=== PATIENT | female | born 1965 | race Caucasian/White ===

== ENCOUNTER → 2016-03-09 | Outpatient (CLI) | payer BC ==
[~2016-03-09] MED LIST: ESCI1TAB6 PO; PRED-301 PO; SULF500T36 PO; SULF800T23 PO
--- NOTE | 2016-03-10 07:31 | MAMMOGRAPHY REPORT ---
BILATERAL DIGITAL SCREENING MAMMOGRAM TOMOSYNTHESIS WITH CAD: 03/09/2016 CLINICAL HISTORY: Routine screening. Patient has no complaints. TECHNIQUE: Breast tomosynthesis in addition to standard 2D mammography was performed. Current study was also evaluated with a Computer Aided Detection (CAD) system. COMPARISON: Comparison is made to exams dated: 07/04/2013 mammogram, 07/04/2013 ultrasound, 03/04/2013 ultrasound, 06/09/2010 mammogram, and 04/14/2009 mammogram - [facility]. BREAST COMPOSITION: The tissue of both breasts is heterogeneously dense, which may obscure small ma sses. FINDINGS: No suspicious masses, calcifications, or areas of architectural distortion are noted in e ither breast. There has been no significant interval change compared to prior exams. There are stab le postsurgical changes including mild architectural distortion seen within the right 12:00 breast f rom prior excisional biopsy. Scattered bilateral benign-appearing calcifications are again noted. IMPRESSION: ACR BI-RADS CATEGORY 2: BENIGN There is no mammographic evidence of malignancy. A 1 year screening mammogram is recommended. The p atient will receive written notification of the results. Approximately 10% of breast cancers are not detected with mammography. A negative mammographic repor t should not delay biopsy if a clinically suggestive mass is present. Madai Murphy M.D. /:03/09/2016 13:34:04 Moving Consultant: Korina Snyder, [facility] letter sent: Normal 1/2 BI-RADS Code: ACR BI-RADS Category 2: Benign
== END | disposition home or self-care (01) ==
LOC: C.MAMM 11:12
PROVIDERS: ATTEND Family Medicine
DX: Z12.31 Encounter for screening mammogram for malignant neoplasm of breast (principal)

== ENCOUNTER 2016-11-18 01:00 | Emergency (ER) | payer BC | END 2016-11-18 01:10 | disposition left against medical advice (07) | LOC: C.EDB 01:01 ==

== ENCOUNTER 2016-11-22 05:30 | Emergency (ER) | payer BC ==
[~2016-11-22] VITALS: Ht 167.6 cm; Wt 64.6 kg
[2016-11-22 05:32] VITALS: Ht 167.6 cm; Wt 64.6 kg
[2016-11-22] MEDS ORDERED: KETOROLAC TROMETHAMINE 30 MG/ML VIAL IV STA (05:38)
[2016-11-22] MEDS ORDERED: ONDANSETRON INJ 2 MG/ML 2 ML VIAL IV STA (05:38)
[2016-11-22 06:02] LABS: BASO % 0.4 %; BASO ABS # 0.03 K/uL (0-0.2); COMPLETE YES; EOS % 4.7 %; HEMATOCRIT 39.6 % (37-47); IG% 0.4 %; LYMPH % 11.7 %; LYMPH ABS # 0.82 K/uL (1.2-3.4); MEAN CELL VOLUME 92.1 fL (80-100); MEAN CORPUSCULAR HEMOGLOBIN 30.7 pg (25-34); MEAN CORPUSCULAR HGB CONC 33.3 g/dl (32-36); MEAN PLATELET VOLUME 8.7 fL (7.4-10.4); MONO % 12.7 %; NEUT % 70.1 %; PLATELET COUNT 414 K/uL (130-400); WHITE BLOOD COUNT 6.99 K/uL (4.8-10.8)
[2016-11-22 06:10] LABS: URINE APPEARANCE CLOUDY (CLEAR); URINE BILIRUBIN NEG (NEG); URINE COLOR ORANGE; URINE EPITHELIAL CELL AUTO >30 /lpf (0-5); URINE NITRITE NEG (NEG); URINE SPECIFIC GRAVITY 1.019 (1.000-1.030); UROBILINOGEN NEG (NEG); ZZUR CULT IF INDIC CLEAN CATCH YES
[2016-11-22 06:14] LABS: MANUAL MICROSCOPIC REQUIRED? NO; REVIEW REQ? YES
[2016-11-22 06:25] LABS: BUN/CREATININE RATIO 10.6 (10-20); CALCIUM 8.7 mg/dl (8.5-10.1); CREATININE 0.92 mg/dl (0.60-1.20); POTASSIUM 3.3 mmol/L (3.5-5.1)
[2016-11-22] MEDS ORDERED: POTASSIUM CHLORIDE 10 MEQ TABCR PO STA (06:27)
[2016-11-22 06:28] LABS: URINE MUCUS PRESENT (NONE PRSENT)
--- NOTE | 2016-11-22 06:42 | EMERGENCY ROOM VISIT NOTE ---
History First contact with patient: 05:36 Chief Complaint: KIDNEY STONE Stated Complaint: KIDNEY STONE History of Present Illness The patient is a 51 year old female who presents to the Emergency Room with complaints of sudden onset of left flank pain that raised her groin describes aching, ranging in severity 3 out of 10. Nothing makes it better or worse. She has a history kidney stones and symptoms were similar. Dr. Hunter is her urologist. Dr. London answered GI for her Crohn's disease. She states this is well controlled. Patient denies chest pain, dyspnea, fever, chills, vomiting, diarrhea, dysuria. No chance for . Review of Systems See HPI for pertinent positives & negatives. A total of 10 systems reviewed and were otherwise negative. Past Medical/Surgical History Medical Problems: (1) Acute kidney injury (2) Crohn disease (3) Hypokalemia (4) Hypomagnesemia (5) Kidney stones (6) Sepsis (7) Ureteral calculus, left (8) Urinary tract infection Social History Smoking Status: Never Smoker Smokeless Tobacco Use: No Drug Use: none Marital Status: Housing Status: lives with family Occupation Status: employed Current/Historical Medications Scheduled Escitalopram Oxalate (Lexapro), 5 MG PO QPM Prednisone (Prednisone), 5 MG PO QPM Sulfa/Trimethoprim (Bactrim Ds 800MG/160MG), 1 TAB PO BID Sulfasalazine (Azulfidine), 1,000 MG PO QPM Physical Exam Vital Signs Date Time Temp Pulse Resp B/P (MAP) Pulse Ox O2 Delivery O2 Flow Rate FiO2 11/22/16 06:27 81 17 130/84 93 Room Air 11/22/16 05:32 36.9 89 18 131/83 98 Room Air Physical Exam VITALS: Vitals are noted on the nurse's note and reviewed by myself. Vital signs stable. GENERAL: Pleasant female, in no acute distress, nondiaphoretic, well-developed well-nourished. SKIN: The skin was without rashes, erythema, edema, or bruising. There is no tenting of the skin. Capillary reflex less than 2 seconds. HEAD: Normocephalic atraumatic. EARS: External auditory canals clear, tympanic membranes pearly [place] without erythema or effusion bilaterally. EYES: Pupils equal round and reactive to light and accommodation. Conjunctivae without injection, sclerae without icterus. Extraocular movements intact. NOSE: Patent, turbinates without inflammation or discharge. MOUTH: Mucous membranes moist. Pharynx without erythema or exudate. Uvula midline. Airway patent. Tongue does not deviate. NECK: Supple without nuchal rigidity. No lymphadenopathy. No thyromegaly. Cervical spine is nontender. No JVD. HEART: Regular rate and rhythm without murmurs gallops or rubs. LUNGS: Clear to auscultation bilaterally without wheezes, rales or rhonchi. No dullness to percussion. No retractions or accessory muscle use. ABDOMEN: Positive bowel sounds x 4. Normal tympanic percussion. Soft, nontender, without masses or organomegaly. Perry sign negative. No guarding or rebound tenderness. No CVA tenderness MUSCULOSKELETAL: No muscle atrophy, erythema, or edema noted. NEURO: Patient was alert and oriented to person place and time. Normal sensation to light and sharp touch. No focal neurological deficits. Medical Decision & Procedures Laboratory Results 11/22/16 05:47 Red Blood Count 4.30, Mean Corpuscular Volume 92.1, Mean Corpuscular Hemoglobin 30.7, Mean Corpuscular Hemoglobin Concent 33.3, Mean Platelet Volume 8.7, Neutrophils (%) (Auto) 70.1, Lymphocytes (%) (Auto) 11.7, Monocytes (%) (Auto) 12.7, Eosinophils (%) (Auto) 4.7, Basophils (%) (Auto) 0.4, Neutrophils # (Auto ) 4.89, Lymphocytes # (Auto) 0.82, Monocytes # (Auto) 0.89, Eosinophils # (Auto ) 0.33, Basophils # (Auto) 0.03 11/22/16 05:47 Test 11/22/16 00:00 11/22/16 05:47 Urine Color ORANGE Urine Appearance CLOUDY (CLEAR) Urine pH 5.0 (4.5-7.5) Urine Specific [place] 1.019 (1.000-1.030) Urine Protein 1+ (NEG) Urine Glucose (UA) NEG (NEG) Urine Ketones NEG (NEG) Urine Occult Blood 3+ (NEG) Urine Nitrite NEG (NEG) Urine Bilirubin NEG (NEG) Urine Urobilinogen NEG (NEG) Urine Leukocyte Esterase SMALL (NEG) Urine WBC (Auto) 10-30 /hpf (0-5) Urine RBC (Auto) >30 /hpf (0-4) Urine Hyaline Casts (Auto) 0 /lpf (0-5) Urine Epithelial Cells (Auto) >30 /lpf (0-5) Urine Bacteria (Auto) NEG (NEG) Urine Renal Epithelial Cells /lpf (0-5) Urine Pathogenic Casts /lpf (0) Urine Mucus PRESENT (NONE PRSENT) White Blood Count 6.99 K/uL (4.8-10.8) Red Blood Count 4.30 M/uL (4.2-5.4) Hemoglobin 13.2 g/dL (12.0-16.0) Hematocrit 39.6 % (37-47) Mean Corpuscular Volume 92.1 fL (80-100) Mean Corpuscular Hemoglobin 30.7 pg (25-34) Mean Corpuscular Hemoglobin Concent 33.3 g/dl (32-36) Platelet Count 414 K/uL (130-400) Mean Platelet Volume 8.7 fL (7.4-10.4) Neutrophils (%) (Auto) 70.1 % Lymphocytes (%) (Auto) 11.7 % Monocytes (%) (Auto) 12.7 % Eosinophils (%) (Auto) 4.7 % Basophils (%) (Auto) 0.4 % Neutrophils # (Auto) 4.89 K/uL (1.4-6.5) Lymphocytes # (Auto) 0.82 K/uL (1.2-3.4) Monocytes # (Auto) 0.89 K/uL (0.11-0.59) Eosinophils # (Auto) 0.33 K/uL (0-0.5) Basophils # (Auto) 0.03 K/uL (0-0.2) RDW Standard Deviation 48.0 fL (36.4-46.3) RDW Coefficient of Variation 14.1 % (11.5-14.5) Immature Granulocyte % (Auto) 0.4 % Immature Granulocyte # (Auto) 0.03 K/uL (0.00-0.02) Anion Gap 7.0 mmol/L (3-11) Est Creatinine Clear Calc Drug Dose 69.2 ml/min Estimated GFR () 84.7 Estimated GFR (Non- 73.1 BUN/Creatinine Ratio 10.6 (10-20) Calcium Level 8.7 mg/dl (8.5-10.1) Medications Administered Medications (Trade) Dose Ordered Sig/Ajm Route Start Time Stop Time Status Last Admin Dose Admin Ketorolac Tromethamine (Toradol Inj) 30 mg NOW STAT IV 11/22/16 05:38 11/22/16 05:39 DC 11/22/16 05:54 30 MG Ondansetron HCl (Zofran Inj) 4 mg NOW STAT IV 11/22/16 05:38 11/22/16 05:39 DC 11/22/16 05:54 4 MG Potassium Chloride (Klor-Con M10) 20 meq NOW STAT PO 11/22/16 06:27 11/22/16 06:28 DC 11/22/16 06:30 20 MEQ ED Course Prior records/ancillary studies reviewed. Triage Nursing notes reviewed. The patient's history was concerning for left flank pain. Differential diagnosis: Etiologies such as renal colic, appendicitis, diverticulitis, mesenteric ischemia, aortic pathology, infections, inflammatory bowel disease, PUD, biliary pathology, UTI, as well as others were entertained. Physical examination findings: As above. ER treatment provided: Toradol, Zofran On reassessment the patient felt better. Diagnostic interpretation by me: The labs revealed hypokalemia and this was replaced orally. Urinalysis revealed hematuria and skin cells concerning for contamination. There was no sign of UTI. Imaging studies: CT of the abdomen and pelvis as above. CT SCAN OF THE ABDOMEN AND PELVIS WITHOUT CONTRAST CLINICAL HISTORY: Left flank pain. Possible calculus COMPARISON STUDY: 12/23/2014 TECHNIQUE: CT scan of the abdomen and pelvis was performed from the lung bases to the proximal femurs. Images are reviewed in the axial, sagittal, and coronal planes. IV contrast was not administered for this examination. A dose lowering technique was utilized adhering to the principles of ALARA. CT DOSE: 484.40 mGy.cm FINDINGS: Lower chest: There are mild left basilar atelectatic changes Liver: The unenhanced liver is normal in size, contour, and attenuation. There is no intrahepatic biliary ductal dilatation. Gallbladder: A calcified stone is visualized. Spleen: Normal in size and attenuation. Pancreas: Unremarkable. Adrenal glands: Unremarkable. Kidneys: Multiple bilateral renal calculi are visualized. The largest on the right measures 3 mm. The largest on the left measures 4 mm. There is a 37 mm left renal hypodensity, likely representing a cyst. There is a 9 mm right renal hypodensity likely representing a cyst. There is moderate left-sided perinephric stranding. There is left-sided hydronephrosis and hydroureter. There is a 5 mm mid left ureteral calculus at the S3 level. There is a 7 mm distal left ureteral calculus just above the ureterovesical junction. Bowel: There are no transition zones indicate bowel obstruction. There is no acute diverticulitis. The appendix appears normal. There is a small bowel feces sign. This may indicate stasis. There is a 2 cm calcification within a distal ileal loop. There is submucosal fat hypertrophy within the colon. Peritoneum: There is no intraperitoneal free air or abdominal ascites. Vasculature: The abdominal aorta is normal in course and caliber. Adenopathy: None. Pelvic viscera: There is an indwelling vaginal ring. Skeletal structures: No destructive osseous lesions are seen. IMPRESSION: 1. Bilateral nephrolithiasis 2. There are 2 obstructing left ureteral calculi. There is a 5 mm mid left ureteral calculus at the S3 level. There is a 7 mm distal left ureteral calculus just above the ureterovesical junction 3. Cholelithiasis 4. Small bowel feces sign. 5. Submucosal fat hypertrophy within the colon 6. Normal appendix Electronically signed by: Cameron Pérez M.D. It appears that the patient has renal colic from a left sided stone. Patient' s pain was under control. She did not have acute abdomen on exam. She is advised to strain her urine until the stone passes and follow up with your urologist in a few days or here in the ER sooner for severe pain, fevers, vomiting, worsening signs or symptoms or as needed. By the evaluation outlined above emergent etiologies such as appendicitis, diverticulitis, mesenteric ischemia, aortic pathology, infections, inflammatory bowel disease, PUD, biliary pathology, UTI, as well as others were deemed relatively unlikely. The pt informed about the findings as listed above. All questions were answered and pleased with the treatment. Return instructions were outlined and the patient was discharged in stable condition. Outpatient prescription management: Oxy IR 5mg 1-2 po Q4 hrs prn Zofran Referral: The pt was referred to [facility] for follow up care regarding their stone. Or The patient was referred back to their primary care physician for follow-up in 2 to 3 days for a recheck of the current condition. Case reviewed with my attending. Medical Decision As above [place] Drug Monitoring Program Search Results: patient reviewed within database, no issues identified Medication Reconcilliation Current Medication List: was personally reviewed by me Blood Pressure Screening Patient's blood pressure: Normal blood pressure Impression Primary Impression: Ureteral calculus, left Departure Information Dispostion Home / Self-Care Condition GOOD Referrals No Doctor, Assigned (PCP) Patient Instructions My [facility] Additional Instructions DO NOT drive, drink alcohol, operate machinery, or perform dangerous activities today. You were given medications in the ER that can affect your ability to safely function or operate a vehicle. Oxycodone Immediate Release (OxyIR) 5mg: Take 1-2 pills every four hours for pain. Avoid alcohol, operating machinery or dangerous equipment, working on ladders or roofs, DRIVING, or situations where being under the influence may be dangerous. It is recommended to use an [id number] stool softener such as Colace, 100mg twice daily while taking this medication to avoid constipation. Zofran 4 mg: Take one every six hours as needed for nausea. Avoid alcohol, operating machinery or dangerous equipment, working on ladders or roofs, DRIVING , or situations where being under the influence may be dangerous. Ibuprofen(Motrin, Advil) may be used for fever or pain. Use 600mg every six hours as needed. Take with food. Avoid using more than 2400mg in a 24 hour period. Do not use 2400mg per day for more than three consecutive days without physician direction. Prolonged inappropriate use can lead to stomach upset or ulcers. This medication can be taken if you need to drive, work, or perform activities which may be dangerous when taking narcotic pain medication. (AND/OR) Acetaminophen(Tylenol) may be used for fever or pain. Use 1000mg every six hours as needed. Avoid using more than 3000mg in a 24 hour period. This medication can be taken if you need to drive, work, or perform activities which may be dangerous when taking narcotic pain medication. Strain your urine and collect all the stones or debris for the urologists. Rest and avoid strenuous activity until your stone passes and symptoms resolve. Drink plenty of fluids. Continue current medications. Return to the ER for worsening abdominal or back pain, vomiting, fevers, passing out, or as needed. Follow up with urology in 2-3 days, call for an appointment.
[2016-11-22] MEDS ORDERED: ONDANSETRON HOME PACK 4MG OD TAB PO ONE (06:45)
[2016-11-22] MEDS ORDERED: OXYC1TAB3 PO (06:45)
[2016-11-22] MEDS ORDERED: OXYCODONE IR HOME PACK PO ONE (06:45)
[2016-11-22 07:15] VITALS: BP 130/84; PULSE 81; TEMP 36.9; O2SAT 96
== END 2016-11-22 07:15 | disposition home or self-care (01) ==
LOC: C.EDB 05:30 → C.EDA 07:15
DX: N20.1 Calculus of ureter (principal); E87.6 Hypokalemia; K50.90 Crohn's disease, unspecified, without complications; Z79.52 Long term (current) use of systemic steroids; Z87.442 Personal history of urinary calculi; Z87.440 Personal history of urinary (tract) infections

== ENCOUNTER → 2016-11-27 | Outpatient (CLI) | payer BC ==
[~2016-11-27] MED LIST changes: +OXYC1TAB3 PO; -SULF800T23 PO; +TAMS0.4C38 PO
--- NOTE | 2016-11-27 16:16 | DIAGNOSTIC IMAGING REPORT ---
CHEST 2 VIEWS ROUTINE CLINICAL HISTORY: N20.0 Calculus of [id number] COUGH. FLULIKE SYMPTOMS. COMPARISON STUDY: 12/15/2014 FINDINGS: The cardiac and mediastinal contours are normal. There is no evidence of focal pulmonary consolidation. There is no evidence of failure. No pleural effusions are visualized.[ There is a stable area of linear atelectasis/scar at the left lung base. IMPRESSION: No active disease in the chest. Electronically signed by: Cameron Pérez M.D. 11/27/2016 4:15 PM Dictated Date/Time: 11/27/2016 4:15 PM
== END | disposition home or self-care (01) ==
LOC: C.CPL 15:45
PROVIDERS: ATTEND Urology
DX: N20.0 Calculus of kidney (principal); R94.31 Abnormal electrocardiogram [ECG] [EKG]

== ENCOUNTER → 2016-12-26 | Outpatient (CLI) | payer BC ==
[~2016-12-26] MED LIST changes: -OXYC1TAB3 PO; -TAMS0.4C38 PO
[2016-12-26 17:23] LABS: URINE APPEARANCE CLOUDY (CLEAR); URINE COLOR DK YELLOW; URINE EPITHELIAL CELL AUTO >30 /lpf (0-5); URINE NITRITE NEG (NEG); URINE SPECIFIC GRAVITY 1.024 (1.000-1.030); UROBILINOGEN NEG (NEG)
[2016-12-26 17:39] LABS: MANUAL MICROSCOPIC REQUIRED? NO; REVIEW REQ? YES; URINE BILIRUBIN NEG (NEG)
[2016-12-26 17:52] LABS: BLOOD UREA NITROGEN 10 mg/dl (7-18); BUN/CREATININE RATIO 11.6 (10-20); CALCIUM 8.5 mg/dl (8.5-10.1); CARBON DIOXIDE 28 mmol/L (21-32); CHLORIDE 105 mmol/L (98-107); CREATININE 0.83 mg/dl (0.60-1.20); GLUCOSE 97 mg/dl (70-99); PHOSPHORUS 2.5 mg/dl (2.5-4.9); POTASSIUM 2.8 mmol/L (3.5-5.1); SODIUM 142 mmol/L (136-145); URIC ACID 4.2 mg/dl (2.6-7.2)
[2016-12-26 17:54] LABS: URINE MUCUS PRESENT (NONE PRSENT)
== END | disposition home or self-care (01) ==
LOC: C.LABPBG 15:28
PROVIDERS: ATTEND Internal Medicine Nephrology
DX: N20.0 Calculus of kidney (principal); E55.9 Vitamin D deficiency, unspecified; Z86.39 Personal history of other endocrine, nutritional and metabolic disease

== ENCOUNTER → 2016-12-27 | Outpatient (CLI) | payer BC ==
--- NOTE | 2016-12-27 10:33 | DIAGNOSTIC IMAGING REPORT ---
KUB HISTORY: N20.1 Calculus of [id number] COMPARISON: KUB 12/07/2016. FINDINGS: The bowel gas pattern is unremarkable. There are no dilated loops of small bowel to suggest an obstruction. There is a new 7 mm calcification within the right deep pelvis. A hexagonal shaped calcification within the left side of the pelvis which measures 2.3 cm. This is new compared the prior study and could be due to overlapping artifact or a dense stool ball. Multiple bilateral renal calculi are not significantly changed. Dominant stone measures 4 mm within the left kidney. No left ureteral calculi identified. No pneumoperitoneum or pneumatosis. IMPRESSION: 1. Stable bilateral nephrolithiasis. 2. A new 7 mm linear calcification within the right deep pelvis. This could represent a distal right ureteral stone or bladder stone. Electronically signed by: Az Cuellar M.D. 12/27/2016 10:31 AM Dictated Date/Time: 12/27/2016 10:13 AM
== END | disposition home or self-care (01) ==
LOC: C.RAD 09:34
PROVIDERS: ATTEND Urology
DX: N20.0 Calculus of kidney (principal); N20.1 Calculus of ureter

== ENCOUNTER → 2017-06-15 | Outpatient (CLI) | payer OTHER ==
[2017-06-15 17:08] LABS: POTASSIUM RANDOM URINE 34.7 mEq/L
[2017-06-15 17:14] LABS: ALBUMIN 3.2 gm/dl (3.4-5.0); BLOOD UREA NITROGEN 9 mg/dl (7-18); CALCIUM 8.2 mg/dl (8.5-10.1); CARBON DIOXIDE 28 mmol/L (21-32); CREATININE 0.93 mg/dl (0.60-1.20); GLUCOSE 123 mg/dl (70-99); PHOSPHORUS 2.7 mg/dl (2.5-4.9); POTASSIUM 2.7 mmol/L (3.5-5.1); SODIUM 141 mmol/L (136-145)
== END | disposition home or self-care (01) ==
LOC: C.LABPBG 15:46
PROVIDERS: ATTEND Internal Medicine Nephrology
DX: E87.6 Hypokalemia (principal)

== ENCOUNTER 2022-05-24 19:52 | Inpatient (IN) ==
--- NOTE | 2022-05-24 22:01 | History & Physical Report ---
Date of Service May 24, 2022 Assessment & Plan (1) SBO (small bowel obstruction): Plan: 56yo female with history of well controlled Crohns disease presenting with 1 day of abdominal pain, bloating, nausea and vomiting. She was seen at an outside hospital and found to have an SBO with no perforation. Patient was transferred to [facility] for further evaluation due to lack of surgical services at outside facility. She is HD stable, non-toxic in appearance. Upper abdomen is mildly tender with no rebound/guarding or peritonitis. Labs ordered Unfortunately, imaging disc was not sent by [facility]. Report noted. Patient will ask her to obtain the disc tomorrow from [facility] and bring it here. Will order KUB for AM No abdominal distention, pain or nausea at this time, no high grade obstruction. Will hold off NGT placement for now. -Admit to medical with telemetry -Keep NPO -LR at 100mL/hr x 2 liters -Electrolyte repletion as needed -Zofran PRN -Morphine PRN -GI consultation appreciated. -General Surgery consultation appreciated Should patient clinically decompensate and require surgical intervention she will most likely require transfer to tertiary care center with colorectal surgery (2) Crohn's disease: Plan: Chronic. Well controlled. Patient takes 5mg Prednisone daily. She follows with GI -Continue Prednisone 5mg po daily -Appreciate GI consultation Will hold off on additional steroid therapy at this time pending GI recommendations F/E/N - LR at 100mL/hr x 2 liters, BMP pending - will followup, NPO for now Ppx - Low risk for DVT Code - Full per discussion with patient Dispo - Admit to Med/Tele Admission and Anticipated Discharge Date Admission Date: May 24, 2022 History of Present Illness Chief Complaint: abdominal pain Primary Care Provider: Carly Vang DO Mercedes Oconnor is a pleasant 56yo female with history of well controlled Crohn's disease (On Prednisone 5mg po daily - patient follows routinely with [facility]) presenting with abdominal pain x 1 day. Patient woke this AM 05/24/22 with upper abdominal pain which has progressed throughout the day. Pain is 9-10/10 in severity, constant and non-radiating. Also with nausea and multiple episodes of non-bloody/non-bilious vomiting, abdominal distention and some non-bloody/non-mucoid diarrhea. She was seen at [facility] in [place]. Was found to have an elevated WBC count of 17 and Lactate of 3. She had a CT of the abdomen that was suggestive of SBO with transition point present in LLQ. Patient was administered Toradol, morphine, Zofran and 1L NSS at [place]. She was transferred here because no surgical services were available at [facility]. She is presently resting comfortably in bed, oriented and pleasant. No abdomi nal pain or nausea. Allergies Allergy/AdvReac Type Severity Reaction Status Date / Time Penicillins Allergy Intermediate HIVES Verified 01/23/22 09:04 Home Medications Medication Instructions Recorded Confirmed Type prednisone 5 mg tablet 5 mg PO DAILY 10/09/18 05/24/22 History escitalopram oxalate 10 mg tablet 10 mg PO DAILY #90 tabs 01/17/22 05/24/22 Rx ascorbate calcium (vitamin C) 500 500 mg PO DAILY 01/23/22 01/23/22 History mg tablet cholecalciferol (vitamin D3) 10 10 mcg PO DAILY 01/23/22 01/23/22 History mcg (400 unit) capsule potassium chloride 20 mEq 20 meq PO DAILY #30 tabs 01/26/22 Rx tablet,extended release(part/cryst) Azulfidine 1,000 mg PO DAILY 05/24/22 05/24/22 History Past Med/Surg History Medical History Acid reflux Crohn's disease Tubular adenoma of colon Vitamin D deficiency Surgical History H/O breast biopsy Hx of oral surgery S/P endometrial ablation Family History Grandmother Colorectal cancer Uncle Colorectal cancer Mother Myocardial infarction, Onset Age: 66 Father Hypertension Diabetes Denies family history of Ovarian cancer Prostate cancer Breast cancer Social History Smoking Status: Never smoker Second Hand Exposure: Yes; Hx Alcohol Use: No Hx Substance Use: No Preferred Language: Tunisian Communication Ability: Effective Visual Impairment: No Limitations Hearing Ability: Normal Beliefs That Will Affect Care: None marital status: Current Living Situation: Family current occupational status: 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 Feels Safe at Home: Yes Childhood Exposure to Second-Hand Smoke: Yes Diet Comment: Regular caffeine: Yes during the past year weight has: remained stable Dental Care, Regularly: Yes Physical Activity Frequency: 3-4 Times per Week Seatbelt Use: always Sunscreen Use: Yes Review of Systems Review of Systems: All systems reviewed & are unremarkable except as noted in HPI & below Physical Exam Physical Exam: General: patient resting comfortably, NAD, non-toxic in appearance, AA&O x 4 Skin: warm, dry, intact, no rashes or lesions HEENT: NC/AT, PERRL, EOMI, anicteric sclera, conjunctiva without injection, external ear normal to inspection and nontender, nares patent, moist mucus membranes, dentition intact, no oropharyngeal lesions, neck supple, trachea midline, no LAD, no thyromegaly, no JVD Heart: +S1/S2, regular, no m/r/g Lungs: equal air entry bilaterally, no rales/rhonchi/wheezes Abd: +BS, soft, non-distended, tender in the upper abdomen and LUQ with no rebound/guarding or peritonitis. Ext: warm, 2+ pulses in UE/LE bilaterally, no clubbing/cyanosis or edema Neuro: nonfocal, patient AA&O x 4, speech intact, no facial droop, moving all extremities on command with equal strength 5/5 Results & Data Results & Data Laboratory Results Ordered and Pending Diagnostic Findings CT Abdomen from outside hospital: A small bowl obstruction from the mid/distal jejunum to the proximal ileum. THere is a transition point in the LLQ. Mild surrounding inflammatory changes a small amount of free fluid in the pelvis but no free intraperitoneal air or abscesses. No evidence of a closed loop obstruction. Chronic inflammatory changes of the colon, nonspecific. ECG Additional Comments: Ordered and pending PG Care Time/CCT Total # of Minutes Spent Total Time Spent with Patient: Total time spent is greater than 50% in coordination of care (as documented) at patient's floor/unit and/or counseling patient: Coding Level of Care Code 90347 INT INP/OBS CARE 2/MIN Diagnoses SBO (small bowel obstruction) K56.609 Crohn's disease K50.90
[2022-05-24] MEDS ORDERED: MoRPHine SULFATE 4 MG/ML 1 ML CARP\\VIAL IV PRN (22:04)
[2022-05-24] MEDS ORDERED: MoRPHine SULFATE 2 MG/ML CARP IV PRN (22:04)
[2022-05-24] MEDS ORDERED: ONDANSETRON INJ 2 MG/ML 2 ML VIAL IV PRN (22:04)
[2022-05-24] MEDS: LACTATED RINGER'S 1,000 ML IV SCH (22:55)
--- NOTE | 2022-05-24 23:02 | Surgery Consultation ---
Date of Consultation May 24, 2022 Assessment & Plan (1) SBO (small bowel obstruction): As noted, the patient has been accepted as a direct admission on the hospitalist service. We recommend proceeding as follows: Provide analgesics provide antiemetics Implement n.p.o. status Provide IV fluid for hydration (I discussed with the hospital service and they have obtain repeat labs as the patient was noted to have hypokalemia on her labs at [place]. They will supplement potassium accordingly and patient's intravenous fluid) This is the CT scan report from [place] notes the patient had surrounding inflammatory changes of her small bowel raising the concern for possible Crohn's flare causing small bowel obstruction. As noted the patient only takes 5 mg of prednisone daily. I spoke with the admitting service and they are requesting a gastroenterology consultation. We will defer to their discretion the utilization of intravenous steroids. At the present time the patient has a nondistended and benign abdomen. She also has not had any emesis since earlier this afternoon. I therefore feel we can hold on placing an NG tube. I did discuss with the patient if she has any worsening of her abdominal exam or further nausea and vomiting an NG tube may be required. She expressed her understanding. I did discuss with the patient that I will be preferable if we could view the the actual CT scan images from [facility]. As they were not sent with her upon transfer the patient has noted that her will go to [facility] tomorrow and bring the CD containing these images to [facility]. We will await their arrival. I did discuss with the patient that we would prefer to treat this condition in a conservative manner as outlined above and avoid any operation in the setting of a possible Crohn's flare. Additional recommendations be forthcoming based on her clinical course as unfolds as well as recommendations from gastroenterology Supervising Physician Co-Signing Physician Notes Patient discussed with Samuel KENDALL overnight, films were not available for my review at that time. 56-year-old female with Crohn's disease maintained on low- dose prednisone. Presented to [place] emergency department noted to have small bowel obstruction. She was stable and was transferred for nonoperative management. See today's progress note for further details History of Present Illness Reason for Consultation: Small bowel obstruction Attending Physician: Lyndsay Hough DO History of Present Illness This is a 56-year-old female who was excepted to [facility] as a direct admission on the hospitalist service. The patient has a history of Crohn's disease that was diagnosed at age 22. The patient for notes regarding her Crohn's disease she follows locally with Dr. Mcallister of [facility] gastroenterology. She says that she takes 5 mg of prednisone daily but does not take any additional medications for her Crohn's disease. She notes that she has yearly colonoscopies with her most recent one being in June 2021. At this time she says she had benign polyps removed. She has had upper endoscopies in the past and says it has been "many years since she has had 1 of these." The jessica ent also reports that has been in excess of 10 years since she has had a Crohn's flare. The patient presented to [facility] secondary to abdominal pain. She notes that the pain began last night as a minor pain in her upper abdomen. She says that throughout today the pain got progressively worse and is again is confined to her upper abdomen without radiation. She does not identify any palliative or provocative factors other than the pain was alleviated with medicines administered at [facility]. She has had some nausea and vomiting but denies any hematemesis. Her most recent emesis was at approximately 2:30 PM today. She says that she did have a bowel movement at approximate 11:00 AM today and it was loose. She denies any hematochezia or melena. The patient notes regarding her Crohn's disease she has never had a small bowel obstruction in the past. She says she has never had any type of abdominal surgery in the past. She also reports that at the present time (approximately 10:30 PM) she was having minimal abdominal pain and notes that she has not received any pain medication since 4:30 PM. At [facility] the patient had labs and imaging. Laboratories showed the patient had a CBC were white blood cell count was 17,000. Her hemoglobin, hematocrit, and platelet count were normal. Chemistry profile showed sodium and BUN were normal. Her creatinine was 1.1 and her potassium was 2.9. There is no elevation of patient's bilirubin, transaminases, alkaline phosphatase, or lipase. She did undergo a CT scan of the abdomen pelvis that showed patient had concern for small bowel obstruction that began at the mid to distal jejunum potentially involving the proximal ileum. There is surrounding inflammatory changes. The interpreting radiologist noted a transition point in the left lower quadrant. There is no free air, abscess, or closed-loop obstruction. (It is noteworthy to mention that I did not view the actual CT scan images as they were not sent with the patient upon transfer.) At the time of my interview with the patient she was resting comfortably in bed and was in no distress. Allergies Allergy/AdvReac Type Severity Reaction Status Date / Time Penicillins Allergy Intermediate HIVES Verified 01/23/22 09:04 Home Medications Medication Instructions Recorded Confirmed Type prednisone 5 mg tablet 5 mg PO DAILY 10/09/18 05/24/22 History escitalopram oxalate 10 mg tablet 10 mg PO DAILY #90 tabs 01/17/22 05/24/22 Rx ascorbate calcium (vitamin C) 500 500 mg PO DAILY 01/23/22 01/23/22 History mg tablet cholecalciferol (vitamin D3) 10 10 mcg PO DAILY 01/23/22 01/23/22 History mcg (400 unit) capsule potassium chloride 20 mEq 20 meq PO DAILY #30 tabs 01/26/22 Rx tablet,extended release(part/cryst) Azulfidine 1,000 mg PO DAILY 05/24/22 05/24/22 History Patient History Medical History Acid reflux Crohn's disease Tubular adenoma of colon Vitamin D deficiency Surgical History H/O breast biopsy Hx of oral surgery S/P endometrial ablation Family History Grandmother Colorectal cancer Uncle Colorectal cancer Mother Myocardial infarction, Onset Age: 66 Father Hypertension Diabetes Denies family history of Ovarian cancer Prostate cancer Breast cancer Social History Smoking Status: Never smoker Second Hand Exposure: Yes; Hx Alcohol Use: No Hx Substance Use: No Preferred Language: Tajik Communication Ability: Effective Visual Impairment: No Limitations Hearing Ability: Normal Commercial Real Estate Appraiser Required: No Beliefs That Will Affect Care: None marital status: Current Living Situation: Spouse and Family current occupational status: 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 Other Information That Helps Us Care for You: No Feels Safe at Home: Yes Safety Concerns: Feels Safe At This Time Childhood Exposure to Second-Hand Smoke: Yes Diet Comment: Regular caffeine: Yes during the past year weight has: remained stable Dental Care, Regularly: Yes Physical Activity Frequency: 3-4 Times per Week Seatbelt Use: always Sunscreen Use: Yes Assistive Devices: None Review of Systems Constitutional: no fever and no chills Ear, Nose, Mouth, Throat: no hearing loss Respiratory: no cough and no dyspnea Cardiovascular: no chest pain Gastrointestinal: as per Subjective / HPI Genitourinary: no dysuria Musculoskeletal: no back pain Integumentary: no rash Neurologic: no localized weakness Physical Exam Constitutional: WD/WN, vitals as above Eyes: no conjunctival abnormality ENMT: Ears: no hearing impairment and no external ear abnormality Mouth: no oropharynx abnormality Neck: trachea midline Respiratory: normal respiratory effort, lungs clear to auscultation Cardiovascular: Rate/Rhythm: regular rate and regular rhythm Vessels: dorsalis pedis pulses present and radial pulses present Gastrointestinal (Abdomen): Abdomen is soft and nondistended. It is nonrigid. Bowel sounds are present and normal. Patient only had slight tenderness with palpation just superior to the umbilicus. There is no rebound tenderness or guarding. Musculoskeletal: No calf tenderness Skin: no rashes Neurologic: moves all extremities Psychiatric: A+Ox3, euthymic affect Results & Data Vital Signs (Past 12 Hours) Vital Signs Temp Resp BP Pulse Ox O2 Del Method 05/24/22 21:57 37.2 C 18 126/75 97 Room Air PG Care Time/CCT Total # of Minutes Spent Total Time Spent with Patient: Total time spent is greater than 50% in coordination of care (as documented) at patient's floor/unit and/or counseling patient: Coding Level of Care Code 13965 IN/OBS CONSULT LVL 5,80M Diagnoses SBO (small bowel obstruction) K56.609
[2022-05-24 23:03] LABS: Basophils # (auto) 0.02 K/uL (0-0.2); Basophils % (auto) 0.2 %; Eosinophils # (auto) 0.11 K/uL (0-0.50); Eosinophils % (auto) 1.1 %; Hematocrit (blood only) 31.5 % (37.0-47.0); Hemoglobin 10.3 g/dl (12.0-16.0); Immature Granulocytes # (auto) 0.06 K/uL (0.01-0.20); Immature Granulocytes % (auto) 0.6 %; Lymphocytes # (auto) 0.57 K/uL (1.2-3.4); Lymphocytes % (auto) 5.9 %; Mean Corpuscular Hemoglobin 27.7 pg (25.0-34.0); Mean Corpuscular Hgb Conc 32.7 g/dL (32.0-36.0); Mean Corpuscular Volume 84.7 fL (80.0-100.0); Monocytes # (auto) 1.15 K/uL (0.11-0.59); Neutrophils # (auto) 7.68 K/uL (1.40-6.50); Neutrophils % (auto) 80.2 %; Platelet Count 404 K/uL (130-400); RDW Coefficient of Variation 16.2 % (11.5-14.5); RDW Standard Deviation 49.8 fL (36.4-46.3); Red Blood Count 3.72 M/uL (4.20-5.40); White Blood Count 9.59 K/ul (4.8-10.8)
[2022-05-24 23:18] LABS: Albumin Level 2.8 gm/dl (3.4-5.0); Anion Gap 4 (3-11); Bilirubin,Total 0.5 mg/dl (0.2-1.0); Calcium 7.4 mg/dl (8.6-10.3); Carbon Dioxide 24 mmol/L (21-32); Chloride 108 mmol/L (98-107); Magnesium 1.3 mg/dl (1.7-2.4); Potassium 3.9 mmol/L (3.5-5.1); Sodium 136 mmol/L (136-145)
[2022-05-24 23:24] LABS: Alanine Aminotransferase 5 U/L (7-52); Alkaline Phosphatase 57 U/L (34-104); Aspartate Aminotransferase 8 U/L (13-39); BUN Creatinine Ratio 11.4 (10-20); Blood Urea Nitrogen 12 mg/dl (6-23); Est GFR (African American) 69.7 ml/min; Est GFR (Non-African American) 60.2 ml/min; Glucose 94 mg/dl (70-99(Fasting)); Lipase 26 U/L (11-82)
[2022-05-25] MEDS: MAGNESIUM SULFATE / D5W 1 GM/100 ML BAG IV SCH ×3 (00:18→04:20)
[2022-05-25] MEDS: ACETAMINOPHEN 325 MG TAB PO PRN ×2 (03:22→08:57)
--- NOTE | 2022-05-25 07:10 | XRay Report ---
KUB CLINICAL HISTORY: Small bowel obstruction. FINDINGS: 2 AP supine abdominal radiographs are compared to study dated 12/27/2016 and correlated wit h abdominal CT dated 11/22/2016. Excreted IV contrast fills the renal collecting systems and bladder. There are distended and gas-filled loops of small bowel which measure up to 4.5 cm diameter. This is consistent with the reported history of a small bowel obstruction. No evidence of intraperitoneal fr ee air is seen on these supine images. A calcified gallstone is suggested in the right upper quadrant . The bony structures appear intact. IMPRESSION: 1. Small bowel obstruction. 2. Cholelithiasis is suggested in the right upper quadrant. Electronically signed by: Yg Wilson M.D. 05/25/2022 7:08 AM
[2022-05-25] MEDS ORDERED: ACETAMINOPHEN 1,000 MG/100 ML VIAL IV PRN (07:54)
--- NOTE | 2022-05-25 08:01 | Hospitalist Progress Note ---
Date of Service May 25, 2022 Assessment & Plan (1) SBO (small bowel obstruction): Plan: 56yo female with history of well controlled Crohns disease presenting with 1 day of abdominal pain, bloating, nausea and vomiting. She was seen at an outside hospital and found to have an SBO with no perforation. Patient was transferred to [facility] for further evaluation due to lack of surgical services at outside facility. Unfortunately, imaging disc was not sent by [facility]. to bring in from [facility] reports [facility] sent imaging this morning -- call to radiology to confirm CT reported at OSH w/ "concerns for small bowel obstruction that began at the mid to distal jejunum potentially involving the proximal ileum. There is surrounding inflammatory changes. The interpreting radiologist noted a transition point in the left lower quadrant. There is no free air, abscess, or closed-loop obstruction" KUB on admission w/ SBO, cholelithiasis (no elevated TB/ALP to note) FIRST EVER SMALL BOWEL OBSTRUCTION REPORTED FOR PATIENT w/ hx chrons only on prednisone 5mg daily for tx General surgery, GI consulted IVF replacement -- LR @ 100cc/hr ordered No NGT at present -- no n/v presently and can hold off NPO for now Repeat KUB ordered for today to monitor Electrolyte replacement as needed Pain control/antiemetics Temp 38.1C this morning. Procal checked, 0.16. CRP/ESR checked -- CRP elevated to 10.7, ESR 16 Blood cultures ordered Discussed w/ GI given temp/concerns for possible need for abx coverage --> decision to start Cipro/Flagyl. Monitor cultures Converted her PO steroids to 20mg IV Q8H for now Ambulation encouraged Possible addition of chemoproph for DVT depending length inpatient stay Should patient clinically decompensate and require surgical intervention she will most likely require transfer to tertiary care center with colorectal surgery (2) Crohn's disease: Plan: Chronic. Usually well controlled on prednisone 5mg daily and states has been many years since issue Follows [facility], consulted Steroids converted to IV as above Cipro/Flagyl given temp, monitor cultures (3) Hypomagnesemia: Plan: low on admit, IV ordered and acceptable on repeat (4) Hypokalemia: Plan: improved on repeat w/ IVF monitor BMP (5) B12 deficiency: Plan: prior low <55 in january w/ hx lows per patient, has been getting monthly injections -- can continue outpt (6) Iron deficiency anemia: Plan: prior hx, unable to tolerate PO iron reported in past Iron panel checked -- iron 24, trans % sat 9 Monitor for any further fevers/hold of on IV venofer for now but if negative can consider Also would consider having PCP set up outpt transfusions given her inability to tolerate PO as outpatient CBC stable at present, denied any blood in stool but can monitor if able to collect. Plan continued inpatient stay obtaining blood cultures, placed on IV steroids, abx given fevers GI/general surgery consulted Admission and Anticipated Discharge Date Admission Date: May 24, 2022 Supervising Physician Co-Signing Physician Notes The patient was not seen by me. The chart was reviewed. Surgery entry noted. Case discussed with ENOCH Charles. Agree with assessment and plan Subjective eval around 11am, at bedside. States [facility] said they sent imaging this morning after 8am. will confirm, if not able to see may need to repeat. Does NOT feel like prior crohns flare , and has been many years since she's had issues she reports. Denied any fever/chills at home. Not passing gas/no BM at present. not having any abdominal pain or nausea at present. had n/v prior to admission. Prior stools without blood. Discussed IV steroids -- she is on 5mg daily. Not on sulfasalazine. NEVER had bowel obstruction in the past, first episode. prior b12 level low w/ PCP -- she notes she has been getting monthly injections. Also discussed iron deficiency -- unable to tolerate PO due to GI upset. Will monitor blood cultures but likely benefit from IV venofer replacement, which she notes she has had in the past. Slight headache, but reports she is a caffeine drinker. Tylenol available prn. recently broke her 4th toe on her left foot -- eron taped at present. no drainage Discussed w/ GI and given fever this morning, will start Cipro/Flagyl. Physical Exam Physical Exam: General: WD/WN female resting in bed, NAD, at bedside, +fatigued appearing HEENT: head normocephalic, atraumatic, mm slightly dry, trachea midline Resp: CTA, no w/c, on room air CV: RRR, no significant m/r/g, no pitting edema GI +BS LLQ, hypoactive/absent elsewhere, abdomen soft/nontender to palpation, no guarding/rigidity MSK/Neuro: no focal decifit, no slurred speech/facial droop eron tape to left foot 3rd/4th digits Psych: AOx3, cooperative with exam Results & Data Results & Data Vital Signs (Past 12 Hours) Vital Signs Temp Pulse Pulse Resp BP BP Pulse Ox 05/25/22 07:53 36.7 C 83 20 108/66 93 05/24/22 23:08 98 H 05/25/22 03:08 38.1 C H 99 H 18 105/66 94 05/24/22 21:57 37.2 C 88 18 126/75 97 05/24/22 21:57 37.2 C 18 126/75 97 O2 Del Method 05/25/22 07:53 Room Air 05/24/22 23:08 05/25/22 03:08 Room Air 05/24/22 21:57 Room Air 05/24/22 21:57 Room Air Laboratory Results 05/25/22 05/24/22 05/24/22 Range/Units 07:27 22:47 22:47 WBC (4.8-10.8) K/ul RBC (4.20-5.40) M/uL Hgb (12.0-16.0) g/dl Hct (37.0-47.0) % MCV (80.0-100.0) fL MCH (25.0-34.0) pg MCHC (32.0-36.0) g/dL RDW Std Deviation (36.4-46.3) fL RDW Coeff of Susanna (11.5-14.5) % Plt Count (130-400) K/uL MPV (9.4-12.4) fL Immature Gran % (Auto) % Neut % (Auto) % Lymph % (Auto) % Sharp % (Auto) % Eos % (Auto) % Baso % (Auto) % Neut # (Auto) (1.40-6.50) K/uL Lymph # (Auto) (1.2-3.4) K/uL Sharp # (Auto) (0.11-0.59) K/uL Eos # (Auto) (0-0.50) K/uL Baso # (Auto) (0-0.2) K/uL Immature Gran # (Auto) (0.01-0.20) K/uL Sodium 136 (136-145) mmol/L Potassium 3.9 (3.5-5.1) mmol/L Chloride 108 H (98-107) mmol/L Carbon Dioxide 24 (21-32) mmol/L Anion Gap 4 (3-11) BUN 12 (6-23) mg/dl Creatinine 1.05 (0.6-1.2) mg/dl Est Cr Clr Drug Dosing Not Reportable Est GFR ( Amer) 69.7 ml/min Est GFR (Non-Af Amer) 60.2 ml/min BUN/Creatinine Ratio 11.4 (10-20) Glucose 94 (70-99(Fasting)) mg/dl Lactate 1.0 (0.4-2.0) mmol/L Calcium 7.4 L (8.6-10.3) mg/dl Phosphorus 3.0 (2.5-4.9) mg/dl Magnesium Pending 1.3 L (1.7-2.4) mg/dl Total Bilirubin 0.5 (0.2-1.0) mg/dl Direct Bilirubin 0.0 (0-0.2) mg/dl AST 8 L (13-39) U/L ALT 5 L (7-52) U/L Alkaline Phosphatase 57 (34-104) U/L Total Protein 5.0 L (6.0-8.3) gm/dl Albumin 2.8 L (3.4-5.0) gm/dl Lipase 26 (11-82) U/L 05/24/22 Range/Units 22:47 WBC 9.59 (4.8-10.8) K/ul RBC 3.72 L (4.20-5.40) M/uL Hgb 10.3 L (12.0-16.0) g/dl Hct 31.5 L (37.0-47.0) % MCV 84.7 (80.0-100.0) fL MCH 27.7 (25.0-34.0) pg MCHC 32.7 (32.0-36.0) g/dL RDW Std Deviation 49.8 H (36.4-46.3) fL RDW Coeff of Susanna 16.2 H (11.5-14.5) % Plt Count 404 H (130-400) K/uL MPV 9.0 L (9.4-12.4) fL Immature Gran % (Auto) 0.6 % Neut % (Auto) 80.2 % Lymph % (Auto) 5.9 % Sharp % (Auto) 12.0 % Eos % (Auto) 1.1 % Baso % (Auto) 0.2 % Neut # (Auto) 7.68 H (1.40-6.50) K/uL Lymph # (Auto) 0.57 L (1.2-3.4) K/uL Sharp # (Auto) 1.15 H (0.11-0.59) K/uL Eos # (Auto) 0.11 (0-0.50) K/uL Baso # (Auto) 0.02 (0-0.2) K/uL Immature Gran # (Auto) 0.06 (0.01-0.20) K/uL Sodium (136-145) mmol/L Potassium (3.5-5.1) mmol/L Chloride (98-107) mmol/L Carbon Dioxide (21-32) mmol/L Anion Gap (3-11) BUN (6-23) mg/dl Creatinine (0.6-1.2) mg/dl Est Cr Clr Drug Dosing Est GFR ( Amer) ml/min Est GFR (Non-Af Amer) ml/min BUN/Creatinine Ratio (10-20) Glucose (70-99(Fasting)) mg/dl Lactate (0.4-2.0) mmol/L Calcium (8.6-10.3) mg/dl Phosphorus (2.5-4.9) mg/dl Magnesium (1.7-2.4) mg/dl Total Bilirubin (0.2-1.0) mg/dl Direct Bilirubin (0-0.2) mg/dl AST (13-39) U/L ALT (7-52) U/L Alkaline Phosphatase (34-104) U/L Total Protein (6.0-8.3) gm/dl Albumin (3.4-5.0) gm/dl Lipase (11-82) U/L Diagnostic Findings KUB X-Ray 05/24/22 22:04 KUB CLINICAL HISTORY: Small bowel obstruction. FINDINGS: 2 AP supine abdominal radiographs are compared to study dated 12/27/2016 and correlated with abdominal CT dated 11/22/2016. Excreted IV contrast fills the renal collecting systems and bladder. There are distended and gas-filled loops of small bowel which measure up to 4.5 cm diameter. This is consistent with the reported history of a small bowel obstruction. No evidence of intraperitoneal free air is seen on these supine images. A calcified gallstone is suggested in the right upper quadrant. The bony structures appear intact. IMPRESSION: 1. Small bowel obstruction. 2. Cholelithiasis is suggested in the right upper quadrant. Electronically signed by: Yg Wilson M.D. 05/25/2022 7:08 AM PG Care Time/CCT Total # of Minutes Spent Total Time Spent with Patient: Total time spent is greater than 50% in coordination of care (as documented) at patient's floor/unit and/or counseling patient: Coding Level of Care Code 93199 SUB INP/OBS CARE 3/50MIN Diagnoses SBO (small bowel obstruction) K56.609 Crohn's disease K50.90 Hypomagnesemia E83.42 Hypokalemia E87.6 B12 deficiency E53.8 Iron deficiency anemia D50.9
--- NOTE | 2022-05-25 08:52 | Gastrointestinal Consultation ---
Date of Consultation May 25, 2022 Assessment & Plan (1) SBO (small bowel obstruction): 56 year old female with crohn's on daily PO prednisone presenting with abd pain, nausea/vomiting and constipation. Imaging at OSH showing SBO, KUB 05/25/22 with persistent findings suggestive of SBO. She was febrile overnight. NPO Check CRP/ESR Agree with general surgery consultation If surgical intervention required, could consider colorectal evaluation Antiemetics PRN Analgesia PRN but cautious use of narcotics OOB to chair or ambulation as tolerated IVF maintenance Can convert to IV steroids, 20 mg q8h Can keep OP colonoscopy as planned Is agreeable to discussing therapy escalation with her routine provider after colonoscopy Thank you for allowing us to participate in the care of this patient. Please call with any acute changes, questions or concerns. Please see addendum below with additional recommendation from my supervising physician. Supervising Physician Co-Signing Physician Notes Attending attestation I have seen, examined this patient, and agree with the findings and above by our mid-level provider MONAE Su, with the following additions: - patient with partial SBO. - Reviewed outside CT scans and it looks quite significant with entero-enteric fistulas, inflammation. - IV steroids, slow liquids - ok with Cipro/flagyll - Will need biologic eval, colonoscopy, and outpatient colorectal surgery evalaluation, inpt if does not tolerate PO and or obstructive symptoms return History of Present Illness Reason for Consultation: SBO Requesting Physician: Real Attending Physician: Ariel Noble MD History of Present Illness 56 year old female with history of Crohn's (ileitis, TI ulcers, ileal polyposis, colonic adenoma) maintained on Prednisone 5 mg once daily (has refused therapy escalation) who presents from OSH with imaging concerning for SBO - GI was asked to evaluate. Pt was seen and chart was reviewed. She notes that from an IBD standpoint has been doing well. Is typically pain free, moves semi-formed stools 1-2 times daily and denies any black or bloody stools. Notes that about 2/3 days ago developed abd pain, severe, generalized with nausea/vomiting. She also noted change in bowel habits, producing less stool than typical. She has had intermittent chills as well. There was a temp of 38.1 reported overnight. CBC: WBC normal, H&H 12/05, PLT 404, BUN 12, [employer]ITCHER 1, Tbili 0.5, AST 8, ALT 5, ALKP 57, ESR/CRP pending CTAP 2022: OSH, will attempt to get images pushed to [facility] but per gen surg H&P " surrounding inflammatory changes of her small bowel raising the concern for possible Crohn's flare causing small bowel obstruction" KUB 2022: Small bowel obstruction. Cholelithiasis is suggested in the right upper quadrant. Colonoscopy 2020: Preparation of the colon was poor. - The examined portion of the ileum was normal. Biopsied. - Erythematous mucosa in the entire examined colon. Biopsied. - Two 4 to 7 mm polyps in the transverse colon, removed with a cold snare. Resected and retrieved. - Stool in the entire examined colon. - The distal rectum and anal verge are normal on retroflexion view. Allergies Allergy/AdvReac Type Severity Reaction Status Date / Time Penicillins Allergy Intermediate HIVES Verified 01/23/22 09:04 Home Medications Medication Instructions Recorded Confirmed Type prednisone 5 mg tablet 5 mg PO DAILY 10/09/18 05/24/22 History escitalopram oxalate 10 mg tablet 10 mg PO DAILY #90 tabs 01/17/22 05/24/22 Rx ascorbate calcium (vitamin C) 500 500 mg PO DAILY 01/23/22 01/23/22 History mg tablet cholecalciferol (vitamin D3) 10 10 mcg PO DAILY 01/23/22 01/23/22 History mcg (400 unit) capsule potassium chloride 20 mEq 20 meq PO DAILY #30 tabs 01/26/22 Rx tablet,extended release(part/cryst) Azulfidine 1,000 mg PO DAILY 05/24/22 05/24/22 History Patient History Medical History Acid reflux Crohn's disease Tubular adenoma of colon Vitamin D deficiency Surgical History H/O breast biopsy Hx of oral surgery S/P endometrial ablation Family History Grandmother Colorectal cancer Uncle Colorectal cancer Mother Myocardial infarction, Onset Age: 66 Father Hypertension Diabetes Denies family history of Ovarian cancer Prostate cancer Breast cancer Social History Smoking Status: Never smoker Second Hand Exposure: Yes; Hx Alcohol Use: No Hx Substance Use: No Preferred Language: Namibian Communication Ability: Effective Visual Impairment: No Limitations Hearing Ability: Normal Template Reproduction Technician Required: No Beliefs That Will Affect Care: None marital status: Current Living Situation: Spouse and Family current occupational status: 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 Other Information That Helps Us Care for You: No Feels Safe at Home: Yes Safety Concerns: Feels Safe At This Time Childhood Exposure to Second-Hand Smoke: Yes Diet Comment: Regular caffeine: Yes during the past year weight has: remained stable Dental Care, Regularly: Yes Physical Activity Frequency: 3-4 Times per Week Seatbelt Use: always Sunscreen Use: Yes Assistive Devices: None Review of Systems Review of Systems: All systems reviewed & are unremarkable except as noted in HPI & below Physical Exam Constitutional: WD/WN, vitals as above Respiratory: normal respiratory effort, lungs clear to auscultation Cardiovascular: RRR, no murmur, no edema Gastrointestinal (Abdomen): Inspection/Auscultation: abdomen normal to inspection Percussion/Palpation: + abdomen tender and abdomen soft (mild distention ); no guarding and abdomen not rigid Skin: no rashes, warm and dry Results & Data Vital Signs (Past 12 Hours) Vital Signs Temp Pulse Pulse Resp BP BP Pulse Ox 05/25/22 07:53 36.7 C 83 20 108/66 93 05/24/22 23:08 98 H 05/25/22 03:08 38.1 C H 99 H 18 105/66 94 05/24/22 21:57 37.2 C 88 18 126/75 97 05/24/22 21:57 37.2 C 18 126/75 97 O2 Del Method 05/25/22 07:53 Room Air 05/24/22 23:08 05/25/22 03:08 Room Air 05/24/22 21:57 Room Air 05/24/22 21:57 Room Air Laboratory Results 05/25/22 05/25/22 05/25/22 Range/Units 08:10 08:10 08:10 WBC (4.8-10.8) K/ul RBC (4.20-5.40) M/uL Hgb (12.0-16.0) g/dl Hct (37.0-47.0) % MCV (80.0-100.0) fL MCH (25.0-34.0) pg MCHC (32.0-36.0) g/dL RDW Std Deviation (36.4-46.3) fL RDW Coeff of Susanna (11.5-14.5) % Plt Count (130-400) K/uL MPV (9.4-12.4) fL Immature Gran % (Auto) % Neut % (Auto) % Lymph % (Auto) % Snyder % (Auto) % Eos % (Auto) % Baso % (Auto) % Neut # (Auto) (1.40-6.50) K/uL Lymph # (Auto) (1.2-3.4) K/uL Snyder # (Auto) (0.11-0.59) K/uL Eos # (Auto) (0-0.50) K/uL Baso # (Auto) (0-0.2) K/uL Immature Gran # (Auto) (0.01-0.20) K/uL ESR Pending Sodium Pending (136-145) mmol/L Potassium Pending (3.5-5.1) mmol/L Chloride Pending (98-107) mmol/L Carbon Dioxide Pending (21-32) mmol/L Anion Gap Pending (3-11) BUN Pending (6-23) mg/dl Creatinine Pending (0.6-1.2) mg/dl Est Cr Clr Drug Dosing Pending Est GFR ( Amer) Pending ml/min Est GFR (Non-Af Amer) Pending ml/min BUN/Creatinine Ratio Pending (10-20) Glucose Pending (70-99(Fasting)) mg/dl Lactate (0.4-2.0) mmol/L Calcium Pending (8.6-10.3) mg/dl Phosphorus (2.5-4.9) mg/dl Magnesium (1.7-2.4) mg/dl Total Bilirubin Pending (0.2-1.0) mg/dl Direct Bilirubin (0-0.2) mg/dl AST Pending (13-39) U/L ALT Pending (7-52) U/L Alkaline Phosphatase Pending (34-104) U/L C-Reactive Protein Pending Total Protein Pending (6.0-8.3) gm/dl Albumin Pending (3.4-5.0) gm/dl Globulin Pending Albumin/Globulin Ratio Pending Lipase (11-82) U/L Procalcitonin Pending 05/25/22 05/25/22 05/24/22 Range/Units 08:10 07:27 22:47 WBC Pending (4.8-10.8) K/ul RBC Pending (4.20-5.40) M/uL Hgb Pending (12.0-16.0) g/dl Hct Pending (37.0-47.0) % MCV Pending (80.0-100.0) fL MCH Pending (25.0-34.0) pg MCHC Pending (32.0-36.0) g/dL RDW Std Deviation (36.4-46.3) fL RDW Coeff of Susanna (11.5-14.5) % Plt Count Pending (130-400) K/uL MPV (9.4-12.4) fL Immature Gran % (Auto) % Neut % (Auto) % Lymph % (Auto) % Snyder % (Auto) % Eos % (Auto) % Baso % (Auto) % Neut # (Auto) (1.40-6.50) K/uL Lymph # (Auto) (1.2-3.4) K/uL Snyder # (Auto) (0.11-0.59) K/uL Eos # (Auto) (0-0.50) K/uL Baso # (Auto) (0-0.2) K/uL Immature Gran # (Auto) (0.01-0.20) K/uL ESR Sodium (136-145) mmol/L Potassium (3.5-5.1) mmol/L Chloride (98-107) mmol/L Carbon Dioxide (21-32) mmol/L Anion Gap (3-11) BUN (6-23) mg/dl Creatinine (0.6-1.2) mg/dl Est Cr Clr Drug Dosing Est GFR ( Amer) ml/min Est GFR (Non-Af Amer) ml/min BUN/Creatinine Ratio (10-20) Glucose (70-99(Fasting)) mg/dl Lactate 1.0 (0.4-2.0) mmol/L Calcium (8.6-10.3) mg/dl Phosphorus (2.5-4.9) mg/dl Magnesium 2.7 H (1.7-2.4) mg/dl Total Bilirubin (0.2-1.0) mg/dl Direct Bilirubin (0-0.2) mg/dl AST (13-39) U/L ALT (7-52) U/L Alkaline Phosphatase (34-104) U/L C-Reactive Protein Total Protein (6.0-8.3) gm/dl Albumin (3.4-5.0) gm/dl Globulin Albumin/Globulin Ratio Lipase (11-82) U/L Procalcitonin 05/24/22 05/24/22 Range/Units 22:47 22:47 WBC 9.59 (4.8-10.8) K/ul RBC 3.72 L (4.20-5.40) M/uL Hgb 10.3 L (12.0-16.0) g/dl Hct 31.5 L (37.0-47.0) % MCV 84.7 (80.0-100.0) fL MCH 27.7 (25.0-34.0) pg MCHC 32.7 (32.0-36.0) g/dL RDW Std Deviation 49.8 H (36.4-46.3) fL RDW Coeff of Susanna 16.2 H (11.5-14.5) % Plt Count 404 H (130-400) K/uL MPV 9.0 L (9.4-12.4) fL Immature Gran % (Auto) 0.6 % Neut % (Auto) 80.2 % Lymph % (Auto) 5.9 % Snyder % (Auto) 12.0 % Eos % (Auto) 1.1 % Baso % (Auto) 0.2 % Neut # (Auto) 7.68 H (1.40-6.50) K/uL Lymph # (Auto) 0.57 L (1.2-3.4) K/uL Snyder # (Auto) 1.15 H (0.11-0.59) K/uL Eos # (Auto) 0.11 (0-0.50) K/uL Baso # (Auto) 0.02 (0-0.2) K/uL Immature Gran # (Auto) 0.06 (0.01-0.20) K/uL ESR Sodium 136 (136-145) mmol/L Potassium 3.9 (3.5-5.1) mmol/L Chloride 108 H (98-107) mmol/L Carbon Dioxide 24 (21-32) mmol/L Anion Gap 4 (3-11) BUN 12 (6-23) mg/dl Creatinine 1.05 (0.6-1.2) mg/dl Est Cr Clr Drug Dosing Not Reportable Est GFR ( Amer) 69.7 ml/min Est GFR (Non-Af Amer) 60.2 ml/min BUN/Creatinine Ratio 11.4 (10-20) Glucose 94 (70-99(Fasting)) mg/dl Lactate (0.4-2.0) mmol/L Calcium 7.4 L (8.6-10.3) mg/dl Phosphorus 3.0 (2.5-4.9) mg/dl Magnesium 1.3 L (1.7-2.4) mg/dl Total Bilirubin 0.5 (0.2-1.0) mg/dl Direct Bilirubin 0.0 (0-0.2) mg/dl AST 8 L (13-39) U/L ALT 5 L (7-52) U/L Alkaline Phosphatase 57 (34-104) U/L C-Reactive Protein Total Protein 5.0 L (6.0-8.3) gm/dl Albumin 2.8 L (3.4-5.0) gm/dl Globulin Albumin/Globulin Ratio Lipase 26 (11-82) U/L Procalcitonin
[2022-05-25] MEDS: ESCITALOPRAM OXALATE 10 MG TAB PO SCH (08:54)
[2022-05-25 08:55] LABS: Basophils # (auto) 0.02 K/uL (0-0.2); Basophils % (auto) 0.3 %; Eosinophils # (auto) 0.27 K/uL (0-0.50); Hematocrit (blood only) 31.9 % (37.0-47.0); Hemoglobin 10.3 g/dl (12.0-16.0); Immature Granulocytes # (auto) 0.04 K/uL (0.01-0.20); Immature Granulocytes % (auto) 0.6 %; Lymphocytes # (auto) 0.48 K/uL (1.2-3.4); Lymphocytes % (auto) 7.2 %; Mean Corpuscular Hemoglobin 27.9 pg (25.0-34.0); Mean Corpuscular Hgb Conc 32.3 g/dL (32.0-36.0); Mean Corpuscular Volume 86.4 fL (80.0-100.0); Mean Platelet Volume 8.9 fL (9.4-12.4); Monocytes # (auto) 0.97 K/uL (0.11-0.59); Monocytes % (auto) 14.5 %; Neutrophils % (auto) 73.4 %; Platelet Count 406 K/uL (130-400); RDW Coefficient of Variation 16.5 % (11.5-14.5); RDW Standard Deviation 51.3 fL (36.4-46.3); Red Blood Count 3.69 M/uL (4.20-5.40); White Blood Count 6.68 K/ul (4.8-10.8)
[2022-05-25] MEDS: LACTATED RINGER'S 1,000 ML IV SCH ×2 (08:56→21:45)
[2022-05-25 09:00] LABS: Albumin Globulin Ratio 1.2 (0.9-2); Albumin Level 2.8 gm/dl (3.4-5.0); Bilirubin,Total 0.6 mg/dl (0.2-1.0); C Reactive Protein 10.72 mg/dl (0-0.5); Calcium 7.8 mg/dl (8.6-10.3); Creatinine Clr Calc Pharmacy 60.2 ml/min; Est GFR (Non-African American) 63.8 ml/min; Globulin 2.3 gm/dl (2.5-4.0); Potassium 3.7 mmol/L (3.5-5.1); Total Protein 5.1 gm/dl (6.0-8.3)
[2022-05-25] MEDS ORDERED: predniSONE 5 MG TAB PO SCH (09:00)
[2022-05-25] MEDS ORDERED: sulfaSALAzine 500 MG TABEC PO SCH (09:00)
[2022-05-25 09:58] LABS: Ferritin 35.1 ng/ml (8-388)
--- NOTE | 2022-05-25 10:18 | Electrocardiogram Report ---
Test Reason : Blood Pressure : / mmHG Vent. Rate : 096 BPM Atrial Rate : 096 BPM P-R Int : 128 ms QRS Dur : 076 ms QT Int : 350 ms P-R-T Axes : 044 040 014 degrees QTc Int : 442 ms Normal sinus rhythm Nonspecific T wave abnormality Abnormal ECG When compared with ECG of 27-NOV-2016 16:21, No significant change was found Confirmed by Valentín Ramos ([id number]) on 05/25/2022 10:17:46 AM Referred By: Lyndsay Hough Confirmed By:Don Ramos
[2022-05-25] MEDS: methylPREDNISolone 20 MG in SYRINGE 0 ML IV SCH ×2 (10:19→16:21)
[2022-05-25] MEDS: FAMOTIDINE 20 MG in SYRINGE 3 ML IV SCH (10:19)
--- NOTE | 2022-05-25 12:12 | XRay Report ---
KUB CLINICAL HISTORY: Small bowel obstruction. FINDINGS: 2 AP supine abdominal radiographs are compared to study dated 05/24/2022 and correlated with abdominal CT dated 11/22/2016. There is evidence of persistent small bowel obstruction. Small bowel loops measure up to 4.8 cm in diameter. No evidence of intraperitoneal free air is seen on these supi ne images. A calcified gallstone is seen in the right upper quadrant. Nonobstructing right renal calc stefany measuring up to 4 mm. The bony structures appear intact. IMPRESSION: 1. Persistent small bowel obstruction. 2. Cholelithiasis and right-sided nephrolithiasis. Electronically signed by: Yg Wilson M.D. 05/25/2022 12:10 PM
--- NOTE | 2022-05-25 13:07 | Surgery Progress Note ---
Date of Service May 25, 2022 Assessment & Plan (1) SBO (small bowel obstruction): Plan: Patient here with SBO 2/2 Crohn's flare up She is already feeling improvement in symptoms Gi saw patient and starting her on steroids Once passes flatus may start clears and slowly advance diet as tolerates No plans for acute surgical intervention indicated at this time Will need f/u with GI +/- colorectal as outpatient (2) Crohn's disease: Admission and Anticipated Discharge Date Admission Date: May 24, 2022 Supervising Physician Co-Signing Physician Notes Patient seen and examined, labs and imaging reviewed, agree with above. 56-year-old female with known Crohn's disease maintained on low-dose prednisone and no prior abdominal surgery presented to outside emergency department with small bowel obstruction, transferred for further management. She is feeling better today, no flatus. She is hungry. On exam she is mildly distended, nontender. I personally reviewed the CT scan from the outside hospital and it appears there is a long segment of narrowing and inflammation. This may represent an acute on chronic Crohn's flare or chronic stricture. We will continue with nonoperative management, GI seen the patient and recommending high-dose steroids. She would benefit from a biologic. If surgical interv ention were to be undertaken, due to degree of inflammation and tethering of the small bowel would recommend transfer to a facility with colorectal surgery. Surgery will follow, call with questions or concerns. Subjective Patient reports feeling better. Abdominal pain improved. No nausea/vomiting. No flatus/BM yet. Physical Exam Physical Exam: awake/alert Gastrointestinal (Abdomen): Percussion/Palpation: abdomen soft Results & Data Vital Signs (Past 12 Hours) Vital Signs Temp Pulse Pulse Resp BP Pulse Ox O2 Del Method 05/25/22 11:02 36.8 C 100 H 18 107/65 94 Room Air 05/25/22 09:50 80 05/25/22 09:00 96 Room Air 05/25/22 07:53 36.7 C 83 20 108/66 93 Room Air 05/25/22 03:08 38.1 C H 99 H 18 105/66 94 Room Air PG Care Time/CCT Total # of Minutes Spent Total Time Spent with Patient: Total time spent is greater than 50% in coordination of care (as documented) at patient's floor/unit and/or counseling patient: Coding Level of Care Code 56327 SUB INP/OBS CARE Diagnoses SBO (small bowel obstruction) K56.609 Crohn's disease K50.90
[2022-05-25] MEDS: CIPROFLOXACIN / D5W 400 MG/200 ML BAG IV SCH ×2 (13:19→23:20)
[2022-05-25] MEDS: metroNIDAZOLE 500 MG/100 ML BAG IV SCH ×2 (13:19→21:45)
--- NOTE | 2022-05-25 16:58 | Communication Note ---
Date of Service: May 25, 2022 Discussed w/ GI as well -- general surgery progress note also noted. Patient was +flatus this morning, no n/v symptoms, no abdominal pain on exam Will trial clear liquids for dinner -- if having any return of symptoms, STOP. Will need colonoscopy, biologic eval as well as outpt f/u colorectal (CM navigator working on arranging colorectal f/u). Will monitor advancement of diet/KUB in AM. Ambulation encouraged.
[2022-05-26] MEDS: methylPREDNISolone 20 MG in SYRINGE 0 ML IV SCH ×2 (01:22→07:35)
[2022-05-26] MEDS: metroNIDAZOLE 500 MG/100 ML BAG IV SCH (05:30)
[2022-05-26] MEDS: ESCITALOPRAM OXALATE 10 MG TAB PO SCH (07:35)
[2022-05-26] MEDS: FAMOTIDINE 20 MG in SYRINGE 3 ML IV SCH (07:36)
--- NOTE | 2022-05-26 07:40 | Hospitalist Progress Note ---
Date of Service May 26, 2022 Assessment & Plan (1) SBO (small bowel obstruction): Plan: 56yo female with history of well controlled Crohns disease presenting with 1 day of abdominal pain, bloating, nausea and vomiting. She was seen at an outside hospital and found to have an SBO with no perforation. Patient was transferred to [facility] for further evaluation due to lack of surgical services at outside facility. Unfortunately, imaging disc was not sent by [facility]. to bring in from [facility] reports Joel sent imaging this morning -- call to radiology to confirm CT reported at OSH w/ "concerns for small bowel obstruction that began at the mid to distal jejunum potentially involving the proximal ileum. There is surrounding inflammatory changes. The interpreting radiologist noted a transition point in the left lower quadrant. There is no free air, abscess, or closed-loop obstruction". KUB on admission w/ SBO, cholelithiasis (no elevated TB/ALP to note) FIRST EVER SMALL BOWEL OBSTRUCTION REPORTED FOR PATIENT w/ hx chrons only on prednisone 5mg daily for tx General surgery, GI consulted IVF replacement No n/v -- no NGT at present Temp 38.1C AM 05/25. Procal checked, 0.16. CRP/ESR checked -- CRP elevated to 10.7, ESR 16 Blood cultures pending Discussed w/ GI given temp/concerns for possible need for abx coverage --> decision to start Cipro/Flagyl --> continue Converted her PO steroids to Methylprednisolone 20mg IV Q8H for crohns flare Pain control/antiemetics prn Trial clear liquids last evening -- monitor KUB pending for this morning Ambulation encouraged Possible addition of chemoproph for DVT depending length inpatient stay Should patient clinically decompensate and require surgical intervention she will most likely require transfer to tertiary care center with colorectal surgery (2) Crohn's disease: Plan: Chronic. Usually well controlled on prednisone 5mg daily and states has been many years since issue Follows [facility], consulted Steroids converted to IV as above Cipro/Flagyl given temp, monitor cultures (3) Hypomagnesemia: Plan: low on admit, IV ordered and acceptable on repeat (4) Hypokalemia: Plan: improved on repeat w/ IVF monitor BMP (5) B12 deficiency: Plan: prior low <55 in january w/ hx lows per patient, has been getting monthly injections -- can continue outpt (6) Iron deficiency anemia: Plan: prior hx, unable to tolerate PO iron reported in past Iron panel checked -- iron 24, trans % sat 9 Monitor for any further fevers/hold of on IV venofer for now but if negative can consider Also would consider having PCP set up outpt transfusions given her inability to tolerate PO as outpatient CBC stable at present, denied any blood in stool but can monitor if able to collect. Plan continued inpatient stay obtaining blood cultures, placed on IV steroids, abx given fevers GI/general surgery consulted Admission and Anticipated Discharge Date Admission Date: May 24, 2022 Results & Data Results & Data Vital Signs (Past 12 Hours) Vital Signs Temp Pulse Pulse Resp BP Pulse Ox O2 Del Method 05/25/22 22:23 72 05/26/22 03:39 37.3 C 85 18 118/69 94 Room Air 05/25/22 22:53 37.6 C H 68 18 138/83 94 Room Air Laboratory Results 05/26/22 05/26/22 05/26/22 Range/Units 07:18 07:18 07:18 WBC Pending (4.8-10.8) K/ul RBC Pending (4.20-5.40) M/uL Hgb Pending (12.0-16.0) g/dl Hct Pending (37.0-47.0) % MCV Pending (80.0-100.0) fL MCH Pending (25.0-34.0) pg MCHC Pending (32.0-36.0) g/dL RDW Std Deviation (36.4-46.3) fL RDW Coeff of Susanna (11.5-14.5) % Plt Count Pending (130-400) K/uL MPV (9.4-12.4) fL Immature Gran % (Auto) % Neut % (Auto) % Lymph % (Auto) % [place] % (Auto) % Eos % (Auto) % Baso % (Auto) % Neut # (Auto) (1.40-6.50) K/uL Lymph # (Auto) (1.2-3.4) K/uL [place] # (Auto) (0.11-0.59) K/uL Eos # (Auto) (0-0.50) K/uL Baso # (Auto) (0-0.2) K/uL Immature Gran # (Auto) (0.01-0.20) K/uL ESR (0-30) mm/hr Sodium Pending (136-145) mmol/L Potassium Pending (3.5-5.1) mmol/L Chloride Pending (98-107) mmol/L Carbon Dioxide Pending (21-32) mmol/L Anion Gap Pending (3-11) BUN Pending (6-23) mg/dl Creatinine Pending (0.6-1.2) mg/dl Est Cr Clr Drug Dosing Pending ml/min Est GFR ( Amer) Pending ml/min Est GFR (Non-Af Amer) Pending ml/min BUN/Creatinine Ratio Pending (10-20) Glucose Pending (70-99(Fasting)) mg/dl Calcium Pending (8.6-10.3) mg/dl Magnesium Pending (1.7-2.4) mg/dl Iron (35-150) mcg/dl TIBC (250-450) mcg/dl Unsaturated IBC (155-355) mcg/dl Transferrin % Sat (15-50) % Ferritin (8-388) ng/ml Total Bilirubin Pending (0.2-1.0) mg/dl AST Pending (13-39) U/L ALT Pending (7-52) U/L Alkaline Phosphatase Pending (34-104) U/L C-Reactive Protein (0-0.5) mg/dl Total Protein Pending (6.0-8.3) gm/dl Albumin Pending (3.4-5.0) gm/dl Globulin Pending (2.5-4.0) gm/dl Albumin/Globulin Ratio Pending (0.9-2) 25-OH Vitamin D Total Pending Folate Pending Procalcitonin (0-0.5) ng/ml 05/25/22 05/25/22 05/25/22 Range/Units 08:10 08:10 08:10 WBC (4.8-10.8) K/ul RBC (4.20-5.40) M/uL Hgb (12.0-16.0) g/dl Hct (37.0-47.0) % MCV (80.0-100.0) fL MCH (25.0-34.0) pg MCHC (32.0-36.0) g/dL RDW Std Deviation (36.4-46.3) fL RDW Coeff of Susanna (11.5-14.5) % Plt Count (130-400) K/uL MPV (9.4-12.4) fL Immature Gran % (Auto) % Neut % (Auto) % Lymph % (Auto) % [place] % (Auto) % Eos % (Auto) % Baso % (Auto) % Neut # (Auto) (1.40-6.50) K/uL Lymph # (Auto) (1.2-3.4) K/uL [place] # (Auto) (0.11-0.59) K/uL Eos # (Auto) (0-0.50) K/uL Baso # (Auto) (0-0.2) K/uL Immature Gran # (Auto) (0.01-0.20) K/uL ESR 16 (0-30) mm/hr Sodium 138 (136-145) mmol/L Potassium 3.7 (3.5-5.1) mmol/L Chloride 107 (98-107) mmol/L Carbon Dioxide 25 (21-32) mmol/L Anion Gap 6 (3-11) BUN 12 (6-23) mg/dl Creatinine 1.00 (0.6-1.2) mg/dl Est Cr Clr Drug Dosing 60.2 ml/min Est GFR ( Amer) 74.0 ml/min Est GFR (Non-Af Amer) 63.8 ml/min BUN/Creatinine Ratio 12.0 (10-20) Glucose 80 (70-99(Fasting)) mg/dl Calcium 7.8 L (8.6-10.3) mg/dl Magnesium (1.7-2.4) mg/dl Iron 24 L (35-150) mcg/dl TIBC 279 (250-450) mcg/dl Unsaturated IBC 255 (155-355) mcg/dl Transferrin % Sat 9 L (15-50) % Ferritin 35.1 (8-388) ng/ml Total Bilirubin 0.6 (0.2-1.0) mg/dl AST 8 L (13-39) U/L ALT 5 L (7-52) U/L Alkaline Phosphatase 56 (34-104) U/L C-Reactive Protein 10.72 H (0-0.5) mg/dl Total Protein 5.1 L (6.0-8.3) gm/dl Albumin 2.8 L (3.4-5.0) gm/dl Globulin 2.3 L (2.5-4.0) gm/dl Albumin/Globulin Ratio 1.2 (0.9-2) 25-OH Vitamin D Total Folate Procalcitonin 0.16 (0-0.5) ng/ml 05/25/22 05/25/22 Range/Units 08:10 07:27 WBC 6.68 (4.8-10.8) K/ul RBC 3.69 L (4.20-5.40) M/uL Hgb 10.3 L (12.0-16.0) g/dl Hct 31.9 L (37.0-47.0) % MCV 86.4 (80.0-100.0) fL MCH 27.9 (25.0-34.0) pg MCHC 32.3 (32.0-36.0) g/dL RDW Std Deviation 51.3 H (36.4-46.3) fL RDW Coeff of Susanna 16.5 H (11.5-14.5) % Plt Count 406 H (130-400) K/uL MPV 8.9 L (9.4-12.4) fL Immature Gran % (Auto) 0.6 % Neut % (Auto) 73.4 % Lymph % (Auto) 7.2 % [place] % (Auto) 14.5 % Eos % (Auto) 4.0 % Baso % (Auto) 0.3 % Neut # (Auto) 4.90 (1.40-6.50) K/uL Lymph # (Auto) 0.48 L (1.2-3.4) K/uL [place] # (Auto) 0.97 H (0.11-0.59) K/uL Eos # (Auto) 0.27 (0-0.50) K/uL Baso # (Auto) 0.02 (0-0.2) K/uL Immature Gran # (Auto) 0.04 (0.01-0.20) K/uL ESR (0-30) mm/hr Sodium (136-145) mmol/L Potassium (3.5-5.1) mmol/L Chloride (98-107) mmol/L Carbon Dioxide (21-32) mmol/L Anion Gap (3-11) BUN (6-23) mg/dl Creatinine (0.6-1.2) mg/dl Est Cr Clr Drug Dosing ml/min Est GFR ( Amer) ml/min Est GFR (Non-Af Amer) ml/min BUN/Creatinine Ratio (10-20) Glucose (70-99(Fasting)) mg/dl Calcium (8.6-10.3) mg/dl Magnesium 2.7 H (1.7-2.4) mg/dl Iron (35-150) mcg/dl TIBC (250-450) mcg/dl Unsaturated IBC (155-355) mcg/dl Transferrin % Sat (15-50) % Ferritin (8-388) ng/ml Total Bilirubin (0.2-1.0) mg/dl AST (13-39) U/L ALT (7-52) U/L Alkaline Phosphatase (34-104) U/L C-Reactive Protein (0-0.5) mg/dl Total Protein (6.0-8.3) gm/dl Albumin (3.4-5.0) gm/dl Globulin (2.5-4.0) gm/dl Albumin/Globulin Ratio (0.9-2) 25-OH Vitamin D Total Folate Procalcitonin (0-0.5) ng/ml PG Care Time/CCT Total # of Minutes Spent Total Time Spent with Patient: Total time spent is greater than 50% in coordination of care (as documented) at patient's floor/unit and/or counseling patient: Coding Diagnoses SBO (small bowel obstruction) K56.609 Crohn's disease K50.90 Hypomagnesemia E83.42 Hypokalemia E87.6 B12 deficiency E53.8 Iron deficiency anemia D50.9
[2022-05-26 07:42] LABS: Hematocrit (blood only) 29.9 % (37.0-47.0); Hemoglobin 9.7 g/dl (12.0-16.0); Mean Corpuscular Hemoglobin 27.7 pg (25.0-34.0); Mean Corpuscular Hgb Conc 32.4 g/dL (32.0-36.0); Mean Corpuscular Volume 85.4 fL (80.0-100.0); Platelet Count 347 K/uL (130-400); RDW Coefficient of Variation 16.1 % (11.5-14.5); RDW Standard Deviation 49.8 fL (36.4-46.3); White Blood Count 3.03 K/ul (4.8-10.8)
--- NOTE | 2022-05-26 07:57 | Surgery Progress Note ---
Date of Service May 26, 2022 Assessment & Plan (1) SBO (small bowel obstruction): Plan: Patient here with SBO 2/2 Crohn's flare She continues to feel improvement in symptoms. Denies pain/n/v Gi saw and is following along, currently on steroids She has started passing flatus and had a loose BM thus far. Tolerating clears...will advance to fulls and see how she fairs No plans for acute surgical intervention indicated at this time Will need f/u with GI +/- colorectal as outpatient. If any surgery is indicated would transfer to tertiary center w/ colorectal capabilities [facility] covering the wknd if questions/concerns Admission and Anticipated Discharge Date Admission Date: May 24, 2022 Supervising Physician Co-Signing Physician Notes Dr. Chance feels she is doing relatively well-she would like to go home today She is a very reliable patient, and would like to go home so she can go to a special memorial service tomorrow I think from a surgical standpoint I would okay this She will likely need steroids and antibiotics Return to hospital/ER as needed Subjective Patient reports feeling much better. No abdominal pain/n/v. Passing gas and had a small BM thus far. Is eager to be home by tomorrow as she has a memorial service she wants to attend. Physical Exam Physical Exam: awake/alert, no distress Gastrointestinal (Abdomen): Inspection/Auscultation: + abdomen distended (mild) Percussion/Palpation: abdomen soft; abdomen nontender Results & Data Vital Signs (Past 12 Hours) Vital Signs Temp Pulse Pulse Resp BP Pulse Ox O2 Del Method 05/25/22 22:23 72 05/26/22 03:39 37.3 C 85 18 118/69 94 Room Air 05/25/22 22:53 37.6 C H 68 18 138/83 94 Room Air PG Care Time/CCT Total # of Minutes Spent Total Time Spent with Patient: Total time spent is greater than 50% in coordination of care (as documented) at patient's floor/unit and/or counseling patient: Coding Level of Care Code 32893 SUB INP/OBS CARE 125MIN Diagnoses SBO (small bowel obstruction) K56.609
[2022-05-26 08:07] LABS: Albumin Globulin Ratio 1.2 (0.9-2); Albumin Level 2.7 gm/dl (3.4-5.0); BUN Creatinine Ratio 12.5 (10-20); Bilirubin,Total 0.4 mg/dl (0.2-1.0); Calcium 8.1 mg/dl (8.6-10.3); Creatinine Clr Calc Pharmacy 75.3 ml/min; Est GFR (African American) 96.9 ml/min; Est GFR (Non-African American) 83.6 ml/min; Globulin 2.2 gm/dl (2.5-4.0); Potassium 4.1 mmol/L (3.5-5.1); Total Protein 4.9 gm/dl (6.0-8.3)
[2022-05-26 08:26] LABS: Vitamin D, 25 Hydrox 17.3 ng/ml (30-100)
--- NOTE | 2022-05-26 08:52 | Gastroenterology Progress Note ---
Date of Service May 26, 2022 Assessment & Plan (1) SBO (small bowel obstruction): Plan: 56 year old female with crohn's on daily PO prednisone presenting with abd pain, nausea/vomiting and constipation. Imaging at OSH showing SBO, KUB 05/25/22 with persistent findings suggestive of SBO. She was febrile overnight. Repeat KUB this AM Can continue clears today Agree with general surgery consultation If surgical intervention required, could consider colorectal evaluation Pending results of KUB, can advance to low residue diet as tolerated Antiemetics PRN Analgesia PRN but cautious use of narcotics OOB to chair or ambulation as tolerated IVF maintenance Can convert to IV steroids, 20 mg q8h Can keep OP colonoscopy as planned Is agreeable to discussing therapy escalation with her routine provider after colonoscopy. She has appts scheduled with her regular GI provider in June Admission and Anticipated Discharge Date Admission Date: May 24, 2022 Supervising Physician Co-Signing Physician Notes The patient was discharged prior to afternoon rounds thus I was not able to see her. I did discuss her management with my nurse practitioner (Ms. Petty), she will follow-up with her outpatient gastroenterology provider in the near future. Subjective Pt was seen and evaluated, chart reviewed. Feeling well!! Had liquids yesterday and tolerated. Moved stools yesterday and this AM. Semiformed. No black or bloody. No nausea, vomiting. Review of Systems Review of Systems: All systems reviewed & are unremarkable except as noted in HPI & below Physical Exam Constitutional: WD/WN, vitals as above Respiratory: normal respiratory effort, lungs clear to auscultation Cardiovascular: Rate/Rhythm: regular rate Gastrointestinal (Abdomen): normal bowel sounds, soft, nontender, no hepatosp lenomegaly Skin: no rashes, warm and dry Results & Data Vital Signs (Past 12 Hours) Vital Signs Temp Pulse Pulse Resp BP BP Pulse Ox 05/26/22 08:47 72 05/26/22 08:05 36.7 C 62 20 122/68 93 05/25/22 22:23 72 05/26/22 03:39 37.3 C 85 18 118/69 94 05/25/22 22:53 37.6 C H 68 18 138/83 94 O2 Del Method 05/26/22 08:47 05/26/22 08:05 Room Air 05/25/22 22:23 05/26/22 03:39 Room Air 05/25/22 22:53 Room Air Laboratory Results 05/26/22 05/26/22 05/26/22 Range/Units 07:18 07:18 07:18 WBC 3.03 L (4.8-10.8) K/ul RBC 3.50 L (4.20-5.40) M/uL Hgb 9.7 L (12.0-16.0) g/dl Hct 29.9 L (37.0-47.0) % MCV 85.4 (80.0-100.0) fL MCH 27.7 (25.0-34.0) pg MCHC 32.4 (32.0-36.0) g/dL RDW Std Deviation 49.8 H (36.4-46.3) fL RDW Coeff of Susanna 16.1 H (11.5-14.5) % Plt Count 347 (130-400) K/uL MPV 9.0 L (9.4-12.4) fL Immature Gran % (Auto) % Neut % (Auto) % Lymph % (Auto) % [place] % (Auto) % Eos % (Auto) % Baso % (Auto) % Neut # (Auto) (1.40-6.50) K/uL Lymph # (Auto) (1.2-3.4) K/uL [place] # (Auto) (0.11-0.59) K/uL Eos # (Auto) (0-0.50) K/uL Baso # (Auto) (0-0.2) K/uL Immature Gran # (Auto) (0.01-0.20) K/uL ESR (0-30) mm/hr Sodium 139 (136-145) mmol/L Potassium 4.1 (3.5-5.1) mmol/L Chloride 109 H (98-107) mmol/L Carbon Dioxide 28 (21-32) mmol/L Anion Gap 2 L (3-11) BUN 10 (6-23) mg/dl Creatinine 0.80 (0.6-1.2) mg/dl Est Cr Clr Drug Dosing 75.3 ml/min Est GFR ( Amer) 96.9 ml/min Est GFR (Non-Af Amer) 83.6 ml/min BUN/Creatinine Ratio 12.5 (10-20) Glucose 112 H (70-99(Fasting)) mg/dl Calcium 8.1 L (8.6-10.3) mg/dl Magnesium 2.0 (1.7-2.4) mg/dl Iron (35-150) mcg/dl TIBC (250-450) mcg/dl Unsaturated IBC (155-355) mcg/dl Transferrin % Sat (15-50) % Ferritin (8-388) ng/ml Total Bilirubin 0.4 (0.2-1.0) mg/dl AST 8 L (13-39) U/L ALT 5 L (7-52) U/L Alkaline Phosphatase 51 (34-104) U/L C-Reactive Protein (0-0.5) mg/dl Total Protein 4.9 L (6.0-8.3) gm/dl Albumin 2.7 L (3.4-5.0) gm/dl Globulin 2.2 L (2.5-4.0) gm/dl Albumin/Globulin Ratio 1.2 (0.9-2) 25-OH Vitamin D Total 17.3 L (30-100) ng/ml Folate 15.25 (>5.38) ng/ml Procalcitonin (0-0.5) ng/ml 05/25/22 05/25/22 05/25/22 Range/Units 08:10 08:10 08:10 WBC (4.8-10.8) K/ul RBC (4.20-5.40) M/uL Hgb (12.0-16.0) g/dl Hct (37.0-47.0) % MCV (80.0-100.0) fL MCH (25.0-34.0) pg MCHC (32.0-36.0) g/dL RDW Std Deviation (36.4-46.3) fL RDW Coeff of Susanna (11.5-14.5) % Plt Count (130-400) K/uL MPV (9.4-12.4) fL Immature Gran % (Auto) % Neut % (Auto) % Lymph % (Auto) % [place] % (Auto) % Eos % (Auto) % Baso % (Auto) % Neut # (Auto) (1.40-6.50) K/uL Lymph # (Auto) (1.2-3.4) K/uL [place] # (Auto) (0.11-0.59) K/uL Eos # (Auto) (0-0.50) K/uL Baso # (Auto) (0-0.2) K/uL Immature Gran # (Auto) (0.01-0.20) K/uL ESR 16 (0-30) mm/hr Sodium 138 (136-145) mmol/L Potassium 3.7 (3.5-5.1) mmol/L Chloride 107 (98-107) mmol/L Carbon Dioxide 25 (21-32) mmol/L Anion Gap 6 (3-11) BUN 12 (6-23) mg/dl Creatinine 1.00 (0.6-1.2) mg/dl Est Cr Clr Drug Dosing 60.2 ml/min Est GFR ( Amer) 74.0 ml/min Est GFR (Non-Af Amer) 63.8 ml/min BUN/Creatinine Ratio 12.0 (10-20) Glucose 80 (70-99(Fasting)) mg/dl Calcium 7.8 L (8.6-10.3) mg/dl Magnesium (1.7-2.4) mg/dl Iron 24 L (35-150) mcg/dl TIBC 279 (250-450) mcg/dl Unsaturated IBC 255 (155-355) mcg/dl Transferrin % Sat 9 L (15-50) % Ferritin 35.1 (8-388) ng/ml Total Bilirubin 0.6 (0.2-1.0) mg/dl AST 8 L (13-39) U/L ALT 5 L (7-52) U/L Alkaline Phosphatase 56 (34-104) U/L C-Reactive Protein 10.72 H (0-0.5) mg/dl Total Protein 5.1 L (6.0-8.3) gm/dl Albumin 2.8 L (3.4-5.0) gm/dl Globulin 2.3 L (2.5-4.0) gm/dl Albumin/Globulin Ratio 1.2 (0.9-2) 25-OH Vitamin D Total (30-100) ng/ml Folate (>5.38) ng/ml Procalcitonin 0.16 (0-0.5) ng/ml 05/25/22 Range/Units 08:10 WBC 6.68 (4.8-10.8) K/ul RBC 3.69 L (4.20-5.40) M/uL Hgb 10.3 L (12.0-16.0) g/dl Hct 31.9 L (37.0-47.0) % MCV 86.4 (80.0-100.0) fL MCH 27.9 (25.0-34.0) pg MCHC 32.3 (32.0-36.0) g/dL RDW Std Deviation 51.3 H (36.4-46.3) fL RDW Coeff of Susanna 16.5 H (11.5-14.5) % Plt Count 406 H (130-400) K/uL MPV 8.9 L (9.4-12.4) fL Immature Gran % (Auto) 0.6 % Neut % (Auto) 73.4 % Lymph % (Auto) 7.2 % [place] % (Auto) 14.5 % Eos % (Auto) 4.0 % Baso % (Auto) 0.3 % Neut # (Auto) 4.90 (1.40-6.50) K/uL Lymph # (Auto) 0.48 L (1.2-3.4) K/uL [place] # (Auto) 0.97 H (0.11-0.59) K/uL Eos # (Auto) 0.27 (0-0.50) K/uL Baso # (Auto) 0.02 (0-0.2) K/uL Immature Gran # (Auto) 0.04 (0.01-0.20) K/uL ESR (0-30) mm/hr Sodium (136-145) mmol/L Potassium (3.5-5.1) mmol/L Chloride (98-107) mmol/L Carbon Dioxide (21-32) mmol/L Anion Gap (3-11) BUN (6-23) mg/dl Creatinine (0.6-1.2) mg/dl Est Cr Clr Drug Dosing ml/min Est GFR ( Amer) ml/min Est GFR (Non-Af Amer) ml/min BUN/Creatinine Ratio (10-20) Glucose (70-99(Fasting)) mg/dl Calcium (8.6-10.3) mg/dl Magnesium (1.7-2.4) mg/dl Iron (35-150) mcg/dl TIBC (250-450) mcg/dl Unsaturated IBC (155-355) mcg/dl Transferrin % Sat (15-50) % Ferritin (8-388) ng/ml Total Bilirubin (0.2-1.0) mg/dl AST (13-39) U/L ALT (7-52) U/L Alkaline Phosphatase (34-104) U/L C-Reactive Protein (0-0.5) mg/dl Total Protein (6.0-8.3) gm/dl Albumin (3.4-5.0) gm/dl Globulin (2.5-4.0) gm/dl Albumin/Globulin Ratio (0.9-2) 25-OH Vitamin D Total (30-100) ng/ml Folate (>5.38) ng/ml Procalcitonin (0-0.5) ng/ml
[2022-05-26] MEDS ORDERED: ERGOCALCIFEROL 50,000 UNITS 1250 MCG CAP PO SCH (09:00)
--- NOTE | 2022-05-26 09:43 | XRay Report ---
KUB HISTORY: Small bowel obstruction. Follow-up. COMPARISON: KUB 05/25/2022. FINDINGS: Dilated gas-filled loops of small bowel are again seen throughout the abdomen and measure u p to 4.9 cm in diameter. This is consistent with a persistent small bowel obstruction pattern. There is gas and stool within the nondilated colon. Cholelithiasis again noted. There is bilateral nephroli thiasis, unchanged. No pneumoperitoneum or pneumatosis. IMPRESSION: 1. Persistent small bowel obstruction pattern. 2. Cholelithiasis and bilateral nephrolithiasis again noted. ACT 112: Negative or not required by law. Electronically signed by: Az Cuellar M.D. 05/26/2022 9:42 AM
[2022-05-26] MEDS: LACTATED RINGER'S 1,000 ML IV SCH (10:46)
[2022-05-26] MEDS ORDERED: IRON SUCROSE 300 MG in SODIUM CHLORIDE 0.9% 250 ML IV ONE (10:48)
--- NOTE | 2022-05-26 11:33 | Discharge Summary ---
Date of Service May 26, 2022 Admission HPI Per Admitting Provider Mercedes Oconnor is a pleasant 56yo female with history of well controlled Crohn's disease (On Prednisone 5mg po daily - patient follows routinely with [facility]) presenting with abdominal pain x 1 day. Patient woke this AM 05/24/22 with upper abdominal pain which has progressed throughout the day. Pain is 9-10/10 in severity, constant and non-radiating. Also with nausea and multiple episodes of non-bloody/non-bilious vomiting, abdominal distention and some non-bloody/non-mucoid diarrhea. She was seen at [facility] in [place]. Was found to have an elevated WBC count of 17 and Lactate of 3. She had a CT of the abdomen that was suggestive of SBO with transition point present in LLQ. Patient was administered Toradol, morphine, Zofran and 1L NSS at [place]. She was transferred here because no surgical services were available at [facility]. She is presently resting comfortably in bed, oriented and pleasant. No abdominal pain or nausea. Admission Exam Per Admitting Provider General: patient resting comfortably, NAD, non-toxic in appearance, AA&O x 4 Skin: warm, dry, intact, no rashes or lesions HEENT: NC/AT, PERRL, EOMI, anicteric sclera, conjunctiva without injection, external ear normal to inspection and nontender, nares patent, moist mucus membranes, dentition intact, no oropharyngeal lesions, neck supple, trachea midline, no LAD, no thyromegaly, no JVD Heart: +S1/S2, regular, no m/r/g Lungs: equal air entry bilaterally, no rales/rhonchi/wheezes Abd: +BS, soft, non-distended, tender in the upper abdomen and LUQ with no rebound/guarding or peritonitis. Ext: warm, 2+ pulses in UE/LE bilaterally, no clubbing/cyanosis or edema Neuro: nonfocal, patient AA&O x 4, speech intact, no facial droop, moving all extremities on command with equal strength 5/5 Principal Diagnosis SBO , Crohns Flare Discharge Exam General: WD/WN female resting in bed, NAD, improved HEENT: head normocephalic, atraumatic, mmm, trachea midline Resp: CTA, on room air CV: RRR, no significant m/r/g, no pitting edema GI +BS, soft, NT, no guarding MSK/Neuro: no focal deficit, no slurred speech/facial droop eron tape to left foot 3rd/4th digits Psych: AOx3, cooperative with exam Discharge Data Allergies Allergy/AdvReac Type Severity Reaction Status Date / Time Penicillins Allergy Intermediate HIVES Verified 01/23/22 09:04 Consultations 05/24/22 22:09 Consult Gastroenterology Routine Consult General Surgery Routine Ordered Studies KUB X-Ray 05/24/22 22:04 KUB CLINICAL HISTORY: Small bowel obstruction. FINDINGS: 2 AP supine abdominal radiographs are compared to study dated 12/27/2016 and correlated with abdominal CT dated 11/22/2016. Excreted IV contrast fills the renal collecting systems and bladder. There are distended and gas-filled loops of small bowel which measure up to 4.5 cm diameter. This is consistent with the reported history of a small bowel obstruction. No evidence of intraperitoneal free air is seen on these supine images. A calcified gallstone is suggested in the right upper quadrant. The bony structures appear intact. IMPRESSION: 1. Small bowel obstruction. 2. Cholelithiasis is suggested in the right upper quadrant. Electronically signed by: Yg Wilson M.D. 05/25/2022 7:08 AM KUB X-Ray 05/25/22 11:15 KUB CLINICAL HISTORY: Small bowel obstruction. FINDINGS: 2 AP supine abdominal radiographs are compared to study dated 05/24/2022 and correlated with abdominal CT dated 11/22/2016. There is evidence of persistent small bowel obstruction. Small bowel loops measure up to 4.8 cm in diameter. No evidence of intraperitoneal free air is seen on these supine images. A calcified gallstone is seen in the right upper quadrant. Nonobstructing right renal calculi measuring up to 4 mm. The bony structures appear intact. IMPRESSION: 1. Persistent small bowel obstruction. 2. Cholelithiasis and right-sided nephrolithiasis. Electronically signed by: Yg Wilson M.D. 05/25/2022 12:10 PM KUB X-Ray 05/26/22 07:00 KUB HISTORY: Small bowel obstruction. Follow-up. COMPARISON: KUB 05/25/2022. FINDINGS: Dilated gas-filled loops of small bowel are again seen throughout the abdomen and measure up to 4.9 cm in diameter. This is consistent with a persistent small bowel obstruction pattern. There is gas and stool within the nondilated colon. Cholelithiasis again noted. There is bilateral nephrolithiasis, unchanged. No pneumoperitoneum or pneumatosis. IMPRESSION: 1. Persistent small bowel obstruction pattern. 2. Cholelithiasis and bilateral nephrolithiasis again noted. ACT 112: Negative or not required by law. Electronically signed by: Az Cuellar M.D. 05/26/2022 9:42 AM Hospital Course (1) SBO (small bowel obstruction): 56yo female with history of well controlled Crohns disease presenting with 1 day of abdominal pain, bloating, nausea and vomiting. She was seen at an outside hospital and found to have an SBO with no perforation. Patient was transferred to [facility] for further evaluation due to lack of surgical services at outside facility. Imaging at outside hospital concerns for small bowel obstruction that began at the mid to distal jejunum potentially involving the proximal ileum. There is surrounding inflammatory changes. The interpreting radiologist noted a transition point in the left lower quadrant. There is no free air, abscess, or closed-loop obstruction". 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 No further n/v or need for NGT placement while inpatient GI/General surgery consulted Supportive care/IVF/antiemetics/pain control/electrolyte replacement and placement on IV antibiotics with Cipro/Flagyl and IV steroids with methylprednisolone 20mg IV q8H given elevated temp 38.1C AM 05/25 (blood cultures obtained, NGTD at present) and concerns for crohns flare with elevated CRP to 10.7 and findings on imaging. Procal 0.16 Patient had diet advanced to liquids, with multiple BMs (nonbloody) overnight. No abdominal pain and active BS on exam despite repeat KUB this morning w/ reported continued SBO and patient requesting to be discharged. Case discussed with Dr Huggins from general surgery who knows patient well and feels she is appropriate for discharge and discussed symptoms/concerns to return to ER with. Agreed to continue abx course. Steroids per GI. Case was discussed with GI provider for recs for steroid taper at discharge --> per discussion w/ Penelope Petty will plan prednisone for 60mg x 7 days, then 50mg x 7 days, then 40mg x 7 days, then decrease by 5mg intervals per week then stop. Of note, she has pepcid at home if needed for reflux symptoms but tolerated st eroids in the past without issue Continue low fiber diet at d/c x 2 weeks Will need outpatient f/u GI for colonoscopy (appt next month with Dr Brown per patient) as well as initiation of biologic (was discussed this AM w/ patient by GI as well as myself) and colorectal surgery followup being arranged by nurse navigator. (2) Crohn's disease: Chronic. Usually well controlled on prednisone 5mg daily and states has been many years since issue but see above --> needing steroid taper/abx at discharge and outpatient GI/colorectal follow up Will need to start biologic as outpatient (3) Hypomagnesemia: low on admit, IV ordered and acceptable on repeat (4) Hypokalemia: improved on repeat w/ IVF and remained stable w/ diet advanced (5) B12 deficiency: prior low <55 in january w/ hx lows per patient, has been getting monthly injections -- can continue outpt (6) Iron deficiency anemia: prior hx, unable to tolerate PO iron reported in past Iron panel checked -- iron 24, trans % sat 9 Checked w/ GI and given IV dose venofer prior to dischage and can f/u PCP about outpatient transfusions through [facility] No blood in stool reported but was not checked fecal occult w/ prior BM (7) Vitamin D deficiency: prior lows -- started ergocalciferol weekly -- continued as outpatient. does have hx stones (GB/nephrolithiasis) Plan discharge home on Cipro/Flagyl x 10 day course. Complete prednisone taper per GI. Outpatient f/u for colonoscopy, biologic initiation and eval by colorectal F/u PCP for Venofer infusions given intolerance to PO Total Time Total Time Spent Total Time Spent (In Minutes): 65 Discharge Plan Discharge Items Patient Disposition: Home - Self-Care Reason For Visit: SMALL BOWEL OBSTRUCTION/CROHNS DISEASE Discharge Diagnosis: Small Bowel Obstruction, Crohns Disease Goals: You have been hospitalized for an acute medical problem. During your stay at [facility], we have made an effort to correct the problem that brought you to the hospital while keeping you as comfortable as possible. Medications were used to bring your condition under control and your discharge instructions will include directions for any medications you should take after leaving the hospital. Please make sure you see your Primary Care Provider as part of your follow up plan. Activity: As commented below Non-emergency contact: Primary Care Provider, Surgeon and [employer] Call non-emergency contact if: you have any medication questions, your symptoms worsen, your pain is worsening and you have a fever Follow-up/Referrals: Carly Vang DO [Primary Care Provider] - 06/06/22 9:20 am (APPOINTMENT WITH REGGIE MORALES PA-C) Eugenia Brown DO [Physician] - Diet: Low Fiber Addtl Attending Provider Instructions: You have been hospitalized for abdominal pain/nausea/vomiting. Imaging was concerning for small bowel obstruction with evidence for crohns flare with fistulization due to inflammatory bowel disease. General surgery and gastroenterology were consulted. Given fever and findings on imaging I requested antibiotics and IV steroids which were utilized and you have moved your bowels and having active bowel sounds. Imagin on repeat still shows some obstruction, but imaging can lag behind clinical picture and given you are moving bowels and not having pain and tolerating diet, surgery feels it is ok to discharge you with the understanding if you have increased pain/fever/nausea/vomiting to return to the ER. I have ordered IV Iron while in the hospital and your primary care can arrange outpatient infusions as unable to tolerate oral supplementation. We also started on vitamin D. You have evidence for gallbladder stones and kidney stones and hopefully replacement of this will prevent formation of new ones/issues in the future. We are planning to discharge you on antibiotics with Ciprofloxacin and Flagyl to complete a 10 day course. This will be for another 9 days. We are sending you on a steroid taper as well: -- 60mg x 7 days, then 50mg x 7 days, then 40mg x 7 days, then decrease by 5mg intervals per week then stop. They will work on getting you started on a biologic like Humira as discussed and will need outpatient colonoscopy. We have sent information for referral to colorectal through [facility] and you should have them calling you with an appointment in follow up for consultation. If you do not hear from them by next Sunday, their number is [phone]. You should follow up with your primary care in the next 7-10 days to monitor your progress after discharge. Please follow up with GI and colorectal as discussed. It has been a pleasure being a part of the medical team providing for you while you have been in the hospital. Take care! Pending Studies at Discharge: Yes Studies:: blood cultures -- no growth to date Stand-Alone Forms: My [facility] Medications and DC Order Prescriptions: New ergocalciferol (vitamin D2) 1,250 mcg (50,000 unit) Capsule 50,000 unit PO Q7D Qty: 4 0RF ciprofloxacin HCl 500 mg tablet 500 mg PO BID 9 Days Qty: 18 0RF metronidazole 500 mg tablet 500 mg PO Q8H 9 Days Qty: 27 0RF prednisone 20 mg tablet See Rx Instructions .ROUTE .COMPLEX Qty: 101 0RF Rx Instructions: 60mg daily x 7 days, then 50mg daily x 7 days, then 40mg daily x 7 days, then decrease by 5mg daily to complete taper. Continued escitalopram oxalate 10 mg tablet 10 mg PO DAILY Qty: 90 3RF potassium chloride 20 mEq tablet,ER particles/crystals 20 meq PO DAILY Qty: 30 1RF ascorbate calcium (vitamin C) 500 mg tablet 500 mg PO DAILY Discontinued prednisone 5 mg tablet 5 mg PO DAILY cholecalciferol (vitamin D3) 10 mcg (400 unit) capsule 10 mcg PO DAILY Azulfidine 1,000 mg 1,000 mg PO DAILY Discharge Orders: Discharge Order (Routine); Ordered 05/26/22 Ordered By: Daxa Oconnor Admission Data Admit Date/Time: 05/24/22 21:33 Attending Provider: Ariel Noble Admit Provider: Lyndsay Hough Primary Care Provider: Carly Vang Other Providers: Alonso Santos ; Joe Amezcua ; Purvi Gan ; Nanette Linton ; Libia Holden ; Trice Wallace ; Jerry Thao ; Mikhail Sinclair ; Sonia Villalobos ; Ana Wu ; Forrest Clark ; Penelope Gray ; Eugenia Brown ; Mar Rosado ; Amelia Silva ; Juan King ; Warner Metcalf ; Steve Vargas ; Sally Heck ; Debi Hall Jr ; iMchael Blackmon Other Interventions: Discharge Summary Assessment (RN) Last Done: 05/26/22 13:05 Supervising Physician Co-Signing Physician Notes The patient was seen by me. The chart was reviewed. Case discussed with ENOCH Charles. Agree with assessment and plan. She will be discharged home today, May 26 Coding Level of Care Code 97148 INP/OBS DISCH >30 MIN Diagnoses SBO (small bowel obstruction) K56.609 Crohn's disease K50.90 Hypomagnesemia E83.42 Hypokalemia E87.6 B12 deficiency E53.8 Iron deficiency anemia D50.9 Vitamin D deficiency E55.9
== END 2022-05-26 13:55 | disposition home or self-care (01) | DRG 387 ==
LOC: SUATTDRO 21:33 → 2W 21:33

== ENCOUNTER 2024-05-22 18:25 | Inpatient (IN) ==
[2024-05-22 18:59] LABS: Basophils # (auto) 0.03 K/uL (0.00-0.20); Basophils % (auto) 0.2 %; Eosinophils # (auto) 0.13 K/uL (0.00-0.50); Hematocrit (blood only) 32.1 % (37.0-47.0); Hemoglobin 10.2 g/dl (12.0-16.0); Immature Granulocytes # (auto) 0.16 K/uL (0.01-0.20); Immature Granulocytes % (auto) 1.2 %; Lymphocytes # (auto) 0.66 K/uL (1.20-3.40); Lymphocytes % (auto) 5.1 %; Mean Corpuscular Hemoglobin 27.3 pg (25.0-34.0); Mean Corpuscular Hgb Conc 31.8 g/dL (32.0-36.0); Mean Corpuscular Volume 85.8 fL (80.0-100.0); Mean Platelet Volume 9.8 fL (9.4-12.4); Neutrophils # (auto) 10.36 K/uL (1.40-6.50); Neutrophils % (auto) 79.5 %; Platelet Count 405 K/uL (130-400); RDW Coefficient of Variation 18.6 % (11.5-14.5); RDW Standard Deviation 56.2 fL (36.4-46.3); Red Blood Count 3.74 M/uL (4.20-5.40); White Blood Count 13.04 K/ul (4.8-10.8)
[2024-05-22 19:22] LABS: Albumin Globulin Ratio 1.8 (0.9-2); Albumin Level 4.2 gm/dl (3.4-5.0); BUN Creatinine Ratio 12.4 (10-20); Bilirubin,Total 0.9 mg/dl (0.2-1.0); Calcium 12.4 mg/dl (8.6-10.3); Creatinine Clr Calc Pharmacy 53.6 ml/min; Globulin 2.3 gm/dl (2.5-4.0); Potassium 3.2 mmol/L (3.5-5.1); Total Protein 6.5 gm/dl (6.0-8.3)
--- NOTE | 2024-05-22 20:11 | Emergency Department Note ---
Impression & Plan Hypercalcemia Admission ED Provider Note HPI: History obtained from patient. The patient is a 58-year-old female with history of iron deficiency anemia, Crohn's disease, presents the emergency department at the advice of her outpatient provider/PCP over concern for hypercalcemia. Patient states that she had some blood work drawn as she has been feeling generally weak and low energy, she states that showed that her calcium level was high and she was contacted by her PCP to come to the ER today for further assessment. On arrival here to the ED, the patient denies any focal complaint of pain. She states she has been weak and low energy recently but otherwise has felt in her normal state of health. Patient is tachycardic on arrival but otherwise hemodynamically stable. ROS: - Per HPI Differential Diagnosis: Hypercalcemia, arrhythmia, acute kidney injury/dehydration, other critical electrolyte abnormalities to include hypokalemia, hypomagnesemia, parathyroid disorder, malignancy, amongst other potential pathologies. *Outpatient medications and allergy history reviewed. PE: General: Alert HEENT: Normocephalic, trachea midline Eyes: Extraocular eye movement is intact, no scleral erythema Pulmonary: Clear to auscultation bilaterally, no wheezing Cardio: Regular rate and rhythm GI: Abdomen is soft to palpation : No suprapubic tenderness MSK: No evidence of trauma or malformation of the extremities, no edema Skin: No evidence of rash Neuro: Alert, no focal deficits Psychiatric: Cooperative INDEPENDENT INTERPRETATIONS: playground monitor: (As interpreted by myself): - An order was placed for continuous cardiac monitoring - Patient was noted to be in sinus rhythm with a rate of 95 EKG: (As interpreted by myself): Rate: 111 Rhythm: Sinus tachycardia Intervals: Within normal limits ST changes: No ST elevation Time: 1839 Interventions provided in ED: - IV fluid bolus, potassium chloride Medical Decision Making: IV was established and lab work obtained, patient was placed on equipment monitor phototypesetting. EKG as reviewed by myself shows mild sinus tachycardia without any acute ischemic changes or significant arrhythmia. Lab work shows a mild leukocytosis, hemoglobin is stable at 10.2, platelet count is slightly elevated at 405, CMP shows mild hypokalemia 3.2 which was ordered for oral repletion. Calcium level is elevated at 12.4. Magnesium is within normal limits. Patient does complain of some generalized weakness/fatigue recently, given her symptoms with significantly elevated calcium, patient was given IV fluids and will plan for admission for further investigation of her hypercalcemia. Patient denies any focal complaints of pain, denies any dyspnea, denies any headache, denies any recent nausea/vomiting. Patient is in agreement for admission. Case was discussed with the on-call hospitalist, Dr. Zavala, the patient was placed for admission in stable condition. Consultants/Discussions held with other healthcare providers: - Hospitalist, Dr. Zavala Disposition discussion held by myself with: - Patient Diagnosis: 1. Hypercalcemia, acute, nonspecific 2. Hypokalemia, acute 3. Generalized weakness/fatigue, acute Disposition: Admission Kunal Ojeda DO Emergency Medicine Past Med/Surg History Problem List (Updated 05/23/24 @ 01:36 by Kunal Ojeda DO) Hypercalcemia (Acute) Transaminitis Hypercalcemia History of basal cell carcinoma (BCC) of skin R berrios s/p MOHS Mar 2024 Iron deficiency anemia B12 deficiency Hypokalemia Hypomagnesemia Post menopausal syndrome Vitamin D deficiency Tubular adenoma of colon Crohn's disease Acid reflux Medical History SBO (small bowel obstruction) Surgical History S/P Mohs surgery for basal cell carcinoma (03/2024) H/O breast biopsy S/P endometrial ablation Hx of oral surgery Family History Grandmother Colorectal cancer Uncle Colorectal cancer Mother Myocardial infarction, Onset Age: 66 Father Hypertension Diabetes Denies family history of Ovarian cancer Prostate cancer Breast cancer Social History Smoking Status: Never smoker Second Hand Exposure: Yes; Do You Dip or Chew Tobacco: No; Hx Alcohol Use: No Hx Substance Use: No Preferred Language: Polish Communication Ability: Effective Visual Impairment: No Limitations Hearing Ability: Normal Pumper Gauger Required: No Beliefs That Will Affect Care: None marital status: Current Living Situation: Spouse and Family current occupational status: 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 Feels Safe at Home: Yes Childhood Exposure to Second-Hand Smoke: Yes Diet: regular Diet Comment: Regular caffeine: Yes during the past year weight has: remained stable Dental Care, Regularly: Yes Physical Activity Frequency: 3-4 Times per Week Seatbelt Use: always Sunscreen Use: Yes Assistive Devices: None Allergies Allergies Allergy/AdvReac Type Severity Reaction Status Date / Time Penicillins Allergy Intermediate HIVES Verified 05/08/24 09:51 Home Meds Home Medications Medication Instructions Recorded Confirmed cyanocobalamin (vitamin B-12) 1,000 mcg IM UD 01/25/23 05/22/24 1,000 mcg/mL injection solution Previous Rx's Medication Instructions Recorded escitalopram oxalate 10 mg tablet 10 mg PO DAILY #90 tabs 02/14/24 Results & Data (ED) Vital Signs Vital Signs - 24 hr 05/22/24 18:34 05/22/24 20:17 05/22/24 20:30 Temperature 36.7 C Temperature Source Skin Pulse Rate 121 H 96 H Pulse Rate [Finger] 104 H Respiratory Rate 16 20 Respiratory Effort / Characteristics Non-Labored Spontaneous Respiratory Depth Normal Respiratory Pattern Regular Blood Pressure 123/73 Blood Pressure [Right Arm] 129/72 Blood Pressure Mean 89 Blood Pressure Mean [Right Arm] 91 Pulse Oximetry 98 94 Oxygen Delivery Method Room Air Room Air Sepsis Recent Fever Within 48 Hours No Sepsis New/Unexplained Change in Mental Status N/A Sepsis Action Taken by Nursing No Action Required Laboratory Data 05/22/24 18:41 05/22/24 18:41 Lab Results 05/22/24 05/22/24 Range/Units 18:41 20:42 WBC 13.04 H (4.8-10.8) K/ul RBC 3.74 L (4.20-5.40) M/uL Hgb 10.2 L (12.0-16.0) g/dl Hct 32.1 L (37.0-47.0) % MCV 85.8 (80.0-100.0) fL MCH 27.3 (25.0-34.0) pg MCHC 31.8 L (32.0-36.0) g/dL RDW Std Deviation 56.2 H (36.4-46.3) fL RDW Coeff of Susanna 18.6 H (11.5-14.5) % Plt Count 405 H (130-400) K/uL MPV 9.8 (9.4-12.4) fL Immature Gran % (Auto) 1.2 % Neut % (Auto) 79.5 % Lymph % (Auto) 5.1 % Hartley % (Auto) 13.0 % Eos % (Auto) 1.0 % Baso % (Auto) 0.2 % Neut # (Auto) 10.36 H (1.40-6.50) K/uL Lymph # (Auto) 0.66 L (1.20-3.40) K/uL Hartley # (Auto) 1.70 H (0.11-0.59) K/uL Eos # (Auto) 0.13 (0.00-0.50) K/uL Baso # (Auto) 0.03 (0.00-0.20) K/uL Immature Gran # (Auto) 0.16 (0.01-0.20) K/uL Sodium 135 L (136-145) mmol/L Potassium 3.2 L (3.5-5.1) mmol/L Chloride 98 (98-107) mmol/L Carbon Dioxide 30 (21-32) mmol/L Anion Gap 7 (3-11) BUN 13 (6-23) mg/dl Creatinine 1.05 (0.6-1.2) mg/dl Est Cr Clr Drug Dosing 53.6 ml/min eGFR 62.36 BUN/Creatinine Ratio 12.4 (10-20) Glucose 118 H (70-99(Fasting)) mg/dl Calcium 12.4 H* (8.6-10.3) mg/dl Ionized Calcium 1.59 H* (1.12-1.32) mmol/L Phosphorus 2.1 L (2.5-4.9) mg/dl Magnesium 1.8 (1.7-2.4) mg/dl Total Bilirubin 0.9 (0.2-1.0) mg/dl AST 84 H (13-39) U/L ALT 30 (7-52) U/L Alkaline Phosphatase 320 H (34-104) U/L Total Creatine Kinase 32 (26-192) U/L Total Protein 6.5 (6.0-8.3) gm/dl Albumin 4.2 (3.4-5.0) gm/dl Globulin 2.3 L (2.5-4.0) gm/dl Albumin/Globulin Ratio 1.8 (0.9-2) PTH Intact 7.1 L (12.0-88.0) pg/ml Administered Medications Discontinued Medications Sodium Chloride (Nss) 1,000 mls @ 999 mls/hr IV .Q1H1M ONE Stop: 05/22/24 21:02 Last Infusion: 05/22/24 22:06 Dose: Infused Documented By: Admin: 05/22/24 20:17 Dose: 999 mls/hr Documented By: MAXI Sodium Chloride (Nss) 1,000 mls @ 999 mls/hr IV .Q1H1M ONE Stop: 05/23/24 00:40 Last Infusion: 05/23/24 01:17 Dose: Infused Documented By: Admin: 05/23/24 00:07 Dose: 999 mls/hr Documented By: PILAR Potassium Chloride (Potassium Chloride Crtab 20 Meq Tabcr) 40 meq PO NOW STA Stop: 05/22/24 20:15 Last Admin: 05/22/24 20:20 Dose: 40 meq Documented By: MAXI Discharge Plan Visit Data Chief Complaint: Referred by Doctor Stated Complaint: DOCTOR REFERED ED Provider: Kunal Ojeda Discharge Problem: Hypercalcemia Discharge Instructions Interventions: ED Discharge Assessment Last Done: 05/23/24 00:04
[2024-05-22] MEDS: SODIUM CHLORIDE 0.9% 1,000 ML IV ONE (20:17)
[2024-05-22] MEDS: POTASSIUM CHLORIDE CRTAB 20 MEQ TABCR PO STA (20:20)
[2024-05-22 20:37] LABS: Magnesium 1.8 mg/dl (1.7-2.4)
--- NOTE | 2024-05-22 22:11 | History & Physical Report ---
Date of Service May 22, 2024 Assessment & Plan (1) Crohn's disease: (2) Hypokalemia: (3) Hypomagnesemia: (4) Hypercalcemia: (5) Transaminitis: Plan 58 yo female PMHx Crohn's dx, anemia, GERD, b12 deficiency, vitamin D deficiency, GERD sent to the ER by PCP found to have lab abnormalities most concerning for hypercalcemia and transaminitis. #Hypercalcemia Elevated calcium and ionized calcium PTH low Concern for multiple myeloma or other lytic lesion PTHrP, SPEP, UPEP, immunofixation, immunoglobulins, Vitamin D 1,25 and 25, serum free light chains ordered #Transaminitis Liver US ordered Concern for liver involvement if malignancy is present Serial liver function panel #Hypokalemia Monitor bmp, replete as indicated #Mental health Continue Lexapro #Crohn's disease Colonoscopy obtained this week at [facility] Consider obtaining report/pathology if possible FENGI: reular diet Code status: full DVT prophylaxis: Lovenox Isolation: none Disposition: med/tele History of Present Illness Primary Care Provider: Carly Vang DO 58 yo female PMHx Crohn's dx, anemia, GERD, b12 deficiency, vitamin D deficiency, GERD sent to the ER by PCP found to have lab abnormalities most concerning for hypercalcemia and transaminitis. For the last few weeks she has been experiencing weakness, and low energy. Denies any pain. She saw her PCP this week and had labs drawn. He did have an iron infusion earlier this week and a colonoscopy. ED Course Labs significant for leukocytosis, thrombocytosis, hypokalemia, hypercalcemia, elevated AST/ALT/Alk phos/LDH, low PTH Given 40 mEq potassium, 2L NSS Allergies Allergy/AdvReac Type Severity Reaction Status Date / Time Penicillins Allergy Intermediate HIVES Verified 05/08/24 09:51 Home Medications Medication Instructions Recorded Confirmed Type cyanocobalamin (vitamin B-12) 1,000 mcg IM UD 01/25/23 05/22/24 History 1,000 mcg/mL injection solution escitalopram oxalate 10 mg tablet 10 mg PO DAILY #90 tabs 02/14/24 05/22/24 Rx Past Med/Surg History Problem List (Updated 05/23/24 @ 01:36 by Kunal Ojeda DO) Hypercalcemia (Acute) Transaminitis Hypercalcemia History of basal cell carcinoma (BCC) of skin R berrios s/p MOHS Mar 2024 Iron deficiency anemia B12 deficiency Hypokalemia Hypomagnesemia Post menopausal syndrome Vitamin D deficiency Tubular adenoma of colon Crohn's disease Acid reflux Medical History SBO (small bowel obstruction) Surgical History S/P Mohs surgery for basal cell carcinoma (03/2024) H/O breast biopsy S/P endometrial ablation Hx of oral surgery Family History Grandmother Colorectal cancer Uncle Colorectal cancer Mother Myocardial infarction, Onset Age: 66 Father Hypertension Diabetes Denies family history of Ovarian cancer Prostate cancer Breast cancer Social History Smoking Status: Never smoker Second Hand Exposure: Yes; Do You Dip or Chew Tobacco: No; Hx Alcohol Use: No Hx Substance Use: No Preferred Language: Frisian Communication Ability: Effective Visual Impairment: No Limitations Hearing Ability: Normal Manager Cardiovascular Required: No Beliefs That Will Affect Care: None marital status: Current Living Situation: Spouse current occupational status: 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 Feels Safe at Home: Yes Safety Concerns: Feels Safe At This Time Childhood Exposure to Second-Hand Smoke: Yes Diet: regular Diet Comment: Regular caffeine: Yes during the past year weight has: remained stable Dental Care, Regularly: Yes Physical Activity Frequency: 3-4 Times per Week Seatbelt Use: always Sunscreen Use: Yes Assistive Devices: None Review of Systems Review of Systems: reviewed, per HPI Physical Exam Physical Exam: Constitutional: well-appearing, no acute distress HEENT: NCAT, no conjunctival injection CV: regular rhythm, no murmur appreciated, extremities well-perfused, no LE edema Resp: CTABL, no wheezes/rales/rhonchi appreciated, no increased work of breathing GI: nondistended, normal BS MSK: no gross deformities appreciated Skin: warm, dry, no rash appreciated Neuro: alert, oriented, no focal neurologic deficit appreciated Results & Data Results & Data Vital Signs (Past 12 Hours) Vital Signs Temp Pulse Pulse Resp BP BP Pulse Ox 05/22/24 20:30 104 H 20 129/72 94 05/22/24 20:17 96 H 05/22/24 18:34 36.7 C 121 H 16 123/73 98 O2 Del Method 05/22/24 20:30 Room Air 05/22/24 20:17 05/22/24 18:34 Room Air Supervising Physician Co-Signing Physician Notes I personally saw and examined the patient. I independently reviewed the labs, EKG, imaging, problem list, medication list, past medical history and family history. I verified all ramirez points and agree with resident physician Dr Nasir Larsen, with the following exceptions and/or additions: 58 year old female presents to the ER with abnormal outpatient labs (hypercalcemia) and fatigue. O/E HS RRR, no murmurs, Chest CTAB, Abdo SNT A/P Hypercalcemia (low PTH) / increased AST/ALP - unknown cause, possible just d ehydration from recent diarrhea and colon prep therefore will hydrate overnight and repeat levels in AM. Supporting evidence for this includes recent labs that show calcium became normal between 4/3 - 4/4 without intervention. However AST, ALP and LDH are specifically more concerning in the setting of hypercalcemia. No family history of blood cancers. She denies any alcohol use. US liver ordered b ut myeloma specifically would fit this pattern and labs ordered for this in AM. Her most at risk malignancy is colon with her crohn's but [facility]. CXR ordered to assess for any large lung nodules give most likely malignancy for elevated PTHrP which the test was also ordered for the AM. Resident Activity Tracking Resident Involvement: Resident Care Provided Care Provided: Adult Hospital Medicine
[2024-05-23] MEDS ORDERED: ACETAMINOPHEN 500 MG TAB PO PRN (00:03)
[2024-05-23] MEDS ORDERED: POLYETHYLENE (MIRALAX) 17 GM PACK PO PRN (00:03)
[2024-05-23] MEDS ORDERED: ALUMINUM/MAGNESIUM SUSP 30 ML UDC PO PRN (00:03)
[2024-05-23] MEDS ORDERED: ONDANSETRON INJ 2 MG/ML 2 ML VIAL IV PRN (00:03)
[2024-05-23] MEDS ORDERED: MAGNESIUM HYDROXIDE SUSP 30 ML UDC PO PRN (00:03)
[2024-05-23 00:06] LABS: Phosphorus 2.1 mg/dl (2.5-4.9)
[2024-05-23] MEDS: SODIUM CHLORIDE 0.9% 1,000 ML IV ONE (00:07)
[2024-05-23 00:28] LABS: Appearance Urine Clear (Clear); Bacteria Urine Automated 3+ (None Seen); Bilirubin Urine Negative (Negative); Blood Urine Negative (Negative); Color Urine Yellow; Epithelial Cell Urine Auto 0-2 /hpf (0-2); Glucose Urine UA Negative (Negative); Ketones Urine Negative (Negative); Leukocyte Esterase Urine 1+ (Negative); Nitrite Urine Positive (Negative); Protein Urine Trace (Negative); RBC Urine Automated 0-2 /hpf (0-2); Specific Gravity Urine 1.013 (1.000-1.030); Urobilinogen Urine Negative (Negative); WBC Urine Automated 21-50 /hpf (0-5); pH Urine 5.5 (4.5-7.5)
--- NOTE | 2024-05-23 01:38 | XRay Report ---
EXAM: XR chest 1V portable CLINICAL HISTORY: Hypercalcemia of malignancy. TECHNIQUE: An X-ray image of the chest is obtained using an AP projection. COMPARISON: No prior studies are available for comparison. FINDINGS: Pulmonary Parenchyma: Prominent perihilar and right lower zone bronchovascular markings, suggesting congestion. Linear atelectasis in the left lower zone. No evidence of consolidation, collapse, or focal opacities. No pulmonary nodules are identified. No evidence of pleural effusion or pleural thickening. Heart and Mediastinum: The heart size is enlarged. No mediastinal widening or masses. No hilar or mediastinal lymphadenopathy. Bony Thorax: Bony thorax appears intact without fractures or deformities. Soft Tissues: Soft tissues overlying the chest wall are unremarkable. Overlying chest leads are seen. IMPRESSION: 1. Prominent perihilar and right lower zone bronchovascular markings, suggesting congestion. 2. Linear atelectasis in the left lower zone. 3. No radiographic evidence of mass/lesion. Electronically signed by Ananda Pulido 05-23-2024 01:37 AM
[2024-05-23 05:24] LABS: Alanine Aminotransferase 25 U/L (7-52); Albumin Level 3.1 gm/dl (3.4-5.0); Alkaline Phosphatase 256 U/L (34-104); Anion Gap 4 (3-11); Aspartate Aminotransferase 71 U/L (13-39); BUN Creatinine Ratio 12.5 (10-20); Bilirubin Direct 0.4 mg/dl (0-0.2); Bilirubin,Total 0.8 mg/dl (0.2-1.0); Blood Urea Nitrogen 11 mg/dl (6-23); Carbon Dioxide 26 mmol/L (21-32); Chloride 106 mmol/L (98-107); Glucose 76 mg/dl (70-99(Fasting)); Immunoglobulin A 116.8 mg/dl (70-400); Immunoglobulin G 478.8 mg/dl (635-1741); Immunoglobulin M < 20.0 mg/dl (45-281); Potassium 3.9 mmol/L (3.5-5.1); Sodium 136 mmol/L (136-145); Total Protein 5.2 gm/dl (6.0-8.3)
--- NOTE | 2024-05-23 07:12 | Billing Data ---
Date of Service May 22, 2024 Coding Level of Care Code 61135 INT INP/OBS CARE
--- NOTE | 2024-05-23 07:46 | Ultrasound Report ---
EXAM: US liver CLINICAL HISTORY: Transaminitis. TECHNIQUE: Limited ultrasound of the liver and gallbladder was performed in grayscale and Doppler. Multiple images were obtained in transverse and longitudinal planes. COMPARISON: No prior studies are available for comparison. FINDINGS: Liver: Liver size: Enlarged in size measures 22 cm and shows heterogenous echotexture with multiple variable-sized heterogenous/nodular lesions scattered in the liver globally. Hepatic vasculature appears normal. Gallbladder: Gallbladder size: Gallbladder is minimally distended and appears to be thick-walled and shows stone. No evidence of gallbladder wall edema or signs of acute cholecystitis. Biliary Tree: Common bile duct diameter: Measures 0.50 cm. Common bile duct is within normal limits in caliber and not dilated. No evidence of choledocholithiasis or biliary obstruction. Pancreas: Is largely obscured due to overlying bowel gases. Right Kidney: Measures 10.1 x 4.9 x 4.6 cm. Small lower pole calyx stone measures 0.3 cm. A small thin-walled unilocular cyst measures 1.8 cm seen in the lower pole. IMPRESSION: 1. Heterogeneous enlarged liver with multiple ill-defined nodular/heterogenous lesions, likely to be neoplastic. Suggest clinical correlation. CT abdomen with contrast is advised. 2. Minimally distended gallbladder with evidence of Cholelithiasis. 3. Right renal small stone. 4. Right renal small simple cyst. Electronically signed by Ananda Pulido 05-23-2024 07:45 AM
[2024-05-23] MEDS: CYANOCOBALAMIN 1000 MCG/ML VIAL IM SCH (09:57)
[2024-05-23] MEDS: ESCITALOPRAM OXALATE 10 MG TAB PO SCH (09:57)
[2024-05-23] MEDS: OPTIRAY 320 100ml IV ONE (11:49)
[2024-05-23 12:12] VITALS: O2SAT 94
--- NOTE | 2024-05-23 12:13 | CT Scan Report ---
ABDOMEN AND PELVIS CT WITH IV AND ORAL CONTRAST CT DOSE: 1009.79 mGy.cm HISTORY: abnormal liver US, hyperCa+ poss malignancy TECHNIQUE: Multiaxial CT images of the abdomen and pelvis were performed following the IV administrat ion of 90 cc of Optiray and oral contrast. A dose lowering technique was utilized adhering to the pr inciples of FERNANDO. COMPARISON STUDY: 11/22/2016 CT and ultrasound earlier today. FINDINGS: There are trace bilateral pleural effusions with mild adjacent dependent lower lobe atelect asis. There is a small hiatal hernia. ABDOMEN: There are numerous masses scattered throughout the liver, largest in the left hepatic lobe m easures 6 cm. There is a gallstone without evidence of acute cholecystitis. Spleen, pancreas, and adr enal glands are unremarkable. There are a few cysts at the kidneys. There are a few tiny nonobstructi ng renal calculi. There is no hydronephrosis bilaterally. No solid renal mass seen. There are atheros clerotic calcifications. No abdominal aortic aneurysm. Pelvis: Uterus and adnexa are grossly unremarkable. Urinary bladder is nondistended. There is a 4 cm mass at a small bowel loop at the anterior pelvis just right of midline series 3 image 281 axially an d coronal series 301 image 32. This is likely in the mid to distal ileum. There is tethering to an ad jacent small bowel loop. There is minimal retained stool. No bowel inflammation or obstruction seen. No free fluid, free air, or abscess. No enlarged adenopathy. Osseous structures: Stable scattered bone islands, largest posterior left iliac bone. There are mild findings of degenerative disc disease at the lumbar spine. There is a small hemangioma at the L1 vert ebral body. No acute osseous findings. IMPRESSION: 1. 4 cm mass at a loop of mid to distal ileum likely represents the primary malignancy. 2. Diffuse hepatic metastatic disease. 3. No bowel obstruction seen. 4. Otherwise as described. ACT 112: Negative or not required by law. The above report was generated using voice recognition software. It may contain grammatical, syntax o r spelling errors. Electronically signed by: Michael Riley M.D. 05/23/2024 12:11 PM
--- NOTE | 2024-05-23 14:19 | Electrocardiogram Report ---
Test Reason : Blood Pressure : */* mmHG Vent. Rate : 111 BPM Atrial Rate : 111 BPM P-R Int : 124 ms QRS Dur : 76 ms QT Int : 302 ms P-R-T Axes : 29 3 7 degrees QTcB Int : 410 ms Poor data quality, interpretation may be adversely affected Sinus tachycardia Nonspecific ST abnormality Abnormal ECG When compared with ECG of 24-May-2022 22:39, No significant change was found Confirmed by Valentín Ramos ([id number]) on 05/23/2024 2:19:19 PM Referred By: Clemencia Lawrence Confirmed By: Valentín Ramos
[2024-05-23 15:41] VITALS: BP 132/74; PULSE 105; RESP 20; TEMP 98.4
--- NOTE | 2024-05-23 18:42 | Discharge Summary ---
Discharge Summary Date of Service May 23, 2024 Principal Dx & Hospital Course #1 = Principal Diagnosis (1) Hypercalcemia: (2) Mass of small intestine: (3) Liver masses: (4) Crohn's disease: (5) Hypokalemia: (6) Hypomagnesemia: Plan 58 yo woman with Crohn's disease and history of adenomatous polyps of the colon and small intestine who was sent to the ER when she was found to have lab abnormalities most concerning for hypercalcemia and transaminitis. Moderate hypercalcemia, asymptomatic - Ca 12.5 and iCa 1.59. Improved some with IV fluids. PTH low. Vitmain D not elevated. Not on Ca/D supplement or other meds to explain -PTHrP SPEP, UPEP, immunofixation, immunoglobulins, Vitamin D 1,25 and 25, serum free light chains pending -does not have bone pain. Highly likely related to malignancy - see below -discussed with oncology - does not meet criteria for acute bisphosphonate treatment (>14 or lower if symptomatic) -recommend monitoring Ca, advised on avoiding Ca/D supplements, maintaining good hydration RUQ ultrasound obtained to eval abnormal LFTs. Concerning for liver lesions. Obtained CT abdomen/contrast with IV/po contrast. Unfortunately shows multiple liver masses concerning for metastases and 4 cm small bowel mass. Could be GI adenocarcinoma (though typically does not cause hypercalcemia) since she does have adenomatous polyps and family hx of colon cancer, neuroendocrine tumor, GIST, lymphoma. Inflammation from Crohn's can mimic a mass but her IBD has not been very active. She has had recent diarrhea, hot flashes, hypokalemia, hypomag which are potential neuroendocrine symptoms but there are other explanations for these symptoms as well. Lastly could be mets from a different source. Contacted her GI at [facility] regarding colonoscopy this Sunday but have not received callback yet. This lesion would be too proximal for standard colonoscopy, likely would require push enteroscopy if reachable. Liver lesion is probably best biopsy target - we do not have IR today or through the weekend. She wants to have ongoing care at [place] and we will coordinate a referral. I discussed with her it may be much faster to get biopsy locally and she is considering that. She will follow up with Dr. Vang Added daily potassium replacement for hypokalemia. Won't tolerate oral mag because of diarrhea, discussed magnesium rich foods. Will need tumor markers drawn - I could not add on to labs because they are send-outs. Her was at bedside. Notes For Next Care Provider Will need biopsy of a liver lesion Unclear whether small bowel lesion is amenable to biopsy Added CEA, LDH elevated consider alphafetoprotein and Ca-19-9 monitor calcium. If >14 or symptomatic treatment with zometa indicated prefers follow up with [facility] Admission HPI Per Admitting Provider 58 yo female PMHx Crohn's dx, anemia, GERD, b12 deficiency, vitamin D deficiency, GERD sent to the ER by PCP found to have lab abnormalities most concerning for hypercalcemia and transaminitis. For the last few weeks she has been experiencing weakness, and low energy. Denies any pain. She saw her PCP this week and had labs drawn. He did have an iron infusion earlier this week and a colonoscopy. ED Course Labs significant for leukocytosis, thrombocytosis, hypokalemia, hypercalcemia, elevated AST/ALT/Alk phos/LDH, low PTH Given 40 mEq potassium, 2L NSS Discharge Exam Last 24h vitals reviewed GEN: no acute distress, sitting in bed HEENT: pupils equal, sclerae anicteric, moist MM RESP: normal WOB CV: deferred ABD: nondistended : no roblero SKIN: warm and dry, no generalized rashes NEURO: AOx person, place, and situation. Face symmetric, speech normal, moves 4 ext spontaneously and equally Discharge Plan Discharge Items Patient Disposition: Home - Self-Care Reason For Visit: LAB ABNORMALITIES Discharge Diagnosis: Hypercalcemia, liver masses and small bowel mass Activity: Resume your previous activity Non-emergency contact: Primary Care Provider and Senior It Recruiter Call non-emergency contact if: you have any medication questions and your symptoms worsen Follow-up/Referrals: Carly Vang DO [Primary Care Provider] - 06/03/24 9:20 am Diet: Regular Addtl Attending Provider Instructions: You were evaluated for high blood calcium level and mildly abnormal liver tests. Unfortunately we found liver masses and a small bowel mass on CT imaging. The overall picture is very worrisome for a metastatic cancer. You will need a biopsy (probably of the liver, because the small bowel mass might not be able to be reached with an endoscopy). We are making a referral to [facility] for more testing and treatment. It may be faster to get the initial biopsy locally with [facility] interventional [facility]ology. If you are interested in this Dr. Vang can order it. Unfortunately we can't do a biopsy today or over the weekend. The high calcium level is moderate and doesn't seem to be causing any symptoms. Usual symptoms are constipation, and severely high calcium can cause confusion. It isn't high enough for treatment with medication and can be monitored at this time Avoid any calcium or vitamin D supplements Drink lots of water Your potassium was also low and I recommend a supplement. Magnesium was low, but oral magnesium supplements cause diarrhea. Its better to focus on magnesium rich foods Several lab tests are still pending regarding the high calcium. I think it is related to the masses in your liver / small bowel mass. If the diarrhea comes back it could be related too. It is ok to use Imodium as directed. You might have a UTI. I prescribed bactrim It was a pleasure taking care of you in the hospital, Karen Hollis MD Pending Studies at Discharge: Yes Stand-Alone Forms: My [facility], Smoking Cessation Medications and DC Order Prescriptions: New sulfamethoxazole-trimethoprim [Bactrim DS] 800-160 mg Tablet 1 tab PO Q12 Qty: 6 0RF potassium chloride 20 mEq tablet extended release 20 meq PO DAILY Qty: 30 0RF Continued escitalopram oxalate 10 mg tablet 10 mg PO DAILY Qty: 90 3RF cyanocobalamin (vitamin B-12) 1,000 mcg/mL solution 1,000 mcg IM UD Discharge Orders: Discharge Order (Routine); Ordered 05/23/24 Ordered By: Karen Hollis Admission Data Admit Date/Time: 05/22/24 22:10 Attending Provider: Karen Hollis Admit Provider: Qamar Zavala Primary Care Provider: Carly Vang Other Providers: Qamar Zavala; Nasir Larsen Other Interventions: Discharge Summary Assessment (RN) Last Done: 05/23/24 16:02 Hospital Stay Data Consultations 05/22/24 20:49 ED Decision to Admit Stat Diagnostic Imagining Performed 05/23/24 00:03 US liver Routine 05/23/24 09:22 CT Abd and Pelvis [CT abd pelvis oral and IV con] Urgent Pending Results Patient Have Any Pending Studies at Discharge: Yes Discharge Instructions Given to Patient (Per Discharging Provider) You were evaluated for high blood calcium level and mildly abnormal liver tests. Unfortunately we found liver masses and a small bowel mass on CT imaging. The overall picture is very worrisome for a metastatic cancer. You will need a biopsy (probably of the liver, because the small bowel mass might not be able to be reached with an endoscopy). We are making a referral to [facility] for more testing and treatment. It may be faster to get the initial biopsy locally with [facility] interventional radiology. If you are interested in this Dr. Vang can order it. Unfortunately we can't do a biopsy today or over the weekend. The high calcium level is moderate and doesn't seem to be causing any symptoms. Usual symptoms are constipation, and severely high calcium can cause confusion. It isn't high enough for treatment with medication and can be monitored at this time Avoid any calcium or vitamin D supplements Drink lots of water Your potassium was also low and I recommend a supplement. Magnesium was low, but oral magnesium supplements cause diarrhea. Its better to focus on magnesium rich foods Several lab tests are still pending regarding the high calcium. I think it is related to the masses in your liver / small bowel mass. If the diarrhea comes back it could be related too. It is ok to use Imodium as directed. You might have a UTI. I prescribed bactrim It was a pleasure taking care of you in the hospital, Karen Hollis MD Total Time Total Time Spent Total Time Spent (In Minutes): I personally spent: 55 minutes today on clinical care activities including: reviewing chart notes and vital signs reviewing labs reviewing studies discussion with framing consultant(s) examining and counseling the patient counseling the patient's family writing orders writing prescriptions, discharge instructions documentation Coding Level of Care Code 24483 INP/OBS DISCH >30 MIN Diagnoses Hypercalcemia E83.52 Mass of small intestine K63.89 Liver masses R16.0 Crohn's disease K50.90 Hypokalemia E87.6 Hypomagnesemia E83.42
[2024-05-23] MEDS ORDERED: SULFAMETHOXAZOLE/TRIMETHOPRIM DS 800/160MG TAB PO SCH (21:00)
== END 2024-05-23 16:29 | disposition home or self-care (01) | DRG 641 ==
LOC: ED 18:25 → SUATTDRO 22:10 → EDINP 22:10 → 2N 05-23 00:04
DX: K50.90 Crohn's disease, unspecified, without complications; E83.42 Hypomagnesemia; Z83.3 Family history of diabetes mellitus; Z88.0 Allergy status to penicillin; Z79.899 Other long term (current) drug therapy; C90.00 Multiple myeloma not having achieved remission; R16.0 Hepatomegaly, not elsewhere classified; N39.0 Urinary tract infection, site not specified; R74.01 Elevation of levels of liver transaminase levels; E87.6 Hypokalemia; Z79.52 Long term (current) use of systemic steroids; K21.9 Gastro-esophageal reflux disease without esophagitis; E83.52 Hypercalcemia

== ENCOUNTER 2024-06-09 13:25 | Inpatient (IN) ==
[2024-06-09] MEDS: SODIUM CHLORIDE 0.9% 1,000 ML IV SCH (13:46)
--- NOTE | 2024-06-09 14:18 | Emergency Department Note ---
Impression & Plan Generalized weakness, RISSA (acute kidney injury), Sepsis, Tumor lysis syndrome, Leukocytosis, Acute UTI (urinary tract infection) ED Provider Note HISTORY OF PRESENT ILLNESS: Patient is a 59-year-old female presenting with general malaise and fatigue. Patient reports for the last 2 to 3 days she has been feeling generally unwell. Reports feeling very rundown and unable to do her normal activities. She has a history of neuroendocrine cancer and had an appointment with Dr. Sharpe this morning. She had laboratory workup performed before the appointment. In the clinic, she was found to have hypotension and given her lab test findings that Dr. Sharpe thought was concerning for potential tumor lysis syndrome, she was referred to the emergency department for admission for hydration and inpatient chemotherapy. Patient denies any measured fevers at home. Denies any chest pa in or shortness of breath. Denies any abdominal pain. She does report nausea but denies any vomiting or diarrhea. Denies any recent sick contact exposures. Denies any dysuria or hematuria. She has not yet initiated chemotherapy in the outpatient setting. ROS: as above PHYSICAL EXAM: Constitutional: Patient appears in no acute distress. HENT: Head: Normocephalic and atraumatic. Eyes: EOMI, PERRL Mouth/Throat: Mucous membranes moist. Neck: Trachea midline. Neck supple. Cardiovascular: Tachycardic with regular rhythm. No murmurs, rubs or gallops. Intact distal pulses. Pulmonary/Chest: No respiratory distress. Breath sounds clear and equal bilaterally. No wheezes or rales. Abdominal: Abdomen soft, no tenderness, rebound or guarding. Musculoskeletal: No edema, tenderness or deformity noted. Skin: Warm and dry. No rash, erythema, pallor or cyanosis Psychiatric: Appropriate mood and affect for situation. Neurological: Alert and keenly responsive. CN II-XII grossly intact, moving all extremities equally and fully. MDM: - Vitals signs showed hypotension and tachycardia. - History obtained via patient. History as above. - Chronic conditions affecting care: Crohn's disease; neuroendocrine tumor - Differential diagnoses include, but are not limited to: Sepsis; pneumonia; UTI; tumor lysis syndrome; electrolyte abnormality; ACS - Order placed for continuous cardiac monitoring. At this time, monitor showed rate of 101 bpm with normal sinus rhythm, per my interpretation. - External medical records reviewed. On-call duty note dated03/2024 was reviewed. Patient had lab work done in the outpatient setting and had a critical calcium level of 12.6. - EKG image interpreted by myself showed normal sinus rhythm. Rate 99 bpm. QT 346. No acute ischemic changes. - Patient had most of her laboratory workup done in the outpatient setting. Blood cultures, lactate and procal were added to workup given her hypotension and leukocytosis. - Discussed case with hem marker/oncologist, Dr. Sharpe, at 13:40. She states that the patient needs admission for IV fluids and inpatient chemotherapy initiation. Reports that the patient has a history of aggressive neuroendocrine tumor. Reports that she is concerned for tumor lysis syndrome, given the patient's worsening creatinine level recently and her hypotension today in clinic. I did discuss with her that patient's laboratory workup is concerning for leukocytosis and we will empirically cover with antibiotics for sepsis coverage to which Dr. Sharpe was agreeable. - UA in outpatient setting showed bacteria and WBCs, so will treat with IV rocephin. - CXR manage reviewed by myself showed is a left lower lobe consolidation concerning for pneumonia, per my interpretation. - Laboratory workup interpreted by myself showed leukocytosis (WBC 17.73); RISSA (Cr 1.67); elevated BUN (29); slight hyponatremia (Na 133); elevated uric acid (14.8); elevated LDH (748) - Patient given 2L NS in ER. Patient sepsis volume fluid calculation based on ideal body weight and 1772.70 mL. - Considered obtaining CT abdomen/pelvis, given patient's UTI and RISSA. However, the patient is having no abdominal pain complaints. - Discussion was had with director of casework department about patient's case and need for admission - Hospitalist consulted for admission - [facility] and [facility]. ASSESSMENT AND PLAN: Diagnosis: Generalized weakness; sepsis; tumor lysis syndrome; RISSA; leukocytosis; acute UTI Plan: admit Past Med/Surg History Problem List (Updated 06/09/24 @ 14:49 by Nely Gonzalez MD) Acute UTI (urinary tract infection) (Acute) Leukocytosis (Acute) Tumor lysis syndrome (Acute) Sepsis (Acute) RISSA (acute kidney injury) (Acute) Generalized weakness (Acute) Sternal fracture (Acute ~05/30/24) Metastatic cancer (Acute) Sternal fracture (Acute) Hypercalcemia (Acute) Precordial chest pain (Acute) Mass of small intestine Liver masses Hypercalcemia (Acute) Transaminitis History of basal cell carcinoma (BCC) of skin R berrios s/p MOHS Mar 2024 Iron deficiency anemia B12 deficiency Hypokalemia Hypomagnesemia Post menopausal syndrome Vitamin D deficiency Tubular adenoma of colon Crohn's disease Acid reflux Medical History SBO (small bowel obstruction) Surgical History S/P Mohs surgery for basal cell carcinoma (03/2024) H/O breast biopsy S/P endometrial ablation Hx of oral surgery Family History Grandmother Colorectal cancer Uncle Colorectal cancer Mother Myocardial infarction, Onset Age: 66 Father Hypertension Diabetes Denies family history of Ovarian cancer Prostate cancer Breast cancer Social History Smoking Status: Never smoker Second Hand Exposure: Yes; Do You Dip or Chew Tobacco: No; Hx Alcohol Use: No Hx Substance Use: No Preferred Language: Spanish Communication Ability: Effective Visual Impairment: No Limitations Hearing Ability: Normal Rod Puller And Coiler Required: No Beliefs That Will Affect Care: None marital status: Current Living Situation: Spouse current occupational status: 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 Feels Safe at Home: Yes Childhood Exposure to Second-Hand Smoke: Yes Diet: regular Diet Comment: Regular caffeine: Yes during the past year weight has: remained stable Dental Care, Regularly: Yes Physical Activity Frequency: 3-4 Times per Week Seatbelt Use: always Sunscreen Use: Yes Assistive Devices: None Allergies Allergies Allergy/AdvReac Type Severity Reaction Status Date / Time Penicillins Allergy Intermediate HIVES Verified 05/27/24 08:10 Home Meds Home Medications Medication Instructions Recorded Confirmed cyanocobalamin (vitamin B-12) 1,000 mcg IM UD 01/25/23 05/27/24 1,000 mcg/mL injection solution Previous Rx's Medication Instructions Recorded escitalopram oxalate 10 mg tablet 10 mg PO DAILY #90 tabs 02/14/24 potassium chloride 20 mEq 20 meq PO DAILY #30 tabs 05/23/24 tablet,extended release sulfamethoxazole 800 1 tab PO Q12 #6 tabs 05/23/24 mg-trimethoprim 160 mg tablet (Bactrim DS) oxycodone 5 mg tablet 5 mg PO Q6 PRN pain #12 tabs 05/30/24 Results & Data (ED) Vital Signs Vital Signs - 24 hr 06/09/24 13:27 06/09/24 13:49 Temperature 36.6 C Temperature Source Temporal Artery Scan Pulse Rate 88 100 H Respiratory Rate 18 Respiratory Effort / Characteristics Non-Labored Respiratory Depth Normal Blood Pressure 95/61 L Blood Pressure Mean 72 Pulse Oximetry 96 Oxygen Delivery Method Room Air Sepsis Recent Fever Within 48 Hours No Sepsis New/Unexplained Change in Mental Status No Sepsis Action Taken by Nursing No Action Required Laboratory Data Lab Results 06/09/24 Range/Units 13:47 Magnesium 2.0 (1.7-2.4) mg/dl Administered Medications Sodium Chloride (Nss) 1,000 mls @ 999 mls/hr IV .Q1H1M KRISTI Stop: 06/09/24 15:40 Last Admin: 06/09/24 13:46 Dose: 999 mls/hr Documented By: EDDD Imaging Data Radiologist's Impression: Chest X-Ray 06/09/24 14:27 XR chest 1V portable CLINICAL HISTORY: Sepsis COMPARISON STUDY: 05/30/2024 FINDINGS: There is increased dense consolidation at the left lower lobe with obscuration of the left hemidiaphragm. Right lung remains well aerated. Stable mild cardiomegaly without pulmonary vascular congestion. IMPRESSION: Increased consolidation at the left lower lung lobe. ACT 112: Negative or not required by law. Electronically signed by: Michael Riley M.D. 06/09/2024 2:38 PM Discharge Plan Visit Data Chief Complaint: Referred by Doctor Stated Complaint: TREATMENT BEFORE CANCER TREATMENT ED Provider: Nely Gonzalez Discharge Problem: Generalized weakness, RISSA (acute kidney injury), Sepsis, Tumor lysis syndrome, Leukocytosis, Acute UTI (urinary tract infection) Condition: Fair Forms Stand Alone Forms: [facility] [employer] Prescriptions Prescriptions: No Action escitalopram oxalate 10 mg tablet 10 mg PO DAILY Qty: 90 3RF cyanocobalamin (vitamin B-12) 1,000 mcg/mL solution 1,000 mcg IM UD sulfamethoxazole-trimethoprim [Bactrim DS] 800-160 mg Tablet 1 tab PO Q12 Qty: 6 0RF potassium chloride 20 mEq tablet extended release 20 meq PO DAILY Qty: 30 0RF oxycodone 5 mg tablet 5 mg PO Q6 PRN (Reason: pain) Qty: 12 0RF Referrals Referrals: Carly Vang DO [Primary Care Provider] -
--- NOTE | 2024-06-09 14:40 | XRay Report ---
XR chest 1V portable CLINICAL HISTORY: Sepsis COMPARISON STUDY: 05/30/2024 FINDINGS: There is increased dense consolidation at the left lower lobe with obscuration of the left hemidiaphragm. Right lung remains well aerated. Stable mild cardiomegaly without pulmonary vascular c ongestion. IMPRESSION: Increased consolidation at the left lower lung lobe. ACT 112: Negative or not required by law. Electronically signed by: Michael Riley M.D. 06/09/2024 2:38 PM
--- NOTE | 2024-06-09 14:54 | History & Physical Report ---
Date of Service June 09, 2024 Assessment & Plan (1) RISSA (acute kidney injury): (2) Tumor lysis syndrome: (3) Generalized weakness: (4) Sternal fracture: (5) Transaminitis: (6) Iron deficiency anemia: (7) Liver masses: Plan 1) Tumor lysis syndrome - LDH, 748; lactate, 2.7 - rasburicase, 3 mg, IV ordered - uric acid levels, q12h and q24h; Mg, P, BMP ordered q6h - LR, 200 mL/hr, q24hr 2) SIRS criteria (w/ possible source of infection (or metastasis)) - procalcitonin, 58.5; WBC, 17.2 - blood Cx pending (pt met SIRS criteria along w/ elevated lactate levels) - CXR: increased consolidation of LLL of lungs - consider continuing ceftriaxone, 2g, q24hrs, IV tomorrow 3) Anemia - Hgb, 8.0 - Ret %, 2.92% (Ret#, 0.090) - Fe, < 10; Ferritin, 1425; TIBC, 162; Transferrin, 116 - concerning for anemia of chronic disease - ordered Type and Screen 4) Metastasized neuroendocrine tumor - CRP, 35.8; ESR, 74 - AlkPhos, 521; PT/INR, 2.1 - hold any VTE prophylaxis - recent Liver Ultrasound: Heterogeneous enlarged liver with multiple ill-defined nodular/heterogenous les ions, likely to be neoplastic. Suggest clinical correlation. CT abdomen with contrast is advised. - CT-Chest: Small lytic lesion of the mid sternal body with subtle acute appearing nondisplaced pathologic fracture 5) Transaminitis - AST, 134; ALT, 35 (WNL) - consider CMP q48hrs to monitor 6) Hypotension - see LR fluids (above) 7) Hyponatremia - Na, 133 - continue LR, BMP ordered Code status: Full code Disposition: Med-Surg Tele FENGI: Regular diet VTE Prophylaxis: ambulation for now/ consider Heparin, subQ, 5000 U, BID in future History of Present Illness Chief Complaint: Fatigue, labs concerning for tumor lysis syndrome Primary Care Provider: Carly Vang DO Patient had an appointment with Dr. Sharpe today, where she was observed to be hypotensive as well as having labs that were concerning for tumor lysis. Patient denies palpitations, dyspnea, chest pain. Patient has had generalized weakness, fatigue, felt a little lightheaded for at least a week to a month now, though no acutely different the last few days than prior. Patient notes she had a recent Dx of neuroendocrine tumor, along with masses and osteolytic lesions concerning for metastases. Allergies Allergy/AdvReac Type Severity Reaction Status Date / Time Penicillins Allergy Intermediate HIVES Verified 06/09/24 16:00 Home Medications Medication Instructions Recorded Confirmed Type escitalopram oxalate 10 mg tablet 10 mg PO DAILY #90 tabs 02/14/24 06/09/24 Rx potassium chloride 20 mEq 20 meq PO DAILY #30 tabs 05/23/24 06/09/24 Rx tablet,extended release cyanocobalamin (vitamin B-12) 1,000 mcg PO DAILY 06/09/24 06/09/24 History 1,000 mcg tablet (Vitamin B-12) Past Med/Surg History Problem List (Updated 06/09/24 @ 18:15 by Emigdio Gutierrez) Acute UTI (urinary tract infection) (Acute) Leukocytosis (Acute) Tumor lysis syndrome (Acute) Sepsis (Acute) RISSA (acute kidney injury) (Acute) Generalized weakness (Acute) Sternal fracture (Acute ~05/30/24) Metastatic cancer (Acute) Sternal fracture (Acute) Hypercalcemia (Acute) Precordial chest pain (Acute) Mass of small intestine Liver masses Hypercalcemia (Acute) Transaminitis History of basal cell carcinoma (BCC) of skin R berrios s/p MOHS Mar 2024 Iron deficiency anemia B12 deficiency Hypokalemia Hypomagnesemia Post menopausal syndrome Vitamin D deficiency Tubular adenoma of colon Crohn's disease Acid reflux Medical History SBO (small bowel obstruction) Surgical History S/P Mohs surgery for basal cell carcinoma (03/2024) H/O breast biopsy S/P endometrial ablation Hx of oral surgery Family History Grandmother Colorectal cancer Uncle Colorectal cancer Mother Myocardial infarction, Onset Age: 66 Father Hypertension Diabetes Denies family history of Ovarian cancer Prostate cancer Breast cancer Social History Smoking Status: Never smoker Second Hand Exposure: Yes; Do You Dip or Chew Tobacco: No; Hx Alcohol Use: No Hx Substance Use: No Preferred Language: [place] Communication Ability: Effective Visual Impairment: No Limitations Hearing Ability: Normal Deburrer Machine Required: No Beliefs That Will Affect Care: None marital status: Current Living Situation: Spouse current occupational status: 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 Feels Safe at Home: Yes Childhood Exposure to Second-Hand Smoke: Yes Diet: regular Diet Comment: Regular caffeine: Yes during the past year weight has: remained stable Dental Care, Regularly: Yes Physical Activity Frequency: 3-4 Times per Week Seatbelt Use: always Sunscreen Use: Yes Assistive Devices: None Review of Systems Constitutional: + chills, + sweats, + fatigue and + weig ht loss (uncertain how much); no fever and no body aches Respiratory: no cough, no dyspnea and no wheezing Cardiovascular: no chest pain and no palpitations Gastrointestinal: + nausea (week long); no abdominal pain, no vomiting, no change in bowel habits and no constipation Genitourinary: no dysuria, no urinary frequency and no urinary urgency Neurologic: + unsteadiness and + generalized weaknes s; no tingling, no numbness and no confusion Physical Exam Constitutional: WD/WN, vitals as above Respiratory: normal respiratory effort, lungs clear to auscultation Cardiovascular: RRR, no murmur, no edema Chest (Breasts): Chest: normal inspection of chest Additional Comments: chest pain of sternal area, pain of lower ribcage Gastrointestinal (Abdomen): Inspection/Auscultation: abdomen normal to inspection; abdomen not distended Percussion/Palpation: + abdomen tender (URQ and ULQ tenderness) Skin: + ecchymosis (LE's b/l, berrios area) Psychiatric: A+Ox3, euthymic affect Results & Data Results & Data Vital Signs (Past 12 Hours) Vital Signs Temp Pulse Resp BP Pulse Ox O2 Del Method 06/09/24 13:49 100 H 06/09/24 13:27 36.6 C 88 18 95/61 L 96 Room Air Supervising Physician Co-Signing Physician Notes I personally examined the patient and verified all ramirez points of history and exam, discussed case, and agree with decision making with Dr Mora Feeling okay overall just weak and nauseated. Discussed with oncology earlier. Vitals noted, in general she is awake and alert fatigued but no distress. Breathing unlabored no accessory muscle use good effort. Skin without rashes pallor or icterus. Neuro without focal deficits. Tumor lysis secondary to metastatic neuroendocrine tumoraggressive IV fluids, rasburicase, oncology consultexpectation is they may need to start inpatient chemotherapy, antiemetics. Serial labs. Otherwise as above. calcium currently appears asymptomatic so hold off on correction for now - if continues to drop, reassess sx recheck EKG and correct if sx or EKG changes (as long as phos remains normal) - signed out to overnight coverage Follow leukocytosiswas given empiric ceftriaxonebut follow for any evolving signs or symptoms of infection before continuing antibiotics.
[2024-06-09] MEDS: cefTRIAXone SODIUM 2,000 MG/50 ML BAG IV STA (15:13)
[2024-06-09] MEDS ORDERED: POLYETHYLENE (MIRALAX) 17 GM PACK PO PRN (15:34)
[2024-06-09] MEDS ORDERED: MELATONIN 3 MG TAB PO PRN (15:40)
[2024-06-09 16:19] LABS: INR 2.1 (0.9-1.1); Partial Thromboplastin Ratio 1.4; Partial Thromboplastin Time 38 Seconds (21-31); Prothrombin Time 20.9 Seconds (9.0-12.0)
[2024-06-09] MEDS: LACTATED RINGER'S 1,000 ML IV SCH (16:31)
[2024-06-09] MEDS: ONDANSETRON INJ 2 MG/ML 2 ML VIAL IV STA (16:31)
[2024-06-09 16:41] LABS: Calcium 6.6 mg/dl (8.6-10.3); Creatinine Clr Calc Pharmacy 36.1 ml/min; Magnesium 1.8 mg/dl (1.7-2.4); Phosphorus 2.6 mg/dl (2.5-4.9); Potassium 4.6 mmol/L (3.5-5.1); Uric Acid 13.8 mg/dl (2.6-7.2)
[2024-06-09] MEDS: SODIUM CHLORIDE 0.9% IV ONE (17:07)
[2024-06-09] MEDS: RASBURICASE IV ONE (17:07)
[2024-06-09] MEDS ORDERED: oxyCODONE HCL IR 5 MG TAB (IMMEDIATE RELEASE) PO PRN (18:14)
[2024-06-09] MEDS ORDERED: CYANOCOBALAMIN 1000 MCG/ML VIAL IM SCH (18:14)
[2024-06-09] MEDS: PROCHLORPERAZINE 5 MG in SYRINGE 4 ML IV PRN (18:18)
--- NOTE | 2024-06-09 19:35 | Billing Data ---
Date of Service June 09, 2024 Coding Level of Care Code 99209 INT INP/OBS CARE
[2024-06-09] MEDS ORDERED: HEPARIN SOD 5,000 UNIT/0.5 ML VIAL SQ SCH (21:00)
[2024-06-09 23:25] LABS: BUN Creatinine Ratio 17.5 (10-20); Creatinine Clr Calc Pharmacy 36.3 ml/min; Magnesium 1.9 mg/dl (1.7-2.4); Phosphorus 2.3 mg/dl (2.5-4.9); Potassium 4.6 mmol/L (3.5-5.1)
[2024-06-10] MEDS: PHYTONADIONE 10 MG in DEXTROSE 5% 50 ML IV ONE (02:15)
[2024-06-10 05:00] LABS: BUN Creatinine Ratio 18.7 (10-20); Calcium 6.9 mg/dl (8.6-10.3); Creatinine Clr Calc Pharmacy 38.7 ml/min; Magnesium 1.8 mg/dl (1.7-2.4); Phosphorus 2.2 mg/dl (2.5-4.9); Potassium 4.4 mmol/L (3.5-5.1)
[2024-06-10 05:05] LABS: Hemoglobin 6.8 g/dl (12.0-16.0); Mean Corpuscular Hemoglobin 27.6 pg (25.0-34.0); Mean Corpuscular Hgb Conc 32.4 g/dL (32.0-36.0); Mean Corpuscular Volume 85.4 fL (80.0-100.0); Mean Platelet Volume 9.5 fL (9.4-12.4); Nucleated RBC # (auto) 0.02 K/uL (0.00-0.12); Nucleated RBC % (auto) 0.1 %; Platelet Count 407 K/uL (130-400); RDW Coefficient of Variation 21.7 % (11.5-14.5); RDW Standard Deviation 67.2 fL (36.4-46.3); Red Blood Count 2.46 M/uL (4.20-5.40); White Blood Count 14.31 K/ul (4.8-10.8)
[2024-06-10 05:06] LABS: Anisocytosis Present; Basophils # (auto) 0.04 K/uL (0.00-0.20); Basophils % (auto) 0.3 %; Eosinophils # (auto) 0.12 K/uL (0.00-0.50); Eosinophils % (auto) 0.8 %; Hypochromasia Present; Immature Granulocytes # (auto) 0.92 K/uL (0.01-0.20); Immature Granulocytes % (auto) 6.4 %; Lymphocytes # (auto) 0.43 K/uL (1.20-3.40); Monocytes # (auto) 1.88 K/uL (0.11-0.59); Monocytes % (auto) 13.1 %; Neutrophils # (auto) 10.92 K/uL (1.40-6.50); Neutrophils % (auto) 76.4 %
[2024-06-10] MEDS ORDERED: SODIUM CHLORIDE 0.9% 100 ML IV PRN ×3 (05:13→09:08)
[2024-06-10 05:18] LABS: INR 1.9 (0.9-1.1); Prothrombin Time 19.4 Seconds (9.0-12.0)
--- NOTE | 2024-06-10 07:45 | Hospitalist Progress Note ---
Date of Service June 10, 2024 Assessment & Plan (1) RISSA (acute kidney injury): (2) Tumor lysis syndrome: (3) Generalized weakness: (4) Sternal fracture: (5) Transaminitis: (6) Iron deficiency anemia: (7) Liver masses: Plan 1) Tumor lysis syndrome - LDH, 748; lactate, 2.7 - rasburicase, 3 mg, IV ordered once, upon admission - allopurinol, 100 mg, PO, daily - uric acid, 14.8 --> 7.4 --> 3.6 (N) - K, WNL; P, 2.0 (L); Ca, 7.2 (L); Mg, 1.8 - Mg, P, BMP ordered q6h for 48hrs - LR, 200 mL/hr, q24hr - LDH ordered for AM labs 2) SIRS criteria (w/ possible source of infection (or metastasis)) - procalcitonin, 58.5; WBC, 17.2 --> 14.3 - elevated levels of procal and WBC could be entirely due to TLS - blood Cx pending (pt met SIRS criteria along w/ elevated lactate levels) - CXR: increased consolidation of LLL of lungs - continued ceftriaxone, 2g, q24hrs, IV for UTI 3) Anemia - Hgb, 8.0 --> 6.8 --> - type and cross ordered, transfused 1 unit of PRBC's on 06/10/24 - Ret %, 2.92% (Ret#, 0.090) --> RPI < 2, inadequate response - Fe, < 10; Ferritin, 1425; TIBC, 162; Transferrin, 116 - concerning for anemia of chronic disease 4) Metastasized neuroendocrine tumor - CRP, 35.8; ESR, 74 - AlkPhos, 521; PT/INR, 2.1 --> 1.9 - Liver Ultrasound (recent): Heterogeneous enlarged liver with multiple ill-defined nodular/heterogenous lesions, likely to be neoplastic. Suggest clinical correlation. CT abdomen with contrast is advised. - CT-Chest: Small lytic lesion of the mid sternal body with subtle acute appearing nondisplaced pathologic fracture 5) Probable Liver Mets/Transaminitis/Elevated INR before anticoagulation - AST, 134; ALT, 35 (WNL) - INR, 2.1 --> 1.9 (hold any VTE prophylaxis) - consider CMP q48hrs to monitor 6) Hypotension - see LR fluids (above) - normal BP's today 7) RISSA/Hyponatremia - Cr, 1.67 --> 1.50 --> 1.41; Na, 133 --> 134 - continue LR fluids, monitor w/ daily BMP or CMP 8) Bacteruria/Pyuria - UA concerning for UTI upon admission - Ur Cx, positive for Klebsiella --> ceftriaxone, 2g, IV, q24hrs Code status: Full code Disposition: Med-Surg Tele FENGI: Regular diet VTE Prophylaxis: ambulation for now/ consider Heparin, subQ, 5000 U, BID in future Admission and Anticipated Discharge Date Admission Date: June 09, 2024 Supervising Physician Co-Signing Physician Notes I personally examined the patient and verified all ramirez points of history and exam, discussed case, and agree with decision making with Dr Mora feeling about the same - worried about nausea, knows that she also gets more nauseated because of being worried about feeling sick. Vitals noted, in general she is awake and alert fatigued but no distress. Breathing unlabored no accessory muscle use good effort. Skin without rashes pallor or icterus. Neuro without focal deficits. Tumor lysis secondary to metastatic neuroendocrine tumoraggressive IV fluids, rasburicase, oncology consult - anticipate inpatient chemo. acute anemia - no overt blood loss, transfuse, follow. Follow leukocytosiswas given empiric ceftriaxonebut follow for any evolving signs or symptoms of infection before continuing antibiotics. suspecting all relates to tumor lysis Subjective Patient is a 59 yo F w/ a PMHx of recent neuroendocrine tumor (w/ probable metastases to bone, liver), GERD, Crohn's disease, post-menopausal syndrome, Hx of BCC of berrios w/ s/p MOHS Sg (Mar, 2024) who presented to [facility] ED after being seen at the cancer center where labs were concerning for tumor lysis syndrome. This morning the patient was seen and evaluated. Noted to be AAO x 4. She noted she was subjectively feeling a little better--less worn out, less fatigued. She was not feeling any pain when seen this morning, though did note some pain w/ palpation during the exam. Review of Systems Constitutional: + chills, + sweats, + fatigue and + weig ht loss (uncertain how much); no fever and no body aches Respiratory: no cough, no dyspnea and no wheezing Cardiovascular: no chest pain and no palpitations Gastrointestinal: + nausea (week long); no abdominal pain, no vomiting, no change in bowel habits and no constipation Genitourinary: no dysuria, no urinary frequency and no urinary urgency Neurologic: + unsteadiness and + generalized weaknes s; no tingling, no numbness and no confusion Physical Exam Constitutional: WD/WN, vitals as above Respiratory: normal respiratory effort, lungs clear to auscultation Cardiovascular: RRR, no murmur, no edema Chest (Breasts): Chest: normal inspection of chest Gastrointestinal (Abdomen): Inspection/Auscultation: abdomen normal to inspection; abdomen not distended Percussion/Palpation: + abdomen tender (URQ and ULQ tenderness) Skin: + ecchymosis (LE's b/l, berrios area) Psychiatric: A+Ox3, euthymic affect Results & Data Results & Data Vital Signs (Past 12 Hours) Vital Signs Pulse Resp BP Pulse Ox O2 Del Method 06/10/24 07:19 98 H 06/10/24 06:09 107 H 20 118/57 L 92 Room Air 06/10/24 05:09 102 H 19 112/56 L 92 Room Air 06/10/24 04:12 104 H 21 91 06/10/24 03:00 99 H 17 93 06/10/24 03:00 108/52 L 06/10/24 03:00 108/52 L 06/10/24 02:39 98 H 20 92 06/10/24 02:21 101 H 15 92 06/10/24 02:18 104 H 18 92 06/10/24 02:00 103 H 21 92 06/10/24 02:00 103/54 L 06/10/24 02:00 103/54 L 06/10/24 02:00 103/54 L 06/10/24 01:42 18 06/10/24 01:24 102 H 20 92 06/10/24 01:12 102 H 19 93 06/10/24 01:00 105/54 L 06/10/24 00:45 101 H 18 92 06/10/24 00:42 103 H 18 92 06/10/24 00:30 101 H 19 94 06/10/24 00:21 92 05/06/25 00:12 93 06/10/24 00:06 92 06/10/24 00:00 114/53 L 06/09/24 23:33 93 06/09/24 23:30 93 06/09/24 23:03 94 06/09/24 23:00 120/56 L 06/09/24 22:33 92 06/09/24 22:30 93 06/09/24 22:12 92 06/09/24 22:00 92 06/09/24 22:00 130/62 06/09/24 22:00 130/62 06/09/24 22:00 130/62 06/09/24 22:00 130/62 06/09/24 21:54 91 06/09/24 21:42 91 06/09/24 21:39 92 06/09/24 21:03 92 06/09/24 21:00 116/55 L 06/09/24 21:00 116/55 L 06/09/24 21:00 116/55 L 06/09/24 20:21 93 06/09/24 20:15 92 06/09/24 20:09 92 06/09/24 19:57 92 06/09/24 19:42 92 06/09/24 19:30 92
[2024-06-10] MEDS: ESCITALOPRAM OXALATE 10 MG TAB PO SCH (08:03)
--- NOTE | 2024-06-10 08:27 | Oncology Consultation ---
Date of Consultation June 10, 2024 Assessment & Plan (1) Neuroendocrine neoplasm of small intestine: (2) Metastasis to liver: (3) Acute UTI (urinary tract infection): (4) Tumor lysis syndrome: Plan -Proceed with cycle 1 of treatment inpatient with carboplatin day 1 /etoposide day 1-3 for aggressive/symptomatic neuroendocrine carcinoma With treatment administered IV q. 21 days. If renal function continues to improve, will consider switching from carboplatin to cisplatin with cycle 2 of treatment -Recommend transfusing with PRBC for hemoglobin below 7.5 since she starting chemotherapy which will likely cause worsening myelosuppression. -Daily TLS labs -Treatment for UTI -Plan to obtain weekly labs when she is discharged History of Present Illness Reason for Consultation: Metastatic Poorly differentiated neuroendocrine tumor likely of GI primary Attending Physician: Dar Lia DO History of Present Illness Ms. 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 She was seen in oncology clinic yesterday and noted to have multiple lab abnormalities including RISSA, elevated uric acid, anemia and was also very symptomatic from metastatic carcinoma. As a result of this, recommended inpatient hospitalization for treatment of TLS as well as to start systemic therapy NEGRA.She received a dose of rasburicase yesterday for uric acid of 14.8 with improvement in uric acid to 7.4 today. Renal function also slightly improved with creatinine of 1.5. Allergies Allergy/AdvReac Type Severity Reaction Status Date / Time Penicillins Allergy Intermediate HIVES Verified 06/09/24 16:00 Home Medications Medication Instructions Recorded Confirmed Type escitalopram oxalate 10 mg tablet 10 mg PO DAILY #90 tabs 02/14/24 06/09/24 Rx potassium chloride 20 mEq 20 meq PO DAILY #30 tabs 05/23/24 06/09/24 Rx tablet,extended release cyanocobalamin (vitamin B-12) 1,000 mcg PO DAILY 06/09/24 06/09/24 History 1,000 mcg tablet (Vitamin B-12) Patient History Medical History SBO (small bowel obstruction) Surgical History S/P Mohs surgery for basal cell carcinoma (03/2024) R berrios H/O breast biopsy S/P endometrial ablation Hx of oral surgery Family History Grandmother Colorectal cancer Uncle Colorectal cancer Mother Myocardial infarction, Onset Age: 66 Father Hypertension Diabetes Denies family history of Ovarian cancer Prostate cancer Breast cancer Social History Smoking Status: Never smoker Second Hand Exposure: Yes; Do You Dip or Chew Tobacco: No; Hx Alcohol Use: No Hx Substance Use: No Preferred Language: [place]i Communication Ability: Effective Visual Impairment: No Limitations Hearing Ability: Normal Nuisance Wildlife Specialist Required: No Beliefs That Will Affect Care: None marital status: Current Living Situation: Spouse Current Living Situation Comment: C/ spouse and children current occupational status: 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 Feels Safe at Home: Yes Childhood Exposure to Second-Hand Smoke: Yes Diet: regular Diet Comment: Regular caffeine: Yes during the past year weight has: remained stable Dental Care, Regularly: Yes Physical Activity Frequency: 3-4 Times per Week Seatbelt Use: always Sunscreen Use: Yes Assistive Devices: None Results & Data Vital Signs (Past 12 Hours) Vital Signs Pulse Resp BP Pulse Ox O2 Del Method 06/10/24 07:19 98 H 06/10/24 06:09 107 H 20 118/57 L 92 Room Air 06/10/24 05:09 102 H 19 112/56 L 92 Room Air 06/10/24 04:12 104 H 21 91 06/10/24 03:00 99 H 17 93 06/10/24 03:00 108/52 L 06/10/24 03:00 108/52 L 06/10/24 02:39 98 H 20 92 06/10/24 02:21 101 H 15 92 06/10/24 02:18 104 H 18 92 06/10/24 02:00 103 H 21 92 06/10/24 02:00 103/54 L 06/10/24 02:00 103/54 L 06/10/24 02:00 103/54 L 06/10/24 01:42 18 06/10/24 01:24 102 H 20 92 06/10/24 01:12 102 H 19 93 06/10/24 01:00 105/54 L 06/10/24 00:45 101 H 18 92 06/10/24 00:42 103 H 18 92 06/10/24 00:30 101 H 19 94 06/10/24 00:21 92 06/10/24 00:12 93 06/10/24 00:06 92 06/10/24 00:00 114/53 L 06/09/24 23:33 93 06/09/24 23:30 93 06/09/24 23:03 94 06/09/24 23:00 120/56 L 06/09/24 22:33 92 06/09/24 22:30 93 06/09/24 22:12 92 06/09/24 22:00 92 06/09/24 22:00 130/62 06/09/24 22:00 130/62 06/09/24 22:00 130/62 06/09/24 22:00 130/62 06/09/24 21:54 91 06/09/24 21:42 91 06/09/24 21:39 92 06/09/24 21:03 92 06/09/24 21:00 116/55 L 06/09/24 21:00 116/55 L 06/09/24 21:00 116/55 L
--- NOTE | 2024-06-10 08:49 | Nephrology Consultation ---
Date of Consultation June 10, 2024 Assessment & Plan (1) RISSA (acute kidney injury): * RISSA on the basis of TLS. I&O has not yet been measured but patient reports brisk UO. 05/23/[address] w/ IV contrast was negative for hydronephrosis * Volume status and electrolyte balance are acceptable at this time. No acute indication for CLINICAL PATHOLOGIST * Monitor daily BMP. nurse staff industrial advised to measure and record all UO (2) Tumor lysis syndrome: * Rasburicase administered last evening * Start allopurinol 100 mg daily * Serum phosphorus is within normal limits * Patient is hypocalcemic. Will administer 1 g of IV calcium gluconate * Monitor daily uric acid, calcium, albumin, phosphorus * Continue IV hydration with LR (3) Neuroendocrine neoplasm of small intestine: * Await oncology recommendations (4) Metastasis to liver: History of Present Illness Reason for Consultation: RISSA Attending Physician: Dar Lai DO History of Present Illness Mrs. Oconnor is a 59-year-old white female who is seen at the request of the [facility] hospitalist service for evaluation of RISSA. Information for the HPI is obtained from direct patient interview and review of the EMR. HPI summarized as follows: Mrs. Oconnor has no prior history of renal impairment. She has never undergone nephrology evaluation in the past. Her medical history is significant only for Crohn's disease. Mrs. Oconnor reports a history of iron deficiency anemia. She has been receiving IV iron therapy from hematology. Re cently she presented for her infusion but complained of severe fatigue and was found to have progressive anemia despite IV iron therapy. Abdominal CT 05/23/2024 revealed a 4 cm mass involving the distal ileum along with diffuse hepatic metastases. 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 Yesterday Mrs. Oconnor performed blood work for her thermometer maker. Creatinine was noted to have risen from 0.8 to 1.6. Phosphorus was 2.3, calcium 7.0, and uric acid 14.8. Patient was referred for hospital admission due to concern for tumor lysis syndrome. Hospitalist service has provided rasburicase therapy and IV hydration. This morning serum uric acid has improved to 7.4 and creatinine has remained stable at 1.5. Nephrology evaluation has been requested due to RISSA and to assist with management of electrolyte abnormalities Allergies Allergy/AdvReac Type Severity Reaction Status Date / Time Penicillins Allergy Intermediate HIVES Verified 06/09/24 16:00 Home Medications Medication Instructions Recorded Confirmed Type escitalopram oxalate 10 mg tablet 10 mg PO DAILY #90 tabs 02/14/24 06/09/24 Rx potassium chloride 20 mEq 20 meq PO DAILY #30 tabs 05/23/24 06/09/24 Rx tablet,extended release cyanocobalamin (vitamin B-12) 1,000 mcg PO DAILY 06/09/24 06/09/24 History 1,000 mcg tablet (Vitamin B-12) Patient History Medical History SBO (small bowel obstruction) Surgical History S/P Mohs surgery for basal cell carcinoma (03/2024) R berrios H/O breast biopsy S/P endometrial ablation Hx of oral surgery Family History Grandmother Colorectal cancer Uncle Colorectal cancer Mother Myocardial infarction, Onset Age: 66 Father Hypertension Diabetes Denies family history of Ovarian cancer Prostate cancer Breast cancer Social History Smoking Status: Never smoker Second Hand Exposure: Yes; Do You Dip or Chew Tobacco: No; Hx Alcohol Use: No Hx Substance Use: No Preferred Language: Japanese Communication Ability: Effective Visual Impairment: No Limitations Hearing Ability: Normal Shrimp Peeling Machine Operator Required: No Beliefs That Will Affect Care: None marital status: Current Living Situation: Spouse Current Living Situation Comment: C/ spouse and children current occupational status: 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 Other Information That Helps Us Care for You: No Feels Safe at Home: Yes Safety Concerns: Feels Safe At This Time Childhood Exposure to Second-Hand Smoke: Yes Diet: regular Diet Comment: Regular caffeine: Yes during the past year weight has: remained stable Dental Care, Regularly: Yes Physical Activity Frequency: 3-4 Times per Week Seatbelt Use: always Sunscreen Use: Yes Assistive Devices: None Review of Systems Constitutional: no fever Eyes: no problem reported Ear, Nose, Mouth, Throat: no problem reported Respiratory: no cough and no dyspnea Cardiovascular: no chest pain Gastrointestinal: no abdominal pain, no nausea, no vomiting and no diarrhea/loose stools Genitourinary: no dysuria Musculoskeletal: no back pain Integumentary: no rash Neurologic: no problem reported Physical Exam Constitutional: not in distress Eyes: PERRL, conjunctivae normal, anicteric sclerae ENMT: external ear and nose normal, oropharynx normal Neck: trachea midline, no thyromegaly Respiratory: normal respiratory effort, lungs clear to auscultation Cardiovascular: RRR, no murmur, no edema Gastrointestinal (Abdomen): normal bowel sounds, soft, nontender, no hepatosplenomegaly Musculoskeletal: Extremities: no cyanosis and no clubbing Skin: no rashes, warm and dry Neurologic: awake; not confused Results & Data Vital Signs (Past 12 Hours) Vital Signs Pulse Resp BP Pulse Ox O2 Del Method 06/10/24 07:19 98 H 06/10/24 06:09 107 H 20 118/57 L 92 Room Air 06/10/24 05:09 102 H 19 112/56 L 92 Room Air 06/10/24 04:12 104 H 21 91 06/10/24 03:00 99 H 17 93 06/10/24 03:00 108/52 L 06/10/24 03:00 108/52 L 06/10/24 02:39 98 H 20 92 06/10/24 02:21 101 H 15 92 06/10/24 02:18 104 H 18 92 06/10/24 02:00 103 H 21 92 06/10/24 02:00 103/54 L 06/10/24 02:00 103/54 L 06/10/24 02:00 103/54 L 06/10/24 01:42 18 06/10/24 01:24 102 H 20 92 06/10/24 01:12 102 H 19 93 06/10/24 01:00 105/54 L 06/10/24 00:45 101 H 18 92 06/10/24 00:42 103 H 18 92 06/10/24 00:30 101 H 19 94 06/10/24 00:21 92 06/10/24 00:12 93 06/10/24 00:06 92 06/10/24 00:00 114/53 L 06/09/24 23:33 93 06/09/24 23:30 93 06/09/24 23:03 94 06/09/24 23:00 120/56 L 06/09/24 22:33 92 06/09/24 22:30 93 06/09/24 22:12 92 06/09/24 22:00 92 06/09/24 22:00 130/62 06/09/24 22:00 130/62 06/09/24 22:00 130/62 06/09/24 22:00 130/62 06/09/24 21:54 91 06/09/24 21:42 91 06/09/24 21:39 92 06/09/24 21:03 92 06/09/24 21:00 116/55 L 06/09/24 21:00 116/55 L 06/09/24 21:00 116/55 L Laboratory Results Laboratory Results WBC 14.31 K/ul (4.8-10.8) H 06/10/24 04:00 RBC 2.46 M/uL (4.20-5.40) L 06/10/24 04:00 Hgb 6.8 g/dl (12.0-16.0) L* 06/10/24 04:00 Hct 21.0 % (37.0-47.0) L 06/10/24 04:00 MCV 85.4 fL (80.0-100.0) 06/10/24 04:00 MCH 27.6 pg (25.0-34.0) 06/10/24 04:00 MCHC 32.4 g/dL (32.0-36.0) 06/10/24 04:00 RDW Std Deviation 67.2 fL (36.4-46.3) H 06/10/24 04:00 RDW Coeff of Susanna 21.7 % (11.5-14.5) H 06/10/24 04:00 Plt Count 407 K/uL (130-400) H 06/10/24 04:00 MPV 9.5 fL (9.4-12.4) 06/10/24 04:00 Immature Gran % (Auto) 6.4 % 06/10/24 04:00 Neut % (Auto) 76.4 % 06/10/24 04:00 Lymph % (Auto) 3.0 % 06/10/24 04:00 Dakota % (Auto) 13.1 % 06/10/24 04:00 Eos % (Auto) 0.8 % 06/10/24 04:00 Baso % (Auto) 0.3 % 06/10/24 04:00 Neut # (Auto) 10.92 K/uL (1.40-6.50) H 06/10/24 04:00 Lymph # (Auto) 0.43 K/uL (1.20-3.40) L 06/10/24 04:00 Dakota # (Auto) 1.88 K/uL (0.11-0.59) H 06/10/24 04:00 Eos # (Auto) 0.12 K/uL (0.00-0.50) 06/10/24 04:00 Baso # (Auto) 0.04 K/uL (0.00-0.20) 06/10/24 04:00 Immature Gran # (Auto) 0.92 K/uL (0.01-0.20) H 06/10/24 04:00 Absolute Nucleated RBC 0.02 K/uL (0.00-0.12) 06/10/24 04:00 Nucleated RBC % (auto) 0.1 % 06/10/24 04:00 Hypochromasia Present 06/10/24 04:00 Anisocytosis Present 06/10/24 04:00 PT 19.4 Seconds (9.0-12.0) H 06/10/24 04:00 INR 1.9 (0.9-1.1) H 06/10/24 04:00 APTT 38 Seconds (21-31) H 06/09/24 13:47 PTT Ratio 1.4 06/09/24 13:47 Sodium 134 mmol/L (136-145) L 06/10/24 04:00 Potassium 4.4 mmol/L (3.5-5.1) 06/10/24 04:00 Chloride 105 mmol/L (98-107) 06/10/24 04:00 Carbon Dioxide 21 mmol/L (21-32) 06/10/24 04:00 Anion Gap 8 (3-11) 06/10/24 04:00 BUN 28 mg/dl (6-23) H 06/10/24 04:00 Creatinine 1.50 mg/dl (0.6-1.2) H 06/10/24 04:00 Est Cr Clr Drug Dosing 38.7 ml/min 06/10/24 04:00 eGFR 40.39 06/10/24 04:00 BUN/Creatinine Ratio 18.7 (10-20) 06/10/24 04:00 Glucose 69 mg/dl (70-99(Fasting)) L 06/10/24 04:00 Lactate 1.8 mmol/L (0.4-2.0) 06/09/24 16:07 Uric Acid 7.4 mg/dl (2.6-7.2) H 06/10/24 04:00 Calcium 6.9 mg/dl (8.6-10.3) L 06/10/24 04:00 Ionized Calcium 1.00 mmol/L (1.12-1.32) L 06/10/24 04:00 Phosphorus 2.2 mg/dl (2.5-4.9) L 06/10/24 04:00 Magnesium 1.8 mg/dl (1.7-2.4) 06/10/24 04:00 Lactate Dehydrogenase 718 U/L (86-244) H 06/10/24 04:00 Troponin I High Sens 10.2 pg/ml (0-14) 06/09/24 13:47 Procalcitonin 58.50 ng/ml (0-0.5) H 06/09/24 13:47 Blood Type A Positive 06/09/24 23:07 Blood Type Recheck A Positive 06/10/24 05:39 Antibody Screen NEGATIVE 06/09/24 23:07 Impressions Chest X-Ray 06/09/24 14:27 XR chest 1V portable CLINICAL HISTORY: Sepsis COMPARISON STUDY: 05/30/2024 FINDINGS: There is increased dense consolidation at the left lower lobe with obscuration of the left hemidiaphragm. Right lung remains well aerated. Stable mild cardiomegaly without pulmonary vascular congestion. IMPRESSION: Increased consolidation at the left lower lung lobe. ACT 112: Negative or not required by law. Electronically signed by: Michael Riley M.D. 06/09/2024 2:38 PM PG Care Time/CCT Total # of Minutes Spent Total Time Spent with Patient: Total time spent is greater than 50% in coordination of care (as documented) at patient's floor/unit and/or counseling patient: Coding Level of Care Code 55777 IN/OBS CONSULT LVL 5,80M Diagnoses RISSA (acute kidney injury) N17.9 Tumor lysis syndrome E88.3 Neuroendocrine neoplasm of small intestine D3A.8 Metastasis to liver C78.7
[2024-06-10] MEDS: ACETAMINOPHEN 325 MG TAB PO PRN (10:43)
[2024-06-10 10:44] LABS: BUN Creatinine Ratio 17.2 (10-20); Calcium 7.1 mg/dl (8.6-10.3); Creatinine Clr Calc Pharmacy 38.5 ml/min; Magnesium 1.8 mg/dl (1.7-2.4); Phosphorus 2.1 mg/dl (2.5-4.9); Potassium 4.3 mmol/L (3.5-5.1)
[2024-06-10] MEDS: CALCIUM GLUCONATE 1,000 MG/60 ML BAG IV STA (11:54)
[2024-06-10] MEDS: allopurinoL 100 MG TAB PO SCH (11:57)
[2024-06-10] MEDS ORDERED: LORazepam 2 MG/1 ML VIAL IV PRN (12:31)
--- NOTE | 2024-06-10 13:23 | Billing Data ---
Date of Service June 10, 2024 Coding Level of Care Code 31970 SUB INP/OBS CARE
[2024-06-10 14:27] LABS: Hematocrit (blood only) 23.2 % (37.0-47.0); Hemoglobin 7.4 g/dl (12.0-16.0)
[2024-06-10] MEDS: FOSAPREPITANT DIMEGLUMINE 150 MG in SODIUM CHLORIDE 0.9% 145 ML IV ONE (16:00)
[2024-06-10] MEDS: dexAMETHasone 12 MG, PALONOSETRON 0.25 MG in SODIUM CHLORIDE 0.9% 50 ML IV ONE (16:01)
[2024-06-10 17:08] LABS: BUN Creatinine Ratio 17.7 (10-20); Calcium 7.2 mg/dl (8.6-10.3); Creatinine Clr Calc Pharmacy 41.2 ml/min; Magnesium 1.7 mg/dl (1.7-2.4); Potassium 4.2 mmol/L (3.5-5.1)
[2024-06-10] MEDS: SODIUM CHLORIDE 0.9% IV SCH ×2 (17:17→17:52)
[2024-06-10] MEDS: CARBOPLATIN IV SCH (17:17)
[2024-06-10] MEDS: ETOPOSIDE IV SCH (17:52)
[2024-06-10] MEDS: ONDANSETRON INJ 2 MG/ML 2 ML VIAL IV PRN (18:38)
[2024-06-10] MEDS: cefTRIAXone SODIUM 2,000 MG/50 ML BAG IV SCH (19:38)
[2024-06-10 22:57] LABS: Hemoglobin 7.2 g/dl (12.0-16.0)
[2024-06-10 23:12] LABS: BUN Creatinine Ratio 19.3 (10-20); Calcium 7.1 mg/dl (8.6-10.3); Magnesium 1.7 mg/dl (1.7-2.4); Phosphorus 2.3 mg/dl (2.5-4.9); Potassium 4.4 mmol/L (3.5-5.1)
[2024-06-11] MEDS ORDERED: SODIUM CHLORIDE 0.9% 100 ML IV PRN (01:51)
[2024-06-11 06:39] LABS: Hematocrit (blood only) 24.2 % (37.0-47.0); Hemoglobin 7.8 g/dl (12.0-16.0); Mean Corpuscular Hgb Conc 32.2 g/dL (32.0-36.0); Mean Corpuscular Volume 86.7 fL (80.0-100.0); Mean Platelet Volume 9.4 fL (9.4-12.4); Platelet Count 370 K/uL (130-400); RDW Coefficient of Variation 20.4 % (11.5-14.5); RDW Standard Deviation 64.4 fL (36.4-46.3); Red Blood Count 2.79 M/uL (4.20-5.40); White Blood Count 15.14 K/ul (4.8-10.8)
[2024-06-11 07:04] LABS: Anisocytosis Present; Basophils # (auto) 0.02 K/uL (0.00-0.20); Basophils % (auto) 0.1 %; Immature Granulocytes # (auto) 1.04 K/uL (0.01-0.20); Immature Granulocytes % (auto) 6.9 %; Lymphocytes # (auto) 0.28 K/uL (1.20-3.40); Lymphocytes % (auto) 1.8 %; Monocytes # (auto) 1.06 K/uL (0.11-0.59); Neutrophils # (auto) 12.74 K/uL (1.40-6.50); Neutrophils % (auto) 84.2 %
--- NOTE | 2024-06-11 07:04 | Hospitalist Progress Note ---
Date of Service June 11, 2024 Assessment & Plan (1) Tumor lysis syndrome: (2) RISSA (acute kidney injury): (3) Generalized weakness: (4) Sternal fracture: (5) Transaminitis: (6) Iron deficiency anemia: (7) Liver masses: Plan 1) Tumor lysis syndrome - LDH, 748; lactate, 2.7 upon admission - rasburicase, 3 mg, IV ordered once, upon admission; allopurinol, 100 mg, PO, daily - uric acid, 14.8 --> 7.4 --> 3.3 (N) - K, 4.6; P, 3.0; Ca(c), 8.1; Mg, 1.7 - LDH: 748 --> 712 - AM Labs: CMP, CBC, uric acid, Phos, LDH, PT/INR - NSS, 120 mL/hr, until 06/13 4:30 pm 2) SIRS criteria (w/ possible source of infection (or metastasis)) - procalcitonin, 58.5; WBC, 17.2 --> 14.3 --> 15.1 - elevated levels of procal and WBC could be entirely due to TLS - blood Cx, neg after 48 hrs (pt met SIRS criteria along w/ elevated lactate levels) - CXR: increased consolidation of LLL of lungs - continued ceftriaxone, 2g, q24hrs, IV for UTI 3) Anemia - Hgb, 8.0 --> 6.8 --> 7.8 - type and cross ordered, transfused 2 units of pRBC's to bring Hgb, 7.8 - Ret %, 2.92% (Ret#, 0.090) --> RPI < 2, inadequate response - Fe, < 10; Ferritin, 1425; TIBC, 162; Transferrin, 116 - concerning for anemia of chronic disease w/ some hemodilution considering amount of fluids given 4) Metastasized neuroendocrine tumor - CRP, 35.8; ESR, 74 - AlkPhos, 521; PT/INR, 2.1 --> 1.9 --> 1.3 - Liver Ultrasound (recent): Heterogeneous enlarged liver with multiple ill-defined nodular/heterogenous lesions, likely to be neoplastic. Suggest clinical correlation. CT abdomen with contrast is advised. - CT-Chest: Small lytic lesion of the mid sternal body with subtle acute appearing nondisplaced pathologic fracture 5) Probable Liver Mets/Transaminitis/Elevated INR before anticoagulation - AST, 134 --> 116; ALT, 35 --> 29 (WNL) - INR, 2.1 --> 1.9 --> 1.3 (will restart VTE prophylaxis, 06/11) - consider CMP q48hrs to monitor 6) Hypotension - see LR fluids (above) - normal BP's since admission 7) RISSA/Hyponatremia/Acidosis - Cr, 1.67 --> 1.50 --> 1.31; Na, 133 --> 134 --> 138; HCO3, 19 - continue LR fluids, monitor w/ daily BMP or CMP 8) Bacteruria/Pyuria - UA concerning for UTI upon admission - Ur Cx, positive for Klebsiella --> ceftriaxone, 2g, IV, q24hrs (pos in sensitivities) Code status: Full code Disposition: Med-Surg Tele FENGI: Regular diet VTE Prophylaxis: ambulation for now/ consider Heparin, subQ, 5000 U, BID in future Admission and Anticipated Discharge Date Admission Date: June 09, 2024 Supervising Physician Co-Signing Physician Notes I personally examined the patient and verified all ramirez points of history and exam, discussed case, and agree with decision making with Dr Mora feeling pretty good overall. No significant nausea. Nursing notes no problems. Vitals noted, in general she is awake and alert fatigued but no distress. Breathing unlabored no accessory muscle use good effort. Skin without rashes pallor or icterus. Neuro without focal deficits. Tumor lysis secondary to metastatic neuroendocrine tumor continue IV fluids, serial labs, IV fluids, supportive care. Doing extremely well. UTIdid evolve with urinary frequencytreating with ceftriaxone. Subjective Patient is a 59 yo F w/ a PMHx of recent neuroendocrine tumor (w/ probable metastases to bone, liver), GERD, Crohn's disease, post-menopausal syndrome, Hx of BCC of berrios w/ s/p NICOLAS Sg (Mar, 2024) who presented to [facility] ED after being seen at the cancer center where labs were concerning for tumor lysis syndrome. This morning the patient was seen and evaluated. Noted to be AAO x 4. She noted she was subjectively feeling a little better--less worn out, less fatigued. She was not feeling any pain when seen this morning, though did note some pain w/ palpation during the exam. Review of Systems Constitutional: + chills, + sweats, + fatigue and + weig ht loss (uncertain how much); no fever and no body aches Respiratory: no cough, no dyspnea and no wheezing Cardiovascular: no chest pain and no palpitations Gastrointestinal: + nausea (week long); no abdominal pain, no vomiting, no change in bowel habits and no constipation Genitourinary: no dysuria, no urinary frequency and no urinary urgency Neurologic: + unsteadiness and + generalized weaknes s; no tingling, no numbness and no confusion Physical Exam Constitutional: WD/WN, vitals as above Respiratory: normal respiratory effort, lungs clear to auscultation Cardiovascular: RRR, no murmur, no edema Chest (Breasts): Chest: normal inspection of chest Gastrointestinal (Abdomen): Inspection/Auscultation: abdomen normal to inspection; abdomen not distended Percussion/Palpation: + abdomen tender (URQ and ULQ tenderness) Skin: + ecchymosis (LE's b/l, berrios area) Psychiatric: A+Ox3, euthymic affect Results & Data Results & Data Vital Signs (Past 12 Hours) Vital Signs Temp Pulse Pulse Pulse Resp BP BP 06/11/24 04:39 36.5 C 99 H 16 107/63 06/11/24 03:32 36.3 C L 105 H 16 112/65 06/11/24 03:27 36.6 C 101 H 12 107/63 06/11/24 03:02 36.6 C 100 H 16 106/64 06/11/24 02:47 36.3 C L 100 H 16 106/65 06/11/24 02:29 36.5 C 103 H 18 114/67 06/11/24 02:20 36.5 C 103 H 18 114/67 06/10/24 23:48 103 H 06/10/24 23:05 36.6 C 102 H 12 106/59 L 06/10/24 19:05 36.8 C 111 H 12 117/68 Pulse Ox O2 Del Method 06/11/24 04:39 95 06/11/24 03:32 95 06/11/24 03:27 95 06/11/24 03:02 95 06/11/24 02:47 93 06/11/24 02:29 94 06/11/24 02:20 94 06/10/24 23:48 06/10/24 23:05 93 Room Air 06/10/24 19:05 93 Room Air Resident Activity Tracking Resident Involvement: Resident Care Provided Care Provided: Adult Hospital Medicine
[2024-06-11 07:06] LABS: INR 1.3 (0.9-1.1); Prothrombin Time 13.7 Seconds (9.0-12.0)
[2024-06-11 07:23] LABS: Total Protein 4.8 gm/dl (6.0-8.3)
[2024-06-11 07:24] LABS: Albumin Globulin Ratio 1.2 (0.9-2); Albumin Level 2.6 gm/dl (3.4-5.0); BUN Creatinine Ratio 22.1 (10-20); Bilirubin,Total 2.5 mg/dl (0.2-1.0); Creatinine Clr Calc Pharmacy 48.8 ml/min; Globulin 2.2 gm/dl (2.5-4.0); Potassium 4.6 mmol/L (3.5-5.1)
--- NOTE | 2024-06-11 09:11 | Nephrology Progress Note ---
Date of Service June 11, 2024 Assessment & Plan (1) RISSA (acute kidney injury): Plan: * RISSA on the basis of TLS. I&O has not yet been measured but patient reports brisk UO. 05/23/[address] w/ IV contrast was negative for hydronephrosis * Volume status and electrolyte balance are acceptable at this time. 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 public health staff nurse advised to measure and record all UO (2) Tumor lysis syndrome: Plan: * Rasburicase administered 06/09/24. Uric acid this morning 3.3 * Continue allopurinol 100 mg daily * Serum phosphorus is within normal limits * Patient is mildly hypocalcemic but asymptomatic. Will monitor * PO4 3.0 this am * Monitor daily uric acid, calcium, albumin, phosphorus * Continue IV hydration with LR. Can reduce rate to 120 cc/hr (3) Neuroendocrine neoplasm of small intestine: Plan: * Oncology plans carboplatin/etoposide days 1-3 with 21 day cycle (4) Metastasis to liver: Admission and Anticipated Discharge Date Admission Date: June 09, 2024 Subjective Mrs. Oconnor was evaluated in her hospital room this morning. She denied dyspnea, fever, flank pain. She is starting chemotherapy today Review of Systems Constitutional: no fever Eyes: no problem reported Ear, Nose, Mouth, Throat: no problem reported Respiratory: no cough and no dyspnea Cardiovascular: no chest pain Gastrointestinal: no abdominal pain, no nausea, no vomiting and no diarrhea/loose stools Genitourinary: no dysuria Musculoskeletal: no back pain Integumentary: no rash Neurologic: no problem reported Physical Exam Constitutional: not in distress Eyes: PERRL, conjunctivae normal, anicteric sclerae ENMT: external ear and nose normal, oropharynx normal Neck: trachea midline, no thyromegaly Respiratory: normal respiratory effort, lungs clear to auscultation Cardiovascular: RRR, no murmur, no edema Gastrointestinal (Abdomen): normal bowel sounds, soft, nontender, no hepatosplenomegaly Musculoskeletal: Extremities: no cyanosis and no clubbing Skin: no rashes, warm and dry Neurologic: awake; not confused Results & Data Vital Signs (Past 12 Hours) Vital Signs Temp Pulse Pulse Resp BP BP Pulse Ox 06/11/24 07:41 36.6 C 100 H 18 115/65 96 06/11/24 07:08 95 H 06/11/24 04:39 36.5 C 99 H 16 107/63 95 06/11/24 03:32 36.3 C L 105 H 16 112/65 95 06/11/24 03:27 36.6 C 101 H 12 107/63 95 06/11/24 03:02 36.6 C 100 H 16 106/64 95 06/11/24 02:47 36.3 C L 100 H 16 106/65 93 06/11/24 02:29 36.5 C 103 H 18 114/67 94 06/11/24 02:20 36.5 C 103 H 18 114/67 94 06/10/24 23:48 103 H 06/10/24 23:05 36.6 C 102 H 12 106/59 L 93 O2 Del Method 06/11/24 07:41 Room Air 06/11/24 07:08 06/11/24 04:39 06/11/24 03:32 06/11/24 03:27 06/11/24 03:02 06/11/24 02:47 06/11/24 02:29 06/11/24 02:20 06/10/24 23:48 06/10/24 23:05 Room Air Laboratory Results Laboratory Results - last 24 hr 06/09/24 06/10/24 06/10/24 23:07 10:04 14:14 WBC RBC Hgb 7.4 L Hct 23.2 L MCV MCH MCHC RDW Std Deviation RDW Coeff of Susanna Plt Count MPV Immature Gran % (Auto) Neut % (Auto) Lymph % (Auto) Owen % (Auto) Eos % (Auto) Baso % (Auto) Neut # (Auto) Lymph # (Auto) Owen # (Auto) Eos # (Auto) Baso # (Auto) Immature Gran # (Auto) Anisocytosis PT INR Sodium 134 L Potassium 4.3 Chloride 105 Carbon Dioxide 22 Anion Gap 7 BUN 26 H Creatinine 1.51 H Est Cr Clr Drug Dosing 38.5 eGFR 40.07 BUN/Creatinine Ratio 17.2 Glucose 90 Uric Acid Calcium 7.1 L Ionized Calcium 0.98 L Phosphorus 2.1 L Magnesium 1.8 Total Bilirubin AST ALT Alkaline Phosphatase Lactate Dehydrogenase Total Protein Albumin Globulin Albumin/Globulin Ratio Procalcitonin Blood Type A Positive Antibody Screen NEGATIVE Crossmatch See Detail 06/10/24 06/10/24 06/11/24 16:33 22:35 06:01 WBC 15.14 H RBC 2.79 L Hgb 7.2 L 7.8 L Hct 23.0 L 24.2 L MCV 86.7 MCH 28.0 MCHC 32.2 RDW Std Deviation 64.4 H RDW Coeff of Susanna 20.4 H Plt Count 370 MPV 9.4 Immature Gran % (Auto) 6.9 Neut % (Auto) 84.2 Lymph % (Auto) 1.8 Owen % (Auto) 7.0 Eos % (Auto) 0.0 Baso % (Auto) 0.1 Neut # (Auto) 12.74 H Lymph # (Auto) 0.28 L Owen # (Auto) 1.06 H Eos # (Auto) 0.00 Baso # (Auto) 0.02 Immature Gran # (Auto) 1.04 H Anisocytosis Present PT 13.7 H INR 1.3 H Sodium 135 L 136 138 Potassium 4.2 4.4 4.6 Chloride 106 107 108 H Carbon Dioxide 22 19 L 19 L Anion Gap 7 10 11 BUN 25 H 26 H 29 H Creatinine 1.41 H 1.35 H 1.31 H Est Cr Clr Drug Dosing 41.2 43.0 48.8 eGFR 43.51 45.84 47.52 BUN/Creatinine Ratio 17.7 19.3 22.1 H Glucose 84 115 H 117 H Uric Acid 3.6 Calcium 7.2 L 7.1 L 7.0 L Ionized Calcium 1.02 L 1.03 L Phosphorus 2.0 L 2.3 L Magnesium 1.7 1.7 Total Bilirubin 2.5 H AST 116 H ALT 29 Alkaline Phosphatase 450 H Lactate Dehydrogenase 712 H Total Protein 4.8 L D Albumin 2.6 L Globulin 2.2 L Albumin/Globulin Ratio 1.2 Procalcitonin 22.50 H Blood Type Antibody Screen Crossmatch 06/11/24 08:59 WBC RBC Hgb Hct MCV MCH MCHC RDW Std Deviation RDW Coeff of Susanna Plt Count MPV Immature Gran % (Auto) Neut % (Auto) Lymph % (Auto) Owen % (Auto) Eos % (Auto) Baso % (Auto) Neut # (Auto) Lymph # (Auto) Owen # (Auto) Eos # (Auto) Baso # (Auto) Immature Gran # (Auto) Anisocytosis PT INR Sodium Potassium Chloride Carbon Dioxide Anion Gap BUN Creatinine Est Cr Clr Drug Dosing eGFR BUN/Creatinine Ratio Glucose Uric Acid 3.3 Calcium Ionized Calcium 1.00 L Phosphorus 3.0 Magnesium 1.7 Total Bilirubin AST ALT Alkaline Phosphatase Lactate Dehydrogenase Total Protein Albumin Globulin Albumin/Globulin Ratio Procalcitonin Blood Type Antibody Screen Crossmatch Laboratory Results - last 24 hr 06/09/24 06/10/24 06/10/24 23:07 10:04 14:14 WBC RBC Hgb 7.4 L Hct 23.2 L MCV MCH MCHC RDW Std Deviation RDW Coeff of Susanna Plt Count MPV Immature Gran % (Auto) Neut % (Auto) Lymph % (Auto) Owen % (Auto) Eos % (Auto) Baso % (Auto) Neut # (Auto) Lymph # (Auto) Owen # (Auto) Eos # (Auto) Baso # (Auto) Immature Gran # (Auto) Anisocytosis PT INR Sodium 134 L Potassium 4.3 Chloride 105 Carbon Dioxide 22 Anion Gap 7 BUN 26 H Creatinine 1.51 H Est Cr Clr Drug Dosing 38.5 eGFR 40.07 BUN/Creatinine Ratio 17.2 Glucose 90 Uric Acid Calcium 7.1 L Ionized Calcium 0.98 L Phosphorus 2.1 L Magnesium 1.8 Total Bilirubin AST ALT Alkaline Phosphatase Lactate Dehydrogenase Total Protein Albumin Globulin Albumin/Globulin Ratio Procalcitonin Blood Type A Positive Antibody Screen NEGATIVE Crossmatch See Detail 06/10/24 06/10/24 06/11/24 16:33 22:35 06:01 WBC 15.14 H RBC 2.79 L Hgb 7.2 L 7.8 L Hct 23.0 L 24.2 L MCV 86.7 MCH 28.0 MCHC 32.2 RDW Std Deviation 64.4 H RDW Coeff of Susanna 20.4 H Plt Count 370 MPV 9.4 Immature Gran % (Auto) 6.9 Neut % (Auto) 84.2 Lymph % (Auto) 1.8 Owen % (Auto) 7.0 Eos % (Auto) 0.0 Baso % (Auto) 0.1 Neut # (Auto) 12.74 H Lymph # (Auto) 0.28 L Owen # (Auto) 1.06 H Eos # (Auto) 0.00 Baso # (Auto) 0.02 Immature Gran # (Auto) 1.04 H Anisocytosis Present PT 13.7 H INR 1.3 H Sodium 135 L 136 138 Potassium 4.2 4.4 4.6 Chloride 106 107 108 H Carbon Dioxide 22 19 L 19 L Anion Gap 7 10 11 BUN 25 H 26 H 29 H Creatinine 1.41 H 1.35 H 1.31 H Est Cr Clr Drug Dosing 41.2 43.0 48.8 eGFR 43.51 45.84 47.52 BUN/Creatinine Ratio 17.7 19.3 22.1 H Glucose 84 115 H 117 H Uric Acid 3.6 Calcium 7.2 L 7.1 L 7.0 L Ionized Calcium 1.02 L 1.03 L Phosphorus 2.0 L 2.3 L Magnesium 1.7 1.7 Total Bilirubin 2.5 H AST 116 H ALT 29 Alkaline Phosphatase 450 H Lactate Dehydrogenase 712 H Total Protein 4.8 L D Albumin 2.6 L Globulin 2.2 L Albumin/Globulin Ratio 1.2 Procalcitonin 22.50 H Blood Type Antibody Screen Crossmatch PG Care Time/CCT Total # of Minutes Spent Total Time Spent with Patient: Total time spent is greater than 50% in coordination of care (as documented) at patient's floor/unit and/or counseling patient: Coding Level of Care Code 25552 SUB INP/OBS CARE 3/50MIN Diagnoses RISSA (acute kidney injury) N17.9 Tumor lysis syndrome E88.3 Neuroendocrine neoplasm of small intestine D3A.8 Metastasis to liver C78.7
[2024-06-11 09:34] LABS: Magnesium 1.7 mg/dl (1.7-2.4); Uric Acid 3.3 mg/dl (2.6-7.2)
[2024-06-11] MEDS: HEPARIN SOD 5,000 UNIT/0.5 ML VIAL SQ SCH (09:34)
[2024-06-11 10:53] LABS: Appearance Urine Clear (Clear); Bilirubin Urine 1+ (Negative); Blood Urine 3+ (Negative); Color Urine Yellow; Glucose Urine UA Negative (Negative); Ketones Urine Trace (Negative); Leukocyte Esterase Urine 1+ (Negative); Nitrite Urine Negative (Negative); Protein Urine 1+ (Negative); Urobilinogen Urine Negative (Negative)
[2024-06-11 11:46] LABS: Bacteria Urine 1+ (None Seen); Epithelial Cell Urine 0-2 /hpf (0-2); RBC Urine 0-2 /hpf (0-2)
[2024-06-11] MEDS: dexAMETHasone 4 MG TAB PO SCH (15:16)
[2024-06-11] MEDS: SODIUM CHLORIDE 0.9% IV SCH (15:43)
[2024-06-11] MEDS: ETOPOSIDE IV SCH (15:43)
[2024-06-11] MEDS ORDERED: SOD CHL IV SCH (16:00)
[2024-06-11] MEDS ORDERED: POLYOLEFIN IV SCH (16:00)
[2024-06-11] MEDS ORDERED: ETOPOSIDE IV SCH (16:00)
[2024-06-11] MEDS: SODIUM CHLORIDE 0.9% 1,000 ML IV SCH (16:51)
[2024-06-11] MEDS: LACTATED RINGER'S 1,000 ML IV SCH (16:59)
[2024-06-11] MEDS ORDERED: ZOLPIDEM TARTRATE 5 MG TAB PO PRN (17:05)
--- NOTE | 2024-06-11 17:32 | Electrocardiogram Report ---
Test Reason : Blood Pressure : */* mmHG Vent. Rate : 99 BPM Atrial Rate : 99 BPM P-R Int : 124 ms QRS Dur : 74 ms QT Int : 346 ms P-R-T Axes : 40 1 -3 degrees QTcB Int : 444 ms Normal sinus rhythm Cannot rule out Anterior infarct (cited on or before 22-May-2024) T wave abnormality, consider anterior ischemia Abnormal ECG When compared with ECG of 30-May-2024 11:58, No significant change was found Confirmed by Dakota Albarran ([id number]) on 06/11/2024 5:31:50 PM Referred By: REFERRED SELF Confirmed By: Dakota Albarran
--- NOTE | 2024-06-11 17:55 | Billing Data ---
Date of Service June 11, 2024 Coding Level of Care Code 87221 SUB INP/OBS CARE
[2024-06-12 06:43] LABS: Hematocrit (blood only) 23.8 % (37.0-47.0); Hemoglobin 7.7 g/dl (12.0-16.0); Mean Corpuscular Hemoglobin 27.5 pg (25.0-34.0); Mean Corpuscular Hgb Conc 32.4 g/dL (32.0-36.0); Mean Platelet Volume 9.2 fL (9.4-12.4); Nucleated RBC # (auto) 0.05 K/uL (0.00-0.12); Nucleated RBC % (auto) 0.3 %; Platelet Count 369 K/uL (130-400); RDW Coefficient of Variation 20.9 % (11.5-14.5); RDW Standard Deviation 62.9 fL (36.4-46.3); White Blood Count 17.91 K/ul (4.8-10.8)
[2024-06-12 07:12] LABS: INR 1.2 (0.9-1.1); Prothrombin Time 13.3 Seconds (9.0-12.0)
--- NOTE | 2024-06-12 07:23 | Hospitalist Progress Note ---
Date of Service June 12, 2024 Assessment & Plan (1) Tumor lysis syndrome: (2) RISSA (acute kidney injury): (3) Generalized weakness: (4) Sternal fracture: (5) Transaminitis: (6) Iron deficiency anemia: (7) Liver masses: Plan 1) Tumor lysis syndrome - LDH, 748; lactate, 2.7 upon admission - rasburicase, 3 mg, IV ordered once, upon admission; allopurinol, 100 mg, PO, daily - calcium gluconate, 1000 mg, IV given once (06/12) d/t increased potassium - uric acid, 14.8 --> 7.4 --> 3.3 (N) - K, 5.0; P, 4.5; Ca(c), 7.9; Mg, 1.7 - LDH: 748 --> 712 --> 654 - AM Labs: CMP, CBC, uric acid, Phos, LDH, PT/INR - patient on LR, 80 mLs/hr 2) SIRS criteria (w/ possible source of infection (or metastasis)) - procalcitonin, 58.5; WBC, 17.2 --> 15.1 --> 17.9 - elevated levels of procal and WBC could be entirely due to TLS - blood Cx, neg after 48 hrs (pt met SIRS criteria along w/ elevated lactate levels) - CXR: increased consolidation of LLL of lungs - continued ceftriaxone, 2g, q24hrs, IV for UTI 3) Anemia - Hgb, 8.0 --> 6.8 --> 7.8 --> 7.7 - type and cross ordered, transfused 2 units of pRBC's to bring Hgb, 7.8 - Ret %, 2.92% (Ret#, 0.090) --> RPI < 2, inadequate response - Fe, < 10; Ferritin, 1425; TIBC, 162; Transferrin, 116 - concerning for anemia of chronic disease w/ some hemodilution considering amount of fluids given 4) Metastasized neuroendocrine tumor - CRP, 35.8; ESR, 74 - AlkPhos, 521 --> 465; PT/INR, 2.1 --> 1.9 --> 1.3 - Liver Ultrasound (recent): Heterogeneous enlarged liver with multiple ill-defined nodular/heterogenous lesions, likely to be neoplastic. Suggest clinical correlation. CT abdomen with contrast is advised. - CT-Chest: Small lytic lesion of the mid sternal body with subtle acute appearing nondisplaced pathologic fracture 5) Probable Liver Mets/Transaminitis/Elevated INR before anticoagulation - AST, 134 --> 115; ALT, 35 --> 31 (WNL) - INR, 2.1 --> 1.9 --> 1.2 (restarted VTE prophylaxis, 06/11) - consider CMP q48hrs to monitor 6) Hypotension - see LR fluids (above) - normal BP's since admission 7) RISSA/Hyponatremia/Acidosis - Cr, 1.67 --> 1.50 --> 1.73; Na, 133 --> 134 --> 137; HCO3, 19 - continue LR fluids, monitor w/ daily BMP or CMP 8) Bacteruria/Pyuria - UA concerning for UTI upon admission - Ur Cx, positive for Klebsiella --> ceftriaxone, 2g, IV, q24hrs (pos in sensitivities) Code status: Full code Disposition: Med-Surg Tele FENGI: Regular diet VTE Prophylaxis: Heparin, subQ, 5000 U, BID Admission and Anticipated Discharge Date Admission Date: June 09, 2024 Supervising Physician Co-Signing Physician Notes I personally examined the patient and verified all ramirez points of history and exam, discussed case, and agree with decision making with Dr Mora Feels puffy and weak, but also does not feel like she would have any difficulties getting around at home. Vitals noted, in general she is awake and alert fatigued but no distress. Breathing unlabored no accessory muscle use good effort. Skin without rashes pallor or icterus. Neuro without focal deficits. Tumor lysis secondary to metastatic neuroendocrine tumor has gotten initial cycle of chemo. Doing extremely well overall. Continue supportive care, lab monitoring, fluid management UTIdid evolve with urinary frequencytreating with ceftriaxone. Subjective Patient was seen and evaluated at bedside this morning. She continues to feel well subjectively. She denied dyspnea, fever, flank pain. She started chemotherapy on 06/10, so today patient is on day 3 of cycle 1 of chemotherapy treatment. Patient denying any unmanaged pain, mostly concerned about feeling edematous after large amount of IV fluids given to her over last few days. Looking forward to discharge soon to return home to spend with her family. Review of Systems Constitutional: + chills, + sweats, + fatigue and + weig ht loss (uncertain how much); no fever and no body aches Respiratory: no cough, no dyspnea and no wheezing Cardiovascular: no chest pain and no palpitations Gastrointestinal: + nausea (week long); no abdominal pain, no vomiting, no change in bowel habits and no constipation Genitourinary: no dysuria, no urinary frequency and no urinary urgency Neurologic: + unsteadiness and + generalized weaknes s; no tingling, no numbness and no confusion Physical Exam Constitutional: WD/WN, vitals as above Respiratory: normal respiratory effort, lungs clear to auscultation Cardiovascular: Rate/Rhythm: regular rate and regular rhythm Extremities: normal capillary refill and + pedal edema Gastrointestinal (Abdomen): Inspection/Auscultation: abdomen normal to inspection; abdomen not distended Percussion/Palpation: + abdomen tender (URQ and ULQ tenderness) and + hepatomegaly Skin: + ecchymosis (LE's b/l, [place] area) Psychiatric: A+Ox3, euthymic affect Results & Data Results & Data Vital Signs (Past 12 Hours) Vital Signs Temp Pulse Pulse Resp BP Pulse Ox O2 Del Method 06/12/24 04:00 36.5 C 95 H 18 102/55 L 94 Room Air 06/11/24 23:09 103 H 06/11/24 19:35 36.9 C 102 H 14 115/68 95 Room Air
[2024-06-12 07:29] LABS: Albumin Globulin Ratio 1.2 (0.9-2); Albumin Level 2.7 gm/dl (3.4-5.0); BUN Creatinine Ratio 26.6 (10-20); Bilirubin,Total 1.8 mg/dl (0.2-1.0); Calcium 6.9 mg/dl (8.6-10.3); Creatinine Clr Calc Pharmacy 36.7 ml/min; Globulin 2.3 gm/dl (2.5-4.0); Phosphorus 4.5 mg/dl (2.5-4.9); Uric Acid 4.3 mg/dl (2.6-7.2)
--- NOTE | 2024-06-12 07:55 | Electrocardiogram Report ---
Test Reason : Blood Pressure : */* mmHG Vent. Rate : 106 BPM Atrial Rate : 106 BPM P-R Int : 122 ms QRS Dur : 78 ms QT Int : 342 ms P-R-T Axes : 60 20 37 degrees QTcB Int : 454 ms Sinus tachycardia Otherwise normal ECG When compared with ECG of 09-Jun-2024 13:42, T wave inversion no longer evident in Anterior leads Confirmed by Dakota Albarran ([id number]) on 06/12/2024 7:55:35 AM Referred By: REFERRED SELF Confirmed By: Dakota Albarran
--- NOTE | 2024-06-12 08:55 | Nephrology Progress Note ---
Date of Service June 12, 2024 Assessment & Plan (1) RISSA (acute kidney injury): Plan: * RISSA on the basis of TLS. I&O has not yet been measured but patient reports brisk UO. 05/23/[address] w/ IV contrast was negative for hydronephrosis * Volume status and electrolyte balance are acceptable at this time. No acute indication for MATE FIRST * Monitor daily BMP. staff pharmacist advised to measure and record all UO (2) Tumor lysis syndrome: Plan: * Rasburicase administered 06/09/24. Uric acid this morning 4.3 * Continue allopurinol 100 mg daily * Serum phosphorus is within normal limits * Patient is mildly hypocalcemic. Will provide 1g Ca gluconate IV this am * PO4 4.5 this am * Mild metabolic acidosis. Will start NaHCO3 650 mg daily * Monitor daily uric acid, calcium, albumin, phosphorus * Continue IV hydration with LR. Can reduce rate to 80 cc/hr (3) Neuroendocrine neoplasm of small intestine: Plan: * Oncology started carboplatin/etoposide 06/11/24. Plan chemo on days 1-3 with 21 day cycle (4) Metastasis to liver: Admission and Anticipated Discharge Date Admission Date: June 09, 2024 Subjective Mrs. Oconnor was evaluated in her hospital room this morning. She denied dyspnea, fever, flank pain but notes mild LE swelling. She is on day #2 of 3 chemotherapy today Review of Systems Constitutional: no fever Eyes: no problem reported Ear, Nose, Mouth, Throat: no problem reported Respiratory: no cough and no dyspnea Cardiovascular: no chest pain Gastrointestinal: no abdominal pain, no nausea, no vomiting and no diarrhea/loose stools Genitourinary: no dysuria Musculoskeletal: no back pain Integumentary: no rash Neurologic: no problem reported Physical Exam Constitutional: not in distress Eyes: PERRL, conjunctivae normal, anicteric sclerae ENMT: external ear and nose normal, oropharynx normal Neck: trachea midline, no thyromegaly Respiratory: normal respiratory effort, lungs clear to auscultation Cardiovascular: RRR, no murmur, no edema Gastrointestinal (Abdomen): normal bowel sounds, soft, nontender, no hepatosplenomegaly Musculoskeletal: Extremities: no cyanosis and no clubbing Skin: no rashes, warm and dry Neurologic: awake; not confused Results & Data Vital Signs (Past 12 Hours) Vital Signs Temp Pulse Pulse Resp BP Pulse Ox O2 Del Method 06/12/24 08:16 99 H 06/12/24 07:50 36.6 C 95 H 20 111/65 94 Room Air 06/12/24 04:00 36.5 C 95 H 18 102/55 L 94 Room Air 06/11/24 23:09 103 H Laboratory Results Laboratory Results - last 24 hr 06/09/24 06/11/24 06/11/24 23:07 06:01 08:59 WBC RBC Hgb Hct MCV MCH MCHC RDW Std Deviation RDW Coeff of Susanna Plt Count MPV Absolute Nucleated RBC Nucleated RBC % (auto) PT INR Sodium Potassium Chloride Carbon Dioxide Anion Gap BUN Creatinine Est Cr Clr Drug Dosing eGFR BUN/Creatinine Ratio Glucose Uric Acid 3.3 Calcium Ionized Calcium 1.00 L Phosphorus 3.0 Magnesium 1.7 Total Bilirubin AST ALT Alkaline Phosphatase Lactate Dehydrogenase Total Protein Albumin Globulin Albumin/Globulin Ratio Procalcitonin 22.50 H Urine Color Urine Appearance Urine pH Ur Specific [place] Urine Protein Urine Glucose (UA) Urine Ketones Urine Blood Urine Nitrite Urine Bilirubin Urine Urobilinogen Ur Leukocyte Esterase Urine RBC Urine WBC Ur Epithelial Cells Urine Bacteria Crossmatch See Detail 06/11/24 06/12/24 Unknown 06:12 WBC 17.91 H RBC 2.80 L Hgb 7.7 L Hct 23.8 L MCV 85.0 MCH 27.5 MCHC 32.4 RDW Std Deviation 62.9 H RDW Coeff of Susanna 20.9 H Plt Count 369 MPV 9.2 L Absolute Nucleated RBC 0.05 Nucleated RBC % (auto) 0.3 PT 13.3 H INR 1.2 H Sodium 137 Potassium 5.0 Chloride 109 H Carbon Dioxide 19 L Anion Gap 9 BUN 46 H Creatinine 1.73 H D Est Cr Clr Drug Dosing 36.7 eGFR 34.04 BUN/Creatinine Ratio 26.6 H Glucose 111 H Uric Acid 4.3 Calcium 6.9 L Ionized Calcium Phosphorus 4.5 D Magnesium Total Bilirubin 1.8 H AST 115 H ALT 31 Alkaline Phosphatase 465 H Lactate Dehydrogenase 654 H Total Protein 5.0 L Albumin 2.7 L Globulin 2.3 L Albumin/Globulin Ratio 1.2 Procalcitonin Urine Color Yellow Urine Appearance Clear Urine pH 5.0 Ur Specific [place] 1.020 Urine Protein 1+ H Urine Glucose (UA) Negative Urine Ketones Trace H Urine Blood 3+ H Urine Nitrite Negative Urine Bilirubin 1+ H Urine Urobilinogen Negative Ur Leukocyte Esterase 1+ H Urine RBC 0-2 Urine WBC 6-10 H Ur Epithelial Cells 0-2 Urine Bacteria 1+ H Crossmatch PG Care Time/CCT Total # of Minutes Spent Total Time Spent with Patient: Total time spent is greater than 50% in coordination of care (as documented) at patient's floor/unit and/or counseling patient: Coding Level of Care Code 64379 SUB INP/OBS CARE 3/50MIN Diagnoses RISSA (acute kidney injury) N17.9 Tumor lysis syndrome E88.3 Neuroendocrine neoplasm of small intestine D3A.8 Metastasis to liver C78.7
[2024-06-12] MEDS: CALCIUM GLUCONATE 1,000 MG/60 ML BAG IV ONE (09:40)
[2024-06-12] MEDS: SODIUM BICARBONATE 650 MG TAB PO SCH (09:43)
[2024-06-12] MEDS: LACTATED RINGER'S 1,000 ML IV SCH (09:47)
--- NOTE | 2024-06-12 10:40 | Hematology/Oncology Prog Note ---
Date of Service June 12, 2024 Assessment & Plan (1) Neuroendocrine neoplasm of small intestine: (2) Metastasis to liver: Plan -Will proceed with cycle 1, day 3 of etoposide today.Since she continues to have leukocytosis, will hold off on G-CSF at this time. -Daily allopurinol for TLS prophylaxis -If she is discharged home today, will Plan to recheck labs in about 1 week Admission and Anticipated Discharge Date Admission Date: June 09, 2024 Subjective Doing well. Labs stable except for slight increase in creatinine. LDH appears to be improving Results & Data Vital Signs (Past 12 Hours) Vital Signs Temp Pulse Pulse Resp BP Pulse Ox O2 Del Method 06/12/24 08:16 99 H 06/12/24 07:50 36.6 C 95 H 20 111/65 94 Room Air 06/12/24 04:00 36.5 C 95 H 18 102/55 L 94 Room Air 06/11/24 23:09 103 H
[2024-06-12] MEDS: PALONOSETRON 0.25 MG in SYRINGE 0 ML IV SCH (14:44)
--- NOTE | 2024-06-12 17:58 | Billing Data ---
Date of Service June 12, 2024 Coding Level of Care Code 79429 SUB INP/OBS CARE
--- NOTE | 2024-06-12 18:00 | Billing Data ---
Date of Service June 12, 2024 Coding Level of Care Code 35169 SUB INP/OBS CARE
[2024-06-13] MEDS: LOPERAMIDE HCL 2 MG CAP PO PRN (08:15)
[2024-06-13 08:16] LABS: Hematocrit (blood only) 23.9 % (37.0-47.0); Hemoglobin 7.7 g/dl (12.0-16.0); Mean Corpuscular Hemoglobin 27.6 pg (25.0-34.0); Mean Corpuscular Hgb Conc 32.2 g/dL (32.0-36.0); Mean Corpuscular Volume 85.7 fL (80.0-100.0); Mean Platelet Volume 9.1 fL (9.4-12.4); Nucleated RBC # (auto) 0.09 K/uL (0.00-0.12); Nucleated RBC % (auto) 0.7 %; Platelet Count 355 K/uL (130-400); Red Blood Count 2.79 M/uL (4.20-5.40); White Blood Count 13.59 K/ul (4.8-10.8)
[2024-06-13 08:29] LABS: Albumin Globulin Ratio 1.2 (0.9-2); Albumin Level 2.7 gm/dl (3.4-5.0); BUN Creatinine Ratio 28.9 (10-20); Bilirubin,Total 1.6 mg/dl (0.2-1.0); Calcium 6.9 mg/dl (8.6-10.3); Creatinine Clr Calc Pharmacy 30.1 ml/min; Globulin 2.2 gm/dl (2.5-4.0); Phosphorus 5.8 mg/dl (2.5-4.9); Potassium 5.4 mmol/L (3.5-5.1); Total Protein 4.9 gm/dl (6.0-8.3)
[2024-06-13 08:39] LABS: INR 1.2 (0.9-1.1); Prothrombin Time 12.4 Seconds (9.0-12.0)
--- NOTE | 2024-06-13 09:09 | Nephrology Progress Note ---
Date of Service June 13, 2024 Assessment & Plan (1) RISSA (acute kidney injury): Plan: * RISSA on the basis of TLS. 05/23/[address] w/ IV contrast was negative for hydronephrosis * Cr increased to 2.1 today. Patient is nonoliguric * Mild hyperkalemia and metabolic acidosis this am. Will prescribe lokelma 10 g po TID x 3 doses, increase NaHCO3 to 650 mg BID * Repeat BMP at 1500 hrs today * Monitor daily BMP. senior staff consultant advised to measure and record all UO (2) Tumor lysis syndrome: Plan: * Rasburicase administered 06/09/24. Uric acid has risen to 6.0 this am * Increase allopurinol to 150 mg daily * Serum phosphorus is mildly elevated. Continue to monitor * Patient is mildly hypocalcemic but asymptomatic. Will monitor * Monitor daily uric acid, calcium, albumin, phosphorus * Continue IV hydration with LR at 80 cc/hr (3) Neuroendocrine neoplasm of small intestine: Plan: * Oncology started carboplatin/etoposide 06/11/24. Plan chemo on days 1-3 with 21 day cycle (4) Metastasis to liver: Admission and Anticipated Discharge Date Admission Date: June 09, 2024 Subjective Mrs. Oconnor was evaluated in her hospital room this morning. She denied dyspnea, fever, flank pain but has persistent mild LE swelling. Review of Systems Constitutional: no fever Eyes: no problem reported Ear, Nose, Mouth, Throat: no problem reported Respiratory: no cough and no dyspnea Cardiovascular: no chest pain Gastrointestinal: no abdominal pain, no nausea, no vomiting and no diarrhea/loose stools Genitourinary: no dysuria Musculoskeletal: no back pain Integumentary: no rash Neurologic: no problem reported Physical Exam Constitutional: not in distress Eyes: PERRL, conjunctivae normal, anicteric sclerae ENMT: external ear and nose normal, oropharynx normal Neck: trachea midline, no thyromegaly Respiratory: normal respiratory effort, lungs clear to auscultation Cardiovascular: RRR, no murmur, no edema Gastrointestinal (Abdomen): normal bowel sounds, soft, nontender, no hepatosplenomegaly Musculoskeletal: Extremities: no cyanosis and no clubbing Skin: no rashes, warm and dry Neurologic: awake; not confused Results & Data Vital Signs (Past 12 Hours) Vital Signs Temp Pulse Pulse Pulse Resp BP Pulse Ox 06/13/24 07:34 06/13/24 07:25 36.4 C L 98 H 18 118/68 96 06/13/24 05:39 87 06/13/24 05:39 87 06/13/24 03:47 36.6 C 94 H 18 108/66 96 06/13/24 01:57 97 H 06/12/24 23:22 36.9 C 96 H 16 115/68 94 O2 Del Method 06/13/24 07:34 Room Air 06/13/24 07:25 Room Air 06/13/24 05:39 06/13/24 05:39 06/13/24 03:47 Room Air 06/13/24 01:57 06/12/24 23:22 Room Air Laboratory Results Laboratory Results - last 24 hr 06/09/24 06/13/24 23:07 07:54 WBC 13.59 H RBC 2.79 L Hgb 7.7 L Hct 23.9 L MCV 85.7 MCH 27.6 MCHC 32.2 RDW Std Deviation 65.0 H RDW Coeff of Susanna 21.0 H Plt Count 355 MPV 9.1 L Absolute Nucleated RBC 0.09 Nucleated RBC % (auto) 0.7 PT 12.4 H INR 1.2 H Sodium 137 Potassium 5.4 H Chloride 109 H Carbon Dioxide 20 L Anion Gap 8 BUN 61 H Creatinine 2.11 H D Est Cr Clr Drug Dosing 30.1 eGFR 26.82 BUN/Creatinine Ratio 28.9 H Glucose 115 H Uric Acid 6.0 Calcium 6.9 L Phosphorus 5.8 H Total Bilirubin 1.6 H AST 122 H ALT 32 Alkaline Phosphatase 457 H Total Protein 4.9 L Albumin 2.7 L Globulin 2.2 L Albumin/Globulin Ratio 1.2 Crossmatch See Detail PG Care Time/CCT Total # of Minutes Spent Total Time Spent with Patient: Total time spent is greater than 50% in coordination of care (as documented) at patient's floor/unit and/or counseling patient: Coding Level of Care Code 36538 SUB INP/OBS CARE 3/50MIN Diagnoses RISSA (acute kidney injury) N17.9 Tumor lysis syndrome E88.3 Neuroendocrine neoplasm of small intestine D3A.8 Metastasis to liver C78.7
[2024-06-13] MEDS: CALCIUM CARBONATE 500 MG CHEWABLE TAB PO SCH (10:05)
[2024-06-13] MEDS: CHOLECALCIFEROL 10 MCG (400 UNITS) TAB PO SCH (10:06)
[2024-06-13 10:43] LABS: BUN Creatinine Ratio 30.4 (10-20); Creatinine Clr Calc Pharmacy 30.7 ml/min; Potassium 5.3 mmol/L (3.5-5.1)
[2024-06-13] MEDS: SODIUM ZIRCONIUM CYCLOSILICATE 10 GM PACKET PO SCH (14:07)
--- NOTE | 2024-06-13 16:44 | Hospitalist Progress Note ---
Date of Service June 13, 2024 Assessment & Plan (1) Tumor lysis syndrome: (2) RISSA (acute kidney injury): (3) Generalized weakness: (4) Sternal fracture: (5) Transaminitis: (6) Iron deficiency anemia: (7) Liver masses: Plan 1) Tumor lysis syndrome - Initially spontaneous, and then was given chemotherapy given tumor. Overall doing well, unfortunately labs slightly worse todayongoing med management 2) SIRS criteria (w/ possible source of infection (or metastasis)) - while she does have a urinary tract infection, I strongly suspect this service was all related to tumor lysis 3) Anemia - follow-up, transfuse as needed, iron deficiency as well as chronic disease as well as now chemotherapy related 4) Metastasized neuroendocrine tumor - because of tumor lysis, and reason for need for inpatient chemotherapy 5) Probable Liver Mets/Transaminitis/Elevated INR before anticoagulation - follow labs periodically 6) Hypotension - resolved 7) RISSA/Hyponatremia/Acidosis - slightly worse today. Appreciate nephrology assistance. Continue IV fluids and follow 8) Bacteruria/Pyuria - symptomaticUTI. On antibiotics. Code status: Full code Disposition: Med-Surg Tele, anticipate home once tumor lysis/RISSA has started to show true trend of improvement (sl worse today) FENGI: Regular diet VTE Prophylaxis: Heparin, subQ, 5000 U, BID Admission and Anticipated Discharge Date Admission Date: June 09, 2024 Subjective Seen twice. Sleeping both times. Allowed to sleepsecond time was present in the room updated/discussed with him. Case discussed with nephrology. Input greatly appreciated. Physical Exam Physical Exam: Sleeping comfortably, breathing unlabored. Skin without rashes pallor or icterus. Labs and diagnostics noted. Results & Data Results & Data Vital Signs (Past 12 Hours) Vital Signs Temp Pulse Pulse Pulse Resp BP Pulse Ox 06/13/24 15:32 98.1 F 98 H 18 119/70 94 06/13/24 12:59 90 06/13/24 11:52 97.5 F L 99 H 18 114/68 95 06/13/24 07:34 06/13/24 07:25 97.5 F L 98 H 18 118/68 96 06/13/24 05:39 87 06/13/24 05:39 87 O2 Del Method 06/13/24 15:32 Room Air 06/13/24 12:59 06/13/24 11:52 Room Air 06/13/24 07:34 Room Air 06/13/24 07:25 Room Air 06/13/24 05:39 06/13/24 05:39 PG Care Time/CCT Total # of Minutes Spent Total Time Spent with Patient: Total time spent is greater than 50% in coordination of care (as documented) at patient's floor/unit and/or counseling patient: Coding Level of Care Code 98463 SUB INP/OBS CARE 3/50MIN Diagnoses Tumor lysis syndrome E88.3 RISSA (acute kidney injury) N17.9 Generalized weakness R53.1 Sternal fracture S22.20XA Transaminitis R74.01 Iron deficiency anemia D50.9 Liver masses R16.0
[2024-06-13] MEDS: SODIUM BICARBONATE 650 MG TAB PO SCH (20:23)
--- NOTE | 2024-06-14 07:01 | Hospitalist Progress Note ---
Date of Service June 14, 2024 Assessment & Plan (1) Tumor lysis syndrome: (2) RISSA (acute kidney injury): (3) Generalized weakness: (4) Sternal fracture: (5) Transaminitis: (6) Iron deficiency anemia: (7) Liver masses: Plan 1) Tumor lysis syndrome - Initially spontaneous, and then was given chemotherapy given tumor. Overall doing well, unfortunately labs slightly worse todayongoing med management 2) SIRS criteria (w/ possible source of infection (or metastasis)) - while she does have a urinary tract infection, I strongly suspect this service was all related to tumor lysis 3) Anemia - follow-up, transfuse as needed, iron deficiency as well as chronic disease as well as now chemotherapy related 4) Metastasized neuroendocrine tumor - because of tumor lysis, and reason for need for inpatient chemotherapy 5) Probable Liver Mets/Transaminitis/Elevated INR before anticoagulation - follow labs periodically 6) Hypotension - resolved 7) RISSA/Hyponatremia/Acidosis - slightly worse today. Appreciate nephrology assistance. Continue IV fluids and follow 8) Bacteruria/Pyuria - symptomaticUTI. On antibiotics. Code status: Full code Disposition: Med-Surg Tele, anticipate home once tumor lysis/RISSA has started to show true trend of improvement (sl worse today) FENGI: Regular diet VTE Prophylaxis: Heparin, subQ, 5000 U, BID Admission and Anticipated Discharge Date Admission Date: June 09, 2024 Subjective 06/14/24: 06/13/24: Seen twice. Sleeping both times. Allowed to sleepsecond time was present in the room updated/discussed with him. Case discussed with nephrology. Input greatly appreciated. Physical Exam Physical Exam: Sleeping comfortably, breathing unlabored. Skin without rashes pallor or icterus. Labs and diagnostics noted. Results & Data Results & Data Vital Signs (Past 12 Hours) Vital Signs Temp Pulse Pulse Resp BP Pulse Ox O2 Del Method 06/14/24 05:40 86 06/14/24 04:06 36.4 C L 92 H 20 107/68 95 Room Air 06/14/24 00:08 36.4 C L 92 H 20 113/68 95 Room Air 06/13/24 21:46 88 06/13/24 20:24 Room Air 06/13/24 19:38 36.6 C 94 H 20 117/67 95 Room Air
[2024-06-14 07:45] LABS: Hematocrit (blood only) 23.4 % (37.0-47.0); Hemoglobin 7.5 g/dl (12.0-16.0); Mean Corpuscular Hemoglobin 27.6 pg (25.0-34.0); Mean Corpuscular Hgb Conc 32.1 g/dL (32.0-36.0); Mean Platelet Volume 9.3 fL (9.4-12.4); Nucleated RBC # (auto) 0.08 K/uL (0.00-0.12); Nucleated RBC % (auto) 0.8 %; Platelet Count 338 K/uL (130-400); RDW Coefficient of Variation 21.1 % (11.5-14.5); RDW Standard Deviation 65.6 fL (36.4-46.3); Red Blood Count 2.72 M/uL (4.20-5.40); White Blood Count 9.61 K/ul (4.8-10.8)
[2024-06-14 07:56] VITALS: RESP 17
[2024-06-14 08:10] LABS: Albumin Globulin Ratio 1.1 (0.9-2); Albumin Level 2.7 gm/dl (3.4-5.0); BUN Creatinine Ratio 32.7 (10-20); Bilirubin,Total 1.4 mg/dl (0.2-1.0); Calcium 7.2 mg/dl (8.6-10.3); Creatinine Clr Calc Pharmacy 32.8 ml/min; Globulin 2.4 gm/dl (2.5-4.0); Phosphorus 5.8 mg/dl (2.5-4.9); Potassium 5.3 mmol/L (3.5-5.1); Total Protein 5.1 gm/dl (6.0-8.3); Uric Acid 6.9 mg/dl (2.6-7.2)
[2024-06-14 08:22] LABS: INR 1.1 (0.9-1.1); Prothrombin Time 12.2 Seconds (9.0-12.0)
[2024-06-14] MEDS: allopurinoL 100 MG TAB PO SCH (08:22)
--- NOTE | 2024-06-14 10:41 | Nephrology Progress Note ---
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 CT A/P on 05/23/2024 revealed a 4 cm mass involving the distal ileum along with diffuse hepatic metastases. Liver biopsy on 06/02/2024 was consistent with a small intestinal neuroendocrine carcinoma. Admitted after outpatient lab showing RISSA, hyper calciuria and tumor lysis syndrome and overall feeling poorly metastatic carcinoma. She received 1 dose of rasburicase with improvement in uric acid then uric acid again went up after started on chemo, now on allopurinol 150 mg daily and uric acid staying stable. She received first cycle of chemotherapy with carboplatin and etoposide. Next chemo will be in 3 weeks. Noted to have RISSA creatinine was around 2.5 which now improved and staying around 2-2.1 associated with mild metabolic acidosis, hyperphosphatemia. Hemoglobin has been relatively low but stable. Decent urine output. Clinically stable with stable blood pressure and volume status. Decent urine output. Kidney function staying relatively stable, creatinine staying around 2.0-2.1. Completed first cycle of chemotherapy, denies any significant nausea or vomiting but overall p.o. intake poor. She is eager to be discharged. -- Okay to be discharged from nephrology standpoint with close outpatient lab monitoring as long as she is able to maintain p.o. intake. Discussed importance of keeping well-hydrated, watching for decent urine output. Avoid nephrotoxic medications. -- Will need close outpatient lab monitoring and follow-up with oncology as her hemoglobin continues to be low and still has some electrolyte abnormality. -- Recommend checking kidney function, hemoglobin and electrolyte early next week if discharge anticipated over the weekend. -- Will arrange outpatient nephrology follow-up in next few weeks -- Continue to follow while inpatient Admission and Anticipated Discharge Date Admission Date: June 09, 2024 Kristie Long was seen and evaluated this morning. She denies any specific symptoms, overall does not feel while being in hospital and just wants to go home. Appetite not the greatest. Decent urine output. Blood pressure stable. Kidney function staying relatively stable, uric acid improved and stable. Hemoglobin remained low but stable. Review of Systems Review of Systems: Review of system was otherwise unremarkable except mentioned above. Physical Exam Constitutional: WD/WN, vitals as above + ill appearing; no acute distress Eyes: + anicteric sclerae Neck: normal visual inspection Respiratory: Auscultation: lungs clear to auscultation bilaterally Cardiovascular: Rate/Rhythm: regular rate and regular rhythm Heart Sounds: normal S1 and normal S2 Extremities: + edema (Trace bilateral lower extremity edema.) Skin: no rashes Neurologic: no focal motor deficits and not confused Psychiatric: Orientation: alert and oriented x 3 Results & Data Vital Signs (Past 12 Hours) Vital Signs Temp Pulse Pulse Resp BP Pulse Ox O2 Del Method 06/14/24 07:56 93 H 17 121/67 96 Room Air 06/14/24 05:40 86 06/14/24 04:06 36.4 C L 92 H 20 107/68 95 Room Air 06/14/24 00:08 36.4 C L 92 H 20 113/68 95 Room Air PG Care Time/CCT Total # of Minutes Spent Total Time Spent with Patient: Total time spent is greater than 50% in coordination of care (as documented) at patient's floor/unit and/or counseling patient: Coding Level of Care Code 37611 SUB INP/OBS CARE 3/50MIN Diagnoses RISSA (acute kidney injury) N17.9 Tumor lysis syndrome E88.3 Metabolic acidosis E87.20 Neuroendocrine neoplasm of small intestine D3A.8 Iron deficiency anemia D50.9
[2024-06-14 11:51] VITALS: BP 122/68; PULSE 89; TEMP 97.7; O2SAT 95
--- NOTE | 2024-06-14 14:19 | Discharge Summary ---
Date of Service June 14, 2024 Admission HPI Per Admitting Provider Patient had an appointment with Dr. Sharpe today, where she was observed to be hypotensive as well as having labs that were concerning for tumor lysis. Patient denies palpitations, dyspnea, chest pain. Patient has had generalized weakness, fatigue, felt a little lightheaded for at least a week to a month now, though no acutely different the last few days than prior. Patient notes she had a recent Dx of neuroendocrine tumor, along with masses and osteolytic lesions concerning for metastases. Admission Exam Per Admitting Provider Constitutional: WD/WN, vitals as above Respiratory: normal respiratory effort, lungs clear to auscultation Cardiovascular: RRR, no murmur, no edema Chest (Breasts): Chest: normal inspection of chest Additional Comments: chest pain of sternal area, pain of lower ribcage Gastrointestinal (Abdomen): Inspection/Auscultation: abdomen normal to inspection; abdomen not distended Percussion/Palpation: + abdomen tender (URQ and ULQ tenderness) Skin: + ecchymosis (LE's b/l, berrios area) Psychiatric: A+Ox3, euthymic affect Principal Diagnosis Tumor Lysis Syndrome Discharge Exam Gen: NAD, alert, interactive, non-toxic HEENT: Supple, no LAD, no thyromegaly, scleral icterus Resp:Non-labored, no wheezing/rhonchi/rales, CTAB CV:RRR, normal S1/S2, no M/R/G Abd: Soft, mild distended, no TTP, normoactive bowels, no palpable masses Extr: 2+ dp bilaterally, 1+ non-pitting edema Skin: No rashes lesions or erythema Discharge Data Allergies Allergy/AdvReac Type Severity Reaction Status Date / Time Penicillins Allergy Intermediate HIVES Verified 06/09/24 16:00 Consultations 06/09/24 14:45 ED Decision to Admit Stat 06/09/24 15:40 Consult Hematology Routine 06/09/24 16:31 Consult Nephrology Routine Hospital Course (1) Tumor lysis syndrome: (2) RISSA (acute kidney injury): (3) Generalized weakness: (4) Sternal fracture: (5) Transaminitis: (6) Iron deficiency anemia: (7) Liver masses: Steve Long is a 59F w/ PMH of 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 1) Tumor lysis syndrome - Initially spontaneous, and then was given chemotherapy given tumor - Overall doing well, labs stable today - Continue Allopurinol, sodium bicarb, TUMs, Vitamin D upon discharge - Close follow up labs in 2-3 days of discharge - Encourage close PCP follow up within 1 week of discharge 2) SIRS criteria (w/ possible source of infection (or metastasis)) - More likely a/w Tumor Lysis than acute UTI at this time, though Abx inpatient 3) Anemia - Received 2 units PRBC inpatient - Hgb 7.5 on discharge - Recheck outpatient ordered in 2-3 days - This is suspected to be iron deficiency, chronic disease, and chemotherapy induced 4) Metastasized neuroendocrine tumor - because of tumor lysis, and reason for need for inpatient chemotherapy 5) Probable Liver Mets/Transaminitis/Elevated INR before anticoagulation - LFTs remain elevated w/ scleral icterus on examination - Outpatient recheck ordered, continue to follow periodically outpatient 6) Hypotension - Resolved 7) RISSA/Hyponatremia/Acidosis - Improved - Nephrology following, supportive of dc home - Continue sodium bicarbonate as above - Labs ordered in 2-3 days of discharge w/ follow up outpatient 8) Bacteruria/Pyuria - SymptomaticUTI. - Continue Cephalexin outpatient Code status: Full code Disposition: DC home, stable tumor lysis, outpatient lab follow up ordered FENGI: Regular diet VTE Prophylaxis: Heparin, subQ, 5000 U, BID Total Time Total Time Spent Total Time Spent (In Minutes): See attending attestation Discharge Plan Discharge Items Patient Disposition: Home - Self-Care Reason For Visit: HYPOTENSION IN CONTEXT OF TUMOR LYSIS SYNDROME Discharge Diagnosis: Tumor Lysis Syndrome Condition on Discharge: Fair Activity: Per Instructions section Non-emergency contact: Primary Care Provider Call non-emergency contact if: you have any medication questions, your symptoms worsen, your pain is not controlled and you have a fever Follow-up/Referrals: Carly Vang DO [Primary Care Provider] - 06/23/24 9:20 am Diet: Regular Ambulatory Orders: Complete Blood Count with Diff (Routine) Timeframe: 2 Days Location: Determined by Patient Ordered By: Bertin Gifford Comprehensive Metabolic Panel (Routine) Timeframe: 2 Days Location: Determined by Patient Ordered By: Bertin Gifford Uric Acid (Routine) Timeframe: 2 Days Location: Determined by Patient Ordered By: Bertin Thompson Attending Provider Instructions: You presented to the hospital from your Oncologist's office for low blood pressure and concern for tumor lysis syndrome. During your admission you were treated for tumor lysis syndrome secondary to the underlying neuroendocrine tumor and chemotherapy. You received a medicine called Rasburicase to lower your uric acid levels as well as Allopurinol. You also received Lokelma to reduce your potassium levels and TUMs to increase your calcium levels. Your labs stabilized during your admission and it was reasonable to continue your recovery at home. It is important for you to continue taking Allopurinol upon discharge from the hospital, this was sent to you pharmacy. Please continue to supplement with Tums (for calcium), Vitamin D, and Sodium Bicarbonate until your follow up with your PCP. There are labs ordered for you to complete Friday 06/16 or Saturday 06/17. Your PCP and Oncologist will review these labs with you and help adjust your medication regimen moving forward. It will be very important for you to continue to hydrate with a goal of 64 ounces of water each day. Please continue to focus on small frequent meals to support your nutrition. Finally, keep a general eye on the amount of urine you are producing, if your overall frequency or amount of urination is diminishing please contact your PCP or oncologist. You were noted to have lower extremity (foot, leg and ankle) swelling in the hospital, this is expected to improve with ambulation and worsen with in-activity, I encourage you to keep moving as much as possible. You were diagnosed with an acute urinary tract infection while in the hospital, you were started on an IV medicine called Ceftriaxone to treat the infection. An additional three days of antibiotics, oral Cephalexin, was sent to your pharmacy to complete treatment of your urinary tract infection. Your medications were sent to your preferred pharmacy. Pending Studies at Discharge: No Stand-Alone Forms: [facility], Smoking Cessation Medications and DC Order Prescriptions: New allopurinol 100 mg Tablet 150 mg PO DAILY 28 Days Qty: 42 0RF sodium bicarbonate 650 mg Tablet 650 mg PO BID 30 Days Qty: 60 0RF calcium carbonate 200 mg calcium (500 mg) Tablet,Chewable 500 mg PO TID 30 Days Qty: 225 0RF cholecalciferol (vitamin D3) [Vitamin D3] 10 mcg (400 unit) Tablet 10 mcg PO QAM 30 Days Qty: 30 0RF cephalexin 500 mg capsule 500 mg PO QID 3 Days Qty: 12 0RF ondansetron 4 mg Tablet,Disintegrating 4 mg PO Q4H PRN (Reason: nausea and vomiting) 5 Days Qty: 20 0RF Continued escitalopram oxalate 10 mg tablet 10 mg PO DAILY Qty: 90 3RF potassium chloride 20 mEq tablet extended release 20 meq PO DAILY Qty: 30 0RF cyanocobalamin (vitamin B-12) [Vitamin B-12] 1,000 mcg Tablet 1,000 mcg PO DAILY Discharge Orders: Discharge Order (Routine); Ordered 06/14/24 Ordered By: Bertin Durán/Other Patient Handouts: Sodium Bicarbonate Oral Tablet, Calcium Carbonate Chewable Tablet, Vitamin D3 (cholecalciferol) Oral Tablet, Allopurinol Oral Tablet, Cephalexin Oral Capsule, Urinary Tract Infections in Women Admission Data Admit Date/Time: 06/09/24 15:34 Attending Provider: Dar Lai Admit Provider: Valentín Mora Primary Care Provider: Carly Vang Other Providers: Dar Lai; Hina Sharpe; Daniel Quintana; Coby Daniel Kevin C.; Amee Allison Other Interventions: Discharge Summary Assessment (RN) Last Done: 06/14/24 15:59 Supervising Physician Co-Signing Physician Notes I personally examined the patient and verified all ramirez points of history and exam, discussed case, and agree with decision making with Dr Gifford Feeling okay. Would very much like to go home. Discussed risk/benefit of home and close follow-up versus staying in the hospital, and that nephrology and I would both feel a little more comfortable watching her into tomorrow, but also understand that she very much wants to go home and it is not a reckless choice Vitals noted, in general she is awake and alert fatigued but no distress. Br eathing unlabored no accessory muscle use good effort. Skin without rashes pallor or icterus. Neuro without focal deficits. Tumor lysis secondary to metastatic neuroendocrine tumor has gotten initial cycle of chemo. Doing extremely well overall. patient very much wants to go home, not a reckless choice. Discussed to return tomorrow if she feels at all unwell given that her symptoms were rather nonspecific with her initial tumor lysis. Continue allopurinol and bicarb. Labs on Sunday. UTIdid evolve with urinary frequency - simple cystitistreated with ceftriaxone. Resident Activity Tracking Resident Involvement: Resident Care Provided Care Provided: [facility]
[2024-06-14] MEDS ORDERED: ONDANSETRON 4 MG OD TAB PO PRN (15:29)
--- NOTE | 2024-06-14 17:16 | Billing Data ---
Date of Service June 14, 2024 Coding Level of Care Code 41117 IN/OBS DISCH 30 MIN/LESS
== END 2024-06-14 16:04 | disposition home or self-care (01) | DRG 682 ==
LOC: ED 13:25 → EDINP 15:34 → 2N 18:00 → 2W 06-11 22:10

== ENCOUNTER 2024-06-18 19:03 | Inpatient (IN) ==
[2024-06-18 20:01] LABS: Hematocrit (blood only) 29.3 % (37.0-47.0); Hemoglobin 9.5 g/dl (12.0-16.0); Mean Corpuscular Hemoglobin 27.5 pg (25.0-34.0); Mean Corpuscular Hgb Conc 32.4 g/dL (32.0-36.0); Mean Corpuscular Volume 84.9 fL (80.0-100.0); Mean Platelet Volume 8.8 fL (9.4-12.4); Platelet Count 52 K/uL (130-400); RDW Coefficient of Variation 19.2 % (11.5-14.5); Red Blood Count 3.45 M/uL (4.20-5.40); White Blood Count 0.13 K/ul (4.8-10.8)
[2024-06-18 20:12] LABS: Neutrophils # (auto) < 0.50 K/uL (1.40-6.50)
--- NOTE | 2024-06-18 20:13 | Emergency Department Note ---
Impression & Plan Acute hypoxemic respiratory failure, Volume overload, Right lower lobe pneumonia, Cancer of liver ED Provider Note NAME: YANI HOSKINS AGE: 59 SEX: F : 1965 ARRIVES VIA: Walk-In INFORMANT: Patient, ED PROVIDER(S): Brandon Garcia MD CHIEF COMPLAINT: "I am following up with fluid" MEDICAL DECISION MAKING: Patient presents with the above. Diminished breath sounds throughout patient hypoxic. Patient was placed on BiPAP. The patient was given 0.5 of Ativan the patient was feeling anxious. Chest x-ray reviewed does show concern for volume overload as well as possible right lower lobe pneumonia. Patient significantly neutropenic the patient did receive IV cefepime as well as IV vancomycin. Patient does have a penicillin allergy. Patient is thrombocytopenic and anemic. Kidney function is unremarkable. Mildly low calcium and magnesium lactate is normal. Procalcitonin blood cultures also added. I did speak the on-call hospitalist service and the patient was admitted by Dr. Hough. Critical Care: I have personally spent 55 minutes of critical care time in direct management of this patient. This includes bedside care, interpretation of diagnostic studies, and testing, discussion with consultants, patient, and family members, and other require inpatient management activities. This 55 minutes is in excess of all separately billable procedures. Discussion w/ other healthcare providers: Dr. Hough inpatient medicine service Prior /Outside records reviewed: none Differential diagnosis: Reactive airway disease, pneumonia, pneumothorax, COPD, CHF, ACS, pulmonary embolism, musculoskeletal, GERD as well as other pathologies were considered. Diagnostics, as interpreted by me: ECG: Sinus tachycardia, rate of 109, normal intervals, normal axis no ST elevations or T WI. Cardiac monitoring: An order was placed for continuous cardiac monitoring. The monitor shows a rate of 108 tachycardic and regular with rhythm. Patient was placed on pulse oximetry Medical decision rules: none Imaging studies: I informally interpreted the patient's chest x-ray with pulmonary edema and right lower lobe consolidation with formal report to follow. HPI: Patient presents with concerns for filling up with fluid. The patient states that she has gotten progressively worse over the last several days. Patient does have a known prior history of liver cancer for which she is receiving chemotherapy. The patient does follow with Dr. Sharpe. The patient denies any chest pains. She denies any abdominal pain. No nausea vomiting. Patient states that she has had some leg swelling. The patient is not been taking daily weights. The patient reports that she does not take any diuretics. PAST MEDICAL HISTORY: See Below PAST SURGICAL HISTORY: See Below SOCIAL HISTORY: See Below HOME MEDICATIONS: See Below ALLERGIES: See Below VITALS: See Below PHYSICAL EXAMINATION: GENERAL: Dyspneic, uncomfortable in appearance, mild distress. EYE EXAM: Normal conjunctiva. PERRL, no anisocoria and EOM's grossly intact w/o pain. OROPHARYNX: Moist mucus membranes, grossly normal dentition. NECK: Trachea midline, no stridor. LUNGS: Diminished breath sounds throughout with scant wheezes.tachypnea noted. HEART: NSR, no MRG. ABDOMEN: Abdomen soft, non-tender, no masses, no rebound or guarding. BACK: No CVA TTP. SKIN: No rashes and no bruising. UPPER EXTREMITIES: Upper extremities are grossly normal. LOWER EXTREMITIES: Grossly normal, no bilateral lower extremity edema without calf pain or erythema. NEURO EXAM: Awake and alert, follows commands, no obvious facial asymmetry, normal speech, moves all 4 extremities. Past Med/Surg History Problem List (Updated 06/18/24 @ 20:52 by Brandon Garcia MD) Cancer of liver (Acute) Right lower lobe pneumonia (Acute) Volume overload (Acute) Acute hypoxemic respiratory failure (Acute) Metabolic acidosis Metastasis to liver Neuroendocrine neoplasm of small intestine Acute UTI (urinary tract infection) (Acute) Leukocytosis (Acute) Tumor lysis syndrome (Acute) Sepsis (Acute) RISSA (acute kidney injury) (Acute) Generalized weakness (Acute) Sternal fracture (Acute ~05/30/24) Mass of small intestine Liver masses Hypercalcemia (Acute) Transaminitis History of basal cell carcinoma (BCC) of skin R berrios s/p MOHS Mar 2024 Iron deficiency anemia B12 deficiency Hypokalemia Hypomagnesemia Post menopausal syndrome Vitamin D deficiency Tubular adenoma of colon Crohn's disease Acid reflux Medical History SBO (small bowel obstruction) Surgical History S/P Mohs surgery for basal cell carcinoma (03/2024) R berrios H/O breast biopsy S/P endometrial ablation Hx of oral surgery Family History Grandmother Colorectal cancer Uncle Colorectal cancer Mother Myocardial infarction, Onset Age: 66 Father Hypertension Diabetes Denies family history of Ovarian cancer Prostate cancer Breast cancer Social History Smoking Status: Never smoker Second Hand Exposure: Yes; Do You Dip or Chew Tobacco: No; Hx Alcohol Use: No Hx Substance Use: No Preferred Language: Irish Communication Ability: Effective Visual Impairment: No Limitations Hearing Ability: Normal Seamless Hosiery Knitter Required: No Beliefs That Will Affect Care: None marital status: Current Living Situation: Spouse Current Living Situation Comment: C/ spouse and children current occupational status: 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 Feels Safe at Home: Yes Childhood Exposure to Second-Hand Smoke: Yes Diet: regular Diet Comment: Regular caffeine: Yes during the past year weight has: remained stable Dental Care, Regularly: Yes Physical Activity Frequency: 3-4 Times per Week Seatbelt Use: always Sunscreen Use: Yes Assistive Devices: None Allergies Allergies Allergy/AdvReac Type Severity Reaction Status Date / Time Penicillins Allergy Intermediate HIVES Verified 06/18/24 20:21 Home Meds Home Medications Medication Instructions Recorded Confirmed cyanocobalamin (vitamin B-12) 1,000 mcg PO DAILY 06/09/24 06/18/24 1,000 mcg tablet (Vitamin B-12) cephalexin 500 mg capsule 500 mg PO QID 06/18/24 06/18/24 lorazepam 0.5 mg tablet 0.5 mg PO TID PRN Anxiety 06/18/24 06/18/24 Previous Rx's Medication Instructions Recorded escitalopram oxalate 10 mg tablet 10 mg PO DAILY #90 tabs 02/14/24 potassium chloride 20 mEq 20 meq PO DAILY #30 tabs 05/23/24 tablet,extended release allopurinol 100 mg tablet 150 mg (1.5 x 100 mg) PO DAILY 4 06/14/24 weeks #42 tabs calcium carbonate 500 mg (2.5 x 200 mg calcium (500 06/14/24 mg)) PO TID 30 days #225 tabs cholecalciferol (vitamin D3) 10 10 mcg PO QAM 1 month #30 tabs 06/14/24 mcg (400 unit) tablet (Vitamin D3) ondansetron 4 mg disintegrating 4 mg PO Q4H PRN nausea and 06/14/24 tablet vomiting 5 days #20 tabs sodium bicarbonate 650 mg tablet 650 mg PO BID 1 month #60 tabs 06/14/24 Results & Data (ED) Vital Signs Vital Signs - 24 hr 06/18/24 19:08 06/18/24 19:11 06/18/24 19:27 Temperature 36.5 C Temperature Source Temporal Artery Scan Pulse Rate 98 H 108 H Pulse Rate [Apical] 110 H Respiratory Rate 18 30 H Respiratory Effort / Characteristics Labored Short of Breath Respiratory Depth Normal Respiratory Pattern Regular Blood Pressure 157/89 H Blood Pressure [Right Arm] 138/90 Blood Pressure Mean 111 Blood Pressure Mean [Right Arm] 106 Pulse Oximetry 93 91 Oxygen Delivery Method Room Air Nasal Cannula Oxygen Flow Rate 2 Fraction of Inspired Oxygen Sepsis Recent Fever Within 48 Hours No Sepsis New/Unexplained Change in Mental Status No Sepsis Action Taken by Nursing No Action Required 06/18/24 19:27 06/18/24 20:33 06/18/24 21:04 Temperature Temperature Source Pulse Rate 109 H 106 H Pulse Rate [Apical] 98 H Respiratory Rate 28 H 28 H 24 Respiratory Effort / Characteristics Spontaneous Labored Non-Labored Respiratory Depth Normal Respiratory Pattern Regular Blood Pressure Blood Pressure [Right Arm] 149/91 H Blood Pressure Mean Blood Pressure Mean [Right Arm] 110 Pulse Oximetry 92 95 97 Oxygen Delivery Method Nasal Cannula BiPAP Oxygen Flow Rate 2 Fraction of Inspired Oxygen 40 Sepsis Recent Fever Within 48 Hours Sepsis New/Unexplained Change in Mental Status Sepsis Action Taken by [facility] Medications Current Medication List: was personally reviewed by me Laboratory Data Attestation: I reviewed the patient's lab results. 06/18/24 19:29 06/18/24 19:29 Lab Results 06/18/24 06/18/24 06/18/24 Range/Units 19:29 19:48 20:12 WBC 0.13 L* (4.8-10.8) K/ul RBC 3.45 L (4.20-5.40) M/uL Hgb 9.5 L (12.0-16.0) g/dl Hct 29.3 L (37.0-47.0) % MCV 84.9 (80.0-100.0) fL MCH 27.5 (25.0-34.0) pg MCHC 32.4 (32.0-36.0) g/dL RDW Std Deviation 59.0 H (36.4-46.3) fL RDW Coeff of Susanna 19.2 H (11.5-14.5) % Plt Count 52 L (130-400) K/uL MPV 8.8 L (9.4-12.4) fL Neut # (Auto) < 0.50 L* (1.40-6.50) K/uL PT 13.9 H (9.0-12.0) Seconds INR 1.3 H (0.9-1.1) APTT 38 H (21-31) Seconds PTT Ratio 1.4 Sodium 136 (136-145) mmol/L Potassium 4.8 (3.5-5.1) mmol/L Chloride 107 (98-107) mmol/L Carbon Dioxide 20 L (21-32) mmol/L Anion Gap 9 (3-11) BUN 22 (6-23) mg/dl Creatinine 0.58 L (0.6-1.2) mg/dl Est Cr Clr Drug Dosing 115.0 ml/min eGFR 105.48 BUN/Creatinine Ratio 37.9 H (10-20) Glucose 97 (70-99(Fasting)) mg/dl Lactate (0.4-2.0) mmol/L Calcium 8.0 L (8.6-10.3) mg/dl Magnesium 1.6 L (1.7-2.4) mg/dl Total Bilirubin 3.4 H (0.2-1.0) mg/dl AST 68 H (13-39) U/L ALT 37 (7-52) U/L Alkaline Phosphatase 463 H (34-104) U/L Ammonia 28.0 (18-72) umol/L B-Natriuretic Peptide 1841 H (0-100) pg/ml Total Protein 5.9 L (6.0-8.3) gm/dl Albumin 3.1 L (3.4-5.0) gm/dl Globulin 2.8 (2.5-4.0) gm/dl Albumin/Globulin Ratio 1.1 (0.9-2) Procalcitonin 3.52 H (0-0.5) ng/ml Adenovirus (PCR) Not Detected (NotDetected) B. pertussis DNA (PCR) Not Detected (NotDetected) B.parapertussis DNA PCR Not Detected (NotDetected) C. pneumoniae DNA (PCR) Not Detected (NotDetected) Coronavirus OC43 (PCR) Not Detected (NotDetected) Coronavirus HKU1 (PCR) Not Detected (NotDetected) Coronavirus 229E (PCR) Not Detected (NotDetected) SARS-CoV-2 (PCR) Not Detected (NotDetected) Coronavirus NL63 (PCR) Not Detected (NotDetected) Human Metapneumovir PCR Not Detected (NotDetected) Influenza Type A (PCR) Not Detected (NotDetected) Influenza Type B (PCR) Not Detected (NotDetected) M. pneumoniae (PCR) Not Detected (NotDetected) Parainfluenza 1 (PCR) Not Detected (NotDetected) Parainfluenza 2 (PCR) Not Detected (NotDetected) Parainfluenza 3 (PCR) Not Detected (NotDetected) Parainfluenza 4 (PCR) Not Detected (NotDetected) RSV (PCR) Not Detected (NotDetected) Entero/Rhino (PCR) Not Detected (NotDetected) 06/18/24 Range/Units 20:24 WBC (4.8-10.8) K/ul RBC (4.20-5.40) M/uL Hgb (12.0-16.0) g/dl Hct (37.0-47.0) % MCV (80.0-100.0) fL MCH (25.0-34.0) pg MCHC (32.0-36.0) g/dL RDW Std Deviation (36.4-46.3) fL RDW Coeff of Susanna (11.5-14.5) % Plt Count (130-400) K/uL MPV (9.4-12.4) fL Neut # (Auto) (1.40-6.50) K/uL PT (9.0-12.0) Seconds INR (0.9-1.1) APTT (21-31) Seconds PTT Ratio Sodium (136-145) mmol/L Potassium (3.5-5.1) mmol/L Chloride (98-107) mmol/L Carbon Dioxide (21-32) mmol/L Anion Gap (3-11) BUN (6-23) mg/dl Creatinine (0.6-1.2) mg/dl Est Cr Clr Drug Dosing ml/min eGFR BUN/Creatinine Ratio (10-20) Glucose (70-99(Fasting)) mg/dl Lactate 1.1 (0.4-2.0) mmol/L Calcium (8.6-10.3) mg/dl Magnesium (1.7-2.4) mg/dl Total Bilirubin (0.2-1.0) mg/dl AST (13-39) U/L ALT (7-52) U/L Alkaline Phosphatase (34-104) U/L Ammonia (18-72) umol/L B-Natriuretic Peptide (0-100) pg/ml Total Protein (6.0-8.3) gm/dl Albumin (3.4-5.0) gm/dl Globulin (2.5-4.0) gm/dl Albumin/Globulin Ratio (0.9-2) Procalcitonin (0-0.5) ng/ml Adenovirus (PCR) (NotDetected) B. pertussis DNA (PCR) (NotDetected) B.parapertussis DNA PCR (NotDetected) C. pneumoniae DNA (PCR) (NotDetected) Coronavirus OC43 (PCR) (NotDetected) Coronavirus HKU1 (PCR) (NotDetected) Coronavirus 229E (PCR) (NotDetected) SARS-CoV-2 (PCR) (NotDetected) Coronavirus NL63 (PCR) (NotDetected) Human Metapneumovir PCR (NotDetected) Influenza Type A (PCR) (NotDetected) Influenza Type B (PCR) (NotDetected) M. pneumoniae (PCR) (NotDetected) Parainfluenza 1 (PCR) (NotDetected) Parainfluenza 2 (PCR) (NotDetected) Parainfluenza 3 (PCR) (NotDetected) Parainfluenza 4 (PCR) (NotDetected) RSV (PCR) (NotDetected) Entero/Rhino (PCR) (NotDetected) Administered Medications Magnesium Sulfate/Dextrose (Magnesium Sulfate / D5w) 1 gm in 100 mls @ 50 mls/hr IV Q2H KRISTI Stop: 06/19/24 02:44 Last Admin: 06/18/24 23:14 Dose: 50 mls/hr Documented By: DM Discontinued Medications Furosemide (Furosemide 40 Mg/4 Ml Vial) 40 mg IV ONE ONE Stop: 06/18/24 20:41 Last Admin: 06/18/24 20:53 Dose: 40 mg Documented By: PILAR Cefepime HCl (Maxipime 2000mg) 2,000 mg in 20 mls @ 5 mls/min IV NOW STA; Protocol Stop: 06/18/24 20:07 Last Admin: 06/18/24 20:33 Dose: 5 mls/min Documented By: PILAR Magnesium Sulfate/Dextrose (Magnesium Sulfate / D5w) 1 gm in 100 mls @ 100 mls/hr IV NOW STA Stop: 06/18/24 21:39 Last Infusion: 06/18/24 21:59 Dose: Infused Documented By: Admin: 06/18/24 20:53 Dose: 100 mls/hr Documented By: PILAR Calcium Gluconate () 1,000 mg in 60 mls @ 240 mls/hr IV NOW STA Stop: 06/18/24 20:54 Last Infusion: 06/18/24 21:37 Dose: Infused Documented By: Admin: 06/18/24 20:53 Dose: 240 mls/hr Documented By: PILAR Vancomycin HCl 2,000 mg/ (Sodium Chloride) 540 mls @ 200 mls/hr IV NOW ONE Stop: 06/18/24 23:21 Last Admin: 06/18/24 21:37 Dose: 200 mls/hr Documented By: PILAR Lorazepam (Lorazepam 2 Mg/1 Ml Vial) 0.5 mg IV NOW STA Stop: 06/18/24 19:51 Last Admin: 06/18/24 19:56 Dose: 0.5 mg Documented By: PILAR Lorazepam (Lorazepam 2 Mg/1 Ml Vial) 0.5 mg IV NOW STA Stop: 06/18/24 20:26 Last Admin: 06/18/24 20:28 Dose: 0.5 mg Documented By: PILAR Imaging Data Radiologist's Impression: Chest X-Ray 06/18/24 19:28 EXAM: XR chest 1V portable CLINICAL HISTORY: Dyspnea TECHNIQUE: An X-ray image of the chest is obtained in AP projection. 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 Blunting of the bilateral costophrenic angles due to pleural effusions rather than thickening Thickening of the interstitium and possible cephalization. Bulky bilateral hilum Heart and Mediastinum: Mild cardiomegaly Bony Thorax: Bony thorax appears intact without fractures or deformities. Soft Tissues: Soft tissues overlying the chest wall are unremarkable. IMPRESSION: 1. Compared to the previous interval, deterioration is noted. 2. Overall findings raise the possibility of cardiopulmonary congestive changes with underlying collapse or consolidation and bilateral pleural effusions. 3. If clinically warranted, further evaluation with follow-up x-rays or CT. 4. No evidence of pneumothorax. Electronically signed by Ananda Pulido 06-18-2024 9:10 PM Discharge Plan Visit Data Chief Complaint: Swelling/Edema to Extremity Stated Complaint: FILLED WITH FLUID, SWELLING LEGS ED Provider: Brandon Garcia Discharge Problem: Acute hypoxemic respiratory failure, Volume overload, Right lower lobe pneumonia, Cancer of liver Patient Disposition: Admitted As Inpatient Condition: Fair Discharge Instructions Interventions: ED Discharge Assessment Last Done: 06/18/24 22:12 Discharge Problem: Volume overload Qualifiers: Hypervolemia type: other Qualified Code(s): E87.79 - Other fluid overload Right lower lobe pneumonia Qualifiers: Pneumonia type: due to unspecified organism Qualified Code(s): J18.9 - Pneumonia, unspecified organism Cancer of liver Qualifiers: Liver malignancy type: unspecified liver malignancy Qualified Code(s): C22.9 - Malignant neoplasm of liver, not specified as primary or secondary
[2024-06-18 20:29] LABS: INR 1.3 (0.9-1.1); Partial Thromboplastin Ratio 1.4; Partial Thromboplastin Time 38 Seconds (21-31); Prothrombin Time 13.9 Seconds (9.0-12.0)
[2024-06-18 20:31] LABS: Albumin Globulin Ratio 1.1 (0.9-2); Albumin Level 3.1 gm/dl (3.4-5.0); BUN Creatinine Ratio 37.9 (10-20); Bilirubin,Total 3.4 mg/dl (0.2-1.0); Globulin 2.8 gm/dl (2.5-4.0); Magnesium 1.6 mg/dl (1.7-2.4); Potassium 4.8 mmol/L (3.5-5.1); Total Protein 5.9 gm/dl (6.0-8.3)
--- NOTE | 2024-06-18 21:11 | XRay Report ---
EXAM: XR chest 1V portable CLINICAL HISTORY: Dyspnea TECHNIQUE: An X-ray image of the chest is obtained in AP projection. 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 Blunting of the bilateral costophrenic angles due to pleural effusions rather than thickening Thickening of the interstitium and possible cephalization. Bulky bilateral hilum Heart and Mediastinum: Mild cardiomegaly Bony Thorax: Bony thorax appears intact without fractures or deformities. Soft Tissues: Soft tissues overlying the chest wall are unremarkable. IMPRESSION: 1. Compared to the previous interval, deterioration is noted. 2. Overall findings raise the possibility of cardiopulmonary congestive changes with underlying collapse or consolidation and bilateral pleural effusions. 3. If clinically warranted, further evaluation with follow-up x-rays or CT. 4. No evidence of pneumothorax. Electronically signed by Ananda Pulido 06-18-2024 9:10 PM
[2024-06-18 21:22] LABS: Adenovirus PCR Not Detected (NotDetected); Bordetella parapertussis PCR Not Detected (NotDetected); Bordetella pertussis PCR Not Detected (NotDetected); Chlamydia pneumoniae PCR Not Detected (NotDetected); Coronavirus 229E PCR Not Detected (NotDetected); Coronavirus CoV-2 (COVID19)PCR Not Detected (NotDetected); Coronavirus HKU1 PCR Not Detected (NotDetected); Coronavirus NL63 PCR Not Detected (NotDetected); Coronavirus OC43PCR Not Detected (NotDetected); Human Metapneumovirus PCR Not Detected (NotDetected); Influenza A PCR Not Detected (NotDetected); Influenza B PCR Not Detected (NotDetected); Mycoplasma pneumoniae PCR Not Detected (NotDetected); Parainfluenza Virus 1 PCR Not Detected (NotDetected); Parainfluenza Virus 2 PCR Not Detected (NotDetected); Parainfluenza Virus 3 PCR Not Detected (NotDetected); Parainfluenza Virus 4 PCR Not Detected (NotDetected); Respiratory Syncytial VirusPCR Not Detected (NotDetected); Rhinovirus/Enterovirus PCR Not Detected (NotDetected)
--- NOTE | 2024-06-18 23:39 | History & Physical Report ---
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 Patient with sepsis present on admission. neutropenic. WBC = 0.13, neutrophil less than 0.5. Tachycardia. Elevated procalcitonin. #Sepsis/Acute hypoxemic respiratory failure/pneumoniapresent on admission. Patient with leukopenia/neutropenia, tachycardic, elevated procalcitonin. Chest x-ray with significant amount of fluid. Respiratory bio fire panel is unremarkable. UA does not suggest infection. Suspect pulmonary source at this point, possible GI source to be considered? admit to PCU Maintain isolation precautions for neutropenia Follow blood culture sent from the ER Check ultrasound of the liver Consider CT of the chest if patient fails to improve Patient was not administered IV fluid due to appearance of volume overload with hypoxia Continue vancomycin and cefepime for empiric coverage BiPAP as needed for respiratory support Tylenol as needed for pain or fever Zofran as needed for nausea #Volume overloadpatient appears edematous. She was recently admitted to the hospital for tumor lysis syndrome and did receive significant amount of IV fluid as well as 2 units of PRBCs. 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 Patient was recently admitted to [facility] from June 09 through June 14, 2024 with concern for tumor lysis syndrome and fatigue. She was treated with allopurinol, sodium bicarbonate. She also was found to have a acute UTI which was treated with antibiotics. Worsening anemia status post 2 units PRBCs. After patient returned home her reports that she was very tired and has been sleeping most of her time. She has needed some help getting up but is able to ambulate without assistance once up. This morning patient reported some worsening shortness of breath and fatigue. She was very weak and unable to get up and ambulate on her own. Upon arrival to the emergency room patient notably tachypneic and hypoxic Placed on BiPAP Patient had significant anxiety while on BiPAP therefore was given several doses of Ativan. Patient was able to fall asleep and tolerate BiPAP for short time ER course: Ativan 0.5 mg IV x 2 doses Cefepime 2 g Lasix 40 mg IV x 1 Magnesium 1 g Calcium gluconate 1 g Vancomycin Allergies Allergy/AdvReac Type Severity Reaction Status Date / Time Penicillins Allergy Intermediate HIVES Verified 06/18/24 20:21 Home Medications Medication Instructions Recorded Confirmed Type escitalopram oxalate 10 mg tablet 10 mg PO DAILY #90 tabs 02/14/24 06/18/24 Rx potassium chloride 20 mEq 20 meq PO DAILY #30 tabs 05/23/24 06/18/24 Rx tablet,extended release cyanocobalamin (vitamin B-12) 1,000 mcg PO DAILY 06/09/24 06/18/24 History 1,000 mcg tablet (Vitamin B-12) allopurinol 100 mg tablet 150 mg (1.5 x 100 mg) PO DAILY 4 06/14/24 06/18/24 Rx weeks #42 tabs calcium carbonate 500 mg (2.5 x 200 mg calcium (500 06/14/24 06/18/24 Rx mg)) PO TID 30 days #225 tabs cholecalciferol (vitamin D3) 10 10 mcg PO QAM 1 month #30 tabs 06/14/24 06/18/24 Rx mcg (400 unit) tablet (Vitamin D3) ondansetron 4 mg disintegrating 4 mg PO Q4H PRN nausea and 06/14/24 06/18/24 Rx tablet vomiting 5 days #20 tabs sodium bicarbonate 650 mg tablet 650 mg PO BID 1 month #60 tabs 06/14/24 06/18/24 Rx cephalexin 500 mg capsule 500 mg PO QID 06/18/24 06/18/24 History lorazepam 0.5 mg tablet 0.5 mg PO TID PRN Anxiety 06/18/24 06/18/24 History Past Med/Surg History Problem List (Updated 06/19/24 @ 01:27 by Lyndsay Hough DO) Neutropenia Pneumonia Cancer of liver (Acute) Right lower lobe pneumonia (Acute) Volume overload (Acute) Acute hypoxemic respiratory failure (Acute) Metabolic acidosis Metastasis to liver Neuroendocrine neoplasm of small intestine Acute UTI (urinary tract infection) (Acute) Leukocytosis (Acute) Tumor lysis syndrome (Acute) Sepsis (Acute) RISSA (acute kidney injury) (Acute) Generalized weakness (Acute) Sternal fracture (Acute ~05/30/24) Mass of small intestine Liver masses Hypercalcemia (Acute) Transaminitis History of basal cell carcinoma (BCC) of skin R berrios s/p MOHS Mar 2024 Iron deficiency anemia B12 deficiency Hypokalemia Hypomagnesemia Post menopausal syndrome Vitamin D deficiency Tubular adenoma of colon Crohn's disease Acid reflux Medical History SBO (small bowel obstruction) Surgical History S/P Mohs surgery for basal cell carcinoma (03/2024) R yash H/O breast biopsy S/P endometrial ablation Hx of oral surgery Family History Grandmother Colorectal cancer Uncle Colorectal cancer Mother Myocardial infarction, Onset Age: 66 Father Hypertension Diabetes Denies family history of Ovarian cancer Prostate cancer Breast cancer Social History Smoking Status: Never smoker Second Hand Exposure: Yes; Do You Dip or Chew Tobacco: No; Hx Alcohol Use: No Hx Substance Use: No Preferred Language: Irish Communication Ability: Effective Visual Impairment: No Limitations Hearing Ability: Normal Design Transferrer Required: No Beliefs That Will Affect Care: None marital status: Current Living Situation: Spouse and Family Current Living Situation Comment: Lives w/ current occupational status: 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 Other Information That Helps Us Care for You: No Feels Safe at Home: Yes Safety Concerns: Afraid for Self Childhood Exposure to Second-Hand Smoke: Yes Diet: regular Diet Comment: Regular caffeine: Yes during the past year weight has: remained stable Dental Care, Regularly: Yes Physical Activity Frequency: 3-4 Times per Week Seatbelt Use: always Sunscreen Use: Yes Assistive Devices: BiPap and Oxygen - Continuous Review of Systems Review of Systems: All systems reviewed & are unremarkable except as noted in HPI & below Physical Exam Physical Exam: General: patient is somnolent after receiving Ativan, opens eyes to voice but does not participate in exam at this time Skin: warm, dry, intact, no rashes or lesions HEENT: NC/AT, PERRL, EOMI, anicteric sclera, conjunctiva without injection, external ear normal to inspection and nontender, nares patent, moist mucus membranes, dentition intact, no oropharyngeal lesions, neck supple, trachea midline, no LAD, no thyromegaly, no JVD Heart: +S1/S2, regular, no m/r/g Lungs: equal air entry bilaterally, no rales/rhonchi/wheezes Abd: +BS, soft, NT/ND, no masses/organomegaly/ascites Ext: warm, 2+ pulses in UE/LE bilaterally, no clubbing/cyanosis, 2+ edema bilateral lower extremities Neuro: grossly nonfocal Results & Data Results & Data Vital Signs (Past 12 Hours) Vital Signs Temp Pulse Pulse Resp BP BP Pulse Ox 06/18/24 23:04 36.5 C 106 H 20 155/94 H 93 06/18/24 22:45 06/18/24 22:43 113 H 21 98 06/18/24 22:12 90 22 139/90 98 06/18/24 22:00 90 20 139/92 98 06/18/24 21:04 98 H 24 149/91 H 97 06/18/24 20:33 106 H 28 H 95 06/18/24 19:27 109 H 28 H 92 06/18/24 19:27 108 H 06/18/24 19:11 110 H 30 H 138/90 91 06/18/24 19:08 36.5 C 98 H 18 157/89 H 93 Pulse Ox O2 Del Method O2 Del Method O2 Flow Rate FiO2 06/18/24 23:04 BiPAP 06/18/24 22:45 97 BiPAP 06/18/24 22:43 28 06/18/24 22:12 BiPAP 06/18/24 22:00 BiPAP 06/18/24 21:04 BiPAP 06/18/24 20:33 40 06/18/24 19:27 Nasal Cannula 2 06/18/24 19:27 06/18/24 19:11 Nasal Cannula 2 06/18/24 19:08 Room Air Laboratory Results Laboratory Results WBC 0.13 K/ul (4.8-10.8) L* 06/18/24 19: RBC 3.45 M/uL (4.20-5.40) L 06/18/24 19: Hgb 9.5 g/dl (12.0-16.0) L 06/18/24: Hct 29.3 % (37.0-47.0) L 06/18/24: MCV 84.9 fL (80.0-100.0) 06/18/24: MCH 27.5 pg (25.0-34.0) 06/18/24: MCHC 32.4 g/dL (32.0-36.0) 06/18/24: RDW Std Deviation 59.0 fL (36.4-46.3) H 06/18/24: RDW Coeff of Susanna 19.2 % (11.5-14.5) H 06/18/24: Plt Count 52 K/uL (130-400) L 06/18/24: MPV 8.8 fL (9.4-12.4) L 06/18/24 19: Neut # (Auto) < 0.50 K/uL (1.40-6.50) L* 06/18/24 19: PT 13.9 Seconds (9.0-12.0) H 06/18/24 19: INR 1.3 (0.9-1.1) H 06/18/24: APTT 38 Seconds (21-31) H 06/18/24: PTT Ratio 1.4 06/18/24 19: VBG pH 7.29 (7.36-7.41) L 06/19/24 01:10 VBG pCO2 45 mmHg (38-50) 06/19/24 01:10 VBG pO2 33 mmHg 06/19/24 01:10 VBG HCO3 22 mmol/L 06/19/24 01:10 VBG O2 Saturation < 60.0 % 06/19/24 01:10 VBG Base Excess -5.0 mEq/L 06/19/24 01:10 Sodium 136 mmol/L (136-145) 06/18/24 19:29 Potassium 4.8 mmol/L (3.5-5.1) 06/18/24 19:29 Chloride 107 mmol/L (98-107) 06/18/24 19:29 Carbon Dioxide 20 mmol/L (21-32) L 06/18/24 19:29 Anion Gap 9 (3-11) 06/18/24 19:29 BUN 22 mg/dl (6-23) 06/18/24 19:29 Creatinine 0.58 mg/dl (0.6-1.2) L 06/18/24 19:29 Est Cr Clr Drug Dosing 115.0 ml/min 06/18/24 19:29 eGFR 105.48 06/18/24 19:29 BUN/Creatinine Ratio 37.9 (10-20) H 06/18/24 19:29 Glucose 97 mg/dl (70-99(Fasting)) 06/18/24 19:29 Lactate 1.1 mmol/L (0.4-2.0) 06/18/24 20:24 Calcium 8.0 mg/dl (8.6-10.3) L 06/18/24 19:29 Magnesium 1.6 mg/dl (1.7-2.4) L 06/18/24 19:29 Total Bilirubin 3.4 mg/dl (0.2-1.0) H 06/18/24 19:29 AST 68 U/L (13-39) H 06/18/24 19:29 ALT 37 U/L (7-52) 06/18/24 19:29 Alkaline Phosphatase 463 U/L (34-104) H 06/18/24 19:29 Ammonia 28.0 umol/L (18-72) 06/18/24 19:48 B-Natriuretic Peptide 1841 pg/ml (0-100) H 06/18/24 19: Total Protein 5.9 gm/dl (6.0-8.3) L 06/18/24 19: Albumin 3.1 gm/dl (3.4-5.0) L 06/18/24: Globulin 2.8 gm/dl (2.5-4.0) 06/18/24: Albumin/Globulin Ratio 1.1 (0.9-2) 06/18/24 19: Procalcitonin 3.52 ng/ml (0-0.5) H 06/18/24 19: Urine Color Yellow 06/18/24 23:25 Urine Appearance Clear (Clear) 06/18/24: Urine pH 5.0 (4.5-7.5) 06/18/24 23: Ur Specific [place] 1.008 (1.000-1.030) 06/18/24 23:25 Urine Protein Trace (Negative) H 06/18/24 23: Urine Glucose (UA) Negative (Negative) 06/18/24: Urine Ketones Negative (Negative) 06/18/24 23: Urine Blood 2+ (Negative) H 06/18/24 23:25 Urine Nitrite Negative (Negative) 06/18/24: Urine Bilirubin Negative (Negative) 06/18/24: Urine Urobilinogen Negative (Negative) 06/18/24 23:25 Ur Leukocyte Esterase Negative (Negative) 06/18/24 23:25 Urine WBC (Auto) 0-5 /hpf (0-5) 06/18/24: Urine RBC (Auto) 3-5 /hpf (0-2) H 06/18/24: U Hyaline Cast (Auto) 0-2 /lpf (0-2) 06/18/24 23:25 U Epithel Cells (Auto) 0-2 /hpf (0-2) 06/18/24 23:25 Urine Bacteria (Auto) None Seen (None Seen) 06/18/24 23:25 Urine Comment 06/18/24 23:25 Nasal Screen MRSA (PCR) Negative (Negative) 06/18/24 23:25 Adenovirus (PCR) Not Detected (NotDetected) 06/18/24 20:12 B. pertussis DNA (PCR) Not Detected (NotDetected) 06/18/24 20:12 B.parapertussis DNA PCR Not Detected (NotDetected) 06/18/24 20:12 C. pneumoniae DNA (PCR) Not Detected (NotDetected) 06/18/24 20:12 Coronavirus OC43 (PCR) Not Detected (NotDetected) 06/18/24 20:12 Coronavirus HKU1 (PCR) Not Detected (NotDetected) 06/18/24 20:12 Coronavirus 229E (PCR) Not Detected (NotDetected) 06/18/24 20:12 SARS-CoV-2 (PCR) Not Detected (NotDetected) 06/18/24 20:12 Coronavirus NL63 (PCR) Not Detected (NotDetected) 06/18/24 20:12 Human Metapneumovir PCR Not Detected (NotDetected) 06/18/24 20:12 Influenza Type A (PCR) Not Detected (NotDetected) 06/18/24 20:12 Influenza Type B (PCR) Not Detected (NotDetected) 06/18/24 20:12 M. pneumoniae (PCR) Not Detected (NotDetected) 06/18/24 20:12 Parainfluenza 1 (PCR) Not Detected (NotDetected) 06/18/24 20:12 Parainfluenza 2 (PCR) Not Detected (NotDetected) 06/18/24 20:12 Parainfluenza 3 (PCR) Not Detected (NotDetected) 06/18/24 20:12 Parainfluenza 4 (PCR) Not Detected (NotDetected) 06/18/24 20:12 RSV (PCR) Not Detected (NotDetected) 06/18/24 20:12 Entero/Rhino (PCR) Not Detected (NotDetected) 06/18/24 20:12 Code Status & VTE Plan VTE Prophylaxis Plan VTE Prophylaxis will be ordered: Yes PG Care Time/CCT Total # of Minutes Spent Total Time Spent with Patient: Total time spent is greater than 50% in coordination of care (as documented) at patient's floor/unit and/or counseling patient: Coding Level of Care Code 97652 INT INP/OBS CARE 3/75MIN Diagnoses Sepsis A41.9 Acute hypoxemic respiratory failure J96.01 Pneumonia J18.9 Neutropenia D70.9 Cancer of liver C22.9 Liver malignancy type: unspecified liver malignancy (5) Cancer of liver Liver malignancy type: unspecified liver malignancy Qualified Code(s): C22.9 - Malignant neoplasm of liver, not specified as primary or secondary
[2024-06-18 23:47] LABS: Appearance Urine Clear (Clear); Bacteria Urine Automated None Seen (None Seen); Bilirubin Urine Negative (Negative); Blood Urine 2+ (Negative); Cast Urine Automated 0-2 /lpf (0-2); Color Urine Yellow; Epithelial Cell Urine Auto 0-2 /hpf (0-2); Glucose Urine UA Negative (Negative); Ketones Urine Negative (Negative); Leukocyte Esterase Urine Negative (Negative); Nitrite Urine Negative (Negative); Protein Urine Trace (Negative); Specific Gravity Urine 1.008 (1.000-1.030); Urobilinogen Urine Negative (Negative); WBC Urine Automated 0-5 /hpf (0-5)
[2024-06-19 01:21] LABS: HCO3 VBG 22 mmol/L; Oxygen Saturation VBG < 60.0 %; PCO2 VBG 45 mmHg (38-50); PO2 VBG 33 mmHg; pH VBG 7.29 (7.36-7.41)
--- NOTE | 2024-06-19 01:55 | XRay Report ---
EXAM: XR chest 1V portable CLINICAL HISTORY: concern for aspiration event TECHNIQUE: An X-ray image of the chest is obtained in AP projection. COMPARISON: 06/18/2024, CR Chest FINDINGS: Pulmonary Parenchyma: Patient is rotated Chest leads are identified Inhomogeneous opacification seen in both lungs more marked in both hilar perihilar region and lower zone There is obscuration of the left costophrenic angle, left hemidiaphragm, right cardiac border and partial obscuration of the left cardiac border Faintly visualized right costophrenic angle seen There is mild displacement of trachea to the right side which may be positional Heart and Mediastinum: Heart size cannot be properly commented likely due to obscuration of the cardiac border. No mediastinal widening or masses. No hilar or mediastinal lymphadenopathy. Bony Thorax: Bony thorax appears intact without fractures or deformities. Soft Tissues: Soft tissues overlying the chest wall are unremarkable. Indeterminate tubes projecting on both sides of neck and right hemithorax, which were not seen on prior examination IMPRESSION: Inhomogeneous opacification in both lungs as mentioned above, with obscuration of the left costophrenic angle, left hemidiaphragm, right cardiac border and partial obscuration of the left cardiac border. Findings are raising the concern for consolidations, due to aspiration/infection or edema. Obscuration of left costophrenic angle, raising the possibility of pleural effusion. Ultrasound may be obtained for further evaluation In comparison to the prior examination, there is relatively more visualization of the left cardiac border in current examination, relatively less opacification in left lower zone and regression of left sided pleural effusion. Interval regression of right-sided pleural effusion. Rest of the findings in left lung are stable However there is mild progression of opacification in right lung. Electronically signed by Ananda Pulido 06-19-2024 01:55 AM
--- NOTE | 2024-06-19 07:51 | Ultrasound Report ---
EXAM: US liver CLINICAL HISTORY: liver malignancy, elevated T. BILI, H/O LIVER METS. TECHNIQUE: Static ultrasound images with Grayscale and Doppler of the right upper quadrant were submitted for review. COMPARISON: 05/23/2024 FINDINGS: Limited exam due to patient c/o hypoxia and unable to perform adequate breathhold or positioning. Liver: Liver size: Enlarged in size measures 21.9 cm and shows heterogenous echotexture with multiple variable-sized heterogenous/nodular/complex lesions scattered in the liver globally. Hepatic vasculature appears normal. Gallbladder: Gallbladder size: Gallbladder is mildly distended, wall thickness measures 1.3mm and shows ~9.4mm calculus within. No evidence of gallbladder wall edema or signs of acute cholecystitis. Biliary Tree: Common bile duct diameter: Measures 0.50 cm. Common bile duct is within normal limits in caliber and not dilated. No evidence of choledocholithiasis or biliary obstruction. Pancreas: Is largely obscured due to overlying bowel gases. Right Kidney: Normal in size. A small thin-walled unilocular cyst measures 1.3 cm seen in the lower pole. Prominent renal pelvis with an AP diameter of 1.8cm. Evidence of free fluid around liver- new finding IMPRESSION: Limited exam due to patient c/o hypoxia and unable to perform adequate breathhold or positioning. 1. Heterogeneous enlarged liver with multiple ill-defined nodular/heterogenous lesions - also seen in prior study 2. Cholelithiasis.- unchanged 3. Interval stable right renal small simple cyst. 4. Evidence of free fluid around liver- new finding Electronically signed by Teddy Chou 06-19-2024 07:51 AM
[2024-06-19 09:41] LABS: Base Excess VBG -2.4 mEq/L; HCO3 VBG 23 mmol/L; Oxygen Saturation VBG < 60.0 %; PCO2 VBG 42 mmHg (38-50); PO2 VBG 25 mmHg; pH VBG 7.35 (7.36-7.41)
[2024-06-19 10:04] LABS: Albumin Level 3.1 gm/dl (3.4-5.0); Bilirubin Direct 1.9 mg/dl (0-0.2); Magnesium 2.2 mg/dl (1.7-2.4); Potassium 4.5 mmol/L (3.5-5.1)
[2024-06-19 10:10] LABS: BUN Creatinine Ratio 36.8 (10-20); Creatinine Clr Calc Pharmacy 92.5 ml/min; Total Protein 5.9 gm/dl (6.0-8.3)
[2024-06-19 10:30] LABS: Hematocrit (blood only) 34.7 % (37.0-47.0); Hemoglobin 11.1 g/dl (12.0-16.0); Mean Corpuscular Hemoglobin 27.3 pg (25.0-34.0); Mean Corpuscular Volume 85.5 fL (80.0-100.0); Mean Platelet Volume 9.6 fL (9.4-12.4); Platelet Count 24 K/uL (130-400); Platelet Estimate Signific. Decreased (Normal); RDW Coefficient of Variation 20.1 % (11.5-14.5); RDW Standard Deviation 60.2 fL (36.4-46.3); Red Blood Count 4.06 M/uL (4.20-5.40); White Blood Count 0.24 K/ul (4.8-10.8)
[2024-06-19 10:48] LABS: A calco-baum cmplx NotReported Not Detected (NotDetected); Bact fragilis Not Reported Not Detected (NotDetected); C auris Not Reported Not Detected (NotDetected); Calbicans Not Reported Not Detected (NotDetected); Candida glabrata Not Reported Not Detected (NotDetected); Candida krusei Not Reported Not Detected (NotDetected); Cneoformans/gatti Not Reported Not Detected (NotDetected); Cparapsilosis Not Reported Not Detected (NotDetected); Ctropicalis Not Reported Not Detected (NotDetected); E cloacae compx Not Reported Not Detected (NotDetected); Efaecalis Not Reported Not Detected (NotDetected); Efaecium Not Reported Not Detected (NotDetected); Enterobacterales Not Reported Not Detected (NotDetected); Escherichia coli Not Reported Not Detected (NotDetected); H influenzae Not Reported Not Detected (NotDetected); K aerogenes Not Reported Not Detected (NotDetected); Koxytoca Not Reported Not Detected (NotDetected); Kpneumoniae grp Not Reported Not Detected (NotDetected); Lmonocyt Not Reported Not Detected (NotDetected); N meningitidis Not Reported Not Detected (NotDetected); P aeruginosa Not Reported Not Detected (NotDetected); Proteus spp Not Reported Not Detected (NotDetected); Salmonella spp Not Reported Not Detected (NotDetected); Staph lugdunensis Not Reported Not Detected (NotDetected); Staph spp. Not Reported Not Detected (NotDetected); Staphaureus Not Reported Not Detected (NotDetected); Staphepi Not Reported Not Detected (NotDetected); Stenmaltophilia Not Reported Not Detected (NotDetected); Strep agal(GrpB) Not Reported Not Detected (NotDetected); Strep pneum Not Reported Not Detected (NotDetected); Strep pyog (GrpA) Not Reported Not Detected (NotDetected); Strep spp Not Reported Not Detected (NotDetected)
[2024-06-19 10:58] LABS: Blood Culture Id Panel PCR Panel Negative (NotDetected)
[2024-06-19 11:10] LABS: Adenovirus PCR Not Detected (NotDetected); Bordetella parapertussis PCR Not Detected (NotDetected); Bordetella pertussis PCR Not Detected (NotDetected); Chlamydia pneumoniae PCR Not Detected (NotDetected); Coronavirus 229E PCR Not Detected (NotDetected); Coronavirus CoV-2 (COVID19)PCR Not Detected (NotDetected); Coronavirus HKU1 PCR Not Detected (NotDetected); Coronavirus NL63 PCR Not Detected (NotDetected); Coronavirus OC43PCR Not Detected (NotDetected); Human Metapneumovirus PCR Not Detected (NotDetected); Influenza A PCR Not Detected (NotDetected); Influenza B PCR Not Detected (NotDetected); Mycoplasma pneumoniae PCR Not Detected (NotDetected); Parainfluenza Virus 1 PCR Not Detected (NotDetected); Parainfluenza Virus 2 PCR Not Detected (NotDetected); Parainfluenza Virus 3 PCR Not Detected (NotDetected); Parainfluenza Virus 4 PCR Not Detected (NotDetected); Respiratory Syncytial VirusPCR Not Detected (NotDetected); Rhinovirus/Enterovirus PCR Not Detected (NotDetected)
[2024-06-19 13:13] LABS: INR 1.3 (0.9-1.1); Prothrombin Time 13.4 Seconds (9.0-12.0)
--- NOTE | 2024-06-19 16:59 | Hospitalist Progress Note ---
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 Patient was subsequently admitted to the inpatient hospitalist service @ [facility] on 06/18/2024 with the following diagnoses: 1. Sepsis, NOT septic shock, present on admission, and due to acute bibasilar aspiration pneumonia. 2. Acute hypoxic respiratory failure with O2 sat 88% on 15 liters/minute high flow oxygen (06/18/2024, 7:27pm), due to acute bibasilar aspiration pneumonia. 3. Acute pancytopenia with admission WBC 0.13, Hb 9.5, MCV 84.9, MCHC 32.4, platelet 52 (06/18/2024, 7:29pm) and absolute neutropenia with ANC < 500/microliter (06/18/2024, 7:29pm). The following medical issues are being addressed: 1. Sepsis, NOT septic shock, present on admission, and due to acute bibasilar aspiration pneumonia. R/O bacteremia. Patient remains afebrile with mild shortness of breath on 8 liters/minute high flow oxygen (06/19/2024, 3:51pm) with patient pancytopenic on admission and the following blood test results: Lactic acid #1 1.1 mmol/L (06/18/2024, 8:24pm). Lactic acid #2 1.8 mmol/L (06/19/2024, 9:14am). Procalcitonin #1 3.52 ng/mL (06/18/2024, 7:29pm). Procalcitonin #2 4.78 ng/mL (06/19/2024, 9:14am). Blood culture #1 (06/18/2024, 8:12pm): gram positive bacilli Blood culture #2 (06/18/2024, 8:24pm): MRSA nares screen negative (06/18/2024, 11:25pm; 06/19/2024, 9:45am). BIOFIRE respiratory panel negative (06/19/2024, 9:45am). Patient has received cefepime 2g IV x 2 doses (06/18/2024, 8:33pm; 06/19/2024, 5:14am) and vancomycin 2g IV x 1 dose (06/18/2024, 9:37pm) thus far. In terms of aspiration pneumonia, gram positive anaerobes and gram negative anaerobes must be considered and neither cefepime nor vancomycin has anaerobic activity. Zosyn has anaerobic activity, but patient is allergic to penicillin (causing hives), and hence, I have opted to D/C cefepime 2g IV q8 and start patient on meropenem 500mg IV q6 (day #1/5 on 06/19/2024, 5:19pm) to provide gram positive/negative anaerobic coverage. In addition, I have opted to continue vancomycin 1g IV q12 (day #1/5 on 06/19/2024, 5:30pm) despite patient testing negative for MRSA nares screen twice (06/18/2024, 11:25pm; 06/19/2024, 9:45am) as I am concerned for the possibility of gram positive melia-associated bacteremia (as noted on 06/18/2024, 8:12pm blood culture #1), recognizing that most gram positive rods are corynebacteriae/diphtheroids, which are commensal organisms and not pathologic ones. One exception is Bacillus species, which can be highly pathogenic/virulent, and which are treated with vancomycin. I will await blood culture #1 (06/18/2024, 8:12pm), blood culture #2 (06/19/2024, 9:14am), blood culture #3 (06/20/2024, 7:00am), and blood culture #4 (06/20/2024, 7:00am) testing, along with repeat WBC w/diff, lactic acid, and procalcitonin level testing in the 06/20/2024 am. 2. Acute hypoxic respiratory failure with O2 sat 88% on 15 liters/minute high flow oxygen (06/18/2024, 7:27pm), due to acute bibasilar aspiration pneumonia. Patient reports mild shortness of breath on 06/19/2024; patient appears to be more concerned with the 2+ pitting pedal edema with extension to the bilateral mid-shins, sparing the bilateral upper shins, knees, hips, and thighs on 06/19/2024, than her shortness of breath. To address her shortness of breath, patient continues with 8 liters/minute high flow oxygen (06/19/2024, 3:51pm). To address her 2+ pitting pedal edema with extension to the bilateral mid-shins, sparing the bilateral upper shins, knees, hips, and thighs on 06/19/2024, patient already received lasix 40mg IV x 2 doses (06/18/2024, 8:53pm; 06/19/2024, 1:54am) in [facility]. Patient has expressed at least 800 cc of clear, francisco-colored urine via purewick on 06/19/2024. Subsequently, I have ordered lasix 80mg IV x 1 dose (06/19/2024, 4:57pm), and I will continue to monitor daily intake/output in this patient with no prior history of CHF. 3. Acute pancytopenia with admission WBC 0.13, Hb 9.5, MCV 84.9, MCHC 32.4, platelet 52 (06/18/2024, 7:29pm) and absolute neutropenia with ANC < 500/microliter (06/18/2024, 7:29pm). cf., repeat WBC 0.24, Hb 11.1, MCV 85.5, MCHC 32.0, platelet 24 (06/19/2024, 9:14am). Given persistence of absolute neutropenia on 06/19/2024, I texted patient's Heme-Onc Dr. Hina Sharpe on 06/19/2024, 3:25pm, and informed Dr. Sharpe of patient's pancytopenia in the setting of sepsis, NOT septic shock, present on admission, and due to acute bibasilar aspiration pneumonia. R/O bacteremia. I inquired as to whether patient should / could receive filgrastim (Neupogen) to augment patient's neutrophil count, and Dr. Sharpe recommended that patient start filgrastim (Neupogen) 480ug SQ daily x 3 days. Hence, I complied with Dr. Sharpe's recommendation and ordered filgrastim (Neupogen) 480ug SQ daily x 3 doses (06/19/2024, 4:15pm). I will check WBC w/differential (including ANC) in the 06/20/2024 am. I will also check repeat Hb level in the 06/20/2024 am, and reserve packed RBC transfusion for Hb level less than 7 g/dL. I will also check repeat platelet count in the 06/20/2024 am, and reserve platelet transfusion for platelet count < 10. In the interim, I have ordered neutropenic/contact isolation precautions for this patient on 06/19/2024, 8:54am. 4. Major depression. Mild. No suicidal ideation. Asymptomatic on home- scheduled escitalopram 10mg PO daily. 5. DVT prophylaxis. HOLD off pharmacologic DVT prophylaxis with heparin 5000 units SQ q12 or lovenox 40mg SQ daily given potential for either/both medications to exacerbate patient's anemia/thrombocytopenia. Of note, patient reports no calf pain or pleurisy to suggest either DVT or PE on 06/19/2024. 6. Pain Management. Patient reports 0/10 pain anywhere in/on the body on 06/19/2024. Continue tylenol 650mg PO q4 prn pain 1-10, headache, or temp > 100.4 degrees Fahrenheit. 7. Disposition. Code status, FULL CODE @ home. ACLS as required. Condition of patient remains tenuous, if not terminal. I anticipate that this patient will remain in [facility] for the next 2-3 midnights, in order to demonstrate clinical improvement in her admitting diagnoses of: 1. Sepsis, NOT septic shock, present on admission, and due to acute bibasilar aspiration pneumonia. 2. Acute hypoxic respiratory failure with O2 sat 88% on 15 liters/minute high flow oxygen (06/18/2024, 7:27pm), due to acute bibasilar aspiration pneumonia. 3. Acute pancytopenia with admission WBC 0.13, Hb 9.5, MCV 84.9, MCHC 32.4, p latelet 52 (06/18/2024, 7:29pm) and absolute neutropenia with ANC < 500/microliter (06/18/2024, 7:29pm). Patient will then be discharged back to her home and will follow up with he PCP Dr. Carly Vang and her Heme-Onc Dr. Hina Sharpe, both within 5-7 days of hospital discharge. Admission and Anticipated Discharge Date Admission Date: June 18, 2024 Subjective "I see my legs are more swollen than before. I got lasix last night (06/18/2024, 8:53pm; lasix 40mg IV x 1 dose) and early this morning (06/19/2024, 1:54am; lasix 40mg IV x1 dose) and I don't feel really that short of breath. I am not coughing or wheezing. I normally sleep on 2 big pillows on a regular bed, not a hospital bed, at home. I have been waking up at night feeling a little short of breath. I don't have any fever or chills. No nausea, vomit, or diarrhea. I feel weak more than anything else; I had chemo last [id number] (06/10/2024, 06/11/2024, 06/12/2024 (cycle 1, day #3 on 06/12/2024, etoposide) with my Heme-Onc Dr. Hina Sharpe." Review of Systems Constitutional: Patient denies antecedent/coincident fevers, chills, diaphoresis, cough, wheeze, sore throat, hemoptysis, chest pains, palpitations, pleurisy, nausea, vomiting, diarrhea, abdominal pain, pelvic pain, hematemesis, hematochezia, melena, hematuria, dysuria, frequency, urgency, headaches, dizziness, lightheadedness, visual changes, hearing changes, syncope, falls, trauma, travel history, sick contacts, or food/drug ingestions novel or new. All other review of systems are reported as negative by the patient on 06/19/2024. Physical Exam Constitutional: General: Comfortable, coherent, and cooperative. Wide awake and alert. Not confused, lethargic, or obtunded. Patient speaks in complete, fluent, and articulate sentences without pause, interruption, cough, or wheeze. HEENT: Normocephalic, atraumatic. No nystagmus, gaze paresis, anisocoria, miosis, mydriasis, hyphema, scleral injection, conjunctivitis, or pterygium. No otorrhea or rhinorrhea. No pharyngeal erythema, edema, or discharge. Neck: Supple, no stridor, bruit, goiter, or hepato-jugular reflux. Jugular venous pressure is estimated to be 3 cm above the sternal angle of César, which in turn, is 5 cm above the level of the right atrium; with jugular venous pressure estimated to be 8 cm, then, there is no jugular venous distention on 06/16/2024. Lymphatics: No cervical (anterior/posterior), supraclavicular, infraclavicular, axillary, epitrochlear, or inguinal adenopathy. Chest: Symmetric rise and fall with respirations. Non-tender to palpation. Lungs: Clear to auscultation and percussion. Heart: Regular rate and rhythm. S1 and S2 noted. No S3 or S4 summation gallop. No tripartite friction rub. Grade II/ early systolic murmur @ LLSB without radiation to the carotids, axilla, or back, and which remains invariant in regards to the respiratory cycle. Abdomen: Soft, non-tender, non-distended. No rebound, guarding, Perry's sign, or organomegaly. Bowel sounds auscultated in all 4 quadrants. Extremities: No clubbing, cyanosis. 2+ pitting pedal edema with extension to the bilateral mid-shins, sparing the bilateral upper shins, knees, hips, thighs, abdomen. 2+ pedal pulses bilaterally. Skin: No decubitus ulcer, exanthem, or enanthem. Genito-urinary: No urethral discharge. No roblero catheter. Purewick in situ with 800 cc of clear, francisco-colored urine. Neurology: Alert and oriented in regards to person, place, time, and situation. DTR+ and symmetric. 5/5 motor strength in all 4 extremities, both proximally and distally. No pronator drift. No facial droop. No dysarthria. Psychiatry: No homicidal ideation. No suicidal ideation. No flat affect; smiles appropriately. Results & Data Results & Data Vital Signs (Past 12 Hours) Vital Signs Temp Pulse Pulse Resp BP Pulse Ox O2 Del Method 06/19/24 15:51 93 H 06/19/24 15:00 36.7 C 89 20 157/75 H 97 High Flow Nasal Cannula 06/19/24 11:32 36.6 C 70 22 149/78 H 96 High Flow Nasal Cannula 06/19/24 09:59 83 06/19/24 09:34 High Flow Nasal Cannula 06/19/24 07:52 36.6 C 82 20 146/70 H 98 BiPAP 06/19/24 07:18 88 18 97 O2 Flow Rate FiO2 06/19/24 15:51 06/19/24 15:00 8 06/19/24 11:32 8 06/19/24 09:59 06/19/24 09:34 8 06/19/24 07:52 06/19/24 07:18 40 Laboratory Results Abnormal lab results 06/18/24 06/18/24 06/19/24 Range/Units 19:29 23:25 01:10 WBC 0.13 L* (4.8-10.8) K/ul RBC 3.45 L (4.20-5.40) M/uL Hgb 9.5 L (12.0-16.0) g/dl Hct 29.3 L (37.0-47.0) % RDW Std Deviation 59.0 H (36.4-46.3) fL RDW Coeff of Susanna 19.2 H (11.5-14.5) % Plt Count 52 L (130-400) K/uL MPV 8.8 L (9.4-12.4) fL Neut # (Auto) < 0.50 L* (1.40-6.50) K/uL Platelet Estimate (Normal) PT 13.9 H (9.0-12.0) Seconds INR 1.3 H (0.9-1.1) APTT 38 H (21-31) Seconds VBG pH 7.29 L (7.36-7.41) Carbon Dioxide 20 L (21-32) mmol/L BUN (6-23) mg/dl Creatinine 0.58 L (0.6-1.2) mg/dl BUN/Creatinine Ratio 37.9 H (10-20) Calcium 8.0 L (8.6-10.3) mg/dl Magnesium 1.6 L (1.7-2.4) mg/dl Total Bilirubin 3.4 H (0.2-1.0) mg/dl Direct Bilirubin (0-0.2) mg/dl AST 68 H (13-39) U/L Alkaline Phosphatase 463 H (34-104) U/L B-Natriuretic Peptide 1841 H (0-100) pg/ml Total Protein 5.9 L (6.0-8.3) gm/dl Albumin 3.1 L (3.4-5.0) gm/dl Procalcitonin 3.52 H (0-0.5) ng/ml Urine Protein Trace H (Negative) Urine Blood 2+ H (Negative) Urine RBC (Auto) 3-5 H (0-2) /hpf 06/19/24 06/19/24 06/19/24 Range/Units 09:14 09:32 12:17 WBC 0.24 L* (4.8-10.8) K/ul RBC 4.06 L (4.20-5.40) M/uL Hgb 11.1 L (12.0-16.0) g/dl Hct 34.7 L (37.0-47.0) % RDW Std Deviation 60.2 H (36.4-46.3) fL RDW Coeff of Susanna 20.1 H (11.5-14.5) % Plt Count 24 L* D (130-400) K/uL MPV (9.4-12.4) fL Neut # (Auto) (1.40-6.50) K/uL Platelet Estimate Signific. Decreased L (Normal) PT 13.4 H (9.0-12.0) Seconds INR 1.3 H (0.9-1.1) APTT (21-31) Seconds VBG pH 7.35 L (7.36-7.41) Carbon Dioxide (21-32) mmol/L BUN 25 H (6-23) mg/dl Creatinine (0.6-1.2) mg/dl BUN/Creatinine Ratio 36.8 H (10-20) Calcium 8.0 L (8.6-10.3) mg/dl Magnesium (1.7-2.4) mg/dl Total Bilirubin 3.0 H (0.2-1.0) mg/dl Direct Bilirubin 1.9 H (0-0.2) mg/dl AST 53 H (13-39) U/L Alkaline Phosphatase 404 H (34-104) U/L B-Natriuretic Peptide (0-100) pg/ml Total Protein 5.9 L (6.0-8.3) gm/dl Albumin 3.1 L (3.4-5.0) gm/dl Procalcitonin 4.78 H (0-0.5) ng/ml Urine Protein (Negative) Urine Blood (Negative) Urine RBC (Auto) (0-2) /hpf Lactic acid #1 1.1 mmol/L (06/18/2024, 8:24pm). Lactic acid #2 1.8 mmol/L (06/19/2024, 9:14am). Procalcitonin #1 3.52 ng/mL (06/18/2024, 7:29pm). Procalcitonin #2 4.78 ng/mL (06/19/2024, 9:14am). Blood culture #1 (06/18/2024, 8:12pm): gram positive bacilli Blood culture #2 (06/18/2024, 8:24pm): Blood culture (06/09/2024, 3:18pm): negative Blood culture (06/09/2024, 1:47pm): negative Urine culture (06/09/2024, 11:38am): espinoza-sensitive Klebsiella pneumoniae, espinoza- sensitive Klebsiella pneumoniae #2 Urine culture (05/23/2024, 12:12am): nitrofurantoin-resistant Klebsiella pneumoniae Diagnostic Findings Portable CXR (06/19/2024, 12:29am): Inhomogeneous opacification in both lungs as mentioned above, with obscuration of the left costophrenic angle, left hemidiaphragm, right cardiac border and partial obscuration of the left cardiac border. Findings are raising the concern for consolidations, due to aspiration/infection or edema. Obscuration of left costophrenic angle, raising the possibility of pleural effusion. Ultrasound may be obtained for further evaluation In comparison to the prior examination, there is relatively more visualization of the left cardiac border in current examination, relatively less opacification in left lower zone and regression of left sided pleural effusion. Interval regression of right-sided pleural effusion. Rest of the findings in left lung are stable. However there is mild progression of opacification in right lung. PG Care Time/CCT Total # of Minutes Spent Total Time Spent with Patient: Total time spent is greater than 50% in coordination of care (as documented) at patient's floor/unit and/or counseling patient: Coding Level of Care Code 74402 SUB INP/OBS CARE 3/50MIN Diagnoses Sepsis A41.9 Acute hypoxemic respiratory failure J96.01 Pneumonia J18.9 Neutropenia D70.9 Cancer of liver C22.9 Liver malignancy type: unspecified liver malignancy (5) Cancer of liver Liver malignancy type: unspecified liver malignancy Qualified Code(s): C22.9 - Malignant neoplasm of liver, not specified as primary or secondary
--- NOTE | 2024-06-19 17:14 | Electrocardiogram Report ---
Test Reason : Blood Pressure : */* mmHG Vent. Rate : 109 BPM Atrial Rate : 109 BPM P-R Int : 118 ms QRS Dur : 70 ms QT Int : 326 ms P-R-T Axes : 50 28 43 degrees QTcB Int : 439 ms Sinus tachycardia Abnormal ECG When compared with ECG of 11-Jun-2024 12:08, No significant change was found Confirmed by Valentín Ramos [id number] on 06/19/2024 5:13:57 PM Referred By: REFERRED SELF Confirmed By: Valentín Ramos
[2024-06-20 08:01] LABS: Creatinine Clr Calc Pharmacy 98.5 ml/min
[2024-06-20 08:06] LABS: Phosphorus 1.4 mg/dl (2.5-4.9)
--- NOTE | 2024-06-20 08:51 | Pharmacy Report ---
Pharmacy PK ABX Note - Date of Service June 20, 2024 - Assessment and Plan Assessment 59 year old F receiving empiric vancomycin and meropenem for treatment of sepsis presumed secondary to aspiration pneumonia. Pertinent PMH includes stage IV small bowel neuroendocrine carcinoma w/ liver metastases (on chemotherapy) and subsequent acute pancytopenia. Pertinent microbiologic data includes: negative MRSA nasal swab, blood culture growing gram-positive bacilli x 1. Per hospitalist note, this may represent contamination, but plan is to continue w/ vancomycin at this time to cover for possible Bacillus species. Renal function stable, procalcitonin elevated on presentation and increased yesterday w/ repeat pending this morning (06/20). Neupogen 480 mcg daily x 3 doses ordered. Day # 3 of antimicrobial therapy. Plan Vancomycin * Loading dose: 2000 mg IV x 1 * Maintenance dose: 1250 mg IV every 12 hours * Regimen is predicted to achieve target AUC/JOSUE of 400-600 mg/L.hr * Random level ordered for: 06/21/24 Meropenem * 500 mg IV q6h - appropriately dosed for indication/renal function Pharmacy will continue to follow and will adjust dose/frequency as necessary. Thank you. Pharmacy has transitioned to AUC monitoring for vancomycin. AUC/JOSUE is the preferred PK/PD target and is associated with decreased risk of nephrotoxicity compared to traditional trough targets.
[2024-06-20 09:08] LABS: Albumin Globulin Ratio 1.1 (0.9-2); Albumin Level 2.8 gm/dl (3.4-5.0); BUN Creatinine Ratio 46.7 (10-20); Bilirubin,Total 2.9 mg/dl (0.2-1.0); Calcium 7.7 mg/dl (8.6-10.3); Creatinine Clr Calc Pharmacy 96.8 ml/min; Globulin 2.5 gm/dl (2.5-4.0); Magnesium 1.7 mg/dl (1.7-2.4); Potassium 3.9 mmol/L (3.5-5.1); Total Protein 5.3 gm/dl (6.0-8.3)
[2024-06-20 09:52] LABS: Hematocrit (blood only) 24.7 % (37.0-47.0); Hemoglobin 8.1 g/dl (12.0-16.0); Mean Corpuscular Hemoglobin 27.6 pg (25.0-34.0); Mean Corpuscular Hgb Conc 32.8 g/dL (32.0-36.0); Mean Platelet Volume 9.5 fL (9.4-12.4); Neutrophils # (auto) < 0.50 K/uL (1.40-6.50); Platelet Count 11 K/uL (130-400); Platelet Estimate Signific. Decreased (Normal); RDW Coefficient of Variation 19.1 % (11.5-14.5); RDW Standard Deviation 59.2 fL (36.4-46.3); Red Blood Count 2.94 M/uL (4.20-5.40); White Blood Count 0.15 K/ul (4.8-10.8)
--- NOTE | 2024-06-20 20:27 | Hospitalist Progress Note ---
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 Patient was subsequently admitted to the inpatient hospitalist service @ [facility] on 06/18/2024 with the following diagnoses: 1. Sepsis, NOT septic shock, present on admission, and due to acute bibasilar aspiration pneumonia. 2. Acute hypoxic respiratory failure with O2 sat 88% on 15 liters/minute high flow oxygen (06/18/2024, 7:27pm), due to acute bibasilar aspiration pneumonia. 3. Acute pancytopenia with admission WBC 0.13, Hb 9.5, MCV 84.9, MCHC 32.4, platelet 52 (06/18/2024, 7:29pm) and absolute neutropenia with ANC < 500/microliter (06/18/2024, 7:29pm). The following medical issues are being addressed: 1. Sepsis, NOT septic shock, present on admission, and due to acute bibasilar aspiration pneumonia. R/O bacteremia. Patient remains afebrile with mild shortness of breath on 8 liters/minute high flow oxygen (06/19/2024, 3:51pm) with patient pancytopenic on admission and the following blood test results: Lactic acid #1 1.1 mmol/L (06/18/2024, 8:24pm). Lactic acid #2 1.8 mmol/L (06/19/2024, 9:14am). Lactic acid #3 1.0 mmol/L (06/20/2024, 8:33am). Procalcitonin #1 3.52 ng/mL (06/18/2024, 7:29pm). Procalcitonin #2 4.78 ng/mL (06/19/2024, 9:14am). Procalcitonin #3 3.90 ng/mL (06/20/2024, 8:33am). Blood culture #1 (06/18/2024, 8:12pm): Bacillus cereus Blood culture #2 (06/18/2024, 8:24pm): Blood culture #3 (06/20/2024, 8:37pm): Blood culture #4 (06/20/2024, 8:37pm): MRSA nares screen negative (06/18/2024, 11:25pm; 06/19/2024, 9:45am). BIOFIRE respiratory panel negative (06/19/2024, 9:45am). Patient has received cefepime 2g IV x 2 doses (06/18/2024, 8:33pm; 06/19/2024, 5:14am) and vancomycin 2g IV x 1 dose (06/18/2024, 9:37pm) thus far. In terms of aspiration pneumonia, gram positive anaerobes and gram negative anaerobes must be considered and neither cefepime nor vancomycin has anaerobic activity. Zosyn has anaerobic activity, but patient is allergic to penicillin (causing hives), and hence, I opted to D/C cefepime 2g IV q8 and started patient on meropenem 500mg IV q6 (day #1/5 on 06/19/2024, 5:19pm) to provide gram positive/negative anaerobic coverage. In addition, I have opted to continue vancomycin 1g IV q12 (day #1/5 on 06/19/2024, 5:30pm) despite patient testing negative for MRSA nares screen twice (06/18/2024, 11:25pm; 06/19/2024, 9:45am) as I am concerned given the probability of Bacillus cereus-associated bacteremia (as noted on 06/18/2024, 8:12pm blood culture #1), recognizing that most gram positive rods are corynebacteriae/diphtheroids, which are commensal organisms and not pathologic ones. One exception is Bacillus species, which can be highly pathogenic/virulent, and which are treated with vancomycin. I will await blood culture #1 (06/18/2024, 8:12pm), blood culture #2 (06/19/2024, 9:14am), blood culture #3 (06/20/2024, 8:37pm), and blood culture #4 (06/20/2024, 8:37pm) testing, along with repeat WBC w/diff, lactic acid, and procalcitonin level testing in the 06/21/2024 am. 2. Acute hypoxic respiratory failure with O2 sat 88% on 15 liters/minute high flow oxygen (06/18/2024, 7:27pm), due to acute bibasilar aspiration pneumonia. Patient reported mild shortness of breath on 06/19/2024; patient also appeared to be more concerned with the 2+ pitting pedal edema with extension to the bilateral mid-shins, sparing the bilateral upper shins, knees, hips, and thighs on 06/19/2024, than her shortness of breath. Patient subsequently reports significant improvement in her shortness of breath on 06/20/2024, and which may be due to dual antibiotic therapy utilizing meropenem 500mg IV q6 (day #1/5 on 06/19/2024, 5:19pm) and vancomycin 1.25g IV q12 (day #1/ on 06/19/2024, 6:28pm). Patient subsequently been transitioned down from 8 liters/minute high flow oxygen (06/19/2024, 3:51pm) to 5 liters/minute O2 via nasal cannula (06/20/2024, 10:11am). To address patient's concerns with her 2+ pitting pedal edema with extension to the bilateral mid-shins, sparing the bilateral upper shins, knees, hips, and thighs on 06/19/2024, patient had already received lasix 40mg IV x 2 doses (06/18/2024, 8:53pm; 06/19/2024, 1:54am) in [facility] ER. Patient expressed at least 800 cc of clear, francisco-colored urine via purewick on 06/19/2024. Subsequently, I ordered lasix 80mg IV x 1 dose (06/19/2024, 5:18pm), and patient expressed more than 3 liters of urine overnight. Patient reports that the swelling in her feet and shins has subsided considerably overnight, and hence, I have opted to hold off further lasix administration on 06/20/2024. I will continue to monitor daily intake/output in this patient with no prior history of CHF. 3. Acute pancytopenia with admission WBC 0.13, Hb 9.5, MCV 84.9, MCHC 32.4, platelet 52 (06/18/2024, 7:29pm) and absolute neutropenia with ANC < 500/microliter (06/18/2024, 7:29pm). cf., repeat WBC 0.24, Hb 11.1, MCV 85.5, MCHC 32.0, platelet 24 (06/19/2024, 9:14am). Given persistence of absolute neutropenia on 06/19/2024, I texted patient's Heme-Onc Dr. Hina Sharpe on 06/19/2024, 3:25pm, and informed Dr. Sharpe of patient's pancytopenia in the setting of sepsis, NOT septic shock, present on admission, and due to acute bibasilar aspiration pneumonia. R/O bacteremia. I inquired as to whether patient should / could receive filgrastim (Neupogen) to augment patient's neutrophil count, and Dr. Sharpe recommended that patient start filgrastim (Neupogen) 480ug SQ daily x 3 days. Hence, I complied with Dr. Sharpe's recommendation and ordered filgrastim (Neupogen) 480ug SQ daily x 3 doses (06/19/2024, 4:15pm); first dose of filgrastim (Neupogen) 480ug SQ daily was administered on 06/19/2024, 5:18pm. cf., repeat WBC 0.15, Hb 8.1, MCV 84.0, MCHC 32.8, platelet 11 (06/20/2024, 8:33am). I will check WBC w/differential (including ANC) in the 06/21/2024 am. Patient also reports passage of dark stool earlier this morning (06/20/2024) in the setting of chronic diarrheal stools (attributed to chronic Crohn's disease); stool GUAIAC was positive (06/20/2024, 12:05pm). Hence, I opted to transfuse 1 unit of packed RBC on 06/20/2024, despite Hb 8.1 g/dL (06/20/2024, 8:33am) given my concern for acute blood loss anemia in the setting of acute thrombocytopenia with platelet 11 (06/20/2024, 8:33am). I also opted to transfuse 1 unit of platelets on 06/20/2024. Patient has a post-transfusion Hb 6.8 g/dL (2024, 6:43pm). Hence, I have opted to transfuse 1 more unit of packed RBC on 06/20/2024, 8:38pm. I will check repeat Hb level in the 06/21/2024, 12:00 am and 6:00am, and reserve packed RBC transfusion for Hb level less than 7 g/dL. I will also check repeat platelet count in the 06/21/2024, 6:00am, and reserve platelet transfusion for platelet count < 10. In my experience, I have not observed significant increases in platelet counts regardless of whether 1 unit of platelets or 10 units of platelets are transfused into a patient, regardless of whether patient has a bleeding diathesis or a blood dyscrasia. In the interim, I started patient on protonix 40mg IV q12 (06/20/2024, 8:20pm). Of final note, patient continues to be monitored under neutropenic/contact isolation precautions since 06/18/2024, 9:37pm. 4. Major depression. Mild. No suicidal ideation. Asymptomatic on home- scheduled escitalopram 10mg PO daily. 5. DVT prophylaxis. HOLD off pharmacologic DVT prophylaxis with heparin 5000 units SQ q12 or lovenox 40mg SQ daily given potential for either/both medications to exacerbate patient's anemia/thrombocytopenia. Of note, patient reports no calf pain or pleurisy to suggest either DVT or PE on 06/19/2024 or on 06/20/2024. 6. Pain Management. Patient reports 0/10 pain anywhere in/on the body on 06/19/2024 or on 06/20/2024. Continue tylenol 650mg PO q4 prn pain 1-10, headache, or temp > 100.4 degrees Fahrenheit. 7. Disposition. Code status, FULL CODE @ home. ACLS as required. Condition of patient remains tenuous, if not terminal. I anticipate that this patient will remain in [facility] for the next 2-3 midnights, in order to demonstrate clinical improvement in her admitting diagnoses of: 1. Sepsis, NOT septic shock, present on admission, and due to acute bibasilar aspiration pneumonia. 2. Acute hypoxic respiratory failure with O2 sat 88% on 15 liters/minute high flow oxygen (06/18/2024, 7:27pm), due to acute bibasilar aspiration pneumonia. 3. Acute pancytopenia with admission WBC 0.13, Hb 9.5, MCV 84.9, MCHC 32.4, platelet 52 (06/18/2024, 7:29pm) and absolute neutropenia with ANC < 500/microliter (06/18/2024, 7:29pm). To these admitting diagnoses, patient now suffers from: 4. Bacillus cereus-associated bacteremia (as noted on 06/18/2024, 8:12am blood culture #1). 5. Acute blood loss anemia with Hb trending down from 11.1 g/dL (06/19/2024, 9:14am) to 8.1 g/dL (06/20/2024, 8:33am) to 6.8 g/dL (06/20/2024, 6:43pm)(after having received 1 unit of packed RBC transfusion on 06/20/2024), of unclear etiology, but most probably due to acute thrombocytopenia with platelet count trending down from 204 (06/16/2024, 12:50pm) to 52 (06/18/2024, 7:29pm) to 24 (06/19/2024, 9:14am) to 11 (06/20/2024, 8:33am). In turn, I surmise that acute thrombocytopenia is due to chemotherapy utilizing etoposide last [id number]-Pwoyljoe (06/10/2024, 06/11/2024, 06/12/2024 (cycle 1, day #3 on 06/12/2024, etoposide) with Heme-Onc Dr. Hina Sharpe. 6. Acute GI bleed with GUAIAC+ stool (06/20/2024, 12:05pm), of unclear etiology, but most probably due to acute thrombocytopenia, as described in bullet #2 above. Of note, I do not suspect bacterial diarrhea, even with the finding of Bacillus cereus-associated bacteremia (as noted on 06/18/2024, 8:12am blood culture #1), and even despite patient's recollection of eating [employer] while in [facility] last week, as foodborne illness involving Bacillus cereus (and Staphylococcus) is very rapid, on the order of 4-6 hours for Bacillus cereus (and 2-3 hours for Staphylococcus-associated food poisoning), and is typically characterized by nausea and vomiting and abdominal cramps/pains (which this patient emphatically denies), and less commonly by diarrhea. Moreover, patient reports that she has had chronic diarrheal stools for several years, and which is due to her chronic Crohn's disease. Of final note, patient will ultimately be discharged back to her home and will follow up with he PCP Dr. Carly Vang and her Heme-Onc Dr. Hina Sharpe, both within 5-7 days of hospital discharge. Admission and Anticipated Discharge Date Admission Date: June 18, 2024 Subjective "I am breathing a lot better today; no coughing or wheezing. My legs are less swollen today. I have a lot more energy than yesterday. But now, I am having dark stool. Normally, I have diarrheal stools because of my Crohns' disease, but it isn't dark like this. My belly doesn't hurt and I don't have any nausea or vomit." Review of Systems Constitutional: Patient denies antecedent/coincident fevers, chills, diaphoresis, cough, wheeze, sore throat, hemoptysis, chest pains, palpitations, pleurisy, nausea, vomiting, diarrhea, abdominal pain, pelvic pain, hematemesis, hematochezia, melena, hematuria, dysuria, frequency, urgency, headaches, dizziness, lightheadedness, visual changes, hearing changes, syncope, falls, trauma, travel history, sick contacts, or food/drug ingestions novel or new. All other review of systems are reported as negative by the patient on 06/19/2024. Physical Exam Constitutional: General: Comfortable, coherent, and cooperative. Wide awake and alert. Not confused, lethargic, or obtunded. Patient speaks in complete, fluent, and articulate sentences without pause, interruption, cough, or wheeze. HEENT: Normocephalic, atraumatic. No nystagmus, gaze paresis, anisocoria, miosis, mydriasis, hyphema, scleral injection, conjunctivitis, or pterygium. No otorrhea or rhinorrhea. No pharyngeal erythema, edema, or discharge. Neck: Supple, no stridor, bruit, goiter, or hepato-jugular reflux. Jugular venous pressure is estimated to be 3 cm above the sternal angle of César, which in turn, is 5 cm above the level of the right atrium; with jugular venous pressure estimated to be 8 cm, then, there is no jugular venous distention on 06/20/2024. Lymphatics: No cervical (anterior/posterior), supraclavicular, infraclavicular, axillary, epitrochlear, or inguinal adenopathy. Chest: Symmetric rise and fall with respirations. Non-tender to palpation. Lungs: Clear to auscultation and percussion. Heart: Regular rate and rhythm. S1 and S2 noted. No S3 or S4 summation gallop. No tripartite friction rub. Grade II/ early systolic murmur @ LLSB without radiation to the carotids, axilla, or back, and which remains invariant in regards to the respiratory cycle. Abdomen: Soft, non-tender, non-distended. No rebound, guarding, Perry's sign, or organomegaly. Bowel sounds auscultated in all 4 quadrants. GUAIAC+ stool (06/20/2024, 12:05pm). Extremities: No clubbing, cyanosis. 2+ pitting pedal edema with extension to the bilateral mid-shins, sparing the bilateral upper shins, knees, hips, thighs, abdomen. 2+ pedal pulses bilaterally. Skin: No decubitus ulcer, exanthem, or enanthem. Genito-urinary: No urethral discharge. No roblero catheter. Purewick in situ with 200 cc of clear, francisco-colored urine. Of note, patient reports that her purewick canister was emptied 3 times overnight by nursing staff after receiving lasix 80mg IV x 1 dose (06/19/2024, 5:18pm). Neurology: Alert and oriented in regards to person, place, time, and situation. DTR+ and symmetric. 5/5 motor strength in all 4 extremities, both proximally and distally. No pronator drift. No facial droop. No dysarthria. Psychiatry: No homicidal ideation. No suicidal ideation. No flat affect; smiles appropriately. Results & Data Results & Data Vital Signs (Past 12 Hours) Vital Signs Temp Pulse Pulse Resp BP BP Pulse Ox 06/20/24 19:35 36.9 C 102 H 20 143/81 H 98 06/20/24 19:05 109 H 18 06/20/24 18:28 36.9 C 114 H 14 148/87 H 95 06/20/24 17:49 36.9 C 100 H 14 147/80 H 100 06/20/24 17:35 36.9 C 109 H 16 145/82 H 96 06/20/24 17:35 36.9 C 113 H 14 139/88 99 06/20/24 17:05 37.0 C 112 H 14 151/82 H 99 06/20/24 14:56 37.1 C 114 H 19 137/83 93 06/20/24 14:39 109 H 06/20/24 11:10 36.5 C 111 H 19 133/80 96 06/20/24 11:06 O2 Del Method O2 Flow Rate 06/20/24 19:35 5 06/20/24 19:05 06/20/24 18:28 06/20/24 17:49 06/20/24 17:35 06/20/24 17:35 06/20/24 17:05 5 06/20/24 14:56 Nasal Cannula 5 06/20/24 14:39 06/20/24 11:10 Nasal Cannula 5 06/20/24 11:06 High Flow Nasal Cannula 5 Laboratory Results Lactic acid #1 1.1 mmol/L (06/18/2024, 8:24pm). Lactic acid #2 1.8 mmol/L (06/19/2024, 9:14am). Lactic acid #3 1.0 mmol/L (06/20/2024, 8:33am). Procalcitonin #1 3.52 ng/mL (06/18/2024, 7:29pm). Procalcitonin #2 4.78 ng/mL (06/19/2024, 9:14am). Procalcitonin #3 3.90 ng/mL (06/20/2024, 8:33am). Blood culture #1 (06/18/2024, 8:12pm): Bacillus cereus Blood culture #2 (06/18/2024, 8:24pm): Blood culture #3 (06/20/2024, 8:37pm): Blood culture #4 (06/20/2024, 8:37pm): MRSA nares screen negative (06/18/2024, 11:25pm; 06/19/2024, 9:45am). BIOFIRE respiratory panel negative (06/19/2024, 9:45am). Diagnostic Findings Portable CXR (06/19/2024, 12:29am): Inhomogeneous opacification in both lungs as mentioned above, with obscuration of the left costophrenic angle, left hemidiaphragm, right cardiac border and partial obscuration of the left cardiac border. Findings are raising the concern for consolidations, due to aspiration/infection or edema. Obscuration of left costophrenic angle, raising the possibility of pleural effusion. Ultrasound may be obtained for further evaluation In comparison to the prior examination, there is relatively more visualization of the left cardiac border in current examination, relatively less opacification in left lower zone and regression of left sided pleural effusion. Interval regression of right-sided pleural effusion. Rest of the findings in left lung are stable. However there is mild progression of opacification in right lung. PG Care Time/CCT Total # of Minutes Spent Total Time Spent with Patient: Total time spent is greater than 50% in coordination of care (as documented) at patient's floor/unit and/or counseling patient: Coding Level of Care Code 34534 SUB INP/OBS CARE 3/50MIN Diagnoses Sepsis A41.9 Acute hypoxemic respiratory failure J96.01 Pneumonia J18.9 Neutropenia D70.9 Cancer of liver C22.9 Liver malignancy type: unspecified liver malignancy (5) Cancer of liver Liver malignancy type: unspecified liver malignancy Qualified Code(s): C22.9 - Malignant neoplasm of liver, not specified as primary or secondary
--- NOTE | 2024-06-21 04:20 | XRay Report ---
EXAM: XR chest 1V portable CLINICAL HISTORY: Worsening dyspnea after transfusion. TECHNIQUE: An X-ray image of the chest is obtained in AP projection. COMPARISON: 06/19/2024. FINDINGS: Pulmonary Parenchyma: Chest leads are identified Interval progression of the inhomogeneous opacification is seen in both lungs, the progression is more evident at the upper and central lung zones There is obscuration of the left costophrenic angle, left hemidiaphragm, right cardiac border, and partial obscuration of the left cardiac border, stable. Right lung mid-zone atelectatic band. Faintly visualized right costophrenic angle. There is mild displacement of the trachea to the right side which may be positional. Heart and Mediastinum: Heart size cannot be properly commented on likely due to obscuration of the cardiac border. No mediastinal widening or masses. No hilar or mediastinal lymphadenopathy. Bony Thorax: Bony thorax appears intact without fractures or deformities. Soft Tissues: Soft tissues overlying the chest wall are unremarkable. Indeterminate tubes projecting on both sides of neck and the right hemithorax. IMPRESSION: 1. Interval progression of the inhomogeneous opacification seen in both lungs, the progression is more evident at the upper and central lung zones. Findings are raising the concern for consolidations, due to aspiration/infection Vs pulmonary edema, suggesting a clinical correlation. 2. Otherwise, no changes since the last study. Electronically signed by Ananda Pulido 06-21-2024 04:19 AM
[2024-06-21 06:05] LABS: Hematocrit (blood only) 32.5 % (37.0-47.0); Hemoglobin 10.9 g/dl (12.0-16.0); Mean Corpuscular Hemoglobin 28.2 pg (25.0-34.0); Mean Corpuscular Hgb Conc 33.5 g/dL (32.0-36.0); Neutrophils # (auto) < 0.50 K/uL (1.40-6.50); Platelet Count 26 K/uL (130-400); RDW Coefficient of Variation 16.8 % (11.5-14.5); RDW Standard Deviation 51.4 fL (36.4-46.3); Red Blood Count 3.87 M/uL (4.20-5.40); White Blood Count 0.14 K/ul (4.8-10.8)
[2024-06-21 06:09] LABS: Albumin Globulin Ratio 1.2 (0.9-2); Albumin Level 2.9 gm/dl (3.4-5.0); BUN Creatinine Ratio 43.9 (10-20); Bilirubin,Total 6.1 mg/dl (0.2-1.0); Calcium 7.4 mg/dl (8.6-10.3); Creatinine Clr Calc Pharmacy 101.9 ml/min; Globulin 2.5 gm/dl (2.5-4.0); Phosphorus 1.3 mg/dl (2.5-4.9); Total Protein 5.4 gm/dl (6.0-8.3)
[2024-06-21 06:10] LABS: Platelet Estimate Signific. Decreased (Normal)
--- NOTE | 2024-06-21 08:31 | Pharmacy Report ---
Pharmacy PK ABX Note - Date of Service June 21, 2024 - Assessment and Plan Assessment 59 year old F receiving empiric vancomycin and meropenem for treatment of sepsis presumed secondary to aspiration pneumonia. Pertinent PMH includes stage IV small bowel neuroendocrine carcinoma w/ liver metastases (on chemotherapy) and subsequent acute pancytopenia. Pertinent microbiologic data includes: negative MRSA nasal swab, blood culture growing Bacillus cereus. Per hospitalist note, plan is to treat as true infection. Renal function stable, procalcitonin elevated. Neupogen 480 mcg daily x 3 doses ordered. Day # 4 of antimicrobial therapy. Plan Vancomycin * Current regimen: 1250 mg IV every 12 hours * Random level obtained 06/21/24 resulted as 18.1 mcg/mL. This is predicted to result in slightly supratherapeutic AUC/JOSUE > 600 mg/L.hr * Change to 1000 mg IV every 12 hours * Predicted AUC at steady state: 547 mg/L.hr * Repeat random level ordered for: 06/23/24 Meropenem * 500 mg IV q6h - appropriately dosed for indication/renal function Pharmacy will continue to follow and will adjust dose/frequency as necessary. Thank you. Pharmacy has transitioned to AUC monitoring for vancomycin. AUC/JOSUE is the preferred PK/PD target and is associated with decreased risk of nephrotoxicity compared to traditional trough targets.
[2024-06-21 09:19] LABS: Bilirubin Direct 3.9 mg/dl (0-0.2); Magnesium 1.4 mg/dl (1.7-2.4)
--- NOTE | 2024-06-21 20:16 | Hospitalist Progress Note ---
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 Patient was subsequently admitted to the inpatient hospitalist service @ [facility] on 06/18/2024 with the following diagnoses: 1. Sepsis, NOT septic shock, present on admission, and due to acute bibasilar aspiration pneumonia. 2. Acute hypoxic respiratory failure with O2 sat 88% on 15 liters/minute high flow oxygen (06/18/2024, 7:27pm), due to acute bibasilar aspiration pneumonia. 3. Acute pancytopenia with admission WBC 0.13, Hb 9.5, MCV 84.9, MCHC 32.4, platelet 52 (06/18/2024, 7:29pm) and absolute neutropenia with ANC < 5 00/microliter (06/18/2024, 7:29pm). The following medical issues are being addressed: 1. Sepsis, NOT septic shock, present on admission, and due to acute bibasilar aspiration pneumonia. R/O bacteremia. Patient remains afebrile with mild shortness of breath on 6 liters/minute high flow oxygen (06/21/2024, 7:31am and 7:54pm) with patient pancytopenic on admission and the following blood test results: Lactic acid #1 1.1 mmol/L (06/18/2024, 8:24pm). Lactic acid #2 1.8 mmol/L (06/19/2024, 9:14am). Lactic acid #3 1.0 mmol/L (06/20/2024, 8:33am). Lactic acid #4 1.2 mmol/L (06/21/2024, 5:16am).. Procalcitonin #1 3.52 ng/mL (06/18/2024, 7:29pm). Procalcitonin #2 4.78 ng/mL (06/19/2024, 9:14am). Procalcitonin #3 3.90 ng/mL (06/20/2024, 8:33am). Procalcitonin #4 3.09 ng/mL (06/21/2024, 5:16am). Blood culture #1 (06/18/2024, 8:12pm): Bacillus cereus Blood culture #2 (06/18/2024, 8:24pm): Blood culture #3 (06/20/2024, 8:37pm): Blood culture #4 (06/20/2024, 8:37pm): MRSA nares screen negative (06/18/2024, 11:25pm; 06/19/2024, 9:45am). BIOFIRE respiratory panel negative (06/19/2024, 9:45am). Patient has received cefepime 2g IV x 2 doses (06/18/2024, 8:33pm; 06/19/2024, 5:14am) and vancomycin 2g IV x 1 dose (06/18/2024, 9:37pm) thus far. In terms of aspiration pneumonia, gram positive anaerobes and gram negative anaerobes must be considered and neither cefepime nor vancomycin has anaerobic activity. Zosyn has anaerobic activity, but patient is allergic to penicillin (causing hives), and hence, I opted to D/C cefepime 2g IV q8 and started patient on meropenem 500mg IV q6 (day #1/5 on 06/19/2024, 5:19pm) to provide gram positive/negative anaerobic coverage. In addition, I have opted to continue vancomycin 1g IV q12 (day #1/ on 06/19/2024, 5:30pm) despite patient testing negative for MRSA nares screen twice (06/18/2024, 11:25pm; 06/19/2024, 9:45am) as I am concerned given the probability of Bacillus cereus-associated bacteremia (as noted on 06/18/2024, 8:12pm blood culture #1), recognizing that most gram positive rods are corynebacteriae/diphtheroids, which are commensal organisms and not pathologic ones. One exception is Bacillus species, which can be highly pathogenic/virulent, and which are treated with vancomycin. I will await blood culture #1 (06/18/2024, 8:12pm), blood culture #2 (06/19/2024, 9:14am), blood culture #3 (06/20/2024, 8:37pm), and blood culture #4 (06/20/2024, 8:37pm) testing, along with repeat WBC w/diff, lactic acid, and procalcitonin level testing in the 06/22/2024 am. 2. Acute hypoxic respiratory failure with O2 sat 88% on 15 liters/minute high flow oxygen (06/18/2024, 7:27pm), due to acute bibasilar aspiration pneumonia. Patient reported mild shortness of breath on 06/19/2024; patient also appeared to be more concerned with the 2+ pitting pedal edema with extension to the bilateral mid-shins, sparing the bilateral upper shins, knees, hips, and thighs on 06/19/2024, than her shortness of breath. Patient subsequently reported significant improvement in her shortness of breath on 06/20/2024 and again on 06/21/2024, and which may be due to dual antibiotic therapy utilizing meropenem 500mg IV q6 (day #1/5 on 06/19/2024, 5:19pm) and vancomycin 1.25g IV q12 (day #1/ on 06/19/2024, 6:28pm). Patient subsequently has been transitioned down from 8 liters/minute high flow oxygen (06/19/2024, 3:51pm) to 5 liters/minute O2 via nasal cannula (06/20/2024, 10:11am), and back up to 6 liters/minute O2 via nasal cannula (06/21/2024, 7:31am and 7:54pm). To address patient's concerns with her 2+ pitting pedal edema with extension to the bilateral mid-shins, sparing the bilateral upper shins, knees, hips, and thighs on 06/19/2024, patient had already received lasix 40mg IV x 2 doses (06/18/2024, 8:53pm; 06/19/2024, 1:54am) in [facility] ER. Patient expressed at least 800 cc of clear, francisco-colored urine via purewick on 06/19/2024. Subsequently, I ordered lasix 80mg IV x 1 dose (06/19/2024, 5:18pm), and patient expressed more than 3 liters of urine overnight. Patient reports that the swelling in her feet and shins has subsided considerably overnight, and hence, I have opted to hold off further lasix administration on 06/20/2024. I will continue to monitor daily intake/output in this patient with no prior history of CHF. 3. Acute pancytopenia with admission WBC 0.13, Hb 9.5, MCV 84.9, MCHC 32.4, platelet 52 (06/18/2024, 7:29pm) and absolute neutropenia with ANC < 500/microliter (06/18/2024, 7:29pm). cf., repeat WBC 0.24, Hb 11.1, MCV 85.5, MCHC 32.0, platelet 24 (06/19/2024, 9:14am). Given persistence of absolute neutropenia on 06/19/2024, I texted patient's Heme-Onc Dr. Hina Sharpe on 06/19/2024, 3:25pm, and informed Dr. Sharpe of patient's pancytopenia in the setting of sepsis, NOT septic shock, present on admission, and due to acute bibasilar aspiration pneumonia. R/O bacteremia. I inquired as to whether patient should / could receive filgrastim (Neupogen) to augment patient's neutrophil count, and Dr. Sharpe recommended that patient start filgrastim (Neupogen) 480ug SQ daily x 3 days. Hence, I complied with Dr. Sharpe's recommendation and ordered filgrastim (Neupogen) 480ug SQ daily x 3 doses (06/19/2024, 4:15pm); first dose of filgrastim (Neupogen) 480ug SQ daily was administered on 06/19/2024, 5:18pm. cf., repeat WBC 0.15, Hb 8.1, MCV 84.0, MCHC 32.8, platelet 11 (06/20/2024, 8:33am). I will check WBC w/differential (including ANC) in the 06/22/2024 am. Patient also reports passage of dark stool on the morning of 06/20/2024, and on 06/21/2024 in the setting of chronic diarrheal stools (attributed to chronic Crohn's disease); stool GUAIAC was positive (06/20/2024, 12:05pm). Hence, I opted to transfuse 1 unit of packed RBC on 06/20/2024, despite Hb 8.1 g/dL (06/20/2024, 8:33am) given my concern for acute blood loss anemia in the setting of acute thrombocytopenia with platelet 11 (06/20/2024, 8:33am). I also opted to transfuse 1 unit of platelets on 06/20/2024. Patient has a post-transfusion Hb 6.8 g/dL (06/20/2024, 6:43pm). Hence, I opted to transfuse 1 more unit of packed RBC on 06/20/2024, 8:38pm. Patient's Hb level subsequently increased as shown below: cf., Hb 10.9 g/dL (06/21/2024, 5:16am). cf., Hb 9.6 g/dL(06/21/2024, 12:09pm). I will check repeat Hb level in the 06/22/2024 am, and reserve packed RBC transfusion for Hb level less than 7 g/dL. Given patient's report of ongoing melena on 06/21/2024, I have opted to transfuse 1 unit of platelets on 06/21/2024 pm, despite platelet count being higher than 10 (e.g., platelet count 26 (06/21/2024, 5:16am). I will check repeat platelet count in the 06/22/2024 am, and reserve platelet transfusion for platelet count < 10. In the interim, patient continues to receive protonix 40mg IV q12 (06/20/2024, 8:20pm). Of final note, patient continues to be monitored under neutropenic/contact isolation precautions since 06/18/2024, 9:37pm. 4. Acute hypophosphatemia with post-admission PO4 1.4 mg/dL (06/20/2024, 7:16am) and post-supplement PO4 1.3 mg/dL (06/21/2024, 5:16am). Patient received KPO4 30mmol IV x 1 dose (06/20/2024, 8:54am), and acute hypophosphatemia PERSISTS. Hence, I have opted to supplement with KPO4 40 mmol IV x 1 dose (06/21/2024, 9:33am), and I will check repeat PO4 level in the 06/22/2024 am. Of note, etiology of acute hypophosphatemia is most probably due to insensible phosphorus losses in stool in the setting of chronic diarrhea over the past 2 months. 5. Acute hypomagnesemia with admission Mg 1.6 mg/dL (06/18/2024, 7:29pm) and repeat Mg 1.7 mg/dL (06/20/2024, 8:33am) and current Mg 1.4 mg/dL (06/21/2024, 5:16am). Patient received magnesium sulfate 1g IV x 3 doses (06/18/2024, 8:53pm, 11:14pm; 06/19/2024, 1:13am) and acute hypomagnesemia transiently resolved with post- supplement Mg 2.2 mg/dL (06/19/2024, 9:32am), only to recur as shown above. Patient subsequently received magnesium sulfate 1g IV x 4 doses (06/21/2024, 10:33am, 12:58pm, 3:19pm, 4:30pm), and I will check repeat Mg level in the 06/22/2024 am. Of note, etiology of acute hypomagnesemia is most probably due to insensible magnesium losses in stool in the setting of chronic diarrhea over the past 2 months. 6. Acute hypocalcemia with post-admission Ca corrected 8.3 mg/dL (06/21/2024, 5:16am). cf., Ca 8.0, albumin 3.1, Ca corrected 8.7 (06/19/2024, 9:32am). cf., Ca 7.7, albumin 2.8, Ca corrected 8.7 (06/20/2024, 8:33am). cf., Ca 7.4, albumin 2.9, Ca corrected 8.3 (06/21/2024, 5:16am). Patient will receive calcium gluconate 1g IV x 2 doses (06/21/2024, 8:30pm), and I will check repeat Ca level in the 06/22/2024 am. Of note, etiology of acute hypocalcemia is most probably due to insensible calcium losses in stool in the setting of chronic diarrhea over the past 2 months. 7. Major depression. Mild. No suicidal ideation. Asymptomatic on home- scheduled escitalopram 10mg PO daily. 8. DVT prophylaxis. HOLD off pharmacologic DVT prophylaxis with heparin 5000 units SQ q12 or lovenox 40mg SQ daily given potential for either/both medications to exacerbate patient's anemia/thrombocytopenia. Of note, patient reports no calf pain or pleurisy to suggest either DVT or PE on 06/19/2024 - 06/21/2024. 9. Pain Management. Patient reports 0/10 pain anywhere in/on the body on 06/19/2024 - 06/21/2024. Continue tylenol 650mg PO q4 prn pain 1-10, headache, or temp > 100.4 degrees Fahrenheit. 10.Disposition. Code status, FULL CODE @ home. ACLS as required. Condition of patient remains tenuous, if not terminal. I anticipate that this patient will remain in [facility] for the next 2-3 midnights, in order to demonstrate clinical improvement in her admitting diagnoses of: 1. Sepsis, NOT septic shock, present on admission, and due to acute bibasilar aspiration pneumonia. 2. Acute hypoxic respiratory failure with O2 sat 88% on 15 liters/minute high flow oxygen (06/18/2024, 7:27pm), due to acute bibasilar aspiration pneumonia. 3. Acute pancytopenia with admission WBC 0.13, Hb 9.5, MCV 84.9, MCHC 32.4, platelet 52 (06/18/2024, 7:29pm) and absolute neutropenia with ANC < 500/microliter (06/18/2024, 7:29pm). To these admitting diagnoses, patient now suffers from: 4. Bacillus cereus-associated bacteremia (as noted on 06/18/2024, 8:12am blood culture #1). 5. Acute blood loss anemia with Hb trending down from 11.1 g/dL (06/19/2024, 9:14am) to 8.1 g/dL (06/20/2024, 8:33am) to 6.8 g/dL (06/20/2024, 6:43pm)(after having received 1 unit of packed RBC transfusion on 06/20/2024), of unclear etiology, but most probably due to acute thrombocytopenia with platelet count trending down from 204 (06/16/2024, 12:50pm) to 52 (06/18/2024, 7:29pm) to 24 (06/19/2024, 9:14am) to 11 (06/20/2024, 8:33am). In turn, I surmise that acute thrombocytopenia is due to chemotherapy utilizing etoposide last [id number] (06/10/2024, 06/11/2024, 06/12/2024 (cycle 1, day #3 on 06/12/2024, etoposide) with Heme-Onc Dr. Hina Sharpe. 6. Acute GI bleed with GUAIAC+ stool (06/20/2024, 12:05pm), of unclear etiology, but most probably due to acute thrombocytopenia, as described in bullet #2 above. Of note, I do not suspect bacterial diarrhea, even with the finding of Bacillus cereus-associated bacteremia (as noted on 06/18/2024, 8:12am blood culture #1), and even despite patient's recollection of eating [employer] while in [facility] last week, as foodborne illness involving Bacillus cereus (and Staphylococcus) is very rapid, on the order of 4-6 hours for Bacillus cereus (and 2-3 hours for Staphylococcus-associated food poisoning), and is typically characterized by nausea and vomiting and abdominal cramps/pains (which this patient emphatically denies), and less commonly by diarrhea. Moreover, patient reports that she has had chronic diarrheal stools for several years, and which is due to her chronic Crohn's disease. Of final note, patient will ultimately be discharged back to her home and will follow up with he PCP Dr. Carly Vang and her Heme-Onc Dr. Hina Sharpe, both within 5-7 days of hospital discharge. Admission and Anticipated Discharge Date Admission Date: June 18, 2024 Subjective "I am breathing 99% better than yesterday. My legs are still swollen today so they put the compression boots on my legs to squeeze the fluid out. I have a lot more energy than yesterday (06/20/2024); I think the 2 pints of blood transfusions yesterday (cf., Hb 6.8 g/dL, 06/20/2024, 6:43pm) helped. But I am still having dark stool. Normally, I have diarrheal stools because of my Crohns' disease, but it isn't dark like this. My belly still doesn't hurt and I don't have any nausea or vomit." Review of Systems Constitutional: Patient reports persistent melena on 06/21/2024 for the second day in a row (cf., first day of melena ever, 06/20/2024). Patient denies antecedent/coincident fevers, chills, diaphoresis, cough, wheeze, sore throat, hemoptysis, chest pains, palpitations, pleurisy, nausea, vomiting, diarrhea, abdominal pain, pelvic pain, hematemesis, hematochezia, hematuria, dysuria, frequency, urgency, headaches, dizziness, lightheadedness, visual changes, hearing changes, syncope, falls, trauma, travel history, sick contacts, or food/drug ingestions novel or new. All other review of systems are reported as negative by the patient on 06/21/2024. Physical Exam Constitutional: General: Comfortable, coherent, and cooperative. Wide awake and alert. Not confused, lethargic, or obtunded. Patient speaks in complete, fluent, and articulate sentences without pause, interruption, cough, or wheeze. HEENT: Normocephalic, atraumatic. No nystagmus, gaze paresis, anisocoria, miosis, mydriasis, hyphema, scleral injection, conjunctivitis, or pterygium. No otorrhea or rhinorrhea. No pharyngeal erythema, edema, or discharge. Neck: Supple, no stridor, bruit, goiter, or hepato-jugular reflux. Jugular venous pressure is estimated to be 3 cm above the sternal angle of César, which in turn, is 5 cm above the level of the right atrium; with jugular venous pressure estimated to be 8 cm, then, there is no jugular venous distention on 06/21/2024. Lymphatics: No cervical (anterior/posterior), supraclavicular, infraclavicular, axillary, epitrochlear, or inguinal adenopathy. Chest: Symmetric rise and fall with respirations. Non-tender to palpation. Lungs: Clear to auscultation and percussion. Heart: Regular rate and rhythm. S1 and S2 noted. No S3 or S4 summation gallop. No tripartite friction rub. Grade II/ early systolic murmur @ LLSB without radiation to the carotids, axilla, or back, and which remains invariant in regards to the respiratory cycle. Abdomen: Soft, non-tender, non-distended. No rebound, guarding, Perry's sign, or organomegaly. Bowel sounds auscultated in all 4 quadrants. GUAIAC+ stool (06/20/2024, 12:05pm). Extremities: No clubbing, cyanosis. 2+ pitting pedal edema with extension to the bilateral mid-shins, sparing the bilateral upper shins, knees, hips, thighs, abdomen, unchanged from 06/20/2024 exam. Bilateral intermittent compression devices on both lower extremities on 06/21/2024. 2+ pedal pulses bilaterally. Skin: No decubitus ulcer, exanthem, or enanthem. Genito-urinary: No urethral discharge. No roblero catheter. Purewick in situ with 600 cc of clear, francisco-colored urine on 06/21/2024. Of note, patient reports that her purewick canister was emptied 3 times overnight by nursing staff after receiving lasix 80mg IV x 1 dose (06/19/2024, 5:18pm). Neurology: Alert and oriented in regards to person, place, time, and situation. DTR+ and symmetric. 5/5 motor strength in all 4 extremities, both proximally and distally. No pronator drift. No facial droop. No dysarthria. Psychiatry: No homicidal ideation. No suicidal ideation. No flat affect; smiles appropriately. Results & Data Results & Data Vital Signs (Past 12 Hours) Vital Signs Temp Pulse Pulse Resp BP BP Pulse Ox 06/21/24 18:48 37 C 105 H 17 143/84 H 95 06/21/24 18:33 37 C 105 H 17 141/85 H 98 06/21/24 18:16 37.0 C 105 H 17 148/90 H 97 06/21/24 15:41 36.9 C 104 H 18 137/82 98 06/21/24 11:26 36.8 C 106 H 18 144/87 H 100 06/21/24 08:00 06/21/24 08:00 95 H O2 Del Method O2 Flow Rate 06/21/24 18:48 5 06/21/24 18:33 5 06/21/24 18:16 5 06/21/24 15:41 Nasal Cannula 6.0 06/21/24 11:26 Nasal Cannula 4.0 06/21/24 08:00 High Flow Nasal Cannula 5 06/21/24 08:00 Laboratory Results WBC 2.36, no differential, Hb 8.4, MCV 87.5, MCHC 31.5, platelet 204 (06/16/2024, 12:50pm). WBC 0.13, N < 500/uL, Hb 9.5, MCV 84.9, MCHC 32.4, platelet 52 (06/18/2024, 7:29pm). WBC 0.24, no differential, Hb 11.1, MCV 85.5, MCHC 32.0, platelet 24 (06/19/2024, 9:14am). WBC 0.15, N < 500/uL, Hb 8.1, MCV 84.0, MCHC 32.8, platelet 11 (06/20/2024, 8:33am). Hb 6.8 (06/20/2024, 6:43pm). WBC 0.14, N < 500/uL, Hb 10.9, MCV 84.0, MCHC 33.5, platelet 26 (06/21/2024, 5:16am). Hb 9.6 (06/21/2024, 12:09pm). Lactic acid #1 1.1 mmol/L (06/18/2024, 8:24pm). Lactic acid #2 1.8 mmol/L (06/19/2024, 9:14am). Lactic acid #3 1.0 mmol/L (06/20/2024, 8:33am). Lactic acid #4 1.2 mmol/L (06/21/2024, 5:16am). Procalcitonin #1 3.52 ng/mL (06/18/2024, 7:29pm). Procalcitonin #2 4.78 ng/mL (06/19/2024, 9:14am). Procalcitonin #3 3.90 ng/mL (06/20/2024, 8:33am). Procalcitonin #4 3.09 ng/mL (06/21/2024, 5:16am). Blood culture #1 (06/18/2024, 8:12pm): Bacillus cereus Blood culture #2 (06/18/2024, 8:24pm): Blood culture #3 (06/20/2024, 8:37pm): Blood culture #4 (06/20/2024, 8:37pm): MRSA nares screen negative (06/18/2024, 11:25pm; 06/19/2024, 9:45am). BIOFIRE respiratory panel negative (06/19/2024, 9:45am). U/A (06/18/2024, 11:25am): LE-, nitrite- PO4 1.4 mg/dL (06/20/2024, 7:16am). PO4 1.3 mg/dL (06/21/2024, 5:16am). Mg 1.6 mg/dL (06/18/2024, 7:29pm). Mg 2.2 mg/dL (06/19/2024, 9:32am). Mg 1.7 mg/dL (06/20/2024, 8:33am). Mg 1.4 mg/dL (06/21/2024, 5:16am). BUN 25, creatinine 0.68, Ca 8.0, albumin 3.1, Ca corrected 8.7 (06/19/2024, 9:32am). BUN 28, creatinine 0.60, Ca 7.7, albumin 2.8, Ca corrected 8.7 (06/20/2024, 8:33am). BUN 25, creatinine 0.57, Ca 7.4, albumin 2.9, Ca corrected 8.3 (06/21/2024, 5:16am). AST 68, ALT 37, ALK PHOS 463, TBili 3.4 (06/18/2024, 7:29pm). AST 53, ALT 36, ALK PHOS 404, TBili 3.0 (06/19/2024, 9:32am). AST 38, ALT 29, ALK PHOS 286, TBili 2.9 (06/20/2024, 8:33am). AST 37, ALT 30, ALK PHOS 313, TBili 6.1 (06/21/2024, 5:16am). GUAIAC+ stool (06/20/2024, 12:05pm). Diagnostic Findings Portable CXR (06/19/2024, 12:29am): Inhomogeneous opacification in both lungs as mentioned above, with obscuration of the left costophrenic angle, left hemidiaphragm, right cardiac border and partial obscuration of the left cardiac border. Findings are raising the concern for consolidations, due to aspiration/infection or edema. Obscuration of left costophrenic angle, raising the possibility of pleural effusion. Ultrasound may be obtained for further evaluation In comparison to the prior examination, there is relatively more visualization of the left cardiac border in current examination, relatively less opacification in left lower zone and regression of left sided pleural effusion. Interval regression of right-sided pleural effusion. Rest of the findings in left lung are stable. However there is mild progression of opacification in right lung. PG Care Time/CCT Total # of Minutes Spent Total Time Spent with Patient: Total time spent is greater than 50% in coordination of care (as documented) at patient's floor/unit and/or counseling patient: Coding Level of Care Code 54887 SUB INP/OBS CARE 3/50MIN Diagnoses Sepsis A41.9 Acute hypoxemic respiratory failure J96.01 Pneumonia J18.9 Neutropenia D70.9 Cancer of liver C22.9 Liver malignancy type: unspecified liver malignancy (5) Cancer of liver Liver malignancy type: unspecified liver malignancy Qualified Code(s): C22.9 - Malignant neoplasm of liver, not specified as primary or secondary
[2024-06-21 23:33] LABS: Base Excess VBG 1.2 mEq/L; HCO3 VBG 27 mmol/L; Oxygen Saturation VBG < 60.0 %; PCO2 VBG 44 mmHg (38-50); PO2 VBG < 20 mmHg; pH VBG 7.39 (7.36-7.41)
[2024-06-21 23:55] LABS: Albumin Level 2.9 gm/dl (3.4-5.0); BUN Creatinine Ratio 32.1 (10-20); Bilirubin,Total 5.2 mg/dl (0.2-1.0); Creatinine Clr Calc Pharmacy 103.8 ml/min; Globulin 2.8 gm/dl (2.5-4.0); Potassium 3.9 mmol/L (3.5-5.1); Total Protein 5.7 gm/dl (6.0-8.3)
--- NOTE | 2024-06-22 02:58 | XRay Report ---
Exam(s): XR CXR 1 VIEW EXAM: XR Chest, 1 View CLINICAL HISTORY: Reason for exam: worsening O2 need. TECHNIQUE: Frontal view of the chest. COMPARISON: XR Chest dated 06/21/24 at 0332 FINDINGS: See Impression. IMPRESSION: 1. Extensive bilateral airspace disease/consolidations similar to the prior. 2. Likely small pleural effusions. Electronically signed by: Moe Salse M.D. 06/22/24 02:57 AM
[2024-06-22 06:39] LABS: Hematocrit (blood only) 26.1 % (37.0-47.0); Hemoglobin 8.6 g/dl (12.0-16.0); Mean Corpuscular Hemoglobin 27.7 pg (25.0-34.0); Mean Corpuscular Volume 83.9 fL (80.0-100.0); Mean Platelet Volume 9.5 fL (9.4-12.4); Neutrophils # (auto) 0.02 K/uL (1.40-6.50); Platelet Count 27 K/uL (130-400); RDW Coefficient of Variation 17.1 % (11.5-14.5); RDW Standard Deviation 52.6 fL (36.4-46.3); Red Blood Count 3.11 M/uL (4.20-5.40); White Blood Count 0.21 K/ul (4.8-10.8)
[2024-06-22 06:42] LABS: Calcium 7.3 mg/dl (8.6-10.3); Magnesium 1.8 mg/dl (1.7-2.4); Potassium 4.2 mmol/L (3.5-5.1)
[2024-06-22 06:48] LABS: BUN Creatinine Ratio 35.7 (10-20); Creatinine Clr Calc Pharmacy 138.3 ml/min; Phosphorus 1.6 mg/dl (2.5-4.9)
--- NOTE | 2024-06-22 19:01 | Hospitalist Progress Note ---
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 Patient was subsequently admitted to the inpatient hospitalist service @ [facility] on 06/18/2024 with the following diagnoses: 1. Sepsis, NOT septic shock, present on admission, and due to acute bibasilar aspiration pneumonia. 2. Acute hypoxic respiratory failure with O2 sat 88% on 15 liters/minute high flow oxygen (06/18/2024, 7:27pm), due to acute bibasilar aspiration pneumonia. 3. Acute pancytopenia with admission WBC 0.13, Hb 9.5, MCV 84.9, MCHC 32.4, platelet 52 (06/18/2024, 7:29pm) and absolute neutropenia with ANC < 5 00/microliter (06/18/2024, 7:29pm). The following medical issues are being addressed: 1. Sepsis, NOT septic shock, present on admission, and due to acute bibasilar aspiration pneumonia. R/O bacteremia. Patient remains afebrile with mild shortness of breath on 6 liters/minute high flow oxygen (06/21/2024, 7:31am and 7:54pm; 06/22/2024, 3:45pm) with patient pancytopenic on admission date 06/18/2024 and still pancytopenic on 06/22/2024, s/p filgrastim (Neupogen) 480ug SQ daily x 3 doses (06/19/2024, 5:18pm; 06/20/2024, 9:06am; 06/21/2024, 11:10am), and the following blood test results: Lactic acid #1 1.1 mmol/L (06/18/2024, 8:24pm). Lactic acid #2 1.8 mmol/L (06/19/2024, 9:14am). Lactic acid #3 1.0 mmol/L (06/20/2024, 8:33am). Lactic acid #4 1.2 mmol/L (06/21/2024, 5:16am). Lactic acid #5 1.5 mmol/L (06/21/2024, 11:23pm) Lactic acid #6 1.2 mmol/L (06/22/2024, 9:29am). Procalcitonin #1 3.52 ng/mL (06/18/2024, 7:29pm). Procalcitonin #2 4.78 ng/mL (06/19/2024, 9:14am). Procalcitonin #3 3.90 ng/mL (06/20/2024, 8:33am). Procalcitonin #4 3.09 ng/mL (06/21/2024, 5:16am). Procalcitonin #5 1.92 ng/mL (06/22/2024, 9:29am). Blood culture #1 (06/18/2024, 8:12pm): Bacillus cereus Blood culture #2 (06/18/2024, 8:24pm): Blood culture #3 (06/20/2024, 8:37pm): Blood culture #4 (06/20/2024, 8:37pm): MRSA nares screen negative (06/18/2024, 11:25pm; 06/19/2024, 9:45am). BIOFIRE respiratory panel negative (06/19/2024, 9:45am). Patient received cefepime 2g IV x 2 doses (06/18/2024, 8:33pm; 06/19/2024, 5:14am) and vancomycin 2g IV x 1 dose (06/18/2024, 9:37pm). In terms of aspiration pneumonia, gram positive anaerobes and gram negative anaerobes must be considered and neither cefepime nor vancomycin has anaerobic activity. Zosyn has anaerobic activity, but patient is allergic to penicillin (causing hives), and hence, I discontinued cefepime 2g IV q8 and started patient on meropenem 500mg IV q6 (day #1/5 on 06/19/2024, 5:19pm) to provide gram positive/negative anaerobic coverage. In addition, I opted to continue vancomycin 1.25g IV q12 (day #1/5 on 06/19/2024, 6:28pm) despite patient testing negative for MRSA nares screen twice (06/18/2024, 11:25pm; 06/19/2024, 9:45am) as I was concerned and remain concerned given the probability of Bacillus cereus-associated bacteremia (as noted on 06/18/2024, 8:12pm blood culture #1), recognizing that most gram positive rods are corynebacteriae/diphtheroids, which are commensal organisms and not pathologic ones. One exception is Bacillus species, which can be highly pathogenic/virulent, and which are treated with vancomycin. I await blood culture #2 (06/19/2024, 9:14am), blood culture #3 (06/20/2024, 8:37pm), and blood culture #4 (06/20/2024, 8:37pm) testing, along with repeat WBC w/diff, lactic acid, and procalcitonin level testing in the 06/23/2024 am. 2. Acute hypoxic respiratory failure with O2 sat 88% on 15 liters/minute high flow oxygen (06/18/2024, 7:27pm), due to acute bibasilar aspiration pneumonia. Patient reported mild shortness of breath on 06/19/2024; patient also appeared to be more concerned with the 2+ pitting pedal edema with extension to the bilateral mid-shins, sparing the bilateral upper shins, knees, hips, and thighs on 06/19/2024, than her shortness of breath. Patient subsequently reported significant improvement in her shortness of breath on 06/20/2024 and again on 06/21/2024, and which may be due to dual antibiotic therapy utilizing meropenem 500mg IV q6 (day #1/5 on 06/19/2024, 5:19pm) and vancomycin 1.25g IV q12 (day #1/ on 06/19/2024, 6:28pm). Patient subsequently has been transitioned down from 8 liters/minute high flow oxygen (06/19/2024, 3:51pm) to 5 liters/minute O2 via nasal cannula (06/20/2024, 10:11am), and back up to 6 liters/minute O2 via nasal cannula (06/21/2024, 7:31am and 7:54pm)(06/22/2024, 11:00am and 3:45pm). To address patient's concerns with her 2+ pitting pedal edema with extension to the bilateral mid-shins, sparing the bilateral upper shins, knees, hips, and thighs on 06/19/2024, patient had already received lasix 40mg IV x 2 doses (06/18/2024, 8:53pm; 06/19/2024, 1:54am) in [facility] ER. Patient expressed at least 800 cc of clear, francisco-colored urine via purewick on 06/19/2024. Subsequently, I ordered lasix 80mg IV x 1 dose (06/19/2024, 5:18pm), and patient expressed more than 3 liters of urine overnight. Patient reports that the swelling in her feet and shins has subsided considerably overnight, and hence, I have opted to hold off further lasix administration on 06/20/2024. I will continue to monitor daily intake/output, off further lasix administration since 06/19/2024, 5:18pm, in this patient with no prior history of CHF. 3. Acute pancytopenia with admission WBC 0.13, Hb 9.5, MCV 84.9, MCHC 32.4, platelet 52 (06/18/2024, 7:29pm) and absolute neutropenia with ANC < 500/microliter (06/18/2024, 7:29pm). cf., repeat WBC 0.24, Hb 11.1, MCV 85.5, MCHC 32.0, platelet 24 (06/19/2024, 9:14am). Given persistence of absolute neutropenia on 06/19/2024, I texted patient's Heme-Onc Dr. Hina Sharpe on 06/19/2024, 3:25pm, and informed Dr. Sharpe of patient's pancytopenia in the setting of sepsis, NOT septic shock, present on admission, and due to acute bibasilar aspiration pneumonia. R/O bacteremia. I inquired as to whether patient should / could receive filgrastim (Neupogen) to augment patient's neutrophil count, and Dr. Sharpe recommended that patient start filgrastim (Neupogen) 480ug SQ daily x 3 days. Hence, I complied with Dr. Sharpe's recommendation and ordered filgrastim (Neupogen) 480ug SQ daily x 3 doses (06/19/2024, 4:15pm), which were subsequently administered on 06/19/2024, 5:18pm; 06/20/2024, 9:06am; and 06/21/2024, 11:10am. cf., repeat WBC 0.15, Hb 8.1, MCV 84.0, MCHC 32.8, platelet 11 (06/20/2024, 8:33am). cf., repeat WBC 0.14, Hb 10.9, MCV 84.0, MCHC 33.5, platelet 26 (06/21/2024, 5:16am). Hb 9.6 (06/21/2024, 12:09pm). cf., repeat WBC 0.21, Hb 8.6, MCV 83.9, MCHC 33.0, platelet 27 (06/22/2024, 5:53am). Patient remains pancytopenic and ANC count is still low at 20/uL after having received filgrastim (Neupogen) 480ug SQ daily x 3 doses, which were subsequently administered on 06/19/2024, 5:18pm; 06/20/2024, 9:06am; and 06/21/2024, 11:10am. Hence, I conferred with patient's Heme-Onc Dr. Hina Sharpe on 06/22/2024, 7:30pm, and Dr. Sharpe advised checking ANC count tomorrow (06/23/2024) and if ANC is not greater than 20/uL, patient can receive filgrastim (Neupogen) 480ug SQ x 1 dose on 06/23/2024 am. Hence, I will check WBC w/differential (including ANC) in the 06/23/2024 am. Patient also reported passage of dark stool on the morning of 06/20/2024, and on 06/21/2024, but NO bowel passage at all on 06/22/2024, in the setting of chronic diarrheal stools (attributed to chronic Crohn's disease); stool GUAIAC was positive (06/20/2024, 12:05pm). Hence, I opted to transfuse 1 unit of packed RBC on 06/20/2024, despite Hb 8.1 g/dL (06/20/2024, 8:33am) given my concern for acute blood loss anemia in the setting of acute thrombocytopenia with platelet 11 (06/20/2024, 8:33am). I also opted to transfuse 1 unit of platelets on 06/20/2024. Patient had a post-transfusion Hb 6.8 g/dL (06/20/2024, 6:43pm). Hence, I opted to transfuse 1 more unit of packed RBC on 06/20/2024, 8:38pm. Patient's Hb level subsequently increased as shown below: cf., Hb 10.9 g/dL (06/21/2024, 5:16am). cf., Hb 9.6 g/dL (06/21/2024, 12:09pm). cf., Hb 8.6 g/dL (06/22/2024, 5:53am). I will check repeat Hb level in the 06/23/2024 am, and reserve packed RBC transfusion for Hb level less than 7 g/dL. Given patient's report of ongoing melena on 06/21/2024, I opted to transfuse 1 u nit of platelets on 06/21/2024 pm, despite platelet count being higher than 10 (e.g., platelet count 26 (06/21/2024, 5:16am). Subsequently, patient's platelet count increased nominally to 27 (06/22/2024, 5:53am). Subsequently, I opted to hold off additional platelet transfusion on 06/22/2024, and I will check repeat platelet count in the 06/23/2024 am, and reserve platelet transfusion for platelet count < 10. In the interim, patient continues to receive protonix 40mg IV q12 (06/20/2024, 8:20pm). Of final note, patient continues to be monitored under neutropenic/contact isolation precautions since 06/18/2024, 9:37pm. 4. Acute hypophosphatemia with post-admission PO4 1.4 mg/dL (06/20/2024, 7:16am) and post-supplement PO4 1.3 mg/dL (06/21/2024, 5:16am). Patient received KPO4 30mmol IV x 1 dose (06/20/2024, 8:54am), and acute hypophosphatemia PERSISTED with post-supplement PO4 1.3 mg/dL (06/21/2024, 5:16am). Hence, I opted to supplement with KPO4 40 mmol IV x 1 dose (06/21/2024, 9:33am), and acute hypophosphatemia PERSISTS with post-supplement PO4 1.6 mg/dL (06/22/2024, 5:53am). Hence, I have opted to supplement with K PO4 40mmol IV x 2 doses (06/22/2024, 10:41am and 7:37pm). I will check repeat PO4 level in the 06/23/2024 am. Of note, etiology of acute hypophosphatemia is most probably due to insensible phosphorus losses in stool in the setting of chronic diarrhea over the past 2 months. 5. Acute hypomagnesemia with admission Mg 1.6 mg/dL (06/18/2024, 7:29pm) and repeat Mg 1.7 mg/dL (06/20/2024, 8:33am) and current Mg 1.4 mg/dL (06/21/2024, 5:16am). Patient received magnesium sulfate 1g IV x 3 doses (06/18/2024, 8:53pm, 11:14pm; 06/19/2024, 1:13am) and acute hypomagnesemia transiently resolved with post- supplement Mg 2.2 mg/dL (06/19/2024, 9:32am), only to recur as shown above. Patient subsequently received magnesium sulfate 1g IV x 4 doses (06/21/2024, 10:33am, 12:58pm, 3:19pm, 4:30pm), and acute hypomagnesemia PERSISTS with low- normal post-supplement Mg 1.8 mg/dL (06/22/2024, 5:53am). Hence, patient received magnesium sulfate 1g IV x 2 doses (06/22/2024, 10:44am, 2:13pm) and I will check repeat Mg level in the 06/23/2024 am. Of note, etiology of acute hypomagnesemia is most probably due to insensible magnesium losses in stool in the setting of chronic diarrhea over the past 2 months. 6. Acute hypocalcemia with post-admission Ca corrected 8.3 mg/dL (06/21/2024, 5:16am). cf., Ca 8.0, albumin 3.1, Ca corrected 8.7 (06/19/2024, 9:32am). cf., Ca 7.7, albumin 2.8, Ca corrected 8.7 (06/20/2024, 8:33am). cf., Ca 7.4, albumin 2.9, Ca corrected 8.3 (06/21/2024, 5:16am). cf., Ca 7.3, albumin 2.9, Ca corrected 8.2 (06/22/2024, 5:53am). Patient received calcium gluconate 1g IV x 2 doses (06/21/2024, 8:30pm), and acute hypocalcemia PERSISTS. Hence, I have ordered calcium gluconate 1g IV x 2 doses (starting on 06/22/2024, 7:30pm) and I will check repeat Ca level in the 06/23/2024 am. Of note, etiology of acute hypocalcemia is most probably due to insensible calcium losses in stool in the setting of chronic diarrhea over the past 2 months. 7. Major depression. Mild. No suicidal ideation. Asymptomatic on home- scheduled escitalopram 10mg PO daily. 8. DVT prophylaxis. HOLD off pharmacologic DVT prophylaxis with heparin 5000 units SQ q12 or lovenox 40mg SQ daily given potential for either/both medications to exacerbate patient's anemia/thrombocytopenia. Of note, patient reports no calf pain or pleurisy to suggest either DVT or PE on 06/19/2024 - 06/22/2024. 9. Pain Management. Patient reports 0/10 pain anywhere in/on the body on 06/19/2024 - 06/22/2024. Continue tylenol 650mg PO q4 prn pain 1-10, headache, or temp > 100.4 degrees Fahrenheit. 10.Disposition. Code status, FULL CODE @ home. ACLS as required. Condition of patient remains tenuous, if not terminal. I anticipate that this patient will remain in [facility] for the next 2-3 midnights, in order to demonstrate clinical improvement in her admitting diagnoses of: 1. Sepsis, NOT septic shock, present on admission, and due to acute bibasilar aspiration pneumonia. 2. Acute hypoxic respiratory failure with O2 sat 88% on 15 liters/minute high flow oxygen (06/18/2024, 7:27pm), due to acute bibasilar aspiration pneumonia. 3. Acute pancytopenia with admission WBC 0.13, Hb 9.5, MCV 84.9, MCHC 32.4, platelet 52 (06/18/2024, 7:29pm) and absolute neutropenia with ANC < 500/microliter (06/18/2024, 7:29pm). To these admitting diagnoses, patient now suffers from: 4. Bacillus cereus-associated bacteremia (as noted on 06/18/2024, 8:12am blood culture #1). 5. Acute blood loss anemia with Hb trending down from 11.1 g/dL (06/19/2024, 9:14am) to 8.1 g/dL (06/20/2024, 8:33am) to 6.8 g/dL (06/20/2024, 6:43pm)(after having received 1 unit of packed RBC transfusion on 06/20/2024), of unclear etiology, but most probably due to acute thrombocytopenia with platelet count trending down from 204 (06/16/2024, 12:50pm) to 52 (06/18/2024, 7:29pm) to 24 (06/19/2024, 9:14am) to 11 (06/20/2024, 8:33am). In turn, I surmise that acute thrombocytopenia is due to chemotherapy utilizing etoposide last Atht-[id number]-[id number] (06/10/2024, 06/11/2024, 06/12/2024 (cycle 1, day #3 on 06/12/2024, etoposide) with Heme-Onc Dr. Hina Sharpe. 6. Acute GI bleed with GUAIAC+ stool (06/20/2024, 12:05pm), of unclear etiology, but most probably due to acute thrombocytopenia, as described in bullet #2 above. Of note, I do not suspect bacterial diarrhea, even with the finding of Bacillus cereus-associated bacteremia (as noted on 06/18/2024, 8:12am blood culture #1), and even despite patient's recollection of eating [employer] while in [facility] last week, as foodborne illness involving Bacillus cereus (and Staphylococcus) is very rapid, on the order of 4-6 hours for Bacillus cereus (and 2-3 hours for Staphylococcus-associated food poisoning), and is typically characterized by nausea and vomiting and abdominal cramps/pains (which this patient emphatically denies), and less commonly by diarrhea. Moreover, patient reports that she has had chronic diarrheal stools for several years, and which is due to her chronic Crohn's disease. Of final note, patient will ultimately be discharged back to her home and will follow up with he PCP Dr. Carly Vang and her Heme-Onc Dr. Hina Sharpe, both within 5-7 days of hospital discharge. Admission and Anticipated Discharge Date Admission Date: June 18, 2024 Subjective "I am breathing ok, but last night I coughed up a tiny amount of blood twice. I am not wheezing at all. No pain when I breathe in or out. I feel weak. I have not had any bowel movement since I saw you yesterday (06/21/2024). I don't have energy today. I feel weak." Review of Systems Constitutional: Patient reports scant hemoptysis x 2 episodes on 06/21/2024 evening and generalized weakness on 06/22/2024. Patient reports no bowel movement at all since 06/21/2024 afternoon. cf., melena on 06/20/2024 and on 06/21/2024 am. Patient denies antecedent/coincident fevers, chills, diaphoresis, wheeze, sore throat, shortness of breath, chest pains, palpitations, pleurisy, nausea, vomiting, diarrhea, abdominal pain, pelvic pain, hematemesis, hematochezia, hematuria, dysuria, frequency, urgency, headaches, dizziness, lightheadedness, visual changes, hearing changes, syncope, falls, trauma, travel history, sick contacts, or food/drug ingestions novel or new. All other review of systems are reported as negative by the patient on 06/22/2024. Physical Exam Constitutional: General: Comfortable, coherent, and cooperative. Wide awake and alert. Not confused, lethargic, or obtunded. Patient speaks in complete, fluent, and articulate sentences without pause, interruption, cough, or wheeze with O2 sat 90% on 6 liters/minute O2 via nasal cannula (06/22/2024, 3:45pm). HEENT: Normocephalic, atraumatic. No nystagmus, gaze paresis, anisocoria, miosis, mydriasis, hyphema, scleral injection, conjunctivitis, or pterygium. No otorrhea or rhinorrhea. No pharyngeal erythema, edema, or discharge. Neck: Supple, no stridor, bruit, goiter, or hepato-jugular reflux. Jugular venous pressure is estimated to be 3 cm above the sternal angle of César, which in turn, is 5 cm above the level of the right atrium; with jugular venous pressure estimated to be 8 cm, then, there is no jugular venous distention on 06/22/2024. Lymphatics: No cervical (anterior/posterior), supraclavicular, infraclavicular, axillary, epitrochlear, or inguinal adenopathy. Chest: Symmetric rise and fall with respirations. Non-tender to palpation. Lungs: Clear to auscultation and percussion. Heart: Regular rate and rhythm. S1 and S2 noted. No S3 or S4 summation gallop. No tripartite friction rub. Grade II/ early systolic murmur @ LLSB without radiation to the carotids, axilla, or back, and which remains invariant in regards to the respiratory cycle. Abdomen: Soft, non-tender, non-distended. No rebound, guarding, Perry's sign, or organomegaly. Bowel sounds auscultated in all 4 quadrants. GUAIAC+ stool (06/20/2024, 12:05pm). Extremities: No clubbing, cyanosis. 2+ pitting pedal edema with extension to the bilateral mid-shins, sparing the bilateral upper shins, knees, hips, thighs, abdomen, unchanged from 06/20/2024 exam. Bilateral intermittent compression devices on both lower extremities on 06/21/2024 and on 06/22/2024. 2+ pedal pulses bilaterally. Skin: No decubitus ulcer, exanthem, or enanthem. Genito-urinary: No urethral discharge. No roblero catheter. Purewick in situ with 500 cc of clear, francisco-colored urine on 06/22/2024. Of note, patient reports that her purewick canister was emptied 3 times overnight (06/20/2024) by nursing staff after receiving lasix 80mg IV x 1 dose (06/19/2024, 5:18pm). Neurology: Alert and oriented in regards to person, place, time, and situation. DTR+ and symmetric. 5/5 motor strength in all 4 extremities, both proximally and distally. No pronator drift. No facial droop. No dysarthria. Psychiatry: No homicidal ideation. No suicidal ideation. No flat affect; smiles appropriately Results & Data Results & Data Vital Signs (Past 12 Hours) Vital Signs Temp Pulse Pulse Resp BP Pulse Ox O2 Del Method 06/22/24 15:45 36.6 C 111 H 19 142/88 H 90 Nasal Cannula 06/22/24 11:12 36.7 C 97 H 19 143/83 H 96 Room Air 06/22/24 11:00 High Flow Nasal Cannula 06/22/24 07:36 110 H 06/22/24 07:29 36.8 C 111 H 19 152/93 H 97 Nasal Cannula 06/22/24 07:15 106 H 18 97 Nasal Cannula O2 Flow Rate 06/22/24 15:45 6 06/22/24 11:12 06/22/24 11:00 6 06/22/24 07:36 06/22/24 07:29 4 06/22/24 07:15 6 Laboratory Results WBC 2.36, no differential, Hb 8.4, MCV 87.5, MCHC 31.5, platelet 204 (06/16/2024, 12:50pm). WBC 0.13, N < 500/uL, Hb 9.5, MCV 84.9, MCHC 32.4, platelet 52 (06/18/2024, 7:29pm). WBC 0.24, no differential, Hb 11.1, MCV 85.5, MCHC 32.0, platelet 24 (06/19/2024, 9:14am). WBC 0.15, N < 500/uL, Hb 8.1, MCV 84.0, MCHC 32.8, platelet 11 (06/20/2024, 8:33am). Hb 6.8 (06/20/2024, 6:43pm). WBC 0.14, N < 500/uL, Hb 10.9, MCV 84.0, MCHC 33.5, platelet 26 (06/21/2024, 5:16am). Hb 9.6 (06/21/2024, 12:09pm). WBC 0.21, N 20/uL, Hb 8.6, MCV 83.9, MCHC 33.0, platelet 27 (06/22/2024 , 5:53am). Lactic acid #1 1.1 mmol/L (06/18/2024, 8:24pm). Lactic acid #2 1.8 mmol/L (06/19/2024, 9:14am). Lactic acid #3 1.0 mmol/L (06/20/2024, 8:33am). Lactic acid #4 1.2 mmol/L (06/21/2024, 5:16am). Lactic acid #5 1.5 mmol/L (06/21/2024, 11:23pm) Lactic acid #6 1.2 mmol/L (06/22/2024, 9:29am). Procalcitonin #1 3.52 ng/mL (06/18/2024, 7:29pm). Procalcitonin #2 4.78 ng/mL (06/19/2024, 9:14am). Procalcitonin #3 3.90 ng/mL (06/20/2024, 8:33am). Procalcitonin #4 3.09 ng/mL (06/21/2024, 5:16am). Procalcitonin #5 1.92 ng/mL (06/22/2024, 9:29am). Blood culture #1 (06/18/2024, 8:12pm): Bacillus cereus Blood culture #2 (06/18/2024, 8:24pm): Blood culture #3 (06/20/2024, 8:37pm): Blood culture #4 (06/20/2024, 8:37pm): MRSA nares screen negative (06/18/2024, 11:25pm; 06/19/2024, 9:45am). BIOFIRE respiratory panel negative (06/19/2024, 9:45am). U/A (06/18/2024, 11:25am): LE-, nitrite- PO4 1.4 mg/dL (06/20/2024, 7:16am). PO4 1.3 mg/dL (06/21/2024, 5:16am). PO4 1.6 mg/dL (06/22/2024, 5:53am) Mg 1.6 mg/dL (06/18/2024, 7:29pm). Mg 2.2 mg/dL (06/19/2024, 9:32am). Mg 1.7 mg/dL (06/20/2024, 8:33am). Mg 1.4 mg/dL (06/21/2024, 5:16am). Mg 1.8 mg/dL (06/22/2024, 5:53am). BUN 25, creatinine 0.68, Ca 8.0, albumin 3.1, Ca corrected 8.7 (06/19/2024, 9 :32am). BUN 28, creatinine 0.60, Ca 7.7, albumin 2.8, Ca corrected 8.7 (06/20/2024, 8:33am). BUN 25, creatinine 0.57, Ca 7.4, albumin 2.9, Ca corrected 8.3 (06/21/2024, 5:1 6am). BUN 15, creatinine 0.42, Ca 7.3, albumin 2.9, Ca corrected 8.2 (06/22/2024, 5:53am). AST 68, ALT 37, ALK PHOS 463, TBili 3.4 (06/18/2024, 7:29pm). AST 53, ALT 36, ALK PHOS 404, TBili 3.0 (06/19/2024, 9:32am). AST 38, ALT 29, ALK PHOS 286, TBili 2.9 (06/20/2024, 8:33am). AST 37, ALT 30, ALK PHOS 313, TBili 6.1 (06/21/2024, 5:16am). GUAIAC+ stool (06/20/2024, 12:05pm). Diagnostic Findings Portable CXR (06/19/2024, 12:29am): Inhomogeneous opacification in both lungs as mentioned above, with obscuration of the left costophrenic angle, left hemidiaphragm, right cardiac border and partial obscuration of the left cardiac border. Findings are raising the concern for consolidations, due to aspiration/infection or edema. Obscuration of left costophrenic angle, raising the possibility of pleural effusion. Ultrasound may be obtained for further evaluation In comparison to the prior examination, there is relatively more visualization of the left cardiac border in current examination, relatively less opacification in left lower zone and regression of left sided pleural effusion. Interval regression of right-sided pleural effusion. Rest of the findings in left lung are stable. However there is mild progression of opacification in right lung. PG Care Time/CCT Total # of Minutes Spent Total Time Spent with Patient: Total time spent is greater than 50% in coordination of care (as documented) at patient's floor/unit and/or counseling patient: Coding Level of Care Code 28085 SUB INP/OBS CARE 3/50MIN Diagnoses Sepsis A41.9 Acute hypoxemic respiratory failure J96.01 Pneumonia J18.9 Neutropenia D70.9 Cancer of liver C22.9 Liver malignancy type: unspecified liver malignancy (5) Cancer of liver Liver malignancy type: unspecified liver malignancy Qualified Code(s): C22.9 - Malignant neoplasm of liver, not specified as primary or secondary
[2024-06-23 05:32] LABS: Albumin Level 2.5 gm/dl (3.4-5.0); BUN Creatinine Ratio 27.8 (10-20); Bilirubin,Total 3.2 mg/dl (0.2-1.0); Calcium 7.5 mg/dl (8.6-10.3); Creatinine Clr Calc Pharmacy 161.4 ml/min; Globulin 2.4 gm/dl (2.5-4.0); Magnesium 1.7 mg/dl (1.7-2.4); Phosphorus 2.7 mg/dl (2.5-4.9); Potassium 4.8 mmol/L (3.5-5.1); Total Protein 4.9 gm/dl (6.0-8.3)
[2024-06-23 05:55] LABS: Hematocrit (blood only) 25.7 % (37.0-47.0); Hemoglobin 8.5 g/dl (12.0-16.0); Mean Corpuscular Hemoglobin 27.9 pg (25.0-34.0); Mean Corpuscular Hgb Conc 33.1 g/dL (32.0-36.0); Mean Corpuscular Volume 84.3 fL (80.0-100.0); Mean Platelet Volume 11.1 fL (9.4-12.4); Platelet Count 38 K/uL (130-400); RDW Coefficient of Variation 17.2 % (11.5-14.5); RDW Standard Deviation 53.1 fL (36.4-46.3); Red Blood Count 3.05 M/uL (4.20-5.40); White Blood Count 0.65 K/ul (4.8-10.8)
[2024-06-23 06:48] LABS: ALC (manual) 0.29 K/uL (1.2-3.4); ANC (manual) 0.04 K/uL (1.4-6.5); Basophils # (manual) 0.01 K/uL (0-0.2); Basophils % (manual) 2 %; Blast # (manual) 0.03 K/uL (0-0); Blast Cells % (manual) 4 %; Lymphocytes # (manual) 0.29 K/uL (1.2-3.4); Lymphocytes % (manual) 44 %; Monocytes # (manual) 0.29 K/uL (0.11-0.59); Monocytes % (manual) 44 %; Neutrophils # (manual) 0.04 K/uL (1.40-6.50); Neutrophils % (manual) 6 %; Polychromasia 1+; Tear Drop Cells 1+
--- NOTE | 2024-06-23 10:58 | Consultation ---
Date of Consultation June 23, 2024 Assessment & Plan (1) Cancer of liver: Pt will require consistent IV access for chemo tx, and temporarily for IV abx. She is a difficult venous access. Discussed pt with Dr Frye. He suggests medical team contact director chemistry for central line access until she is more medically stable. Due to severe neutropenia and increased risk of infection, would recommend she have a corbett catheter placement instead of infusaport in OR on SUNDAY, once her plt count is above 40 and if blood cultures remain negative. Can consider for infusaport placement in future if she is no longer severely neutropenic. Will plan for corbett catheter insertion on SUNDAY. 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 Pt recently dx and started chemotherapy approx 2 weeks ago. Pt severely neutropenic, thrombocytopenic, and anemic, and had single blood culture positive on 06/18, subsequent cultures neg. Pt admits severe fatigue/malaise. States breathing is better since admission. Denies HARRELL, fever, chest pain, SOB at rest, abd pain, N/V, rest pain, claudication, other complaints. Allergies Allergy/AdvReac Type Severity Reaction Status Date / Time Penicillins Allergy Intermediate HIVES Verified 06/18/24 20:21 Home Medications Medication Instructions Recorded Confirmed Type escitalopram oxalate 10 mg tablet 10 mg PO DAILY #90 tabs 02/14/24 06/18/24 Rx potassium chloride 20 mEq 20 meq PO DAILY #30 tabs 05/23/24 06/18/24 Rx tablet,extended release cyanocobalamin (vitamin B-12) 1,000 mcg PO DAILY 06/09/24 06/18/24 History 1,000 mcg tablet (Vitamin B-12) allopurinol 100 mg tablet 150 mg (1.5 x 100 mg) PO DAILY 4 06/14/24 06/18/24 Rx weeks #42 tabs calcium carbonate 500 mg (2.5 x 200 mg calcium (500 05/10/25 05/14/25 Rx mg)) PO TID 30 days #225 tabs cholecalciferol (vitamin D3) 10 10 mcg PO QAM 1 month #30 tabs 06/14/24 06/18/24 Rx mcg (400 unit) tablet (Vitamin D3) ondansetron 4 mg disintegrating 4 mg PO Q4H PRN nausea and 06/14/24 06/18/24 Rx tablet vomiting 5 days #20 tabs sodium bicarbonate 650 mg tablet 650 mg PO BID 1 month #60 tabs 06/14/24 06/18/24 Rx cephalexin 500 mg capsule 500 mg PO QID 06/18/24 06/18/24 History lorazepam 0.5 mg tablet 0.5 mg PO TID PRN Anxiety 06/18/24 06/18/24 History Patient History Medical History Metabolic acidosis Acute UTI (urinary tract infection) Leukocytosis Sepsis RISSA (acute kidney injury) Liver masses SBO (small bowel obstruction) Surgical History S/P Mohs surgery for basal cell carcinoma (03/2024) R berrios H/O breast biopsy S/P endometrial ablation Hx of oral surgery Family History Grandmother Colorectal cancer Uncle Colorectal cancer Mother Myocardial infarction, Onset Age: 66 Father Hypertension Diabetes Denies family history of Ovarian cancer Prostate cancer Breast cancer Social History Smoking Status: Never smoker Second Hand Exposure: Yes; Do You Dip or Chew Tobacco: No; Hx Alcohol Use: No Hx Substance Use: No Preferred Language: Chinese Communication Ability: Effective Visual Impairment: No Limitations Hearing Ability: Normal Neurology Nurse Required: No Beliefs That Will Affect Care: None marital status: Current Living Situation: Spouse and Family Current Living Situation Comment: Lives w/ current occupational status: 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 Feels Safe at Home: Yes Childhood Exposure to Second-Hand Smoke: Yes Diet: regular Diet Comment: Regular caffeine: Yes during the past year weight has: remained stable Dental Care, Regularly: Yes Physical Activity Frequency: 3-4 Times per Week Seatbelt Use: always Sunscreen Use: Yes Assistive Devices: None Review of Systems Review of Systems: All systems reviewed & are unremarkable except as noted in HPI & below Physical Exam Constitutional: WD/WN, vitals as above cooperative and comfortable; not in distress Respiratory: normal respiratory effort, lungs clear to auscultation Auscultation: + diminished lung sounds Cardiovascular: Rate/Rhythm: + tachycardic Vessels: posterior tibial pulses present, dorsalis pedis pulses present and radial pulses present; + abnormal peripheral pulses Extremities: normal capillary refill Gastrointestinal (Abdomen): Inspection/Auscultation: abdomen normal to inspection and normal bowel sounds Percussion/Palpation: abdomen soft; abdomen nontender Musculoskeletal: no cyanosis or clubbing, extremities motor strength 5/5 Skin: no rashes, warm and dry + ecchymosis (from IV's) Neurologic: moves all extremities and awake; no focal motor deficits and not confused Psychiatric: Orientation: alert and oriented x 3 Affect: + flat affect Results & Data Vital Signs (Past 12 Hours) Vital Signs Temp Pulse Pulse Resp BP Pulse Ox O2 Del Method 06/23/24 09:55 Nasal Cannula 06/23/24 09:54 108 H 06/23/24 07:34 36.6 C 104 H 18 143/79 H 95 Nasal Cannula 06/23/24 02:39 36.5 C 110 H 16 146/86 H 96 Nasal Cannula 06/22/24 23:40 103 H 06/22/24 22:45 36.4 C L 116 H 22 145/84 H 94 Nasal Cannula O2 Flow Rate 06/23/24 09:55 6 06/23/24 09:54 06/23/24 07:34 4 06/23/24 02:39 6 06/22/24 23:40 06/22/24 22:45 6
--- NOTE | 2024-06-23 14:53 | Pharmacy Report ---
Pharmacy PK ABX Note - Date of Service June 23, 2024 - Assessment and Plan Assessment 06/23/24: * Vanc level obtained this morning, indicating that current regimen is appropriate. * No change in vanc dosing. 06/20/24: * 59 year old F receiving empiric vancomycin and meropenem for treatment of sepsis presumed secondary to aspiration pneumonia. 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 Pertinent microbiologic data includes: negative MRSA nasal swab, blood culture growing Bacillus cereus. Per hospitalist note, plan is to treat as true infection. * Renal function stable, procalcitonin elevated. * Neupogen 480 mcg daily x 3 doses ordered. * Day # 4 of antimicrobial therapy. Plan Vancomycin * Random level this am: 19.8 mcg/mL * Predicted AUC at steady state: 479 mg/L.hr * Continue current regimen: 1000 mg IV every 12 hours * Repeat random level ordered for: 06/23/24 Meropenem * 500 mg IV q6h - appropriately dosed for indication/renal function Pharmacy will continue to follow and will adjust dose/frequency as necessary. Thank you. Pharmacy has transitioned to AUC monitoring for vancomycin. AUC/JOSUE is the prefe rred PK/PD target and is associated with decreased risk of nephrotoxicity compared to traditional trough targets.
--- NOTE | 2024-06-23 17:48 | Hospitalist Progress Note ---
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 Patient was subsequently admitted to the inpatient hospitalist service @ [facility] on 06/18/2024 with the following diagnoses: 1. Sepsis, NOT septic shock, present on admission, and due to acute bibasilar aspiration pneumonia. 2. Acute hypoxic respiratory failure with O2 sat 88% on 15 liters/minute high flow oxygen (06/18/2024, 7:27pm), due to acute bibasilar aspiration pneumonia. 3. Acute pancytopenia with admission WBC 0.13, Hb 9.5, MCV 84.9, MCHC 32.4, platelet 52 (06/18/2024, 7:29pm) and absolute neutropenia with ANC < 5 00/microliter (06/18/2024, 7:29pm). The following medical issues are being addressed: 1. Sepsis, NOT septic shock, present on admission, and due to acute bibasilar aspiration pneumonia. R/O bacteremia. Patient remains afebrile with mild shortness of breath on 6 liters/minute high flow oxygen (06/21/2024, 7:31am and 7:54pm; 06/22/2024, 3:45pm) with patient pancytopenic on admission date 06/18/2024 and still pancytopenic on 06/22/2024, s/p filgrastim (Neupogen) 480ug SQ daily x 3 doses (06/19/2024, 5:18pm; 06/20/2024, 9:06am; 06/21/2024, 11:10am), and the following blood test results: Lactic acid #1 1.1 mmol/L (06/18/2024, 8:24pm). Lactic acid #2 1.8 mmol/L (06/19/2024, 9:14am). Lactic acid #3 1.0 mmol/L (06/20/2024, 8:33am). Lactic acid #4 1.2 mmol/L (06/21/2024, 5:16am). Lactic acid #5 1.5 mmol/L (06/21/2024, 11:23pm) Lactic acid #6 1.2 mmol/L (06/22/2024, 9:29am). Lactic acid #7 0.9 mmol/L (06/23/2024, 4:51am). Procalcitonin #1 3.52 ng/mL (06/18/2024, 7:29pm). Procalcitonin #2 4.78 ng/mL (06/19/2024, 9:14am). Procalcitonin #3 3.90 ng/mL (06/20/2024, 8:33am). Procalcitonin #4 3.09 ng/mL (06/21/2024, 5:16am). Procalcitonin #5 1.92 ng/mL (06/22/2024, 9:29am). Procalcitonin #6 1.25 ng/mL (06/23/2024, 4:51am). Blood culture #1 (06/18/2024, 8:12pm): Bacillus cereus Blood culture #2 (06/18/2024, 8:24pm): Blood culture #3 (06/20/2024, 8:37pm): Blood culture #4 (06/20/2024, 8:37pm): MRSA nares screen negative (06/18/2024, 11:25pm; 06/19/2024, 9:45am). BIOFIRE respiratory panel negative (06/19/2024, 9:45am). Patient received cefepime 2g IV x 2 doses (06/18/2024, 8:33pm; 06/19/2024, 5:14am) and vancomycin 2g IV x 1 dose (06/18/2024, 9:37pm). In terms of aspiration pneumonia, gram positive anaerobes and gram negative anaerobes must be considered and neither cefepime nor vancomycin has anaerobic activity. Zosyn has anaerobic activity, but patient is allergic to penicillin (causing hives), and hence, I discontinued cefepime 2g IV q8 and started patient on meropenem 500mg IV q6 (day #1/5 on 06/19/2024, 5:19pm) to provide gram positive/negative anaerobic coverage. In addition, I opted to continue vancomycin 1.25g IV q12 (day #1/5 on 06/19/2024, 6:28pm) despite patient testing negative for MRSA nares screen twice (06/18/2024, 11:25pm; 06/19/2024, 9:45am) as I was concerned and remain concerned given the probability of Bacillus cereus-associated bacteremia (as noted on 06/18/2024, 8:12pm blood culture #1), recognizing that most gram positive rods are corynebacteriae/diphtheroids, which are commensal organisms and not pathologic ones. One exception is Bacillus species, which can be highly pathogenic/virulent, and which are treated with vancomycin. I await blood culture #2 (06/19/2024, 9:14am), blood culture #3 (06/20/2024, 8:37pm), and blood culture #4 (06/20/2024, 8:37pm) testing, along with repeat WBC w/diff, lactic acid, and procalcitonin level testing in the 06/23/2024 am. 2. Acute hypoxic respiratory failure with O2 sat 88% on 15 liters/minute high flow oxygen (06/18/2024, 7:27pm), due to acute bibasilar aspiration pneumonia. Patient reported mild shortness of breath on 06/19/2024; patient also appeared to be more concerned with the 2+ pitting pedal edema with extension to the bilateral mid-shins, sparing the bilateral upper shins, knees, hips, and thighs on 06/19/2024, than her shortness of breath. Patient subsequently reported significant improvement in her shortness of breath on 06/20/2024 and again on 06/21/2024, and which may be due to dual antibiotic therapy utilizing meropenem 500mg IV q6 (day #1/5 on 06/19/2024, 5:19pm) and vancomycin 1.25g IV q12 (day #1/5 on 06/19/2024, 6:28pm). Patient subsequently has been transitioned down from 8 liters/minute high flow oxygen (06/19/2024, 3:51pm) to 5 liters/minute O2 via nasal cannula (06/20/2024, 10:11am), and back up to 6 liters/minute O2 via nasal cannula (06/21/2024, 7:31am and 7:54pm)(06/22/2024, 11:00am and 3:45pm). To address patient's concerns with her 2+ pitting pedal edema with extension to the bilateral mid-shins, sparing the bilateral upper shins, knees, hips, and thighs on 06/19/2024, patient had already received lasix 40mg IV x 2 doses (06/18/2024, 8:53pm; 06/19/2024, 1:54am) in [facility] ER. Patient expressed at least 800 cc of clear, francisco-colored urine via purewick on 06/19/2024. Subsequently, I ordered lasix 80mg IV x 1 dose (06/19/2024, 5:18pm), and patient expressed more than 3 liters of urine overnight. Patient reports that the swelling in her feet and shins has subsided considerably overnight, and hence, I have opted to hold off further lasix administration on 06/20/2024. I will continue to monitor daily intake/output, off further lasix administration since 06/19/2024, 5:18pm, in this patient with no prior history of CHF. 3. Acute pancytopenia with admission WBC 0.13, Hb 9.5, MCV 84.9, MCHC 32.4, platelet 52 (06/18/2024, 7:29pm) and absolute neutropenia with ANC < 500/microliter (06/18/2024, 7:29pm). cf., repeat WBC 0.24, Hb 11.1, MCV 85.5, MCHC 32.0, platelet 24 (06/19/2024, 9:14am). Given persistence of absolute neutropenia on 06/19/2024, I texted patient's Heme-Onc Dr. Hina Sharpe on 06/19/2024, 3:25pm, and informed Dr. Sharpe of patient's pancytopenia in the setting of sepsis, NOT septic shock, present on admission, and due to acute bibasilar aspiration pneumonia. R/O bacteremia. I inquired as to whether patient should / could receive filgrastim (Neupogen) to augment patient's neutrophil count, and Dr. Sharpe recommended that patient start filgrastim (Neupogen) 480ug SQ daily x 3 days. Hence, I complied with Dr. Sharpe's recommendation and ordered filgrastim (Neupogen) 480ug SQ daily x 3 doses (06/19/2024, 4:15pm), which were subsequently administered on 06/19/2024, 5:18pm; 06/20/2024, 9:06am; and 06/21/2024, 11:10am. cf., repeat WBC 0.15, Hb 8.1, MCV 84.0, MCHC 32.8, platelet 11 (06/20/2024, 8:33am). cf., repeat WBC 0.14, Hb 10.9, MCV 84.0, MCHC 33.5, platelet 26 (06/21/2024, 5:16am). Hb 9.6 (06/21/2024, 12:09pm). cf., repeat WBC 0.21, Hb 8.6, MCV 83.9, MCHC 33.0, platelet 27 (06/22/2024, 5:53am). cf., repeat WBC 0.65, Hb 8.5, MCV 84.3, MCHC 33.1, platelet 38 (06/23/2024, 4:51am). Patient remains pancytopenic and ANC count is still low at 20/uL after having received filgrastim (Neupogen) 480ug SQ daily x 3 doses, which were subsequently administered on 06/19/2024, 5:18pm; 06/20/2024, 9:06am; and 06/21/2024, 11:10am. Hence, I conferred with patient's Heme-Onc Dr. Hina Sharpe on 06/22/2024, 7:30pm, and Dr. Sharpe advised checking ANC count on 06/23/2024 and if ANC was not greater than 20/uL, patient could receive filgrastim (Neupogen) 480ug SQ x 1 dose on 06/23/2024 am. Subsequently, patient's platelet count appears to be increasing on a daily basis, and hence, no further filgrastim (Neupogen) administration is indicated as of 06/23/2024. Hence, I will check WBC w/differential (including ANC) in the 06/24/2024 am. Patient also reported passage of dark stool on the morning of 06/20/2024, and on 06/21/2024, but NO bowel passage at all on 06/22/2024 or on 06/23/2024, in the setting of chronic diarrheal stools (attributed to chronic Crohn's disease); stool GUAIAC was positive (06/20/2024, 12:05pm). Hence, I opted to transfuse 1 unit of packed RBC on 06/20/2024, despite Hb 8.1 g/dL (06/20/2024, 8:33am) given my concern for acute blood loss anemia in the setting of acute thrombocytopenia with platelet 11 (06/20/2024, 8:33am). I also opted to transfuse 1 unit of platelets on 06/20/2024. Patient had a post-transfusion Hb 6.8 g/dL (06/20/2024, 6:43pm). Hence, I opted to transfuse 1 more unit of packed RBC on 06/20/2024, 8:38pm. Patient's Hb level subsequently increased, before decreasing, as shown below: cf., Hb 10.9 g/dL (06/21/2024, 5:16am). cf., Hb 9.6 g/dL (06/21/2024, 12:09pm). cf., Hb 8.6 g/dL (06/22/2024, 5:53am). cf., Hb 8.5 g/dL (06/23/2024, 4:51am). I will check repeat Hb level in the 06/24/2024 am, and reserve packed RBC transfusion for Hb level less than 7 g/dL. Given patient's report of ongoing melena on 06/21/2024, I opted to transfuse 1 unit of platelets on 06/21/2024 pm, despite platelet count being higher than 10 (e.g., platelet count 26 (06/21/2024, 5:16am). Subsequently, patient's platelet count increased nominally to 27 (06/22/2024, 5:53am). Subsequently, I opted to hold off additional platelet transfusion on 06/22/2024 and on 06/23/2024, and instead, I will check repeat platelet count in the 06/24/2024 am, and reserve platelet transfusion for platelet count < 10. In the interim, patient continues to receive protonix 40mg IV q12 (06/20/2024, 8:20pm). Of final note, patient continues to be monitored under neutropenic/contact isolation precautions since 06/18/2024, 9:37pm. 4. Acute hypophosphatemia with post-admission PO4 1.4 mg/dL (06/20/2024, 7:16am) and post-supplement PO4 1.3 mg/dL (06/21/2024, 5:16am). Patient received KPO4 30mmol IV x 1 dose (06/20/2024, 8:54am), and acute hypophosphatemia PERSISTED with post-supplement PO4 1.3 mg/dL (06/21/2024, 5:16am). Hence, I opted to supplement with KPO4 40 mmol IV x 1 dose (06/21/2024, 9:33am), and acute hypophosphatemia PERSISTED with post-supplement PO4 1.6 mg/dL (06/22/2024, 5:53am). Hence, I opted to supplement with KPO4 40mmol IV x 2 doses (06/22/2024, 10:41am and 7:37pm) and acute hypophosphatemia RESOLVED with post-supplement PO4 2.7 mg/dL (06/23/2024, 4:51am). I will check repeat PO4 level in the 06/24/2024 am. Of note, etiology of acute hypophosphatemia is most probably due to insensible phosphorus losses in stool in the setting of chronic diarrhea over the past 2 months. 5. Acute hypomagnesemia with admission Mg 1.6 mg/dL (06/18/2024, 7:29pm) and repeat Mg 1.7 mg/dL (06/20/2024, 8:33am) and current Mg 1.7mg/dL (06/23/2024, 4:51am). Patient received magnesium sulfate 1g IV x 3 doses (06/18/2024, 8:53pm, 11:14pm; 06/19/2024, 1:13am) and acute hypomagnesemia transiently resolved with post- supplement Mg 2.2 mg/dL (06/19/2024, 9:32am), only to recur as shown above. Patient subsequently received magnesium sulfate 1g IV x 4 doses (06/21/2024, 10:33am, 12:58pm, 3:19pm, 4:30pm), and acute hypomagnesemia PERSISTED with low- normal post-supplement Mg 1.8 mg/dL (06/22/2024, 5:53am). Hence, patient received magnesium sulfate 1g IV x 2 doses (06/22/2024, 10:44am, 2:13pm) and acute hypomagnesemia PERSISTS with low-normal post-supplement Mg 1.7 mg/dL (06/23/2024, 4:51am). Hence, I have opted to supplement with magnesium sulfate 1g IV x 3 doses (06/23/2024, 8:42am, 11:00am, 12:54pm). I will check repeat Mg level in the 06/24/2024 am. Of note, etiology of acute hypomagnesemia is most probably due to insensible magnesium losses in stool in the setting of chronic diarrhea over the past 2 months. 6. Acute hypocalcemia with post-admission Ca corrected 8.3 mg/dL (06/21/2024, 5:16am). cf., Ca 8.0, albumin 3.1, Ca corrected 8.7 (06/19/2024, 9:32am). cf., Ca 7.7, albumin 2.8, Ca corrected 8.7 (06/20/2024, 8:33am). cf., Ca 7.4, albumin 2.9, Ca corrected 8.3 (06/21/2024, 5:16am). cf., Ca 7.3, albumin 2.9, Ca corrected 8.2 (06/22/2024, 5:53am). cf., Ca 7.5, albumin 2.5, Ca corrected 8.7 (06/23/2024, 4:51am). Patient received calcium gluconate 1g IV x 2 doses (06/21/2024, 8:30pm), and acute hypocalcemia PERSISTED. Hence, I ordered calcium gluconate 1g IV x 2 doses (starting on 06/22/2024, 7:30pm) and acute hypocalcemia has RESOLVED with post-supplement Ca corrected 8.7 mg/dL (06/23/2024, 4:51am). I will check repeat Ca level in the 06/24/2024 am. Of note, etiology of acute hypocalcemia is most probably due to insensible calcium losses in stool in the setting of chronic diarrhea over the past 2 months. 7. Major depression. Mild. No suicidal ideation. Asymptomatic on home- scheduled escitalopram 10mg PO daily. 8. DVT prophylaxis. HOLD off pharmacologic DVT prophylaxis with heparin 5000 units SQ q12 or lovenox 40mg SQ daily given potential for either/both medicatio ns to exacerbate patient's anemia/thrombocytopenia. Of note, patient reports no calf pain or pleurisy to suggest either DVT or PE on 06/19/2024 - 06/23/2024. 9. Pain Management. Patient reports 0/10 pain anywhere in/on the body on 06/19/2024 - 06/23/2024. Continue tylenol 650mg PO q4 prn pain 1-10, headache, or temp > 100.4 degrees Fahrenheit. 10.Disposition. Code status, FULL CODE @ home. ACLS as required. Condition of patient remains tenuous, if not terminal. I anticipate that this patient will remain in [facility] for the next 1-2 midnights, in order to demonstrate clinical improvement in her admitting diagnoses of: 1. Sepsis, NOT septic shock, present on admission, and due to acute bibasilar aspiration pneumonia. 2. Acute hypoxic respiratory failure with O2 sat 88% on 15 liters/minute high flow oxygen (06/18/2024, 7:27pm), due to acute bibasilar aspiration pneumonia. 3. Acute pancytopenia with admission WBC 0.13, Hb 9.5, MCV 84.9, MCHC 32.4, platelet 52 (06/18/2024, 7:29pm) and absolute neutropenia with ANC < 500/microliter (06/18/2024, 7:29pm). To these admitting diagnoses, patient now suffers from: 4. Bacillus cereus-associated bacteremia (as noted on 06/18/2024, 8:12am blood culture #1). 5. Acute blood loss anemia with Hb trending down from 11.1 g/dL (06/19/2024, 9:14am) to 8.1 g/dL (06/20/2024, 8:33am) to 6.8 g/dL (06/20/2024, 6:43pm)(after having received 1 unit of packed RBC transfusion on 06/20/2024), of unclear etiology, but most probably due to acute thrombocytopenia with platelet count trending down from 204 (06/16/2024, 12:50pm) to 52 (06/18/2024, 7:29pm) to 24 (06/19/2024, 9:14am) to 11 (06/20/2024, 8:33am). In turn, I surmise that acute thrombocytopenia is due to chemotherapy utilizing etoposide last Vgip-Woj-Euuiapzu (06/10/2024, 06/11/2024, 06/12/2024 (cycle 1, day #3 on 06/12/2024, etoposide) with Heme-Onc Dr. Hina Sharpe. 6. Acute GI bleed with GUAIAC+ stool (06/20/2024, 12:05pm), of unclear etiology, but most probably due to acute thrombocytopenia, as described in bullet #2 above. Of note, I do not suspect bacterial diarrhea, even with the finding of Bacillus cereus-associated bacteremia (as noted on 06/18/2024, 8:12am blood culture #1), and even despite patient's recollection of eating [employer] while in [facility] last week, as foodborne illness involving Bacillus cereus (and Staphylococcus) is very rapid, on the order of 4-6 hours for Bacillus cereus (and 2-3 hours for Staphylococcus-associated food poisoning), and is typically characterized by nausea and vomiting and abdominal cramps/pains (which this patient emphatically denies), and less commonly by diarrhea. Moreover, patient reports that she has had chronic diarrheal stools for several years, and which is due to her chronic Crohn's disease. Of final note, patient will ultimately be discharged back to her home and will follow up with he PCP Dr. Carly Vang and her Heme-Onc Dr. Hina Sharpe, both within 5-7 days of hospital discharge. Admission and Anticipated Discharge Date Admission Date: June 18, 2024 Subjective "I am breathing fine today. No more coughing at all since yesterday. I am not having diarrhea at all since I saw you yesterday morning (06/22/2024). I still feel a little weak, but it's better than yesterday (06/22/2024)." Review of Systems Constitutional: Patient reports mild weakness (generalized) on 06/23/2024. Patient reports no bowel movement at all since 06/21/2024 afternoon. cf., melena on 06/20/2024 and on 06/21/2024 am. Patient denies antecedent/coincident fevers, chills, diaphoresis, wheeze, sore throat, shortness of breath, chest pains, palpitations, pleurisy, nausea, vomiting, diarrhea, abdominal pain, pelvic pain, hematemesis, hematochezia, hematuria, dysuria, frequency, urgency, headaches, dizziness, lightheadedness, visual changes, hearing changes, syncope, falls, trauma, travel history, sick contacts, or food/drug ingestions novel or new. All other review of systems are reported as negative by the patient on 06/23/2024. Physical Exam Constitutional: General: Comfortable, coherent, and cooperative. Wide awake and alert. Not confused, lethargic, or obtunded. Patient speaks in complete, fluent, and articulate sentences without pause, interruption, cough, or wheeze with O2 sat 94% on 4 liters/minute O2 via nasal cannula (06/14/2024, 3:49pm). HEENT: Normocephalic, atraumatic. No nystagmus, gaze paresis, anisocoria, miosis, mydriasis, hyphema, scleral injection, conjunctivitis, or pterygium. No otorrhea or rhinorrhea. No pharyngeal erythema, edema, or discharge. Neck: Supple, no stridor, bruit, goiter, or hepato-jugular reflux. Jugular venous pressure is estimated to be 3 cm above the sternal angle of César, which in turn, is 5 cm above the level of the right atrium; with jugular venous pressure estimated to be 8 cm, then, there is no jugular venous distention on 06/23/2024. Lymphatics: No cervical (anterior/posterior), supraclavicular, infraclavicular, axillary, epitrochlear, or inguinal adenopathy. Chest: Symmetric rise and fall with respirations. Non-tender to palpation. Lungs: Clear to auscultation and percussion. Heart: Regular rate and rhythm. S1 and S2 noted. No S3 or S4 summation gallop. No tripartite friction rub. Grade II/ early systolic murmur @ LLSB without radiation to the carotids, axilla, or back, and which remains invariant in regards to the respiratory cycle. Abdomen: Soft, non-tender, non-distended. No rebound, guarding, Perry's sign, or organomegaly. Bowel sounds auscultated in all 4 quadrants. GUAIAC+ stool (06/20/2024, 12:05pm). Extremities: No clubbing, cyanosis. 2+ pitting pedal edema with extension to the bilateral mid-shins, sparing the bilateral upper shins, knees, hips, thighs, abdomen, unchanged from 06/20/2024 exam. Bilateral intermittent compression devices on both lower extremities on 06/21/2024 - 06/23/2024. 2+ pedal pulses bilaterally. Skin: No decubitus ulcer, exanthem, or enanthem. Genito-urinary: No urethral discharge. No roblero catheter. Purewick in situ with 500 cc of clear, francisco-colored urine on 06/23/2024. Of note, patient reports that her purewick canister was emptied 3 times overnight (06/20/2024) by nursing staff after receiving lasix 80mg IV x 1 dose (06/19/2024, 5:18pm). Neurology: Alert and oriented in regards to person, place, time, and situation. DTR+ and symmetric. 5/5 motor strength in all 4 extremities, both proximally and distally. No pronator drift. No facial droop. No dysarthria. Psychiatry: No homicidal ideation. No suicidal ideation. No flat affect; smiles appropriately Results & Data Results & Data Vital Signs (Past 12 Hours) Vital Signs Temp Pulse Pulse Resp BP Pulse Ox O2 Del Method 06/23/24 15:49 114 H 06/23/24 15:03 37.0 C 118 H 20 152/84 H 94 Nasal Cannula 06/23/24 11:53 36.7 C 109 H 18 129/81 97 Nasal Cannula 06/23/24 09:55 Nasal Cannula 06/23/24 09:54 108 H 06/23/24 07:34 36.6 C 104 H 18 143/79 H 95 Nasal Cannula O2 Flow Rate 06/23/24 15:49 06/23/24 15:03 4 06/23/24 11:53 4 06/23/24 09:55 6 06/23/24 09:54 06/23/24 07:34 4 Laboratory Results WBC 2.36, no differential, Hb 8.4, MCV 87.5, MCHC 31.5, platelet 204 (0 06/16/2024, 12:50pm). WBC 0.13, N < 500/uL, Hb 9.5, MCV 84.9, MCHC 32.4, platelet 52 (06/18/2024, 7:29pm). WBC 0.24, no differential, Hb 11.1, MCV 85.5, MCHC 32.0, platelet 24 (06/19/2024, 9:14am). WBC 0.15, N < 500/uL, Hb 8.1, MCV 84.0, MCHC 32.8, platelet 11 (06/20/2024, 8:33am). Hb 6.8 (06/20/2024, 6:43pm). WBC 0.14, N < 500/uL, Hb 10.9, MCV 84.0, MCHC 33.5, platelet 26 (06/21/2024, 5:16am). Hb 9.6 (06/21/2024, 12:09pm). WBC 0.21, N 20/uL, Hb 8.6, MCV 83.9, MCHC 33.0, platelet 27 (06/22/2024, 5:53am). WBC 0.65, N 40/uL, Hb 8.5, MCV 84.3, MCHC 33.1, platelet 38 (06/23/2024, 4:51am). Lactic acid #1 1.1 mmol/L (06/18/2024, 8:24pm). Lactic acid #2 1.8 mmol/L (06/19/2024, 9:14am). Lactic acid #3 1.0 mmol/L (06/20/2024, 8:33am). Lactic acid #4 1.2 mmol/L (06/21/2024, 5:16am). Lactic acid #5 1.5 mmol/L (06/21/2024, 11:23pm) Lactic acid #6 1.2 mmol/L (06/22/2024, 9:29am). Lactic acid #7 0.9 mmol/L (06/23/2024, 4:51am). Procalcitonin #1 3.52 ng/mL (06/18/2024, 7:29pm). Procalcitonin #2 4.78 ng/mL (06/19/2024, 9:14am). Procalcitonin #3 3.90 ng/mL (06/20/2024, 8:33am). Procalcitonin #4 3.09 ng/mL (06/21/2024, 5:16am). Procalcitonin #5 1.92 ng/mL (06/22/2024, 9:29am). Procalcitonin #6 1.25 ng/mL (06/23/2024, 4:51am). Blood culture #1 (06/18/2024, 8:12pm): Bacillus cereus Blood culture #2 (06/18/2024, 8:24pm): Blood culture #3 (06/20/2024, 8:37pm): Blood culture #4 (06/20/2024, 8:37pm): MRSA nares screen negative (06/18/2024, 11:25pm; 06/19/2024, 9:45am). BIOFIRE respiratory panel negative (06/19/2024, 9:45am). U/A (06/18/2024, 11:25am): LE-, nitrite- PO4 1.4 mg/dL (06/20/2024, 7:16am). PO4 1.3 mg/dL (06/21/2024, 5:16am). PO4 1.6 mg/dL (06/22/2024, 5:53am). PO4 2.7 mg/dL (06/23/2024, 4:51am). Mg 1.6 mg/dL (06/18/2024, 7:29pm). Mg 2.2 mg/dL (06/19/2024, 9:32am). Mg 1.7 mg/dL (06/20/2024, 8:33am). Mg 1.4 mg/dL (06/21/2024, 5:16am). Mg 1.8 mg/dL (06/22/2024, 5:53am). Mg 1.7 mg/dL (06/23/2024, 4:51am). BUN 25, creatinine 0.68, Ca 8.0, albumin 3.1, Ca corrected 8.7 (06/19/2024, 9:32am). BUN 28, creatinine 0.60, Ca 7.7, albumin 2.8, Ca corrected 8.7 (06/20/2024, 8:33am). BUN 25, creatinine 0.57, Ca 7.4, albumin 2.9, Ca corrected 8.3 (06/21/2024, 5:16am). BUN 15, creatinine 0.42, Ca 7.3, albumin 2.9, Ca corrected 8.2 (06/22/2024, 5:53am). BUN 10, creatinine 0.36, Ca 7.5, albumin 2.5, Ca corrected 8.7 (06/23/2024, 4:51am). AST 68, ALT 37, ALK PHOS 463, TBili 3.4 (06/18/2024, 7:29pm). AST 53, ALT 36, ALK PHOS 404, TBili 3.0 (06/19/2024, 9:32am). AST 38, ALT 29, ALK PHOS 286, TBili 2.9 (06/20/2024, 8:33am). AST 37, ALT 30, ALK PHOS 313, TBili 6.1 (06/21/2024, 5:16am). AST 32, ALT 27, ALK PHOS 291, TBili 3.2 (06/23/2024, 4:51am). GUAIAC+ stool (06/20/2024, 12:05pm). Diagnostic Findings ortable CXR (06/19/2024, 12:29am): Inhomogeneous opacification in both lungs as mentioned above, with obscuration of the left costophrenic angle, left hemidiaphragm, right cardiac border and partial obscuration of the left cardiac border. Findings are raising the concern for consolidations, due to aspiration/infection or edema. Obscuration of left costophrenic angle, raising the possibility of pleural effusion. Ultrasound may be obtained for further evaluation In comparison to the prior examination, there is relatively more visualization of the left cardiac border in current examination, relatively less opacification in left lower zone and regression of left sided pleural effusion. Interval regression of right-sided pleural effusion. Rest of the findings in left lung are stable. However there is mild progression of opacification in right lung. PG Care Time/CCT Total # of Minutes Spent Total Time Spent with Patient: Total time spent is greater than 50% in coordination of care (as documented) at patient's floor/unit and/or counseling patient: Coding Level of Care Code 58894 SUB INP/OBS CARE 3/50MIN Diagnoses Sepsis A41.9 Acute hypoxemic respiratory failure J96.01 Pneumonia J18.9 Neutropenia D70.9 Cancer of liver C22.9 Liver malignancy type: unspecified liver malignancy (5) Cancer of liver Liver malignancy type: unspecified liver malignancy Qualified Code(s): C22.9 - Malignant neoplasm of liver, not specified as primary or secondary
[2024-06-24 06:26] LABS: BUN Creatinine Ratio 15.2 (10-20); Calcium 7.5 mg/dl (8.6-10.3); Creatinine Clr Calc Pharmacy 126.3 ml/min; Magnesium 1.8 mg/dl (1.7-2.4); Potassium 4.5 mmol/L (3.5-5.1)
[2024-06-24 06:57] LABS: Hematocrit (blood only) 26.3 % (37.0-47.0); Hemoglobin 8.5 g/dl (12.0-16.0); Mean Corpuscular Hemoglobin 27.6 pg (25.0-34.0); Mean Corpuscular Hgb Conc 32.3 g/dL (32.0-36.0); Mean Corpuscular Volume 85.4 fL (80.0-100.0); Platelet Count 84 K/uL (130-400); RDW Coefficient of Variation 17.3 % (11.5-14.5); RDW Standard Deviation 54.5 fL (36.4-46.3); Red Blood Count 3.08 M/uL (4.20-5.40); White Blood Count 2.91 K/ul (4.8-10.8)
[2024-06-24 07:37] LABS: ALC (manual) 0.73 K/uL (1.2-3.4); ANC (manual) 0.81 K/uL (1.4-6.5); Blast # (manual) 0.38 K/uL (0-0); Blast Cells % (manual) 13 %; Dohle Bodies 2+; Large Granular Lymph # (manua 0.47 K/uL; Large Granular Lymph % (manual) 16 %; Lymphocytes # (manual) 0.26 K/uL (1.2-3.4); Lymphocytes % (manual) 9 %; Metamyelocytes # (manual) 0.12 K/uL (0-0); Metamyelocytes % (manual) 4 %; Monocytes # (manual) 0.64 K/uL (0.11-0.59); Monocytes % (manual) 22 %; Myelocytes # (manual) 0.09 K/uL (0-0); Myelocytes % (manual) 3 %; Neutrophils # (manual) 0.81 K/uL (1.40-6.50); Neutrophils % (manual) 28 %; Promyelocytes # (manual) 0.15 K/uL (0-0); Promyelocytes % (manual) 5 %; Toxic Granulation 1+
--- NOTE | 2024-06-24 11:45 | Communication Note ---
Date of Service: June 24, 2024 Labs improved today, planning on placement of venous access on sunday. Woods catheter vs infusaport decision will be made pending labs later this week. Both procedures discussed with pt today, she is agreeable to either.
--- NOTE | 2024-06-24 18:21 | Hospitalist Progress Note ---
Date of Service June 24, 2024 Assessment & Plan (1) Sepsis: (2) Acute hypoxemic respiratory failure: (3) Pneumonia: (4) Neutropenia: (5) Cancer of liver: Plan 59 years old female with PMH of FULL CODE @ home, overweight with BMI 25.5 (height 167.64 cm; weight 71.6 kg), major depression on escitalopram 10mg PO daily, Crohn's disease with chronic watery, non-bloody, non-oily, painless diarrhea (without nausea/vomiting) for the past 2-3 months, chronic normocytic, normochromic anemia with baseline Hb range, 9.7 - 10.3 g/dL (05/24/2022 - 05/27/2024), consistent with anemia of chronic disease (cf., low serum Fe 10 ug/dL, low TIBC 162 ug/dL, high ferritin 1424.6 ng/mL (06/09/2024, 11:38am), s/p venofer IV infusion in the past, 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 Patient was subsequently admitted to the inpatient hospitalist service @ [facility] on 06/18/2024 with the following diagnoses: 1. Sepsis, NOT septic shock, present on admission, and due to acute bibasilar aspiration pneumonia. 2. Acute hypoxic respiratory failure with O2 sat 88% on 15 liters/minute high flow oxygen (06/18/2024, 7:27pm), due to acute bibasilar aspiration pneumonia. 3. Acute pancytopenia with admission WBC 0.13, Hb 9.5, MCV 84.9, MCHC 32.4, platelet 52 (06/18/2024, 7:29pm) and absolute neutropenia with ANC < 500/microliter (06/18/2024, 7:29pm). The following medical issues are being addressed: 1. Sepsis, NOT septic shock, present on admission, and due to acute bibasilar aspiration pneumonia. R/O bacteremia. Patient remains afebrile with mild shortness of breath on 6 liters/minute high flow oxygen (06/21/2024, 7:31am and 7:54pm; 06/22/2024, 3:45pm) with patient pancytopenic on admission date 06/18/2024 and still pancytopenic on 06/22/2024, s/p filgrastim (Neupogen) 480ug SQ daily x 3 doses (06/19/2024, 5:18pm; 06/20/2024, 9:06am; 06/21/2024, 11:10am), and the following blood test results: Lactic acid #1 1.1 mmol/L (06/18/2024, 8:24pm). Lactic acid #2 1.8 mmol/L (06/19/2024, 9:14am). Lactic acid #3 1.0 mmol/L (06/20/2024, 8:33am). Lactic acid #4 1.2 mmol/L (06/21/2024, 5:16am). Lactic acid #5 1.5 mmol/L (06/21/2024, 11:23pm) Lactic acid #6 1.2 mmol/L (06/22/2024, 9:29am). Lactic acid #7 0.9 mmol/L (06/23/2024, 4:51am). Lactic acid #8 0.8 mmol/L (06/24/2024, 5:38am). Procalcitonin #1 3.52 ng/mL (06/18/2024, 7:29pm). Procalcitonin #2 4.78 ng/mL (06/19/2024, 9:14am). Procalcitonin #3 3.90 ng/mL (06/20/2024, 8:33am). Procalcitonin #4 3.09 ng/mL (06/21/2024, 5:16am). Procalcitonin #5 1.92 ng/mL (06/22/2024, 9:29am). Procalcitonin #6 1.25 ng/mL (06/23/2024, 4:51am). Procalcitonin #7 0.90 ng/mL (06/24/2024, 5:32am). Blood culture #1 (06/18/2024, 8:12pm): Bacillus cereus Blood culture #2 (06/18/2024, 8:24pm): Blood culture #3 (06/20/2024, 8:37pm): Blood culture #4 (06/20/2024, 8:37pm): MRSA nares screen negative (06/18/2024, 11:25pm; 06/19/2024, 9:45am). BIOFIRE respiratory panel negative (06/19/2024, 9:45am). Patient received cefepime 2g IV x 2 doses (06/18/2024, 8:33pm; 06/19/2024, 5:14am) and vancomycin 2g IV x 1 dose (06/18/2024, 9:37pm). In terms of aspiration pneumonia, gram positive anaerobes and gram negative anaerobes must be considered and neither cefepime nor vancomycin has anaerobic activity in vivo . Zosyn has anaerobic activity, but patient is allergic to penicillin (causing hives), and hence, I discontinued cefepime 2g IV q8 and started patient on meropenem 500mg IV q6 (day #1 on 06/19/2024, 5:19pm) to provide gram positive/negative anaerobic coverage. In addition, I opted to continue vancomycin 1.25g IV q12 (day #1 on 06/19/2024, 6:28pm) despite patient testing negative for MRSA nares screen twice (06/18/2024, 11:25pm; 06/19/2024, 9:45am) as I was concerned and remain concerned given the probability of Bacillus cereus -associated bacteremia (as noted on 06/18/2024, 8:12pm blood culture #1), recognizing that most gram positive rods are corynebacteriae/diphtheroids, which are commensal organisms and not pathologic ones. One exception is Bacillus species, which can be highly pathogenic/virulent, and which are treated with vancomycin. I await blood culture #2 (06/19/2024, 9:14am), blood culture #3 (06/20/2024, 8:37pm), and blood culture #4 (06/20/2024, 8:37pm) testing, along with repeat WBC w/diff, lactic acid, and procalcitonin level testing in the 06/25/2024 am. 2. Acute hypoxic respiratory failure with O2 sat 88% on 15 liters/minute high flow oxygen (06/18/2024, 7:27pm), due to acute bibasilar aspiration pneumonia. PERSISTENT with O2 sat 87% on 2 liters/minute (06/24/2024, 7:44am) while ambulating in hallway. Patient first reported mild shortness of breath on 06/19/2024; patient also appeared to be more concerned with the 2+ pitting pedal edema with extension to the bilateral mid-shins, sparing the bilateral upper shins, knees, hips, and thighs on 06/19/2024, than her shortness of breath. Patient subsequently reported significant improvement in her shortness of breath on 06/20/2024 and again on 06/21/2024, and which may have been due to dual antibiotic therapy utilizing meropenem 500mg IV q6 (day #1/5 on 06/19/2024, 5:19pm) and vancomycin 1.25g IV q12 (day #1/5 on 06/19/2024, 6:28pm). Patient subsequently has been transitioned down from 8 liters/minute high flow oxygen (06/19/2024, 3:51pm) to 5 liters/minute O2 via nasal cannula (06/20/2024, 10:11am), then back up to 6 liters/minute O2 via nasal cannula (06/21/2024, 7:31am and 7:54pm)(06/22/2024, 11:00am and 3:45pm), then down to 4 liters/minute O2 via nasal cannula (06/23/2024, 7:34am), now down to 2 liters/minute O2 via nasal cannula (06/24/2024, 7:44am). Of note, patient does not normally utilize oxygen at home, hence, I gave to Case Management a hand-written prescription for 2 liters/minute O2 via nasal cannula on 06/24/2024 with anticipation that patient will need oxygen on hospital discharge home on Sunday (06/27/2024) after patient undergoes PORT placement with Vascular Surgery Service of Dr. Mane Frye to continue outpatient etoposide chemotherapy with her Heme-Onc Dr. Hina Sharpe, as well as to continue vancomycin 1mg IV q12 and meropenem 500mg IV q6 at patient's home, as patient does not want to have a PICC or midline. To address patient's concerns with her 2+ pitting pedal edema with extension to the bilateral mid-shins, sparing the bilateral upper shins, knees, hips, and thighs on 06/19/2024, patient had already received lasix 40mg IV x 2 doses (06/18/2024, 8:53pm; 06/19/2024, 1:54am) in [facility] ER. Patient expressed at least 800 cc of clear, francisco-colored urine via purewick on 06/19/2024. Subsequently, I ordered lasix 80mg IV x 1 dose (06/19/2024, 5:18pm), and patient expressed more than 3 liters of urine overnight. Patient reported that the swelling in her feet and shins subsided considerably overnight, and hence, I opted to hold off further lasix administration on 06/20/2024. Patient subsequently reports that the swelling in her feet and shins has returned over the past 2-3 days, and hence, I ordered lasix 80mg IV x 1 dose (06/24/2024, 4:13pm). I will continue to monitor daily intake/output in this patient with no prior history of CHF. 3. Acute pancytopenia with admission WBC 0.13, Hb 9.5, MCV 84.9, MCHC 32.4, platelet 52 (06/18/2024, 7:29pm) and absolute neutropenia with ANC < 500/microliter (06/18/2024, 7:29pm). cf., repeat WBC 0.24, Hb 11.1, MCV 85.5, MCHC 32.0, platelet 24 (06/19/2024, 9:14am). Given persistence of absolute neutropenia on 06/19/2024, I texted patient's Heme-Onc Dr. Hina Sharpe on 06/19/2024, 3:25pm, and informed Dr. Sharpe of patient's pancytopenia in the setting of sepsis, NOT septic shock, present on admission, and due to acute bibasilar aspiration pneumonia. R/O bacteremia. I inquired as to whether patient should / could receive filgrastim (Neupogen) to augment patient's neutrophil count, and Dr. Sharpe recommended that patient start filgrastim (Neupogen) 480ug SQ daily x 3 days. Hence, I complied with Dr. Sharpe's recommendation and ordered filgrastim (Neupogen) 480ug SQ daily x 3 doses (06/19/2024, 4:15pm), which were subsequently administered on 06/19/2024, 5:18pm; 06/20/2024, 9:06am; and 06/21/2024, 11:10am. cf., repeat WBC 0.15, Hb 8.1, MCV 84.0, MCHC 32.8, platelet 11 (06/20/2024, 8:33am). cf., repeat WBC 0.14, Hb 10.9, MCV 84.0, MCHC 33.5, platelet 26 (06/21/2024, 5:16am). Hb 9.6 (06/21/2024, 12:09pm). cf., repeat WBC 0.21, Hb 8.6, MCV 83.9, MCHC 33.0, platelet 27 (06/22/2024, 5:53am). cf., repeat WBC 0.65, Hb 8.5, MCV 84.3, MCHC 33.1, platelet 38 (06/23/2024, 4:51am). cf., repeat WBC 2.91, Hb 8.5, MCV 85.4, MCHC 32.3, platelet 84 (06/24/2024, 5:32am). Patient remains pancytopenic and ANC count is still low at 20/uL after having received filgrastim (Neupogen) 480ug SQ daily x 3 doses, which were subsequently administered on 06/19/2024, 5:18pm; 06/20/2024, 9:06am; and 06/21/2024, 11:10am. Hence, I conferred with patient's Heme-Onc Dr. Hina Sharpe on 06/22/2024, 7:30pm, and Dr. Sharpe advised checking ANC count on 06/23/2024 and if ANC was not greater than 20/uL, patient could receive filgrastim (Neupogen) 480ug SQ x 1 dose on 06/23/2024 am. Subsequently, patient's WBC is increasing on a daily basis, and hence, no further filgrastim (Neupogen) administration is indicated. Subsequently, I will check patient's WBC w/differential (including ANC) in the 06/25/2024 am. On a separate note, patient also reported passage of dark stool on the morning of 06/20/2024, and on 06/21/2024, but NO bowel passage at all on 06/22/2024 am/pm, or on 06/23/2024m, in the setting of chronic diarrheal stools (attributed to chronic Crohn's disease); stool GUAIAC was positive (06/20/2024, 12:05pm). Hence, I opted to transfuse 1 unit of packed RBC on 06/20/2024, 9:35am, despite Hb 8.1 g/dL (06/20/2024, 8:33am) given my concern for acute blood loss anemia in the setting of acute thrombocytopenia with platelet 11 (06/20/2024, 8:33am). I also opted to transfuse 1 unit of platelets on 06/20/2024 for platelet count 11. Patient had a post-transfusion Hb 6.8 g/dL (06/20/2024, 6:43pm). Hence, I opted to transfuse 1 more unit of packed RBC on 06/20/2024, 8:38pm. Patient's Hb level subsequently increased, before decreasing, as shown below: cf., Hb 10.9 g/dL (06/21/2024, 5:16am). cf., Hb 9.6 g/dL (06/21/2024, 12:09pm). cf., Hb 8.6 g/dL (06/22/2024, 5:53am). cf., Hb 8.5 g/dL (06/23/2024, 4:51am). cf., Hb 8.5 g/dL (06/24/2024, 5:32am). I will check repeat Hb level in the 06/25/2024 am, and reserve packed RBC transfusion for Hb level less than 7 g/dL. On a separate note, given patient's report of ongoing melena on 06/21/2024, I opted to transfuse 1 unit of platelets on 06/21/2024 pm, despite platelet count being higher than 10 (e.g., platelet count 26 (06/21/2024, 5:16am). Subsequently, patient's platelet count increased from 27 (06/22/2024, 5:53am) to 38 (06/23/2024, 4:51am) to 84 (06/24/2024, 5:32am). Subsequently, I opted to hold off additional platelet transfusion on 06/22/2024 - 06/24/2024, and instead, I will check repeat platelet count in the 06/25/2024 am, and reserve platelet transfusion for platelet count < 10. In the interim, patient continues to receive protonix 40mg IV q12 (06/20/2024, 8:20pm). Of final note, patient continues to be monitored under neutropenic/contact isolation precautions since 06/18/2024, 9:37pm, as patient's ANC remains < 1000 (cf., ANC 810, 06/24/2024, 8:32am) as of 06/24/2024. 4. Acute hypophosphatemia with post-admission PO4 1.4 mg/dL (06/20/2024, 7:16am) and post-supplement PO4 1.3 mg/dL (06/21/2024, 5:16am). Patient received KPO4 30mmol IV x 1 dose (06/20/2024, 8:54am), and acute hypophosphatemia PERSISTED with post-supplement PO4 1.3 mg/dL (06/21/2024, 5:16am). Hence, I opted to supplement with KPO4 40 mmol IV x 1 dose (06/21/2024, 9:33am), and acute hypophosphatemia PERSISTED with post-supplement PO4 1.6 mg/dL (06/22/2024, 5:53am). Hence, I opted to supplement with KPO4 40mmol IV x 2 doses (06/22/2024, 10:41am and 7:37pm) and acute hypophosphatemia RESOLVED with post-supplement PO4 2.7 mg/dL (06/23/2024, 4:51am), only to RECUR with PO4 1.0 mg/dL (06/24/2024, 5:32am). Hence, I opted to supplement with KPO4 40mmol/ IV x 2 doses (06/24/2024, 9:02am, 6:54pm). I will check repeat PO4 level in the 06/25/2024 am. Of note, etiology of acute hypophosphatemia is most probably due to insensible phosphorus losses in stool in the setting of chronic diarrhea (due to Crohn's disease) over the past 2 months. 5. Acute hypomagnesemia with admission Mg 1.6 mg/dL (06/18/2024, 7:29pm) and repeat Mg 1.7 mg/dL (06/20/2024, 8:33am) and current Mg 1.8mg/dL (06/24/2024, 5:32am). Patient received magnesium sulfate 1g IV x 3 doses (06/18/2024, 8:53pm, 11:14pm; 06/19/2024, 1:13am) and acute hypomagnesemia transiently resolved with post- supplement Mg 2.2 mg/dL (06/19/2024, 9:32am), only to recur as shown above. Patient subsequently received magnesium sulfate 1g IV x 4 doses (06/21/2024, 10:33am, 12:58pm, 3:19pm, 4:30pm), and acute hypomagnesemia PERSISTED with low- normal post-supplement Mg 1.8 mg/dL (06/22/2024, 5:53am). Hence, patient received magnesium sulfate 1g IV x 2 doses (06/22/2024, 10:44am, 2:13pm) and acute hypomagnesemia PERSISTS with low-normal post-supplement Mg 1.7 mg/dL (06/23/2024, 4:51am). Hence, I have opted to supplement with magnesium sulfate 1g IV x 3 doses (06/23/2024, 8:42am, 11:00am, 12:54pm) and acute hypomagnesemia RESOLVED with post-supplement Mg 1.8 mg/dL (06/25/2051, 5:32am). I will check repeat Mg level in the 06/25/2024 am. Of note, etiology of acute hypomagnesemia is most probably due to insensible magnesium losses in stool in the setting of chronic diarrhea (due to Crohn's disease) over the past 2 months. 6. Acute hypocalcemia with post-admission Ca corrected 8.3 mg/dL (06/21/2024, 5:16am). cf., Ca 8.0, albumin 3.1, Ca corrected 8.7 (06/19/2024, 9:32am). cf., Ca 7.7, albumin 2.8, Ca corrected 8.7 (06/20/2024, 8:33am). cf., Ca 7.4, albumin 2.9, Ca corrected 8.3 (06/21/2024, 5:16am). cf., Ca 7.3, albumin 2.9, Ca corrected 8.2 (06/22/2024, 5:53am). cf., Ca 7.5, albumin 2.5, Ca corrected 8.7 (06/23/2024, 4:51am). cf., Ca 7.5, albumin 2.5, Ca corrected 8.7 (06/24/2024, 5:32am). Patient received calcium gluconate 1g IV x 2 doses (06/21/2024, 8:30pm), and acute hypocalcemia PERSISTED. Hence, I ordered calcium gluconate 1g IV x 2 doses (starting on 06/22/2024, 7:30pm) and acute hypocalcemia has RESOLVED with post-supplement Ca corrected 8.7 mg/dL (06/23/2024, 4:51am)(06/24/2024, 5:32am). I will check repeat Ca level in the 06/25/2024 am. Of note, etiology of acute hypocalcemia is most probably due to insensible calcium losses in stool in the setting of chronic diarrhea (due to Crohn's disease) over the past 2 months. 7. Major depression. Mild. No suicidal ideation. Asymptomatic on home- scheduled escitalopram 10mg PO daily. 8. Insomnia disorder in [facility]. Start lorazepam 1mg PO qhs (06/24/2024, 9:00pm) as requested by patient. 9. DVT prophylaxis. HOLD off pharmacologic DVT prophylaxis with heparin 5000 units SQ q12 or lovenox 40mg SQ daily given potential for either/both medications to exacerbate patient's anemia/thrombocytopenia. Of note, patient reports no calf pain or pleurisy to suggest either DVT or PE on 06/19/2024 - 06/24/2024. 10.Pain Management. Patient reports 0/10 pain anywhere in/on the body on 06/19/2024 - 06/24/2024. Continue tylenol 650mg PO q4 prn pain 1-10, headache, or temp > 100.4 degrees Fahrenheit. 11.Disposition. Code status, FULL CODE @ home. ACLS as required. Condition of patient remains tenuous, if not terminal. I anticipate that this patient will remain in [facility] for the next 1-2 midnights, in order to demonstrate clinical improvement in her admitting diagnoses of: 1. Sepsis, NOT septic shock, present on admission, and due to acute bibasilar aspiration pneumonia. 2. Acute hypoxic respiratory failure with O2 sat 88% on 15 liters/minute high flow oxygen (06/18/2024, 7:27pm), due to acute bibasilar aspiration pneumonia. 3. Acute pancytopenia with admission WBC 0.13, Hb 9.5, MCV 84.9, MCHC 32.4, platelet 52 (06/18/2024, 7:29pm) and absolute neutropenia with ANC < 500/microliter (06/18/2024, 7:29pm). To these admitting diagnoses, patient now suffers from: 4. Bacillus cereus-associated bacteremia (as noted on 06/18/2024, 8:12am blood culture #1). 5. Acute blood loss anemia with Hb trending down from 11.1 g/dL (06/19/2024, 9:14am) to 8.1 g/dL (06/20/2024, 8:33am) to 6.8 g/dL (06/20/2024, 6:43pm)(after having received 1 unit of packed RBC transfusion on 06/20/2024), of unclear etiology, but most probably due to acute thrombocytopenia with platelet count trending down from 204 (06/16/2024, 12:50pm) to 52 (06/18/2024, 7:29pm) to 24 (06/19/2024, 9:14am) to 11 (06/20/2024, 8:33am). In turn, I surmise that acute thrombocytopenia is due to chemotherapy utilizing etoposide last [id number] (06/10/2024, 06/11/2024, 06/12/2024 (cycle 1, day #3 on 06/12/2024, etoposide) with Heme-Onc Dr. Hina Sharpe. 6. Acute GI bleed with GUAIAC+ stool (06/20/2024, 12:05pm), of unclear etiology, but most probably due to acute thrombocytopenia, as described in bullet #2 above. Of note, I do not suspect bacterial diarrhea, even with the finding of Bacillus cereus-associated bacteremia (as noted on 06/18/2024, 8:12am blood culture #1), and even despite patient's recollection of eating [employer] while in [facility] last week, as foodborne illness involving Bacillus cereus (and Staphylococcus) is very rapid, on the order of 4-6 hours for Bacillus cereus (and 2-3 hours for Staphylococcus-associated food poisoning), and is typically characterized by nausea and vomiting and abdominal cramps/pains (which this patient emphatically denies), and less commonly by diayoselyn coppola. Moreover, patient reports that she has had chronic diarrheal stools for several years, and which is due to her chronic Crohn's disease. Of final note, patient will ultimately be discharged back to her home on Sunday (06/27/2024) after patient undergoes PORT placement with Vascular Surgery Service of Dr. Mane Frye to continue outpatient etoposide chemotherapy with her Heme-Onc Dr. Hina Sharpe, as well as to continue vancomycin 1mg IV q12 and meropenem 500mg IV q6 at patient's home, as patient does not want to have a PICC or midline. Patient will also need supplemental oxygen (currently utilizing 2 liters/minute via nasal cannula with ambulatory O2 sat 87% on 2 liters/minute on 06/24/2024, 7:44am) with Rx for supplemental O2 already given to Case Management Service on 06/24/2024, on hospital discharge home on Sunday (06/27/2024). Patient will also follow up with he PCP Dr. Carly Vang and her Heme-Onc Dr. Hina Sharpe, both within 5-7 days of hospital discharge. Admission and Anticipated Discharge Date Admission Date: June 18, 2024 Subjective "I am breathing fine today. No more coughing at all since yesterday. I am not having diarrhea at all since I saw you yesterday morning (06/22/2024). I still feel a little weak, but it's better than yesterday (06/22/2024)." Review of Systems Constitutional: Patient reports mild weakness (generalized) on 06/23/2024 and on 06/24/2024. Patient also reported shortness of breath while walking in the hallway on 06/24/2024 am with nursing staff, and had an ambulatory O2 saturation of 87% (06/24/2024, 7:44am) without coughing/wheezing. Of note, patient does not utilize oxygen at home at all. Patient reports regular, small volume bowel movement on 06/23/2024 and on 06/24/2024. cf., melena on 06/20/2024 and on 06/21/2024 am. Patient denies antecedent/coincident fevers, chills, diaphoresis, cough, wheeze, sore throat, hemoptysis, chest pains, palpitations, pleurisy, nausea, vomiting, diarrhea, abdominal pain, pelvic pain, hematemesis, hematochezia, hematuria, dysuria, frequency, urgency, headaches, dizziness, lightheadedness, visual changes, hearing changes, syncope, falls, trauma, travel history, sick contacts, or food/drug ingestions novel or new. All other review of systems are reported as negative by the patient on 06/24/2024. Physical Exam Constitutional: General: Comfortable, coherent, and cooperative. Wide awake and alert. Not confused, lethargic, or obtunded. Patient speaks in complete, fluent, and articulate sentences without pause, interruption, cough, or wheeze with O2 sat 91% on 2 liters/minute O2 via nasal cannula (06/24/2024, 3:46pm). HEENT: Normocephalic, atraumatic. No nystagmus, gaze paresis, anisocoria, miosis, mydriasis, hyphema, scleral injection, conjunctivitis, or pterygium. No otorrhea or rhinorrhea. No pharyngeal erythema, edema, or discharge. Neck: Supple, no stridor, bruit, goiter, or hepato-jugular reflux. Jugular venous pressure is estimated to be 3 cm above the sternal angle of César, which in turn, is 5 cm above the level of the right atrium; with jugular venous pressure estimated to be 8 cm, then, there is no jugular venous distention on 06/24/2024. Lymphatics: No cervical (anterior/posterior), supraclavicular, infraclavicular, axillary, epitrochlear, or inguinal adenopathy. Chest: Symmetric rise and fall with respirations. Non-tender to palpation. Lungs: Clear to auscultation and percussion. Heart: Regular rate and rhythm. S1 and S2 noted. No S3 or S4 summation gallop. No tripartite friction rub. Grade II/ early systolic murmur @ LLSB without radiation to the carotids, axilla, or back, and which remains invariant in regards to the respiratory cycle. Abdomen: Soft, non-tender, non-distended. No rebound, guarding, Perry's sign, or organomegaly. Bowel sounds auscultated in all 4 quadrants. GUAIAC+ stool (06/20/2024, 12:05pm). Extremities: No clubbing, cyanosis. 2+ pitting pedal edema with extension to the bilateral mid-shins, sparing the bilateral upper shins, knees, hips, thighs, abdomen, unchanged on 06/24/2024 from 06/20/2024 exam. Bilateral intermittent compression devices on both lower extremities on 06/21/2024 - 06/24/2024. 2+ pedal pulses bilaterally. Skin: No decubitus ulcer, exanthem, or enanthem. Genito-urinary: No urethral discharge. No roblero catheter. Purewick in situ with 600 cc of clear, francisco-colored urine on 06/24/2024. Of note, patient reports that her purewick canister was emptied 3 times (06/20/2024 overnight) by nursing staff after receiving lasix 80mg IV x 1 dose (06/19/2024, 5:18pm). Patient received lasix 80mg IV x 1 dose (06/24/2024, 4:13pm) to address her 2+ pitting pedal edema on 06/24/2024. Neurology: Alert and oriented in regards to person, place, time, and situation. DTR+ and symmetric. 5/5 motor strength in all 4 extremities, both proximally and distally. No pronator drift. No facial droop. No dysarthria. Psychiatry: No homicidal ideation. No suicidal ideation. No flat affect; smiles appropriately Results & Data Results & Data Vital Signs (Past 12 Hours) Vital Signs Temp Pulse Pulse Pulse Pulse Pulse Pulse 06/24/24 15:46 36.4 C L 120 H 06/24/24 10:57 36.7 C 117 H 06/24/24 10:04 06/24/24 07:44 117 H 113 H 118 H 119 H 06/24/24 07:27 116 H 06/24/24 07:02 36.5 C 109 H Resp Resp Resp Resp Resp BP BP 06/24/24 15:46 22 155/91 H 06/24/24 10:57 18 151/89 H 06/24/24 10:04 06/24/24 07:44 18 18 18 18 06/24/24 07:27 06/24/24 07:02 20 153/92 H Pulse Ox Pulse Ox Pulse Ox Pulse Ox Pulse Ox O2 Del Method O2 Flow Rate 06/24/24 15:46 91 Nasal Cannula 2 06/24/24 10:57 90 Nasal Cannula 2 06/24/24 10:04 Nasal Cannula 2 06/24/24 07:44 83 L 91 90 87 L 06/24/24 07:27 06/24/24 07:02 96 Nasal Cannula 4 O2 Flow Rate O2 Flow Rate O2 Flow Rate 06/24/24 15:46 06/24/24 10:57 06/24/24 10:04 06/24/24 07:44 2 3 2 06/24/24 07:27 06/24/24 07:02 Laboratory Results WBC 2.36, no differential, Hb 8.4, MCV 87.5, MCHC 31.5, platelet 204 (06/16/2024, 12:50pm). WBC 0.13, ANC < 500/uL, Hb 9.5, MCV 84.9, MCHC 32.4, platelet 52 (06/18/2024, 7:29pm). WBC 0.24, ANC < 500/uL, Hb 11.1, MCV 85.5, MCHC 32.0, platelet 24 (06/19/2024, 9:14am). WBC 0.15, ANC < 500/uL, Hb 8.1, MCV 84.0, MCHC 32.8, platelet 11 (06/20/2024, 8:33am). Patient subsequently received 1 unit of blood and 1 unit of platelets. Hb 6.8 (06/20/2024, 6:43pm). Patient subsequently received 1 unit of blood. WBC 0.14, ANC < 500/uL, Hb 10.9, MCV 84.0, MCHC 33.5, platelet 26 (06/21/2024, 5:16am). Patient subsequently received 1 unit of platelets. Hb 9.6 (06/21/2024, 12:09pm). WBC 0.21, ANC 20/uL, Hb 8.6, MCV 83.9, MCHC 33.0, platelet 27 (06/22/2024, 5:53am). WBC 0.65, ANC 40/uL, Hb 8.5, MCV 84.3, MCHC 33.1, platelet 38 (06/23/2024, 4:51am). WBC 2.91, ANC 810/uL, Hb 8.5, MCV 85.4, MCHC 32.3, platelet 84 (06/24/2024, 5:32am). Lactic acid #1 1.1 mmol/L (06/18/2024, 8:24pm). Lactic acid #2 1.8 mmol/L (06/19/2024, 9:14am). Lactic acid #3 1.0 mmol/L (06/20/2024, 8:33am). Lactic acid #4 1.2 mmol/L (06/21/2024, 5:16am). Lactic acid #5 1.5 mmol/L (06/21/2024, 11:23pm) Lactic acid #6 1.2 mmol/L (06/22/2024, 9:29am). Lactic acid #7 0.9 mmol/L (06/23/2024, 4:51am). Lactic acid #8 0.8 mmol/L (06/24/2024, 5:38am). Procalcitonin #1 3.52 ng/mL (06/18/2024, 7:29pm). Procalcitonin #2 4.78 ng/mL (06/19/2024, 9:14am). Procalcitonin #3 3.90 ng/mL (06/20/2024, 8:33am). Procalcitonin #4 3.09 ng/mL (06/21/2024, 5:16am). Procalcitonin #5 1.92 ng/mL (06/22/2024, 9:29am). Procalcitonin #6 1.25 ng/mL (06/23/2024, 4:51am). Procalcitonin #7 0.90 ng/mL (06/24/2024, 5:32am). Blood culture #1 (06/18/2024, 8:12pm): Bacillus cereus Blood culture #2 (06/18/2024, 8:24pm): Blood culture #3 (06/20/2024, 8:37pm): Blood culture #4 (06/20/2024, 8:37pm): MRSA nares screen negative (06/18/2024, 11:25pm; 06/19/2024, 9:45am). BIOFIRE respiratory panel negative (06/19/2024, 9:45am). U/A (06/18/2024, 11:25am): LE-, nitrite- PO4 1.4 mg/dL (06/20/2024, 7:16am). PO4 1.3 mg/dL (06/21/2024, 5:16am). PO4 1.6 mg/dL (06/22/2024, 5:53am). PO4 2.7 mg/dL (06/23/2024, 4:51am). PO4 1.0 mg/dL (06/24/2024, 5:32am). Mg 1.6 mg/dL (06/18/2024, 7:29pm). Mg 2.2 mg/dL (06/19/2024, 9:32am). Mg 1.7 mg/dL (06/20/2024, 8:33am). Mg 1.4 mg/dL (06/21/2024, 5:16am). Mg 1.8 mg/dL (06/22/2024, 5:53am). Mg 1.7 mg/dL (06/23/2024, 4:51am). Mg 1.8 mg/dL (06/24/2024, 5:32am). BUN 25, creatinine 0.68, Ca 8.0, albumin 3.1, Ca corrected 8.7 (06/19/2024, 9:32am). BUN 28, creatinine 0.60, Ca 7.7, albumin 2.8, Ca corrected 8.7 (06/20/2024, 8:33am). BUN 25, creatinine 0.57, Ca 7.4, albumin 2.9, Ca corrected 8.3 (06/21/2024, 5:16am). BUN 15, creatinine 0.42, Ca 7.3, albumin 2.9, Ca corrected 8.2 (06/22/2024, 5:53am). BUN 10, creatinine 0.36, Ca 7.5, albumin 2.5, Ca corrected 8.7 (06/23/2024, 4:51am). BUN 7, creatinine 0.46, Ca 7.5, albumin 2.5, Ca corrected 8.7 (06/24/2024, 5:32am). AST 68, ALT 37, ALK PHOS 463, TBili 3.4 (06/18/2024, 7:29pm). AST 53, ALT 36, ALK PHOS 404, TBili 3.0 (06/19/2024, 9:32am). AST 38, ALT 29, ALK PHOS 286, TBili 2.9 (06/20/2024, 8:33am). AST 37, ALT 30, ALK PHOS 313, TBili 6.1 (06/21/2024, 5:16am). AST 32, ALT 27, ALK PHOS 291,TBili 3.2 (06/23/2024, 4:51am). GUAIAC+ stool (06/20/2024, 12:05pm). Diagnostic Findings Portable CXR (06/19/2024, 12:29am): Inhomogeneous opacification in both lungs as mentioned above, with obscuration of the left costophrenic angle, left hemidiaphragm, right cardiac border and p artial obscuration of the left cardiac border. Findings are raising the concern for consolidations, due to aspiration/infection or edema. Obscuration of left costophrenic angle, raising the possibility of pleural effusion. Ultrasound may be obtained for further evaluation In comparison to the prior examination, there is relatively more visualization of the left cardiac border in current examination, relatively less opacification in left lower zone and regression of left sided pleural effusion. Interval regression of right-sided pleural effusion. Rest of the findings in left lung are stable. However there is mild progression of opacification in right lung. PG Care Time/CCT Total # of Minutes Spent Total Time Spent with Patient: Total time spent is greater than 50% in coordination of care (as documented) at patient's floor/unit and/or counseling patient: Coding Level of Care Code 75489 SUB INP/OBS CARE 3/50MIN Diagnoses Sepsis A41.9 Acute hypoxemic respiratory failure J96.01 Pneumonia J18.9 Neutropenia D70.9 Cancer of liver C22.9 Liver malignancy type: unspecified liver malignancy (5) Cancer of liver Liver malignancy type: unspecified liver malignancy Qualified Code(s): C22.9 - Malignant neoplasm of liver, not specified as primary or secondary
[2024-06-24 19:08] LABS: Albumin Level 2.4 gm/dl (3.4-5.0); Bilirubin Direct 1.6 mg/dl (0-0.2); Bilirubin,Total 2.7 mg/dl (0.2-1.0); Total Protein 4.7 gm/dl (6.0-8.3)
[2024-06-25 07:05] LABS: Hematocrit (blood only) 25.6 % (37.0-47.0); Hemoglobin 8.3 g/dl (12.0-16.0); Mean Corpuscular Hemoglobin 27.6 pg (25.0-34.0); Mean Corpuscular Hgb Conc 32.4 g/dL (32.0-36.0); Mean Platelet Volume 11.2 fL (9.4-12.4); Platelet Count 160 K/uL (130-400); RDW Coefficient of Variation 17.9 % (11.5-14.5); RDW Standard Deviation 54.9 fL (36.4-46.3); Red Blood Count 3.01 M/uL (4.20-5.40)
[2024-06-25 07:10] LABS: Albumin Globulin Ratio 1.2 (0.9-2); Albumin Level 2.6 gm/dl (3.4-5.0); BUN Creatinine Ratio 13.3 (10-20); Bilirubin,Total 2.5 mg/dl (0.2-1.0); Calcium 7.1 mg/dl (8.6-10.3); Creatinine Clr Calc Pharmacy 129.1 ml/min; Globulin 2.1 gm/dl (2.5-4.0); Potassium 4.7 mmol/L (3.5-5.1); Total Protein 4.7 gm/dl (6.0-8.3)
[2024-06-25 07:43] LABS: ALC (manual) 0.87 K/uL (1.2-3.4); ANC (manual) 4.09 K/uL (1.4-6.5); Blast # (manual) 0.24 K/uL (0-0); Blast Cells % (manual) 3 %; Dohle Bodies 2+; Lymphocytes # (manual) 0.87 K/uL (1.2-3.4); Lymphocytes % (manual) 11 %; Metamyelocytes # (manual) 0.55 K/uL (0-0); Metamyelocytes % (manual) 7 %; Monocytes # (manual) 1.18 K/uL (0.11-0.59); Monocytes % (manual) 15 %; Myelocytes # (manual) 0.87 K/uL (0-0); Myelocytes % (manual) 11 %; Neutrophils # (manual) 4.09 K/uL (1.40-6.50); Neutrophils % (manual) 52 %; Promyelocytes # (manual) 0.08 K/uL (0-0); Promyelocytes % (manual) 1 %; Toxic Granulation 1+; White Blood Count 7.87 K/ul (4.8-10.8)
--- NOTE | 2024-06-25 11:58 | Hospitalist Progress Note ---
Date of Service June 25, 2024 Assessment & Plan (1) Acute hypoxemic respiratory failure: (2) Pneumonia: (3) Neutropenia: (4) Cancer of liver: Plan 59 years old female with PMH of FULL CODE @ home, overweight with BMI 25.5 (height 167.64 cm; weight 71.6 kg), major depression on escitalopram 10mg PO daily, Crohn's disease with chronic watery, non-bloody, non-oily, painless diarrhea (without nausea/vomiting) for the past 2-3 months, chronic normocytic, normochromic anemia with baseline Hb range, 9.7 - 10.3 g/dL (05/24/2022 - 05/27/2024), consistent with anemia of chronic disease (cf., low serum Fe 10 ug/dL, low TIBC 162 ug/dL, high ferritin 1424.6 ng/mL (06/09/2024, 11:38am), s/p venofer IV infusion in the past, 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 Sepsis, acute hypoxic respiratory failure 2/2 bibasilar aspiration pneumonia With history of neutropenia and chemo treatment w/ concern for aspiration. Zosyn/Unasyn were deferred due to hive allergy to penicillins. Was started on meropenem to cover both anaerobes and pneumonia coverage. No history of ESBL infections. Vancomycin continued for bacillus bacteremia. Blood cultures 06/18 positive for Bacillus cereus BioFire negative Continue meropenem Wean oxygen to goal 90%. Progressing Carbapenem was used for both anaerobic coverage along with expanded pneumonia coverage due to aspiration. Could potentially consider cefepime with Flagyl for this as well. Given complicated course and Bacillus bacteremia will consult ID specifically for? Expanded gram-negative coverage for pneumonia given immunosuppression and complicated history, and recommendations for duration of treatment for Bacillus bacteremia Anticipate completion of management with vancomycin 1 g IV, meropenem 500 mg IV every 6 hours at home via port once placed. Patient is not wish to have a PICC or midline placed. Neuroendocrine tumor with hepatic metastasis Pending port placement vascular surgery 06/27 Will continue etoposide chemo as outpatient however due to pneumonia and bacteremia will likely need to delay her next treatment. Did send message to hematology/oncology to update on care - Allopurinol, bicarb continued Lower extremity edema Pitting edema of the lower extremities on admission Has been diuresed intermittently with IV Lasix 40-80 mg with a brisk urine output Edema subsequently improved Reassess daily for additional Lasix needs, deferred 06/25 No prior history of CHF Pancytopenia 2/ chemo Count on admission 0.24 PSA normal 06/25 Received Neupogen 06/19 - 06/21. Neutropenic on admission CBC with rising white counts, further Neupogen indicated at this time No acute bleeding. Did receive 2 units of red blood cells 06/20 and 1 unit of platelets on 06/20 for platelet count of 11. Transfusion threshold of 7 Melena, acute GI, history of Crohn's Hemoglobin down trended from 11.1, dropped to 6.8 on 06/20. Received 2 units of blood transfusion and a unit of platelets. On PPI therapy, subsequently doing well with stabilizing hemoglobin Continue PPI twice daily Hemoglobin stable at approximately 8 Transfusion threshold of 7 Recurrent bleeding 06/25 MDD Mild. Continue Lexapro 10 mg daily. Insomnia Lorazepam 1 mg p.o. nightly continued DVT prophylaxis, contraindicated due to anemia, history of bleeding, and thrombocytopenia. SCDs. Admission and Anticipated Discharge Date Admission Date: June 18, 2024 Subjective Sleep much better last night Some anxiety/dyspnea in the evenings which resolves with ativan No fevers chills doing OK Physical Exam Physical Exam: General: A&Ox3. NAD. Cooperative. HEENT: Atraumatic, normocephalic.Hearing grossly intact. Vision grossly intact Pulm: CTAB A&P. -wheezes, -rales, -rhonchi. Symmetrical chest rise. No increased work of breathing. No respiratory distress. Cardiac: tachcyardic Radial pulses intact and symmetrical. Results & Data Results & Data Vital Signs (Past 12 Hours) Vital Signs Temp Pulse Pulse Resp BP BP Pulse Ox 06/25/24 10:25 06/25/24 07:31 36.6 C 110 H 18 125/77 94 06/25/24 03:46 108 H 06/25/24 03:39 36.3 C L 99 H 16 124/78 97 06/25/24 01:09 O2 Del Method O2 Flow Rate 06/25/24 10:25 Nasal Cannula 2 06/25/24 07:31 Nasal Cannula 2.0 06/25/24 03:46 06/25/24 03:39 Nasal Cannula 2 06/25/24 01:09 Nasal Cannula 2 PG Care Time/CCT Total # of Minutes Spent Total Time Spent with Patient: Total time spent is greater than 50% in coordination of care (as documented) at patient's floor/unit and/or counseling patient: Coding Level of Care Code 00203 SUB INP/OBS CARE 3/50MIN Diagnoses Acute hypoxemic respiratory failure J96.01 Pneumonia J18.9 Neutropenia D70.9 Cancer of liver C22.9 Liver malignancy type: unspecified liver malignancy (4) Cancer of liver Liver malignancy type: unspecified liver malignancy Qualified Code(s): C22.9 - Malignant neoplasm of liver, not specified as primary or secondary
[2024-06-26 07:11] LABS: Hematocrit (blood only) 26.2 % (37.0-47.0); Hemoglobin 8.5 g/dl (12.0-16.0); Mean Corpuscular Hemoglobin 27.8 pg (25.0-34.0); Mean Corpuscular Hgb Conc 32.4 g/dL (32.0-36.0); Mean Corpuscular Volume 85.6 fL (80.0-100.0); Mean Platelet Volume 10.9 fL (9.4-12.4); Nucleated RBC # (auto) 0.03 K/uL (0.00-0.12); Nucleated RBC % (auto) 0.2 %; Platelet Count 313 K/uL (130-400); RDW Coefficient of Variation 18.1 % (11.5-14.5); RDW Standard Deviation 56.2 fL (36.4-46.3); Red Blood Count 3.06 M/uL (4.20-5.40); White Blood Count 16.64 K/ul (4.8-10.8)
[2024-06-26 07:36] LABS: Calcium 7.3 mg/dl (8.6-10.3); Creatinine Clr Calc Pharmacy 116.2 ml/min; Potassium 4.5 mmol/L (3.5-5.1)
[2024-06-26 07:58] LABS: ALC (manual) 0.33 K/uL (1.2-3.4); ANC (manual) 7.49 K/uL (1.4-6.5); Blast Cells % (manual) 6 %; Dohle Bodies 2+; Lymphocytes # (manual) 0.33 K/uL (1.2-3.4); Lymphocytes % (manual) 2 %; Metamyelocytes # (manual) 2.33 K/uL (0-0); Metamyelocytes % (manual) 14 %; Monocytes # (manual) 1.66 K/uL (0.11-0.59); Monocytes % (manual) 10 %; Myelocytes % (manual) 9 %; Neutrophils # (manual) 7.49 K/uL (1.40-6.50); Neutrophils % (manual) 45 %; Polychromasia 2+; Promyelocytes # (manual) 2.33 K/uL (0-0); Promyelocytes % (manual) 14 %; Target Cells 1+; Toxic Granulation 3+
--- NOTE | 2024-06-26 12:50 | Infectious Disease Consult ---
Date of Consultation June 26, 2024 Assessment & Plan (1) Pneumonia: (2) Neuroendocrine carcinoma: (3) Neutropenia: Plan 59yo F with h/o small intestine neuroendocrine neoplasm with metastasis to the liver, on chemo (last 2 wks prior), GERD, Crohn's disease, recent admission 06/09- 06/14 with tumor lysis syndrome and treated for a UTI who presented on 06/18 with cough, generalized weakness, shortness of breath and fatigue. Since her discharge, she reported feeling very tired. Morning of presentation, she felt worsening shortness of breath and fatigue. She was very weak and unable to get up and ambulate on her own. In the ED, she was tachypneic and hypoxic and placed on bipap. Afebrile. Initial labs with WBC 0.13 (ANC < 500), platelets 52. Cr 0.58, AST 68, total bili 3.4, direct bili 1.9. PCT 3.52. UA 0-5 WBC. MRSA screen neg. RPP neg. CXR with cardiopulmonary congestive changes with underlying collapse or consolidation and bilateral pleural effusions. RUQ u/s with heterogeneous enlarged liver with multiple ill-defined nodular/heterogenous lesions, e/o free fluid around liver. She was admitted with PNA and volume overload. Shes been getting vancomycin and meropenem. BCX with B cereus in 1 of 4 bottles with repeat cultures negative. Shes on 2L NC. ID consulted 06/26. Regarding Bacillus cereus in blood cx, this is only 1 of 4 bottles positive which would suggest more likely contamination. She has been neutropenic, is immunocompromised, and as such would expect her to be more clinically ill, have fevers, and have more than 1 bottle positive if she had true Bacillus bacteremia. At this point, I would favor de-escalating abx to target PNA coverage, which we can use levofloxacin given her PCN allergy. Shes already had 8-9 days of abx, can completed 10-14 days total. QTc 439. Note per guidelines, anaerobic coverage is not usually needed in aspiration PNA and shes already received a decent course.. # Pneumonia # Blood cx with Bacillus cereus # Neutropenia resolved post filgrastim # Neuroendocrine cancer on chemo - [place] stopped vancomycin and meropenem - started levofloxacin 750mg PO daily - can complete 10-14 days of abx starting from 06/18 Will discontinue active follow up at this time. Please do not hesitate to reconsult the Infectious Diseases service as needed. Karen Pichardo MD [facility], Division of Infectious Diseases [facility]: [phone] Consultation Information Consultation was provided via telemedicine using two-way real-time interactive telecommunication between the patient and the telemedicine provider. For the duration of the visit, the provider was performing the assessment from a different facility than the patient. This includesuse of bluetooth stethoscope forauscultationperformed by the telepresenter that the telemedicine provider can hear if described in the physical exam. Fabrication Lead contact information: Please call [facility] Call Center . (Phone Number For Physician Use Only) After establishing a telemedicine visit, patient was: Patient was verified with two unique identifiers, Patient/authorized rep acknowledged consent and understanding and Gave permission to continue telehealth session Time Spent with Patient: Initial => 75 min History of Present Illness Reason for Consultation: bacillus bacteremia, PNA, immunosuppression Attending Physician: Theron Reynolds MD History of Present Illness 59yo F with h/o small intestine neuroendocrine neoplasm with metastasis to the liver, on chemo, GERD, Crohn's disease, recent admission 06/09-06/14 with tumor lysis syndrome and treated for a UTI who presented on 06/18 with cough, generalized weakness, shortness of breath and fatigue. Since her discharge, she reported feeling very tired. Morning of presentation, she felt worsening shortness of breath and fatigue. She was very weak and unable to get up and ambulate on her own. In the ED, she was tachypneic and hypoxic and placed on bipap. Afebrile. Initial labs with WBC 0.13 (ANC < 500), platelets 52. Cr 0.58, AST 68, total bili 3.4, direct bili 1.9. PCT 3.52. UA 0-5 WBC. MRSA screen neg. RPP neg. CXR with cardiopulmonary congestive changes with underlying collapse or consolidation and bilateral pleural effusions. RUQ u/s with heterogeneous enlarged liver with multiple ill-defined nodular/heterogenous lesions, e/o free fluid around liver. She was admitted with PNA and volume overload. Shes been getting vancomycin and meropenem. BCX with B cereus in 1 of 4 bottles with repeat cultures negative. Shes been on 2L NC. ID consulted 06/26. On evaluation, she reports feeling well. She does not feel short of breath, no chest pain, abdominal pain, vomiting, diarrhea. She does have baseline loose stools at home r/t Crohns but no diarrhea since she has been admitted. No rashes, joint pains, back pain. No hardware, lines, or artificial valves/devices. Allergies Allergy/AdvReac Type Severity Reaction Status Date / Time Penicillins Allergy Intermediate HIVES Verified 06/18/24 20:21 Home Medications Medication Instructions Recorded Confirmed Type escitalopram oxalate 10 mg tablet 10 mg PO DAILY #90 tabs 02/14/24 06/18/24 Rx potassium chloride 20 mEq 20 meq PO DAILY #30 tabs 05/23/24 06/18/24 Rx tablet,extended release cyanocobalamin (vitamin B-12) 1,000 mcg PO DAILY 06/09/24 06/18/24 History 1,000 mcg tablet (Vitamin B-12) allopurinol 100 mg tablet 150 mg (1.5 x 100 mg) PO DAILY 4 06/14/24 06/18/24 Rx weeks #42 tabs calcium carbonate 500 mg (2.5 x 200 mg calcium (500 06/14/24 06/18/24 Rx mg)) PO TID 30 days #225 tabs cholecalciferol (vitamin D3) 10 10 mcg PO QAM 1 month #30 tabs 06/14/24 06/18/24 Rx mcg (400 unit) tablet (Vitamin D3) ondansetron 4 mg disintegrating 4 mg PO Q4H PRN nausea and 06/14/24 06/18/24 Rx tablet vomiting 5 days #20 tabs sodium bicarbonate 650 mg tablet 650 mg PO BID 1 month #60 tabs 06/14/24 06/18/24 Rx cephalexin 500 mg capsule 500 mg PO QID 06/18/24 06/18/24 History lorazepam 0.5 mg tablet 0.5 mg PO TID PRN Anxiety 06/18/24 06/18/24 History Patient History Medical History Metabolic acidosis Acute UTI (urinary tract infection) Leukocytosis Sepsis RISSA (acute kidney injury) Liver masses SBO (small bowel obstruction) Surgical History S/P Mohs surgery for basal cell carcinoma (03/2024) R berrios H/O breast biopsy S/P endometrial ablation Hx of oral surgery Family History Grandmother Colorectal cancer Uncle Colorectal cancer Mother Myocardial infarction, Onset Age: 66 Father Hypertension Diabetes Denies family history of Ovarian cancer Prostate cancer Breast cancer Social History Smoking Status: Never smoker Second Hand Exposure: Yes; Do You Dip or Chew Tobacco: No; Hx Alcohol Use: No Hx Substance Use: No Preferred Language: Thai Communication Ability: Effective Visual Impairment: No Limitations Hearing Ability: Normal Hog Ribber Required: No Beliefs That Will Affect Care: None marital status: Current Living Situation: Spouse and Family Current Living Situation Comment: Lives w/ current occupational status: 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 Physical Exam Physical Exam: General: Awake, alert, no acute distress HEENT: NC/AT, EOMI, mmm Neck: supple, no LAD Lungs: dimished breath sounds Heart: regular, nl S1/S2 Abdomen: soft, NT/ND Back: no spinal tenderness Ext: no LE edema, no joint ttp or swelling Skin: no rash Neuro: moving all extremities Results & Data Vital Signs (Past 12 Hours) Vital Signs Temp Pulse Pulse Resp BP BP Pulse Ox 06/26/24 09:58 36.6 C 107 H 16 131/83 97 06/26/24 07:26 36.9 C 112 H 127/78 96 06/26/24 03:00 36.9 C 110 H 16 125/83 96 O2 Del Method O2 Flow Rate 06/26/24 09:58 Nasal Cannula 3.0 06/26/24 07:26 Nasal Cannula 3.0 06/26/24 03:00 Room Air Laboratory Results Labs reviewed. Diagnostic Findings Imaging reviewed.
--- NOTE | 2024-06-26 15:51 | Hospitalist Progress Note ---
Date of Service June 26, 2024 Assessment & Plan (1) Acute hypoxemic respiratory failure: (2) Pneumonia: (3) Neutropenia: (4) Cancer of liver: Plan 59 years old female with PMH of FULL CODE @ home, overweight with BMI 25.5 (height 167.64 cm; weight 71.6 kg), major depression on escitalopram 10mg PO daily, Crohn's disease with chronic watery, non-bloody, non-oily, painless diarrhea (without nausea/vomiting) for the past 2-3 months, chronic normocytic, normochromic anemia with baseline Hb range, 9.7 - 10.3 g/dL (05/24/2022 - 05/27/2024), consistent with anemia of chronic disease (cf., low serum Fe 10 ug/dL, low TIBC 162 ug/dL, high ferritin 1424.6 ng/mL (06/09/2024, 11:38am), s/p venofer IV infusion in the past, 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 Hina Sharpe, and recent tumor lysis syndrome now on allopurinol 150mg PO daily, who presented to [facility] ER on 06/18/2024 with complaints of generalized weakness/fatigue as well as mild shortness of breath without cough/wheeze, fevers/chills/diaphoresis, nausea/vomit/diarrhea. Sepsis, acute hypoxic respiratory failure 2/2 bibasilar aspiration pneumonia With history of neutropenia and chemo treatment w/ concern for aspiration. Zosyn/Unasyn were deferred due to hive allergy to penicillins. Was started on meropenem to cover both anaerobes and pneumonia coverage. No history of ESBL infections. Vancomycin continued for bacillus bacteremia. Blood cultures 06/18 positive for Bacillus cereus BioFire negative ID consulted. Suspect bacillus is contaminant. Do not recommend ongoing treatment for this specifically. Switched to levofloxacin for 10-14 days of anti biotics starting from 06/18, 14-day course would be complete 07/02. Appreciate recommendation CTA repeated due to worsening tachycardia, hypoxia and high risk for VTE/PE. No evidence of PE new multifocal alveolar groundglass infiltrates in bilateral upper lobes consistent with pneumonia. Patient has been transitioned to Levaquin.. ID following Neuroendocrine tumor with hepatic metastasis Pending port placement vascular surgery 06/27. N.p.o. at midnight Will continue etoposide chemo as outpatient however due to pneumonia and bacteremia will likely need to delay her next treatment. Did send message to hematology/oncology to update on care - Allopurinol, bicarb continued Lower extremity edema Pitting edema of the lower extremities on admission Has been diuresed intermittently with IV Lasix 40-80 mg with a brisk urine output. Had some improvement and this was likely discontinued. Progressive effusions on CT. Lasix 40 mg IV daily Pancytopenia / chemo Count on admission 0.24 PSA normal 06/25 Received Neupogen 06/19 - 06/21. Neutropenic on admission CBC with rising white counts, further Neupogen indicated at this time No acute bleeding. Did receive 2 units of red blood cells 06/20 and 1 unit of platelets on 06/20 for platelet count of 11. Transfusion threshold of 7 Melena, acute GI, history of Crohn's Hemoglobin down trended from 11.1, dropped to 6.8 on 06/20. Received 2 units of blood transfusion and a unit of platelets. On PPI therapy, subsequently doing well with stabilizing hemoglobin Continue PPI twice daily Hemoglobin stable at approximately 8 Transfusion threshold of 7 Recurrent bleeding 06/25 MDD Mild. Continue Lexapro 10 mg daily. Insomnia Lorazepam 1 mg p.o. nightly continued DVT prophylaxis, contraindicated due to anemia, history of bleeding, and thrombocytopenia. SCDs. Admission and Anticipated Discharge Date Admission Date: June 18, 2024 Subjective No events overnight. Slept okay. Denies fever chills or sweats Somewhat concerned regarding antibiotic plan as is pending infectious disease consultation and would like to know if she should plan on being on antibiotics when she leaves the hospital or not, otherwise no acute questions Denies pain Has rescheduled her next chemotherapy No shortness of breath. No chest pain Physical Exam Physical Exam: General: A&Ox3. NAD. Cooperative. HEENT: Atraumatic, normocephalic.Hearing grossly intact. Vision grossly intact Pulm: Diminished. No wheezing. No rhonchi symmetrical chest rise. No increased work of breathing. No respiratory distress. Cardiac: tachcyardic Radial pulses intact and symmetrical. Extremities: Bilateral symmetric leg swelling, 1+ edema Results & Data Results & Data Vital Signs (Past 12 Hours) Vital Signs Temp Pulse Resp BP Pulse Ox O2 Del Method O2 Flow Rate 06/26/24 15:28 37.2 C 120 H 18 121/72 95 Nasal Cannula 3.0 06/26/24 12:46 Nasal Cannula 2 06/26/24 09:58 36.6 C 107 H 16 131/83 97 Nasal Cannula 3.0 06/26/24 07:26 36.9 C 112 H 127/78 96 Nasal Cannula 3.0 PG Care Time/CCT Total # of Minutes Spent Total Time Spent with Patient: Total time spent is greater than 50% in coordination of care (as documented) at patient's floor/unit and/or counseling patient: Coding Level of Care Code 23368 SUB INP/OBS CARE 3/50MIN Diagnoses Acute hypoxemic respiratory failure J96.01 Pneumonia J18.9 Neutropenia D70.9 Cancer of liver C22.9 Liver malignancy type: unspecified liver malignancy (4) Cancer of liver Liver malignancy type: unspecified liver malignancy Qualified Code(s): C22.9 - Malignant neoplasm of liver, not specified as primary or secondary
--- NOTE | 2024-06-26 17:02 | XRay Report ---
EXAM: X-ray chest one-view portable CLINICAL HISTORY: CHF PRIORS: 06/21/2024 TECHNIQUE: Frontal view chest FINDINGS: The chest is well-expanded. The patchy opacifications are greatly improved bilaterally with mild residual interstitial change or patchy opacification in the right upper and right middle lobes. A new moderate left pleural effusion is present. Heart size is top normal. No pneumothorax. Trachea is patent. Osseous structures demonstrate no acute abnormality. No radiopaque foreign body. IMPRESSION: 1. Bilateral moderately decreased airspace consolidation, with improved appearance of the lung parenchyma bilaterally. 2. New moderate left pleural effusion. ACT 112: Positive. There are findings on this examination that require communication between the performing entity and the patient following Patient Test Result Information Act ([place] ACT 112) guidelines. Electronically signed by Belkys James 06-26-2024 5:01 PM
--- NOTE | 2024-06-26 18:10 | CT Scan Report ---
Clinical history: Rule out pulmonary embolism Technique: Axial computed tomography images were obtained of the chest after the administration of intravenous contrast according to the CT angiogram protocol Comparison is made to the prior CT dated 05/30/2024 Findings: There is no definite sign of pulmonary embolism. There are new multifocal alveolar and groundglass infiltrates in the bilateral upper lobes, consistent with pneumonia. There is bilateral lower lobe atelectasis. There are bilateral moderate sized pleural effusions, increased in size. There is no pneumothorax. There is no sign of pulmonary fibrosis or other diffuse interstitial process. No endobronchial lesion is seen There is no mediastinal, hilar, or axillary adenopathy. The thoracic aorta appears unremarkable with no sign of aneurysm or dissection. There is no pericardial effusion. There is coronary atherosclerosis. There are small bilateral thyroid nodules Innumerable liver masses are again seen, consistent with metastatic disease. There is a moderate sized hiatal hernia. There is a partially visualized left renal cyst. There has been interval increase in size of a destructive lesion involving the body of the sternum. A mallet displaced fracture of the sternum is again seen. There are unchanged sclerotic lesions in vertebral bodies that may represent bone islands. Impression: 1. No definite sign of pulmonary embolism 2. New bilateral pneumonia 3. Bilateral moderate sized pleural effusions, increased in size 4. Worsened bilateral lower lobe atelectasis 5. No definite change in numerous hepatic metastases 6. Unchanged moderate sized hiatal hernia 7. Indeterminate thyroid nodules. A follow-up thyroid ultrasound could be considered 8. Suspected increase in size of a lytic lesion involving the sternum, which may be due to metastatic disease 9. Unchanged sternal fracture ACT 112: Positive. There are findings on this exam that require communication between the performing entity and the patient following Patient Test Result Information Act ([place] ACT 112) guidelines. Electronically signed by Rai Tripathi 06-26-2024 6:10 PM
[2024-06-27 07:07] LABS: Hematocrit (blood only) 26.9 % (37.0-47.0); Hemoglobin 8.8 g/dl (12.0-16.0); Mean Corpuscular Hgb Conc 32.7 g/dL (32.0-36.0); Mean Corpuscular Volume 85.7 fL (80.0-100.0); Mean Platelet Volume 10.9 fL (9.4-12.4); Nucleated RBC # (auto) 0.04 K/uL (0.00-0.12); Nucleated RBC % (auto) 0.2 %; Platelet Count 486 K/uL (130-400); RDW Coefficient of Variation 18.3 % (11.5-14.5); RDW Standard Deviation 56.7 fL (36.4-46.3); Red Blood Count 3.14 M/uL (4.20-5.40); White Blood Count 22.29 K/ul (4.8-10.8)
[2024-06-27 07:38] LABS: Calcium 7.9 mg/dl (8.6-10.3); Creatinine Clr Calc Pharmacy 107.6 ml/min
--- NOTE | 2024-06-27 07:58 | History & Physical Bridge Note ---
Date of Service June 27, 2024 History & Physical Bridge Note Due to increasing WBC would place a corbett rather than a port. This can be changed to a port at a later date. I have discussed the risks options and benefits of the procedure with the patient. The patient understands the risks options and benefits and agrees to the procedure. I have examined the patient, reviewed the History & Physical and in the interval since the performance of the History & Physical I have noted the following changes of clinical significance: no changes noted
[2024-06-27 08:05] LABS: ALC (manual) 0.89 K/uL (1.2-3.4); ANC (manual) 14.27 K/uL (1.4-6.5); Basophils # (manual) 0.22 K/uL (0-0.2); Basophils % (manual) 1 %; Lymphocytes # (manual) 0.89 K/uL (1.2-3.4); Lymphocytes % (manual) 4 %; Metamyelocytes # (manual) 1.56 K/uL (0-0); Metamyelocytes % (manual) 7 %; Monocytes # (manual) 2.45 K/uL (0.11-0.59); Monocytes % (manual) 11 %; Myelocytes % (manual) 13 %; Neutrophils # (manual) 14.27 K/uL (1.40-6.50); Neutrophils % (manual) 64 %; Polychromasia 1+; Stomatocytes 1+; Toxic Granulation 1+
--- NOTE | 2024-06-27 08:24 | Anesthesiology Consultation ---
Date of Service June 27, 2024 Assessment & Plan ASA ASA4 Proposed Anesthesia Anesthesia Type: MAC Risk / Benefits Reviewed With: PT / POA / Parent / Guardian, Accepts Plan and Informed Consent Obtained History Surgery Operation Date: 06/27/24 08:00 Proposed Procedures p Insertion Infusaport - Mane Frye MD Height/Weight Height: 5 ft 6 in Weight: 65.1 kg Allergies Allergy/AdvReac Type Severity Reaction Status Date / Time Penicillins Allergy Intermediate HIVES Verified 06/27/24 06:56 Medications Home Medications Medication Instructions Recorded Confirmed Last Taken escitalopram oxalate 10 mg tablet 10 mg PO DAILY #90 tabs 02/14/24 06/18/24 06/18/24 potassium chloride 20 mEq 20 meq PO DAILY #30 tabs 05/23/24 06/18/24 06/18/24 tablet,extended release cyanocobalamin (vitamin B-12) 1,000 mcg PO DAILY 06/09/24 06/18/24 06/18/24 1,000 mcg tablet (Vitamin B-12) allopurinol 100 mg tablet 150 mg (1.5 x 100 mg) PO DAILY 4 06/14/24 06/18/24 06/18/24 weeks #42 tabs calcium carbonate 500 mg (2.5 x 200 mg calcium (500 06/14/24 06/18/24 06/18/24 mg)) PO TID 30 days #225 tabs cholecalciferol (vitamin D3) 10 10 mcg PO QAM 1 month #30 tabs 06/14/24 06/18/24 06/18/24 mcg (400 unit) tablet (Vitamin D3) ondansetron 4 mg disintegrating 4 mg PO Q4H PRN nausea and 06/14/24 06/18/24 06/18/24 tablet vomiting 5 days #20 tabs sodium bicarbonate 650 mg tablet 650 mg PO BID 1 month #60 tabs 06/14/24 06/18/24 06/18/24 cephalexin 500 mg capsule 500 mg PO QID 06/18/24 06/18/24 06/18/24 08:00 LAST DOSE OF COURSE lorazepam 0.5 mg tablet 0.5 mg PO TID PRN Anxiety 06/18/24 06/18/24 06/18/24 Active Medications Generic Name Dose Route Start Last Admin Trade Name Freq PRN Reason Stop Dose Admin Acetaminophen 650 mg 06/18/24 22:45 06/26/24 20:50 Acetaminophen 325 Mg Tab PO 07/18/24 22:44 650 mg Q4H PRN Administration Pain or Fever Allopurinol 150 mg 06/19/24 09:00 06/26/24 08:13 Allopurinol 100 Mg Tab PO 07/19/24 08:59 150 mg DAILY KRISTI Administration Diphenhydramine HCl 50 mg 06/20/24 21:00 06/26/24 20:45 Diphenhydramine 50 Mg/Ml Vial IV 07/20/24 20:59 Not Given HS KRISTI Escitalopram Oxalate 10 mg 06/19/24 09:00 06/26/24 08:13 Escitalopram Oxalate 10 Mg Tab PO 07/19/24 08:59 10 mg DAILY KRISTI Administration Pantoprazole Sodium 40 mg in 10 mls @ 5 mls/min 06/20/24 21:00 06/26/24 20:50 Protonix IV 07/20/24 20:59 5 mls/min Q12 KRISTI Administration Loperamide HCl 2 mg 06/21/24 14:30 06/27/24 06:45 Loperamide Hcl 2 Mg Cap PO 07/21/24 14:29 Not Given Q3H KRISTI Lorazepam 0.5 mg 06/18/24 22:45 06/19/24 00:04 Lorazepam 0.5 Mg Tab PO 07/18/24 22:44 0.5 mg TID PRN Administration Anxiety Lorazepam 0.5 mg 06/19/24 02:24 06/23/24 21:31 Lorazepam 2 Mg/1 Ml Vial IV 07/19/24 02:23 0.5 mg Q4H PRN Administration Anxiety/Agitation d/t BiPAP Lorazepam 1 mg 06/24/24 21:00 06/26/24 20:45 Lorazepam 2 Mg/1 Ml Vial IV 07/24/24 20:59 1 mg HS KRISTI Administration Petrolatum 1 appln 06/24/24 15:22 06/24/24 16:18 Butt Paste (Zinc Oxide 16%) 171 Appln/57 Gm Jar EXT 07/24/24 15:21 1 appln PRN PRN Administration DIAPER RASH Sodium Bicarbonate 650 mg 06/19/24 09:00 06/26/24 20:46 Sodium Bicarbonate 650 Mg Tab PO 07/19/24 08:59 650 mg BID KRISTI Administration NPO Date Last Intake of Fluids: 06/26/24 Time Last Intake of Fluids: 20:00 Date Last Intake of Solids: 06/26/24 Time Last Intake of Solids: 19:00 Past Medical History Medical History Metabolic acidosis Acute UTI (urinary tract infection) Leukocytosis Sepsis RISSA (acute kidney injury) Liver masses SBO (small bowel obstruction) Exercise / Class Metabolic Activity II 4-5 Yardwork/Stairs/Walk up hill Past Family History Family History Grandmother Colorectal cancer Uncle Colorectal cancer Mother Myocardial infarction, Onset Age: 66 Father Hypertension Diabetes Denies family history of Ovarian cancer Prostate cancer Breast cancer Past Surgical History Surgical History S/P Mohs surgery for basal cell carcinoma (03/2024) R berrios H/O breast biopsy S/P endometrial ablation Hx of oral surgery Past Anesthesia History No Hx of Anesthesia Complications and No Family Hx of Anesthesia Complications History of PONV No Hx of PONV and No Hx of Motion Sickness Social History Smoking Status: Never smoker Do You Dip or Chew Tobacco: No Hx Alcohol Use: No Hx Substance Use: No substance use type: does not use Physical Exam Vital Signs Last Vital Signs Temp 36.7 C 06/27/24 07:18 Pulse 69 06/27/24 07:18 Resp 17 06/27/24 07:18 BP 143/82 H 06/27/24 07:18 Pulse Ox 95 06/27/24 07:18 O2 Del Method Room Air 06/27/24 07:18 O2 Flow Rate 3 06/27/24 06:48 FiO2 40 06/19/24 07:18 Constitutional no acute distress ENMT Mouth: no dentition abnormality Thyromental Distance: > or= 3.5 Finger Breadths Mallampati Class: II Neck normal visual inspection Respiratory normal respiratory effort; no respiratory distress Auscultation: lungs clear to auscultation bilaterally Cardiovascular Rate/Rhythm: regular rate and regular rhythm Heart Sounds: no murmur Musculoskeletal Spine: normal cervical ROM Psychiatric Orientation: alert and oriented x 3 Testing Laboratory Results 06/27/24 06:17 06/27/24 06:17 PT 13.4 Seconds (9.0-12.0) H 06/19/24 12:17 INR 1.3 (0.9-1.1) H 06/19/24 12:17 APTT 38 Seconds (21-31) H 06/18/24 19:29 Urine Color Yellow 06/18/24 23:25 Urine Appearance Clear (Clear) 06/18/24 23:25 Urine pH 5.0 (4.5-7.5) 06/18/24 23:25 Ur Specific [place] 1.008 (1.000-1.030) 06/18/24 23:25 Urine Protein Trace (Negative) H 06/18/24 23:25 Urine Glucose (UA) Negative (Negative) 06/18/24 23: Urine Ketones Negative (Negative) 06/18/24 23:25 Urine Nitrite Negative (Negative) 06/18/24 23:25 Ur Leukocyte Esterase Negative (Negative) 06/18/24 23:25 Urine WBC (Auto) 0-5 /hpf (0-5) 06/18/24 23:25 Urine RBC (Auto) 3-5 /hpf (0-2) H 06/18/24 23:25 U Hyaline Cast (Auto) 0-2 /lpf (0-2) 06/18/24 23:25 U Epithel Cells (Auto) 0-2 /hpf (0-2) 06/18/24 23:25 Urine Bacteria (Auto) None Seen (None Seen) 06/18/24 23:25 Blood Type A Positive 06/20/24 15:15 Antibody Screen NEGATIVE 06/20/24 15:15 06/20/24 20:55 Aerobic Blood Culture - Final Blood No growth in Aerobic bottle after 5 days. Anaerobic Blood Culture - Final 06/20/24 20:55 Aerobic Blood Culture - Final Blood No growth in Aerobic bottle after 5 days. Anaerobic Blood Culture - Final 06/18/24 20:12 Aerobic Blood Culture - Final Blood Bacillus cereus Anaerobic Blood Culture - Final No growth in Anaerobic bottle after 5 days. 06/18/24 20:24 Aerobic Blood Culture - Final Blood No growth in Aerobic bottle after 5 days. Anaerobic Blood Culture - Final No growth in Anaerobic bottle after 5 days. Day of Procedure Evaluation. Date of Surgery June 27, 2024 Height/Weight Height: 5 ft 6 in Weight: 65.1 kg Vital Signs Last Vital Signs Temp 36.7 C 06/27/24 07:18 Pulse 69 06/27/24 07:18 Resp 17 06/27/24 07:18 BP 143/82 H 06/27/24 07:18 Pulse Ox 95 06/27/24 07:18 O2 Del Method Room Air 06/27/24 07:18 O2 Flow Rate 3 06/27/24 06:48 FiO2 40 06/19/24 07:18 Allergies Allergy/AdvReac Type Severity Reaction Status Date / Time Penicillins Allergy Intermediate HIVES Verified 06/27/24 06:56 Medications Home Medications Medication Instructions Recorded Confirmed Last Taken escitalopram oxalate 10 mg tablet 10 mg PO DAILY #90 tabs 02/14/24 06/18/24 06/18/24 potassium chloride 20 mEq 20 meq PO DAILY #30 tabs 05/23/24 06/18/24 06/18/24 tablet,extended release cyanocobalamin (vitamin B-12) 1,000 mcg PO DAILY 06/09/24 06/18/24 06/18/24 1,000 mcg tablet (Vitamin B-12) allopurinol 100 mg tablet 150 mg (1.5 x 100 mg) PO DAILY 4 06/14/24 06/18/24 06/18/24 weeks #42 tabs calcium carbonate 500 mg (2.5 x 200 mg calcium (500 06/14/24 06/18/24 06/18/24 mg)) PO TID 30 days #225 tabs cholecalciferol (vitamin D3) 10 10 mcg PO QAM 1 month #30 tabs 06/14/24 06/18/24 06/18/24 mcg (400 unit) tablet (Vitamin D3) ondansetron 4 mg disintegrating 4 mg PO Q4H PRN nausea and 06/14/24 06/18/24 06/18/24 tablet vomiting 5 days #20 tabs sodium bicarbonate 650 mg tablet 650 mg PO BID 1 month #60 tabs 06/14/24 06/18/24 06/18/24 cephalexin 500 mg capsule 500 mg PO QID 06/18/24 06/18/24 06/18/24 08:00 LAST DOSE OF COURSE lorazepam 0.5 mg tablet 0.5 mg PO TID PRN Anxiety 06/18/24 06/18/24 06/18/24 Active Medications Generic Name Dose Route Start Last Admin Trade Name Freq PRN Reason Stop Dose Admin Acetaminophen 650 mg 06/18/24 22:45 06/26/24 20:50 Acetaminophen 325 Mg Tab PO 07/18/24 22:44 650 mg Q4H PRN Administration Pain or Fever Allopurinol 150 mg 06/19/24 09:00 06/26/24 08:13 Allopurinol 100 Mg Tab PO 07/19/24 08:59 150 mg DAILY KRISTI Administration Diphenhydramine HCl 50 mg 06/20/24 21:00 06/26/24 20:45 Diphenhydramine 50 Mg/Ml Vial IV 07/20/24 20:59 Not Given HS KRISTI Escitalopram Oxalate 10 mg 06/19/24 09:00 06/26/24 08:13 Escitalopram Oxalate 10 Mg Tab PO 07/19/24 08:59 10 mg DAILY KRISTI Administration Pantoprazole Sodium 40 mg in 10 mls @ 5 mls/min 06/20/24 21:00 06/26/24 20:50 Protonix IV 07/20/24 20:59 5 mls/min Q12 KRISTI Administration Loperamide HCl 2 mg 06/21/24 14:30 06/27/24 06:45 Loperamide Hcl 2 Mg Cap PO 07/21/24 14:29 Not Given Q3H KRISTI Lorazepam 0.5 mg 06/18/24 22:45 06/19/24 00:04 Lorazepam 0.5 Mg Tab PO 07/18/24 22:44 0.5 mg TID PRN Administration Anxiety Lorazepam 0.5 mg 06/19/24 02:24 06/23/24 21:31 Lorazepam 2 Mg/1 Ml Vial IV 07/19/24 02:23 0.5 mg Q4H PRN Administration Anxiety/Agitation d/t BiPAP Lorazepam 1 mg 06/24/24 21:00 06/26/24 20:45 Lorazepam 2 Mg/1 Ml Vial IV 07/24/24 20:59 1 mg HS KRISTI Administration Petrolatum 1 appln 06/24/24 15:22 06/24/24 16:18 Butt Paste (Zinc Oxide 16%) 171 Appln/57 Gm Jar EXT 07/24/24 15:21 1 appln PRN PRN Administration DIAPER RASH Sodium Bicarbonate 650 mg 06/19/24 09:00 06/26/24 20:46 Sodium Bicarbonate 650 Mg Tab PO 07/19/24 08:59 650 mg BID KRISTI Administration Past Anesthesia History No Hx of Anesthesia Complications and No Family Hx of Anesthesia Complications History of PONV No Hx of PONV and No Hx of Motion Sickness NPO Date Last Intake of Fluids: 06/26/24 Time Last Intake of Fluids: 20:00 Date Last Intake of Solids: 06/26/24 Time Last Intake of Solids: 19:00 Home Medications Home Medications Medication Instructions Recorded Confirmed Last Taken escitalopram oxalate 10 mg tablet 10 mg PO DAILY #90 tabs 02/14/24 06/18/24 06/18/24 potassium chloride 20 mEq 20 meq PO DAILY #30 tabs 05/23/24 06/18/24 06/18/24 tablet,extended release cyanocobalamin (vitamin B-12) 1,000 mcg PO DAILY 06/09/24 06/18/24 06/18/24 1,000 mcg tablet (Vitamin B-12) allopurinol 100 mg tablet 150 mg (1.5 x 100 mg) PO DAILY 4 06/14/24 06/18/24 06/18/24 weeks #42 tabs calcium carbonate 500 mg (2.5 x 200 mg calcium (500 06/14/24 06/18/24 06/18/24 mg)) PO TID 30 days #225 tabs cholecalciferol (vitamin D3) 10 10 mcg PO QAM 1 month #30 tabs 06/14/24 06/18/24 06/18/24 mcg (400 unit) tablet (Vitamin D3) ondansetron 4 mg disintegrating 4 mg PO Q4H PRN nausea and 06/14/24 06/18/24 06/18/24 tablet vomiting 5 days #20 tabs sodium bicarbonate 650 mg tablet 650 mg PO BID 1 month #60 tabs 06/14/24 06/18/24 06/18/24 cephalexin 500 mg capsule 500 mg PO QID 06/18/24 06/18/24 06/18/24 08:00 LAST DOSE OF COURSE lorazepam 0.5 mg tablet 0.5 mg PO TID PRN Anxiety 06/18/24 06/18/24 06/18/24 Active Medications Generic Name Dose Route Start Last Admin Trade Name Freq PRN Reason Stop Dose Admin Acetaminophen 650 mg 06/18/24 22:45 06/26/24 20:50 Acetaminophen 325 Mg Tab PO 07/18/24 22:44 650 mg Q4H PRN Administration Pain or Fever Allopurinol 150 mg 06/19/24 09:00 06/26/24 08:13 Allopurinol 100 Mg Tab PO 07/19/24 08:59 150 mg DAILY KRISTI Administration Diphenhydramine HCl 50 mg 06/20/24 21:00 06/26/24 20:45 Diphenhydramine 50 Mg/Ml Vial IV 07/20/24 20:59 Not Given HS KRISTI Escitalopram Oxalate 10 mg 06/19/24 09:00 06/26/24 08:13 Escitalopram Oxalate 10 Mg Tab PO 07/19/24 08:59 10 mg DAILY KRISTI Administration Pantoprazole Sodium 40 mg in 10 mls @ 5 mls/min 06/20/24 21:00 06/26/24 20:50 Protonix IV 07/20/24 20:59 5 mls/min Q12 KRISTI Administration Loperamide HCl 2 mg 06/21/24 14:30 06/27/24 06:45 Loperamide Hcl 2 Mg Cap PO 07/21/24 14:29 Not Given Q3H KRISTI Lorazepam 0.5 mg 06/18/24 22:45 06/19/24 00:04 Lorazepam 0.5 Mg Tab PO 07/18/24 22:44 0.5 mg TID PRN Administration Anxiety Lorazepam 0.5 mg 06/19/24 02:24 06/23/24 21:31 Lorazepam 2 Mg/1 Ml Vial IV 07/19/24 02:23 0.5 mg Q4H PRN Administration Anxiety/Agitation d/t BiPAP Lorazepam 1 mg 06/24/24 21:00 06/26/24 20:45 Lorazepam 2 Mg/1 Ml Vial IV 07/24/24 20:59 1 mg HS KRISTI Administration Petrolatum 1 appln 06/24/24 15:22 06/24/24 16:18 Butt Paste (Zinc Oxide 16%) 171 Appln/57 Gm Jar EXT 07/24/24 15:21 1 appln PRN PRN Administration DIAPER RASH Sodium Bicarbonate 650 mg 06/19/24 09:00 06/26/24 20:46 Sodium Bicarbonate 650 Mg Tab PO 07/19/24 08:59 650 mg BID KRISTI Administration Exercise / Class Metabolic Activity Metabolic Activity: II 4-5 Yardwork/Stairs/Walk up hill Physical Exam Constitutional: no acute distress Mouth: no dentition abnormality Thyromental Distance: > or= 3.5 Finger Breadths Mallampati Class: II Neck: + visual inspection normal Respiratory: + respiratory effort normal and + clear to auscultation bilaterally; no respiratory distress Cardiovascular: + regular rate and + regular rhythm; no murmur Musculoskeletal: no limited cervical ROM Psychiatric: + alert and + oriented x 3 ASA ASA4 Proposed Anesthesia Proposed Anesthesia: MAC Risk / Benefits Reviewed With: PT / POA / Parent / Guardian, Accepts Plan and Informed Consent Obtained Additional Comments: Labs and studies reviewed. 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 Liver function still adequate. Also current treatment with levofloxacin for R lower lobe pneumonia.
--- NOTE | 2024-06-27 09:05 | Operative Report ---
Post Operative Report Pre & Post Diagnosis Operation Date: 06/27/24 08:00 Pre-Op Diagnosis: Metastatic Neuro Endocrine carcinoma Post-Op Diagnosis: Metastatic Neuro Endocrine carcinoma I identified the patient and participated in the time-out.: Yes Procedure Operation Date: 06/27/24 08:00 Actual Procedures p Insertion of Steve Catheter, Right Jugular Approach,Ultrasound Localization of Right Internal Jugular Vein,Fluoroscopy for Positioning - Mane Frye MD Surgeon Mane Frye MD Part Time Receptionist none Estimated Blood Loss 0 Findings Consistent with Post-Op Diagnosis Specimens none Anesthesia Type MAC Complications none Disposition Accompanied Patient To Recovery: No Disposition: Recovery Room Indications This is a 59-year-old female who was diagnosed with metastatic neuroendocrine tumor. She is in need of a central access for chemotherapy. Due to her high white count the Woods was recommended. I have discussed the risks options and benefits of the procedure with the patient. The patient understands the risks options and benefits and agrees to the procedure. Description of Procedure Patient was taken to the angio suite and placed in the supine position. The right side of the neck and chest wall were prepped and draped in a sterile manner. The patient was identified and a timeout performed. Local anesthesia was then administered to the appropriate areas of the neck and chest wall. Ultrasound was then used to locate the right internal jugular vein. The vein compressed easily, had no filing defects, and was patent. The vein was then punctured under direct ultrasound imaging. A guidewire was then passed centrally under fluoroscopic imaging. A stab wound was then made in the anterior chest wall and a double-lumen Woods was passed from the stab wound on the chest wall to the puncture site on the neck. The puncture site was then dilated and the peel away sheath was inserted. The a point was then cut the appropriate length and then inserted through the sheath to a central position in the distal superior vena cava. The peel away sheath was then removed. The catheter was then sutured in place using nylon sutures. The puncture was then closed using a 4-0 Vicryl subcuticular suture. Dermabond was used for a dressing on the puncture site. Both ports aspirated and flushed easily and were then packed with heparin. A sterile dressing was applied to the catheter. The patient left the operation room in satisfactory condition and tolerated the procedure well. All needle and sponge counts were correct at the end of the procedure. I attest to the content of the Intraoperative Record and any orders documented therein. Any exceptions are noted below.
--- NOTE | 2024-06-27 09:24 | Anesthesiology Progress Note ---
Date of Service June 27, 2024 Anesthesia Post Procedure Vital Signs Vital Signs: Temp Pulse Pulse Pulse Resp BP BP 06/27/24 07:18 36.7 C 69 17 143/82 H 06/27/24 06:48 36.8 C 107 H 109 H 20 134/83 06/27/24 05:00 110 H 06/27/24 03:43 36.7 C 106 H 18 124/73 06/26/24 23:34 36.7 C 108 H 20 115/72 06/26/24 20:00 06/26/24 19:33 36.7 C 115 H 18 130/80 06/26/24 15:28 37.2 C 120 H 18 121/72 06/26/24 12:46 06/26/24 09:58 36.6 C 107 H 16 131/83 Pulse Ox O2 Del Method O2 Flow Rate 06/27/24 07:18 95 Room Air 06/27/24 06:48 97 Nasal Cannula 3 06/27/24 05:00 06/27/24 03:43 97 Nasal Cannula 3.0 06/26/24 23:34 96 Nasal Cannula 3.0 06/26/24 20:00 Nasal Cannula 06/26/24 19:33 98 Nasal Cannula 3 06/26/24 15:28 95 Nasal Cannula 3.0 06/26/24 12:46 Nasal Cannula 2 06/26/24 09:58 97 Nasal Cannula 3.0 Pain Intensity Lower Back: Pain Intensity: 0 Transfer of Care Handoff Completed per policy Notes Mental Status: alert / awake / arousable and participated in evaluation Nausea / Vomiting: adequately controlled Pain: adequately controlled Airway Patency, RR, SpO2: stable & adequate BP & HR: stable & adequate Hydration State: stable & adequate Anesthetic Complications: no major complications apparent and Pt Satisfied with anesthetic care
--- NOTE | 2024-06-27 16:29 | Hospitalist Progress Note ---
Date of Service June 27, 2024 Assessment & Plan (1) Acute hypoxemic respiratory failure: (2) Pneumonia: (3) Neutropenia: (4) Cancer of liver: Plan 59 years old female with PMH of FULL CODE @ home, overweight with BMI 25.5 (height 167.64 cm; weight 71.6 kg), major depression on escitalopram 10mg PO daily, Crohn's disease with chronic watery, non-bloody, non-oily, painless diarrhea (without nausea/vomiting) for the past 2-3 months, chronic normocytic, normochromic anemia with baseline Hb range, 9.7 - 10.3 g/dL (05/24/2022 - 05/27/2024), consistent with anemia of chronic disease (cf., low serum Fe 10 ug/dL, low TIBC 162 ug/dL, high ferritin 1424.6 ng/mL (06/09/2024, 11:38am), s/p venofer IV infusion in the past, 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 Sepsis, acute hypoxic respiratory failure 2/2 bibasilar aspiration pneumonia With history of neutropenia and chemo treatment w/ concern for aspiration. Zosyn/Unasyn were deferred due to hive allergy to penicillins. Was started on meropenem to cover both anaerobes and pneumonia coverage. No history of ESBL infections. Vancomycin continued for bacillus bacteremia. Blood cultures 06/18 positive for Bacillus cereus BioFire negative ID consulted. Suspect bacillus is contaminant. Do not recommend ongoing treatment for this specifically. Switched to levofloxacin for 10-14 days of anti biotics starting from 06/18, 14-day course would be complete 07/02. Appreciate recommendation CTA repeated due to worsening tachycardia, hypoxia and high risk for VTE/PE. No evidence of PE new multifocal alveolar groundglass infiltrates in bilateral upper lobes consistent with pneumonia. Patient has been transitioned to Levaquin.Improving If doing well and is able to be weaned from oxygen hopeful for discharge 06/28 on oral antibiotics. She has been ambulating independently Neuroendocrine tumor with hepatic metastasis S/p port placement 06/27 without complications. Will continue etoposide chemo as outpatient however due to pneumonia and bacteremia will likely need to delay her next treatment. Did send message to hematology/oncology to update on care - Allopurinol, bicarb continued Lower extremity edema Pitting edema of the lower extremities on admission Has been diuresed intermittently with IV Lasix 40-80 mg with a brisk urine output. Had some improvement and this was likely discontinued. Progressive effusions on CT. improving on Lasix, oxygen requirements downtrending. Slight hypotension, dosing decreased to daily. Adequate urine output. Continue to wean oxygen. Venous stasis mobilization strategies including leg elevation Pancytopenia / chemo Count on admission 0.24 PSA normal 06/25 Received Neupogen 06/19 - 06/21. Neutropenic on admission White count improved following [facility] S administration No acute bleeding. Did receive 2 units of red blood cells 06/20 and 1 unit of platelets on 06/20 for platelet count of 11. 06/27 hemoglobin 8.8, PLT 46 Transfusion threshold of 7 or 8 if signs of ischemia Melena, acute GI, history of Crohn's Hemoglobin down trended from 11.1, dropped to 6.8 on 06/20. Received 2 units of blood transfusion and a unit of platelets. On PPI therapy, subsequently doing well with stabilizing hemoglobin Continue PPI twice daily Hemoglobin stable at approximately 8 Transfusion threshold of 7 Recurrent bleeding 06/25 MDD Mild. Continue Lexapro 10 mg daily. Insomnia Lorazepam 1 mg p.o. nightly continued DVT prophylaxis, contraindicated due to anemia, history of bleeding, and thrombocytopenia. SCDs. Admission and Anticipated Discharge Date Admission Date: June 18, 2024 Subjective His bedside in the morning, and then in afternoon on reassessment Downtrending oxygen requirements in the afternoon. S/p port placement. Feels this went well no complications no pain. She does feel she is breathing better today than prior Slight leg swelling but improved. Denies fevers chills or sweats Physical Exam Physical Exam: General: Alert NAD. Cooperative. HEENT: Atraumatic, normocephalic.Hearing grossly intact. Vision grossly intact. +port Pulm: Diminished. No wheezing. No rhonchi symmetrical chest rise. No increased work of breathing. No respiratory distress. No rales. Cardiac: tachcyardic Radial pulses intact and symmetrical. Extremities: Bilateral symmetric leg swelling, 1+ edema, slightly improved Results & Data Results & Data Vital Signs (Past 12 Hours) Vital Signs Temp Pulse Pulse Pulse Resp BP Pulse Ox 06/27/24 15:06 36.7 C 112 H 18 113/58 L 93 06/27/24 13:00 107 H 06/27/24 12:10 95 06/27/24 12:04 36.7 C 117 H 16 107/66 96 06/27/24 10:34 127 H 06/27/24 10:32 115 H 116/70 96 06/27/24 09:53 113 H 06/27/24 09:50 36.7 C 111 H 16 126/78 96 06/27/24 09:30 36.8 C 110 H 15 119/72 94 06/27/24 09:20 108 H 17 115/66 94 06/27/24 09:10 108 H 19 118/68 95 06/27/24 09:08 36.2 C L 110 H 20 113/71 93 06/27/24 07:18 36.7 C 69 17 143/82 H 95 06/27/24 06:48 36.8 C 107 H 109 H 20 134/83 97 06/27/24 05:44 103 H 06/27/24 05:00 110 H O2 Del Method O2 Flow Rate 06/27/24 15:06 Room Air 06/27/24 13:00 06/27/24 12:10 Room Air 06/27/24 12:04 Nasal Cannula 2 06/27/24 10:34 06/27/24 10:32 Nasal Cannula 2 06/27/24 09:53 06/27/24 09:50 Nasal Cannula 4 06/27/24 09:30 Nasal Cannula 4 06/27/24 09:20 Oxymask 4 06/27/24 09:10 Oxymask 4 06/27/24 09:08 Oxymask 4 06/27/24 07:18 Room Air 06/27/24 06:48 Nasal Cannula 3 06/27/24 05:44 05/23/25 05:00 PG Care Time/CCT Total # of Minutes Spent Total Time Spent with Patient: Total time spent is greater than 50% in coordination of care (as documented) at patient's floor/unit and/or counseling patient: Coding Level of Care Code 30891 SUB INP/OBS CARE 3/50MIN Diagnoses Acute hypoxemic respiratory failure J96.01 Pneumonia J18.9 Neutropenia D70.9 Cancer of liver C22.9 Liver malignancy type: unspecified liver malignancy (4) Cancer of liver Liver malignancy type: unspecified liver malignancy Qualified Code(s): C22.9 - Malignant neoplasm of liver, not specified as primary or secondary
[2024-06-28 06:15] LABS: Hematocrit (blood only) 24.6 % (37.0-47.0); Mean Corpuscular Hgb Conc 32.5 g/dL (32.0-36.0); Mean Platelet Volume 10.8 fL (9.4-12.4); Nucleated RBC # (auto) 0.05 K/uL (0.00-0.12); Nucleated RBC % (auto) 0.2 %; Platelet Count 563 K/uL (130-400); RDW Coefficient of Variation 18.4 % (11.5-14.5); RDW Standard Deviation 57.1 fL (36.4-46.3); Red Blood Count 2.86 M/uL (4.20-5.40); White Blood Count 22.31 K/ul (4.8-10.8)
[2024-06-28 06:35] LABS: BUN Creatinine Ratio 13.8 (10-20); Calcium 7.6 mg/dl (8.6-10.3); Creatinine Clr Calc Pharmacy 100.2 ml/min; Potassium 3.5 mmol/L (3.5-5.1)
[2024-06-28 07:51] LABS: ALC (manual) 0.67 K/uL (1.2-3.4); ANC (manual) 15.17 K/uL (1.4-6.5); Blast # (manual) 0.45 K/uL (0-0); Blast Cells % (manual) 2 %; Dohle Bodies 1+; Lymphocytes # (manual) 0.67 K/uL (1.2-3.4); Lymphocytes % (manual) 3 %; Metamyelocytes # (manual) 1.78 K/uL (0-0); Metamyelocytes % (manual) 8 %; Monocytes # (manual) 2.68 K/uL (0.11-0.59); Monocytes % (manual) 12 %; Myelocytes # (manual) 1.34 K/uL (0-0); Myelocytes % (manual) 6 %; Neutrophils # (manual) 15.17 K/uL (1.40-6.50); Neutrophils % (manual) 68 %; Polychromasia 1+; Promyelocytes # (manual) 0.22 K/uL (0-0); Promyelocytes % (manual) 1 %; Toxic Granulation 1+
--- NOTE | 2024-06-28 08:25 | Hospitalist Progress Note ---
Date of Service June 28, 2024 Assessment & Plan (1) Acute hypoxemic respiratory failure: (2) Pneumonia: (3) Neutropenia: (4) Cancer of liver: Plan 59 years old female with PMH of FULL CODE @ home, overweight with BMI 25.5 (height 167.64 cm; weight 71.6 kg), major depression on escitalopram 10mg PO daily, Crohn's disease with chronic watery, non-bloody, non-oily, painless diarrhea (without nausea/vomiting) for the past 2-3 months, chronic normocytic, normochromic anemia with baseline Hb range, 9.7 - 10.3 g/dL (05/24/2022 - 05/27/2024), consistent with anemia of chronic disease (cf., low serum Fe 10 ug/dL, low TIBC 162 ug/dL, high ferritin 1424.6 ng/mL (06/09/2024, 11:38am), s/p venofer IV infusion in the past, 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 Hina Sharpe, and recent tumor lysis syndrome now on allopurinol 150mg PO daily, who presented to [facility] ER on 06/18/2024 with complaints of generalized weakness/fatigue as well as mild shortness of breath without cough/wheeze, fevers/chills/diaphoresis, nausea/vomit/diarrhea. Sepsis, acute hypoxic respiratory failure 2/2 bibasilar aspiration pneumonia With history of neutropenia and chemo treatment w/ concern for aspiration. Zosyn/Unasyn were deferred due to hive allergy to penicillins. Was started on meropenem to cover both anaerobes and pneumonia coverage. No history of ESBL infections. Vancomycin continued for bacillus bacteremia. Blood cultures 06/18 positive for Bacillus cereus BioFire negative ID consulted. Suspect bacillus is contaminant. Do not recommend ongoing treatment for this specifically. Switched to levofloxacin for 10-14 days of anti biotics starting from 06/18, 14-day course would be complete 07/02. Appreciate recommendation CTA repeated due to worsening tachycardia, hypoxia and high risk for VTE/PE. No evidence of PE new multifocal alveolar groundglass infiltrates in bilateral upper lobes consistent with pneumonia. Patient has been transitioned to Levaquin.. Improving, nearly resolved unfortunately on ambulation today she had rapid desaturations to 80% with good waveform. Will give 1 more day of antibiotics, 1 additional dose of diuresis tonight, and order to step. Will likely be stable for discharge home 06/29 however given significant hypoxia on exertion, remaining volume overload and high risk of readmission would further optimize overnight. Additionally is receiving Venofer for iron deficiency and slow downtrending hemoglobin without active bleeding, pending repeat H&H may benefit from 1 additional blood transfusion prior to discharge Neuroendocrine tumor with hepatic metastasis S/p port placement 06/27 without complications. Will continue etoposide chemo as outpatient however due to pneumonia and bacteremia will likely need to delay her next treatment. Did send message to hematology/oncology to update on care - Allopurinol, bicarb continued Pancytopenia 2/ chemo Count on admission 0.24 PSA normal 06/25 Received Neupogen 06/19 - 06/21. Neutropenic on admission White count improved following G-CSF administration No acute bleeding. Did receive 2 units of red blood cells 06/20 and 1 unit of platelets on 06/20 for platelet count of 11. Transfusion threshold of 7 or 8 if signs of ischemia Hemoglobin slowly downtrending without active bleeding. Venofer ordered 06/28. Did not meet criteria for transfusion Melena, acute GI, history of Crohn's Hemoglobin down trended from 11.1, dropped to 6.8 on 06/20. Received 2 units of blood transfusion and a unit of platelets. On PPI therapy. Continue PPI twice daily Last colonoscopy 05/19/2024. Seven 4-20 mm polyps removed with cold snare at the time. Normal terminal ileum. Normal rectal/perianal tissue. No signs of active Crohn's. Recommended for repeat colonoscopy in 6 months for surveillance Last iron studies with undetectable iron, TIBC 162, transferrin 116, ferritin markedly elevated likely as a phase reactant 1424, and transfersaturation unable to be calculated. Suspect she is iron deficient and is having a gradual downtrend of her hemoglobin without hemodynamically significant active bleeding, and BUN is not elevated and no upper epigastric pain suggestive of upper GI bleed. Deferred iron infusion earlier in admission due to immunosuppression and active infection however she would benefit from this. Currently is clinically progressing has been on antibiotics and is not septic/toxic. She does not meet criteria for a blood transfusion at this time hemoglobin 8.1. Will give 1 dose of Venofer and follow. MDD Mild. Continue Lexapro 10 mg daily. Insomnia Lorazepam 1 mg p.o. nightly continued DVT prophylaxis, contraindicated due to anemia, history of bleeding, and thrombocytopenia. SCDs. Admission and Anticipated Discharge Date Admission Date: June 18, 2024 Subjective Clinically progressing, weaned to room air, still somewhat fatigued on exertion. Required nasal cannula oxygen overnight. No fevers chills or sweats No abdominal pain Feels like her energy is much better and she is starting to turn a corner Is having bowel movements, denies any recurrent melena/GI bleeding. No abdominal pain Physical Exam Physical Exam: General: Alert NAD. Cooperative. HEENT: Atraumatic, normocephalic.Hearing grossly intact. Vision grossly intact. +port Pulm: Diminished. No wheezing. No rhonchi symmetrical chest rise. No increased work of breathing. No respiratory distress. No rales. Cardiac: Tachycardic, no murmurs rubs or gallops radial pulses intact and symmetrical. Extremities: Bilateral symmetric leg swelling, 1+ edema, slightly improved but still present. Results & Data Results & Data Vital Signs (Past 12 Hours) Vital Signs Temp Pulse Pulse Resp BP Pulse Ox O2 Del Method 06/28/24 07:54 97 H 06/28/24 07:52 36.9 C 104 H 16 130/80 94 Nasal Cannula 06/28/24 03:23 36.6 C 100 H 18 115/73 96 Nasal Cannula 06/27/24 23:39 36.7 C 108 H 18 120/61 91 Nasal Cannula 06/27/24 21:49 109 H O2 Flow Rate 06/28/24 07:54 06/28/24 07:52 06/28/24 03:23 2 06/27/24 23:39 2 06/27/24 21:49 PG Care Time/CCT Total # of Minutes Spent Total Time Spent with Patient: Total time spent is greater than 50% in coordination of care (as documented) at patient's floor/unit and/or counseling patient: Coding Level of Care Code 18254 SUB INP/OBS CARE 3/50MIN Diagnoses Acute hypoxemic respiratory failure J96.01 Pneumonia J18.9 Neutropenia D70.9 Cancer of liver C22.9 Liver malignancy type: unspecified liver malignancy (4) Cancer of liver Liver malignancy type: unspecified liver malignancy Qualified Code(s): C22.9 - Malignant neoplasm of liver, not specified as primary or secondary
[2024-06-28 15:55] LABS: Hemoglobin 8.7 g/dl (12.0-16.0)
[2024-06-29 07:11] LABS: Hemoglobin 8.4 g/dl (12.0-16.0); Mean Corpuscular Hemoglobin 27.8 pg (25.0-34.0); Mean Corpuscular Hgb Conc 32.3 g/dL (32.0-36.0); Mean Corpuscular Volume 86.1 fL (80.0-100.0); Mean Platelet Volume 10.7 fL (9.4-12.4); Nucleated RBC # (auto) 0.03 K/uL (0.00-0.12); Nucleated RBC % (auto) 0.1 %; Platelet Count 698 K/uL (130-400); RDW Coefficient of Variation 18.7 % (11.5-14.5); RDW Standard Deviation 58.4 fL (36.4-46.3); Red Blood Count 3.02 M/uL (4.20-5.40); White Blood Count 21.79 K/ul (4.8-10.8)
[2024-06-29 07:31] VITALS: TEMP 97.9
[2024-06-29 07:44] LABS: BUN Creatinine Ratio 12.5 (10-20); Calcium 7.6 mg/dl (8.6-10.3); Creatinine Clr Calc Pharmacy 90.8 ml/min; Potassium 3.3 mmol/L (3.5-5.1)
--- NOTE | 2024-06-29 07:46 | Discharge Summary ---
Discharge Summary Date of Service June 29, 2024 Principal Dx & Hospital Course #1 = Principal Diagnosis (1) Acute hypoxemic respiratory failure: (2) Pneumonia: (3) Neutropenia: (4) Cancer of liver: Plan 59 years old female with PMH of FULL CODE @ home, overweight with BMI 25.5 (height 167.64 cm; weight 71.6 kg), major depression on escitalopram 10mg PO daily, Crohn's disease with chronic watery, non-bloody, non-oily, painless diarrhea (without nausea/vomiting) for the past 2-3 months, chronic normocytic, normochromic anemia with baseline Hb range, 9.7 - 10.3 g/dL (05/24/2022 - 05/27/2024), consistent with anemia of chronic disease (cf., low serum Fe 10 ug/dL, low TIBC 162 ug/dL, high ferritin 1424.6 ng/mL (06/09/2024, 11:38am), s/p venofer IV infusion in the past, 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 Summary Admitted for management of sepsis due to acute hypoxic respiratory failure with aspiration pneumonia. She was neutropenic on admission. She received G- CSF and had an uptrend in her leukocytosis which peaked and then began to downtrend. Clinically she progressed however due to some worsening of her bilateral upper lobe suspect multifocal pneumonia she had extended course which was transition to Levaquin. She clinically improved defervesced and felt very well following this. O2 reqs downtrended, she did not have a prior history of CHF however did have lower extremity edema during admission. She underwent diuresis with downtrend but not complete resolution of her oxygen requirements. TTE was pending. Day of discharge further monitoring for IV diuresis was offered versus return home. She strongly preferred to return home. Oxygen requirements were improved although not resolved she was clinically progressing. Was having good output on Lasix without reduced EF at bedside echo. Had a left pleural effusion. She preferred to continue diuresis at home and had reasonable oxygen requirements on 2 step. On shared decision making we will continue Lasix 40-80 mg total daily dose at home based on her output and weight with close outpatient follow-up and weekly BMP checks, down titration of oxygen as able, include oral Levaquin as an outpatient Early during admission she had intermittent melena and a downtrending hemoglobin. She was started on PPI twice daily therapy and had resolution of her melena. Following this she had no active bleeding or sudden hemoglobin drop but did have gradual downtrend in her hemoglobin with known history of iron deficiency. She received a Venofer infusion later during admission. She was started on folic acid/thiamine to help support erythrocyte production and due to her history of pancytopenia. She had no bleeding or melena at time of discharge. She was continued on PPI therapy on discharge. Hemoglobin was stable on discharge. She has a history of neuroendocrine tumor with hepatic metastasis. Hematology oncology was aware of her admission and plan, next treatments will be delayed until she is further recovered. To do as outpatient: 1. Continue Lasix 40 mg daily, 20 mg in addition to this as needed if in creasing weight or leg swelling. Just/discontinue Lasix as clinically indicated and follow creatinine 2. Complete 14-day antibiotic course with Levaquin 750 mg daily until 07/02/2024 3. Weekly CBC/CMP/CRP 4. Follow-up to hematology oncology, PCP 5. Recommend repeat CT in 4-6 weeks to ensure adequate progression 6. Follow-up on final results of TTE to R/O criticalness/chemo myopathy 7. Continue PPI twice daily therapy x 4 weeks. Sepsis, acute hypoxic respiratory failure 2/2 bibasilar aspiration pneumonia With history of neutropenia and chemo treatment w/ concern for aspiration. Zosyn/Unasyn were deferred due to hive allergy to penicillins. Was started on meropenem to cover both anaerobes and pneumonia coverage. No history of ESBL infections. Vancomycin continued for bacillus bacteremia. Blood cultures 06/18 positive for Bacillus cereus BioFire negative ID consulted. Suspect bacillus is contaminant. Do not recommend ongoing treatment for this specifically. Switched to levofloxacin for 10-14 days of antibiotics starting from 06/18, 14-day course would be complete 07/02. Appreciate recommendation CTA repeated due to worsening tachycardia, hypoxia and high risk for VTE/PE. No evidence of PE new multifocal alveolar groundglass infiltrates in bilateral upper lobes consistent with pneumonia. Patient has been transitioned to Levaquin. Oxygen requirement improving, not completely resolved. Continue Lasix as outpatient, hold if/when creatinine bums or volume status normalizes TTE with EF 55 to 60%, no evidence of cardiomyopathy from chemotherapy or critical illness Neuroendocrine tumor with hepatic metastasis S/p port placement 06/27 without complications. Will continue etoposide chemo as outpatient however due to pneumonia and bacteremia will likely need to delay her next treatment. Did send message to hematology/oncology to update on care - Allopurinol, bicarb continued Pancytopenia / chemo Count on admission 0.24 PSA normal 06/25 Received Neupogen 06/19 - 06/21. Neutropenic on admission White count improved following G-CSF administration No acute bleeding. Did receive 2 units of red blood cells 06/20 and 1 unit of platelets on 06/20 for platelet count of 11. Transfusion threshold of 7 or 8 if signs of ischemia Hemoglobin slowly downtrending without active bleeding. Venofer ordered 06/28. Hemoglobin uptrending subsequently Continue folic acid/thiamine supplementation Melena, acute GI, history of Crohn's Hemoglobin down trended from 11.1, dropped to 6.8 on 06/20. Received 2 units of blood transfusion and a unit of platelets. On PPI therapy. Continue PPI twice daily Last colonoscopy 05/19/2024. Seven 4-20 mm polyps removed with cold snare at the time. Normal terminal ileum. Normal rectal/perianal tissue. No signs of active Crohn's. Recommended for repeat colonoscopy in 6 months for surveillance Last iron studies with undetectable iron, TIBC 162, transferrin 116, ferritin markedly elevated likely as a phase reactant 1424, and transfersaturation unable to be calculated. Suspect she is iron deficient and is having a gradual downtrend of her hemoglobin without hemodynamically significant active bleeding, and BUN is not elevated and no upper epigastric pain suggestive of upper GI bleed. Deferred iron infusion earlier in admission due to immunosuppression and active infection however she would benefit from this. Currently is clinically progressing has been on antibiotics and is not septic/toxic. She does not meet criteria for a blood transfusion at this time hemoglobin 8.1. Improving following Venofer Continue PPI twice daily, folic acid, thiamine. Outpatient follow-up MDD Mild. Continue Lexapro 10 mg daily. Insomnia Lorazepam 1 mg p.o. nightly continued Admission HPI Per Admitting Provider Mercedes Oconnor is a 59-year-old female with history of small intestine neuroendocrine neoplasm with metastasis to the liver, GERD, Crohn's disease and anemia presenting with cough, generalized weakness, shortness of breath and fatigue. Patient was recently admitted to [facility] from June 09 through June 14, 2024 with concern for tumor lysis syndrome and fatigue. She was treated with allopurinol, sodium bicarbonate. She also was found to have a acute UTI which was treated with antibiotics. Worsening anemia status post 2 units PRBCs. After patient returned home her reports that she was very tired and has been sleeping most of her time. She has needed some help getting up but is able to ambulate without assistance once up. This morning patient reported some worsening shortness of breath and fatigue. She was very weak and unable to get up and ambulate on her own. Upon arrival to the emergency room patient notably tachypneic and hypoxic Placed on BiPAP Patient had significant anxiety while on BiPAP therefore was given several doses of Ativan. Patient was able to fall asleep and tolerate BiPAP for short time ER course: Ativan 0.5 mg IV x 2 doses Cefepime 2 g Lasix 40 mg IV x 1 Magnesium 1 g Calcium gluconate 1 g Vancomycin Discharge Exam General: Alert NAD. Cooperative. HEENT: Atraumatic, normocephalic.Hearing grossly intact. Vision grossly intact. +port Pulm: Diminished. No wheezing. No rhonchi symmetrical chest rise. No increased work of breathing. No respiratory distress. No rales. Cardiac: Tachycardic, no murmurs rubs or gallops radial pulses intact and symmetrical. Extremities: Bilateral symmetric leg swelling, 1+ edema, slightly improved but still present. Discharge Plan Discharge Items Patient Disposition: Home - Home Health Services Reason For Visit: SHORTNESS OF BREATH,EDEMA Discharge Diagnosis: Multifocal pneumonia CHF Iron deficiency anemia Pancytopenia Condition on Discharge: Fair Activity: Resume your previous activity Non-emergency contact: Primary Care Provider and Oncologist Call non-emergency contact if: you have any medication questions, your symptoms worsen, your pain is not controlled and your pain is worsening Follow-up/Referrals: Carly Vang DO [Primary Care Provider] - 07/08/24 9:30 am (Hospital follow up is scheduled for July 08, 2024 at 9:30am) Hina Sharpe MD [Physician] - Diet: Heart Healthy Addtl Attending Provider Instructions: You were seen in the hospital for sepsis due to multifocal pneumonia, hypoxic respiratory failure, and anemia. You were treated with antibiotics and clinically progressed. You were feeling well and greatly improved at time of discharge. It was recommended that you complete a 14-day course of antibiotics for pneumonia with Levaquin 750 mg daily. Please continue to take 750 mg of Levaquin by mouth once daily through 07/02/2024. You repeat blood work including a BMP, CBC, and CRP performed approximately 1 week by primary care provider. You are greatly improving or afebrile for more than 24 hours and felt generally well. You had a rise in your white blood cell count after receiving G-CSF, this was downtrending by time of discharge. He showed evidence of iron deficiency anemia during admission. You did receive blood transfusions for low blood levels and had some melena during admission. Following addition of antiacid therapy you had no further episodes of melena. You had a slight downtrend of your hemoglobin after this which was thought to be due to iron deficiency and pancytopenia rather than active bleeding. You rece ived an iron transfusion during admission. Please follow-up with your hotshot superintendent for further potential transfusions in the future. You have been continued on thiamine and folic acid to help promote good blood cell production by your bone marrow. If you have any recurrent bleeding or black bowel movements please seek immediate medical reattention. Please take Protonix 40 mg by mouth twice daily. This is an antiacid medicine to help treat stomach ulcers/upper GI bleeding. Please follow-up with your primary care physician as this medication should eventually be switched to daily. You had a low oxygen levels during admission. This was thought to be in part due to pneumonia, in part due to fluid over. You had no history of heart failure did not have any chest pain during admission. An ultrasound of your heart to rule out cardiomyopathy due to chemotherapy was ordered and pending at time of discharge. You did however remain well and were clinically progressing. Your oxygen requirement resolved during the day however you had an ongoing nighttime and exertional oxygen requirement. This may improve with diuresis, and may also take time for your pneumonia to recover. You have been prescribed oxygen. Please use 2 to 4 L of oxygen as needed at night and with exertion to maintain oxygen levels greater than 90%. If you have a increasing oxygen requirement requiring more than this to maintain oxygen levels above 90% please seek medical reattention You received a large amount of IV fluid due to multiple medications during admission and following diuresis did have improved in lower extremity swelling and breathing. You were near not completely at baseline. Ongoing admission for diuresis was discussed however as you are feeling well, likely to have some continued symptoms due to slow COVID with pneumonia, and CT scan showing moderate effusions will likely take several days to improve on shared decision making prefer discharge home on oral diuretics with outpatient follow-up. You have been prescribed Lasix 40 mg daily. Please check your weight every day. If your weight is increasing by more than 1-2 pounds over a short period, or your leg swelling is increasing this is sign you are retaining more fluid and you may take an extra Lasix 20 mg. If you have continued weight gain or rising oxygen requirements he will need to be seen either by your primary care doctor or in the ER for reassessment. If you develop any new or worsening symptoms including fever, chills, sweats, chest pain, chest pressure, difficulty breathing, uncontrolled nausea/vomiting, rash, wheezing, passing out or nearly passing out, bleeding, black/bloody bowel movements, or other new or concerning symptoms please call your primary care physician, or call 911 for re-evaluation in the emergency department if you are very concerned. Pending Studies at Discharge: No Stand-Alone Forms: My [employer], Smoking Cessation Medications and DC Order Prescriptions: New thiamine HCl (vitamin B1) 100 mg Tablet 100 mg PO QAM Qty: 30 0RF folic acid 1 mg Tablet 1 mg PO QAM Qty: 30 0RF levofloxacin 750 mg Tablet 750 mg PO DAILY@1100 Qty: 3 0RF pantoprazole 40 mg tablet,delayed release (DR/EC) 40 mg PO BID 28 Days Qty: 56 0RF potassium chloride 20 mEq tablet extended release 20 meq PO DAILY Qty: 30 0RF furosemide [Lasix] 40 mg tablet 40 mg PO DAILY PRN (Reason: weight gain) Qty: 30 0RF Continued escitalopram oxalate 10 mg tablet 10 mg PO DAILY Qty: 90 3RF lorazepam 0.5 mg tablet 0.5 mg PO TID PRN (Reason: Anxiety) potassium chloride 20 mEq tablet extended release 20 meq PO DAILY Qty: 30 0RF cyanocobalamin (vitamin B-12) [Vitamin B-12] 1,000 mcg Tablet 1,000 mcg PO DAILY allopurinol 100 mg Tablet 150 mg PO DAILY 28 Days Qty: 42 0RF sodium bicarbonate 650 mg Tablet 650 mg PO BID 30 Days Qty: 60 0RF calcium carbonate 200 mg calcium (500 mg) Tablet,Chewable 500 mg PO TID 30 Days Qty: 225 0RF cholecalciferol (vitamin D3) [Vitamin D3] 10 mcg (400 unit) Tablet 10 mcg PO QAM 30 Days Qty: 30 0RF ondansetron 4 mg Tablet,Disintegrating 4 mg PO Q4H PRN (Reason: nausea and vomiting) 5 Days Qty: 20 0RF Discontinued cephalexin 500 mg capsule 500 mg PO QID Rx Instructions: 06/14/24 FOR 3 DAYS. Discharge Orders: Discharge Order (Routine); Ordered 06/29/24 Ordered By: Theron Reynolds Admission Data Admit Date/Time: 06/18/24 21:37 Attending Provider: Theron Reynolds Admit Provider: Lyndsay Hough Primary Care Provider: Carly Vang. Other Providers: Lyndsay Hough; Mane Frye Other Interventions: Discharge Summary Assessment (RN) Last Done: 06/29/24 14:16 Hospital Stay Data Consultations 06/18/24 20:40 ED Decision to Admit Stat 06/23/24 08:00 Consult Vascular Surgery Routine 06/25/24 16:18 Consult Infectious Diseases Routine Procedures Performed Operation Date: 06/27/24 08:00 Actual Procedures p Insertion of Steve Catheter, Right Jugular Approach,Ultrasound Localization of Right Internal Jugular Vein,Fluoroscopy for Positioning(Right) - Mane Frye MD Diagnostic Imagining Performed 06/19/24 US liver Urgent 06/26/24 16:22 CT angio chest PE protocol Stat 06/27/24 07:14 EV Aport insertion Routine US EV guide vascular access Routine Pending Results Patient Have Any Pending Studies at Discharge: No Discharge Instructions Given to Patient (Per Discharging Provider) You were seen in the hospital for sepsis due to multifocal pneumonia, hypoxic respiratory failure, and anemia. You were treated with antibiotics and clinically progressed. You were feeling well and greatly improved at time of discharge. It was recommended that you complete a 14-day course of antibiotics for pneumonia with Levaquin 750 mg daily. Please continue to take 750 mg of Levaquin by mouth once daily through 07/02/2024. You repeat blood work including a BMP, CBC, and CRP performed approximately 1 week by primary care provider. You are greatly improving or afebrile for more than 24 hours and felt generally well. You had a rise in your white blood cell count after receiving G-CSF, this was downtrending by time of discharge. He showed evidence of iron deficiency anemia during admission. You did receive blood transfusions for low blood levels and had some melena during admission. Following addition of antiacid therapy you had no further episodes of melena. You had a slight downtrend of your hemoglobin after this which was thought to be due to iron deficiency and pancytopenia rather than active bleeding. You received an iron transfusion during admission. Please follow-up with your hotshot superintendent for further potential transfusions in the future. You have been continued on thiamine and folic acid to help promote good blood cell production by your bone marrow. If you have any recurrent bleeding or black bowel movements please seek immediate medical reattention. Please take Protonix 40 mg by mouth twice daily. This is an antiacid medicine to help treat stomach ulcers/upper GI bleeding. Please follow-up with your primary care physician as this medication should eventually be switched to daily. You had a low oxygen levels during admission. This was thought to be in part due to pneumonia, in part due to fluid over. You had no history of heart failure did not have any chest pain during admission. An ultrasound of your heart to rule out cardiomyopathy due to chemotherapy was ordered and pending at time of discharge. You did however remain well and were clinically progressing. Your oxygen requirement resolved during the day however you had an ongoing nighttime and exertional oxygen requirement. This may improve with diuresis, and may also take time for your pneumonia to recover. You have been prescribed oxygen. Please use 2 to 4 L of oxygen as needed at night and with exertion to maintain oxygen levels greater than 90%. If you have a increasing oxygen requirement requiring more than this to maintain oxygen levels above 90% please seek medical reattention You received a large amount of IV fluid due to multiple medications during admission and following diuresis did have improved in lower extremity swelling and breathing. You were near not completely at baseline. Ongoing admission for diuresis was discussed however as you are feeling well, likely to have some continued symptoms due to slow COVID with pneumonia, and CT scan showing moderate effusions will likely take several days to improve on shared decision making prefer discharge home on oral diuretics with outpatient follow-up. You have been prescribed Lasix 40 mg daily. Please check your weight every day. If your weight is increasing by more than 1-2 pounds over a short period, or your leg swelling is increasing this is sign you are retaining more fluid and you may take an extra Lasix 20 mg. If you have continued weight gain or rising oxygen requirements he will need to be seen either by your primary care doctor or in the ER for reassessment. If you develop any new or worsening symptoms including fever, chills, sweats, chest pain, chest pressure, difficulty breathing, uncontrolled nausea/vomiting, rash, wheezing, passing out or nearly passing out, bleeding, black/bloody bowel movements, or other new or concerning symptoms please call your primary care physician, or call 911 for re-evaluation in the emergency department if you are very concerned. Total Time Total Time Spent Total Time Spent (In Minutes): Time spend day of discharge 50 minutes including direct patient care, documentation, review of labs and images, and coordination of care. Coding Level of Care Code 55189 INP/OBS DISCH >30 MIN Diagnoses Acute hypoxemic respiratory failure J96.01 Pneumonia J18.9 Neutropenia D70.9 Cancer of liver C22.9 Liver malignancy type: unspecified liver malignancy
[2024-06-29 08:34] LABS: ALC (manual) 1.09 K/uL (1.2-3.4); ANC (manual) 11.77 K/uL (1.4-6.5); Basophils # (manual) 0.22 K/uL (0-0.2); Basophils % (manual) 1 %; Blast # (manual) 0.22 K/uL (0-0); Blast Cells % (manual) 1 %; Dohle Bodies Occasional; Lymphocytes # (manual) 1.09 K/uL (1.2-3.4); Lymphocytes % (manual) 5 %; Metamyelocytes # (manual) 2.83 K/uL (0-0); Metamyelocytes % (manual) 13 %; Monocytes # (manual) 2.83 K/uL (0.11-0.59); Monocytes % (manual) 13 %; Myelocytes # (manual) 2.61 K/uL (0-0); Myelocytes % (manual) 12 %; Neutrophils # (manual) 11.77 K/uL (1.40-6.50); Neutrophils % (manual) 54 %; Promyelocytes # (manual) 0.22 K/uL (0-0); Promyelocytes % (manual) 1 %
[2024-06-29 08:35] LABS: Polychromasia 1+; Stomatocytes 1+; Toxic Granulation 1+
--- NOTE | 2024-06-29 09:13 | XRay Report ---
EXAM: Radiograph of the Chest 1 View INDICATION: Pleural effusion TECHNIQUE: Frontal view of the chest. Image obtained at 8:48 AM. COMPARISON: 06/26/2024 FINDINGS: Lungs and pleural spaces: Stable small bilateral pleural effusions left greater than right and dense left basilar partial collapse. There is persistent but improved alveolar edema. No pneumothorax. Heart: Shape and configuration within normal limits allowing for technique. Mediastinum: Normal contour. Bones/joints: No fracture, erosion or dislocation. Soft tissues: No abnormality noted. Tubes, lines and devices: Right internal jugular central venous catheter tip in the distal superior vena cava. Upper abdomen: No abnormality noted. IMPRESSION: 1. Stable small pleural effusions left greater than right. 2. Slight improved alveolar edema. 3. Stable dense consolidation left lung base. Consider mucous plugging. 4. Central venous line as above. ACT 112: N/A Electronically signed by Teresa Archer 06-29-2024 09:12 AM
[2024-06-29 11:30] VITALS: BP 114/74; RESP 18; O2SAT 97
[2024-06-29 14:18] VITALS: PULSE 110
== END 2024-06-29 14:47 | disposition home health service (06) ==
LOC: ED 19:03 → 2S 21:37 → SUATTDRO 21:37 → 2S 22:12

== ENCOUNTER 2024-07-28 20:38 | Inpatient (IN) ==
--- NOTE | 2024-07-28 21:11 | Emergency Department Note ---
Impression & Plan Neuroendocrine carcinoma, Thrombocytopenia, Hypokalemia, Generalized weakness, Hypomagnesemia ED Provider Note Provider: Franklin Medina MD CHIEF COMPLAINT: Referred due to low platelet count HISTORY OF PRESENT ILLNESS: Patient is a 59-year-old female unfortunate history of neuroendocrine tumor metastatic following with the [facility] last treatment 2 weeks ago presenting here today referred for low platelet count. Patient states me last day or 2 she has been little bit weaker. Occasionally has a mild headache but no trauma. No fevers reported or significant nausea or vomiting. Patient's home health visited today and obtained blood sample from her Woods and was called this evening with a low platelet count. Referred by the outpatient oncologist for evaluation here related to this. Denies any significant bloody noses or gum bleeding or blood in the urine. Denies severe bleeding or bruising issues beyond normal. Not on anticoagulants or antiplatelet agents. Patient states she is little bit sore in her back where she received a platelet stimulating shot 2 weeks ago when she had a last chemoinfusion but otherwise denies significant low back pain. States she has just a little bit less pep and walk than normal recently. Patient relates she is scheduled for another "platelet "shot tomorrow in the cancer center. PAST MEDICAL HISTORY: As noted above MEDICATIONS: Reviewed home medications. SOCIAL HISTORY: , non-smoker PHYSICAL EXAM: GENERAL: alert and oriented in no acute distress on stretcher thin and frail in appearance Head: normocephalic and atraumatic hair In place EYES: No injection, discharge or icterus. EOMI. NECK: Trachea midline. ENT: Mucous membranes pink and moist. LUNGS: Airway patent. No retractions or tachypnea HEART: Regular rate and rhythm. No chest wall tenderness with a right chest Woods catheter in place Back: No significant lumbar or paraspinal tenderness or SI joint tenderness. Some slight mid upper thoracic tenderness midline without bruising noted or paraspinal tenderness. ABDOMEN: Soft and non-tender, without guarding or rebound. SKIN: Acyanotic, warm, dry, without rashes EXTREMITIES: Without swelling, tenderness or deformity NEUROLOGICAL: No focal deficits. No aphasia. No facial droop or slurred speech. Ambulatory. EK bpm normal sinus rhythm. Artifact but no acute PVC or PAC. No ST segment elevation or depression with QTc of 479. CONTINUOUS CARDIAC MONITORING: was ordered and showed a heart rate of 80s to 90s bpm in normal sinus rhythm Patient's laboratory studies and imaging reviewed. Differential includes Infection, dehydration, metabolic abnormality, hypo/hyperglycemia, electrolyte disturbance, anemia, hypoxia, cardiac sources, intracerebral event, toxicologic, neurologic, as well as other pathologies. IMPRESSION/MEDICAL DECISION MAKING: Patient without significant focal deficits. No other seizure activity or encephalopathy/lethargy reported. No fevers reported. Maybe a little bit of mild on and off headache at times. No trauma. No reported active bleeding of the mucous membranes, urine, or stool. Basic blood work is checked and in particular CBC rechecked tonight. Type and screen sent. Patient with recent oncological treatment last infusion 2 weeks ago. No significant lower retroperitoneal abdominal or back tenderness and doubt bleed here. Chest x-ray obtained and head CT obtained in an abundance of caution. Patient does relate she has been on Levaquin for last several days. Denies significant respiratory symptoms at this time. Blood work here with mild anemia 8.2 but a significant thrombocytopenia 15. Leukocytosis of 13.6 is noted. Patient with low potassium of 2.4. Normal sodium and creatinine. Slightly low calcium of 8.2. Bilirubin 1.9 not severely elevated. Again no reported significant abdominal discomfort at this time. Magnesium l level somewhat decreased and given supplementation. IV potassium supplementation ordered via her existing central access Woods. Patient reports he has had issue with low potassium in the past and last week she had a bit of a GI disturbance and missed a few doses. Chest x-ray and CT head completed. Chest x-ray questions of bronchiolitis but not having significant respiratory symptoms at this point. Not hypoxic. Doubt pneumonia or bacterial infection and has already been on a recent antibiotic Levaquin. Negative COVID flu RSV testing. Discussed with Dr. Schroeder of the cancer center on-call for them tonight regarding the patient's case and her significant thrombocytopenia. No acute intervention with this send CT imaging is reassuring without bleed and she does not have signs of other active bleeding. Did discuss with him briefly however patient's significant hypokalemia. Receiving again IV magnesium and potassium supplementation. Given this low level in discussion with him will bring in for further observation overnight and repletion. This will likely improve some of her weakness. She is agreeable to stay the night although is anxious to be discharged to soon as possible and continue to follow with the cancer center in the outpatient setting. DIAGNOSIS: Thrombocytopenia, hypokalemia, weakness, neuroendocrine carcinoma DISPOSITION: Hospitalist will evaluate Patient was agreeable with this plan. Past Med/Surg History Problem List (Updated 07/28/24 @ 23:09 by Franklin Medina M.D.) Hypomagnesemia (Acute) Hypokalemia (Acute) Thrombocytopenia (Acute) Hypokalemia Neuroendocrine carcinoma (Acute) Metastasis to liver Tumor lysis syndrome (Acute) Generalized weakness (Acute) Sternal fracture (Acute ~05/30/24) History of basal cell carcinoma (BCC) of skin R berrios s/p MOHS Mar 2024 Iron deficiency anemia B12 deficiency Post menopausal syndrome Vitamin D deficiency Tubular adenoma of colon Crohn's disease Acid reflux Medical History (Updated 07/28/24 @ 23:09 by Franklin Medina M.D.) Right lower lobe pneumonia Volume overload Mass of small intestine Hypercalcemia Transaminitis Hypomagnesemia Elevated troponin Acute hypoxic respiratory failure Acute encephalopathy Pneumonia Melena Neutropenia Metabolic acidosis Acute UTI (urinary tract infection) Leukocytosis Sepsis RISSA (acute kidney injury) SBO (small bowel obstruction) Surgical History S/P Mohs surgery for basal cell carcinoma (03/2024) R berrios H/O breast biopsy S/P endometrial ablation Hx of oral surgery Family History Grandmother Colorectal cancer Uncle Colorectal cancer Mother Myocardial infarction, Onset Age: 66 Father Hypertension Diabetes Denies family history of Ovarian cancer Prostate cancer Breast cancer Social History Smoking Status: Unknown if ever smoked Second Hand Exposure: Yes; Do You Dip or Chew Tobacco: No; Hx Alcohol Use: No Hx Substance Use: No Preferred Language: Pakistani Communication Ability: Effective Visual Impairment: No Limitations Hearing Ability: Normal Gasket Former Required: No Beliefs That Will Affect Care: None marital status: Current Living Situation: Spouse Current Living Situation Comment: Lives w/ current occupational status: 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 Feels Safe at Home: Yes Childhood Exposure to Second-Hand Smoke: Yes Diet: regular Diet Comment: Regular caffeine: Yes during the past year weight has: remained stable Dental Care, Regularly: Yes Physical Activity Frequency: 3-4 Times per Week Seatbelt Use: always Sunscreen Use: Yes Assistive Devices: Oxygen - Continuous Allergies Allergies Allergy/AdvReac Type Severity Reaction Status Date / Time Penicillins Allergy Intermediate HIVES Verified 07/25/24 13:34 Home Meds Home Medications Medication Instructions Recorded Confirmed cyanocobalamin (vitamin B-12) 1,000 mcg PO DAILY 06/09/24 07/25/24 1,000 mcg tablet (Vitamin B-12) Previous Rx's Medication Instructions Recorded escitalopram oxalate 10 mg tablet 10 mg PO DAILY #90 tabs 02/14/24 levofloxacin 750 mg tablet 750 mg PO DAILY@1100 #3 tabs 06/29/24 thiamine HCl (vitamin B1) 100 mg 100 mg PO QAM #30 tabs 06/29/24 tablet lorazepam 1 mg tablet 1 mg PO HS PRN Anxiety #30 tabs 07/01/24 potassium chloride 20 mEq/15 mL 20 meq (15 mL) PO DAILY #450 mL 07/02/24 oral liquid hydroxyurea 500 mg capsule 500 mg PO QAM 30 days #30 caps 07/04/24 levetiracetam 500 mg tablet 500 mg PO BID 30 days #60 tabs 07/04/24 (Keppra) Oxygen Home #1 ea 07/07/24 calcium carbonate 500 mg PO TID 30 days #90 tabs 07/09/24 folic acid 1 mg tablet 1 mg PO QAM #30 tabs 07/28/24 furosemide 40 mg tablet (Lasix) 40 mg PO DAILY PRN weight gain #30 07/28/24 tabs Results & Data (ED) Vital Signs Vital Signs - 24 hr 07/28/24 20:45 07/28/24 21:05 07/28/24 21:05 Temperature 36.5 C Temperature Source Temporal Artery Scan Pulse Rate 96 H 90 Pulse Rate [Apical] 87 Pulse Rhythm Regular Pulse Rhythm [Apical] Regular Pulse Strength [Apical] Normal Respiratory Rate 19 18 18 Respiratory Effort / Characteristics Non-Labored Spontaneous Non-Labored Spontaneous Respiratory Depth Normal Normal Respiratory Pattern Regular Blood Pressure 136/83 Blood Pressure [Right Arm] 151/78 H Blood Pressure Mean 100 Blood Pressure Mean [Right Arm] 102 Blood Pressure Position [Right Arm] Lying Pulse Oximetry 95 100 99 Oxygen Delivery Method Room Air Room Air Room Air Sepsis Recent Fever Within 48 Hours No Sepsis New/Unexplained Change in Mental Status N/A Sepsis Action Taken by Nursing No Action Required 07/28/24 22:11 Temperature Temperature Source Pulse Rate 89 Pulse Rate [Apical] Pulse Rhythm Pulse Rhythm [Apical] Pulse Strength [Apical] Respiratory Rate Respiratory Effort / Characteristics Respiratory Depth Respiratory Pattern Blood Pressure Blood Pressure [Right Arm] Blood Pressure Mean Blood Pressure Mean [Right Arm] Blood Pressure Position [Right Arm] Pulse Oximetry Oxygen Delivery Method Sepsis Recent Fever Within 48 Hours Sepsis New/Unexplained Change in Mental Status Sepsis Action Taken by Nursing Laboratory Data 07/28/24 21:10 07/28/24 21:10 Lab Results 07/28/24 07/28/24 07/28/24 Range/Units 21:10 21:10 21:22 WBC 13.66 H (4.8-10.8) K/ul RBC 2.89 L (4.20-5.40) M/uL Hgb 8.2 L (12.0-16.0) g/dl Hct 24.9 L (37.0-47.0) % MCV 86.2 (80.0-100.0) fL MCH 28.4 (25.0-34.0) pg MCHC 32.9 (32.0-36.0) g/dL RDW Std Deviation 67.0 H (36.4-46.3) fL RDW Coeff of Susanna 21.2 H (11.5-14.5) % Plt Count 15 L* (130-400) K/uL PT 15.6 H (9.0-12.0) Seconds INR 1.5 H (0.9-1.1) APTT 42 H (21-31) Seconds PTT Ratio 1.6 Sodium 137 (136-145) mmol/L Potassium 2.4 L* (3.5-5.1) mmol/L Chloride 107 (98-107) mmol/L Carbon Dioxide 19 L (21-32) mmol/L Anion Gap 11 (3-11) BUN 6 (6-23) mg/dl Creatinine 0.81 (0.6-1.2) mg/dl Est Cr Clr Drug Dosing 65.7 ml/min eGFR 84.61 BUN/Creatinine Ratio 7.4 L (10-20) Glucose 95 (70-99(Fasting)) mg/dl Calcium 8.2 L (8.6-10.3) mg/dl Magnesium 1.3 L Cancelled (1.7-2.4) mg/dl Total Bilirubin 1.9 H (0.2-1.0) mg/dl AST 17 (13-39) U/L ALT 9 (7-52) U/L Alkaline Phosphatase 196 H (34-104) U/L Troponin I High Sens 11.6 (0-14) pg/ml Total Protein 5.4 L (6.0-8.3) gm/dl Albumin 2.9 L (3.4-5.0) gm/dl Globulin 2.5 (2.5-4.0) gm/dl Albumin/Globulin Ratio 1.2 (0.9-2) SARS-CoV-2 (PCR) NEGATIVE (Negative) Influenza Type A (PCR) Negative (Neg) Influenza Type B (PCR) Negative (Neg) RSV (RT-PCR) Negative (Neg) Blood Type A Positive Antibody Screen NEGATIVE Administered Medications Potassium Chloride (K Jose Daniel / Wtr) 20 meq in 100 mls @ 50 mls/hr IV ONE ONE Stop: 07/29/24 00:12 Last Admin: 07/28/24 22:32 Dose: 50 mls/hr Documented By: ADEEL Co-signed By: PAULINE Discontinued Medications Magnesium Sulfate/Dextrose (Magnesium Sulfate / D5w) 1 gm in 100 mls @ 100 mls/hr IV NOW STA Stop: 07/28/24 23:19 Last Admin: 07/28/24 22:32 Dose: 100 mls/hr Documented By: ADEEL Imaging Data Radiologist's Impression: Head CT 07/28/24 21:06 Exam(s): CT HEAD Without Contrast EXAM: CT Head Without Intravenous Contrast CLINICAL HISTORY: Reason for exam: low plts, headache. TECHNIQUE: Axial computed tomography images of the head/brain without intravenous contrast. CTDI is 35.72 mGy and DLP is 547.75 mGy-cm. Automated exposure control was utilized for the study. A dose lowering technique was utilized adhering to the principles of ALARA. COMPARISON: Prior brain MRI from July 02, 2024. FINDINGS: Brain: Unremarkable. No hemorrhage. No significant white matter disease. No edema. Ventricles: Unremarkable. No ventriculomegaly. Bones/joints: Unremarkable. No acute fracture. Soft tissues: Unremarkable. Sinuses: Unremarkable as visualized. No acute sinusitis. Mastoid air cells: Unremarkable as visualized. No mastoid effusion. IMPRESSION: No evidence of acute intracranial pathology. Electronically signed by: Amee Jauregui MD 07/28/24 22:58 PM Chest X-Ray 07/28/24 21:12 Exam(s): XR CXR 1 VIEW EXAM: XR Chest, 1 View CLINICAL HISTORY: Reason for exam: weak, low plts. TECHNIQUE: Frontal view of the chest. COMPARISON: Prior chest x-ray from July 01, 2024. FINDINGS: There is a right IJ approach dialysis catheter in place with the distal tip at the SVC/RA junction. Lungs: Mild to moderate peribronchial thickening of the central lower lobe bronchi. No consolidation. Pleural space: Unremarkable. No pneumothorax. Heart: Unremarkable. No cardiomegaly. Mediastinum: Unremarkable. Normal mediastinal contour. Bones/joints: Unremarkable. No acute fracture. IMPRESSION: Bronchitis, which may be of infectious or inflammatory etiologies. No consolidation or pleural effusion. Electronically signed by: Amee Jauregui MD 07/28/24 23:02 PM Discharge Plan Visit Data Chief Complaint: Referred by Doctor Stated Complaint: ref by dr FOR LOW PLATELET COUNT ED Provider: Franklin Medina Discharge Problem: Neuroendocrine carcinoma, Thrombocytopenia, Hypokalemia, Generalized weakness, Hypomagnesemia Patient Disposition: Being Evaluated by Hospitalist Condition: Fair Forms Stand Alone Forms: My [facility] [place] TVTY Prescriptions Prescriptions: No Action escitalopram oxalate 10 mg tablet 10 mg PO DAILY Qty: 90 3RF lorazepam 1 mg tablet 1 mg PO HS PRN (Reason: Anxiety) Qty: 30 0RF potassium chloride 20 mEq/15 mL liquid 20 meq PO DAILY Qty: 450 0RF calcium carbonate 500 mg calcium (1,250 mg) tablet,chewable 500 mg PO TID 30 Days Qty: 90 0RF furosemide [Lasix] 40 mg tablet 40 mg PO DAILY PRN (Reason: weight gain) Qty: 30 0RF folic acid 1 mg tablet 1 mg PO QAM Qty: 30 0RF (DME) Oxygen Home Liters Per Minute See Rx Instructions .Route Qty: 1 0RF Rx Instructions: 2L HS PRN- (pt not sure who ordered) thiamine HCl (vitamin B1) 100 mg Tablet 100 mg PO QAM Qty: 30 0RF levofloxacin 750 mg Tablet 750 mg PO DAILY@1100 Qty: 3 0RF hydroxyurea 500 mg Capsule 500 mg PO QAM 30 Days Qty: 30 0RF levetiracetam [Keppra] 500 mg tablet 500 mg PO BID 30 Days Qty: 60 0RF cyanocobalamin (vitamin B-12) [Vitamin B-12] 1,000 mcg Tablet 1,000 mcg PO DAILY Referrals Referrals: Carly Vang DO [Primary Care Provider] -
[2024-07-28 21:52] LABS: Hematocrit (blood only) 24.9 % (37.0-47.0); Hemoglobin 8.2 g/dl (12.0-16.0); Mean Corpuscular Hemoglobin 28.4 pg (25.0-34.0); Mean Corpuscular Hgb Conc 32.9 g/dL (32.0-36.0); Mean Corpuscular Volume 86.2 fL (80.0-100.0); Platelet Count 15 K/uL (130-400); RDW Coefficient of Variation 21.2 % (11.5-14.5); Red Blood Count 2.89 M/uL (4.20-5.40); White Blood Count 13.66 K/ul (4.8-10.8)
[2024-07-28 21:55] LABS: Albumin Globulin Ratio 1.2 (0.9-2); Albumin Level 2.9 gm/dl (3.4-5.0); BUN Creatinine Ratio 7.4 (10-20); Bilirubin,Total 1.9 mg/dl (0.2-1.0); Calcium 8.2 mg/dl (8.6-10.3); Creatinine Clr Calc Pharmacy 65.7 ml/min; Globulin 2.5 gm/dl (2.5-4.0); Potassium 2.4 mmol/L (3.5-5.1); Total Protein 5.4 gm/dl (6.0-8.3)
[2024-07-28 21:59] LABS: Troponin I High Sensitivity 11.6 pg/ml (0-14)
[2024-07-28 22:03] LABS: INR 1.5 (0.9-1.1); Partial Thromboplastin Ratio 1.6; Partial Thromboplastin Time 42 Seconds (21-31); Prothrombin Time 15.6 Seconds (9.0-12.0)
[2024-07-28 22:09] LABS: Magnesium 1.3 mg/dl (1.7-2.4)
[2024-07-28 22:17] LABS: Influenza A virus by PCR Negative (Neg); Influenza B virus by PCR Negative (Neg); RSV by PCR Negative (Neg); SARS CoV2 RNA(COVID-19) Ceph NEGATIVE (Negative)
[2024-07-28] MEDS: POTASSIUM CHLORIDE / WTR 20 MEQ/100 ML PLCT IV ONE (22:32)
[2024-07-28] MEDS: MAGNESIUM SULFATE / D5W 1 GM/100 ML BAG IV STA (22:32)
--- NOTE | 2024-07-28 22:59 | CT Scan Report ---
Exam(s): CT HEAD Without Contrast EXAM: CT Head Without Intravenous Contrast CLINICAL HISTORY: Reason for exam: low plts, headache. TECHNIQUE: Axial computed tomography images of the head/brain without intravenous contrast. CTDI is 35.72 mGy and DLP is 547.75 mGy-cm. Automated exposure control was utilized for the study. A dose lowering technique was utilized adhering to the principles of ALARA. COMPARISON: Prior brain MRI from July 02, 2024. FINDINGS: Brain: Unremarkable. No hemorrhage. No significant white matter disease. No edema. Ventricles: Unremarkable. No ventriculomegaly. Bones/joints: Unremarkable. No acute fracture. Soft tissues: Unremarkable. Sinuses: Unremarkable as visualized. No acute sinusitis. Mastoid air cells: Unremarkable as visualized. No mastoid effusion. IMPRESSION: No evidence of acute intracranial pathology. Electronically signed by: Amee Jauregui MD 07/28/24 22:58 PM
--- NOTE | 2024-07-28 23:03 | XRay Report ---
Exam(s): XR CXR 1 VIEW EXAM: XR Chest, 1 View CLINICAL HISTORY: Reason for exam: weak, low plts. TECHNIQUE: Frontal view of the chest. COMPARISON: Prior chest x-ray from July 01, 2024. FINDINGS: There is a right IJ approach dialysis catheter in place with the distal tip at the SVC/RA junction. Lungs: Mild to moderate peribronchial thickening of the central lower lobe bronchi. No consolidation. Pleural space: Unremarkable. No pneumothorax. Heart: Unremarkable. No cardiomegaly. Mediastinum: Unremarkable. Normal mediastinal contour. Bones/joints: Unremarkable. No acute fracture. IMPRESSION: Bronchitis, which may be of infectious or inflammatory etiologies. No consolidation or pleural effusion. Electronically signed by: Amee Jauregui MD 07/28/24 23:02 PM
--- NOTE | 2024-07-28 23:36 | History & Physical Report ---
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 She was referred to the ER after her platelets were found to be 15 (were 47 about three days ago). Despite the severe thrombocytopenia fortunately she is NOT having any bleeding from any location; no epistaxis, BRBPR, melena, or hematuria. During her work-up in the ER her potassium was found to be low at 2.4 and magnesium at 1.3. Last round of chemotherapy (carboplatin/etoposide) was about 10 days ago. #thrombocytopenia - -likely 2nd to recent chemotherapy (both agents can cause myelosuppression) +/- hydroxyurea use -- former the larger culprit -no bleeding issues at this time -ER attending was in touch with on-call oncology, Dr Schroeder -- no transfusion/Rx needed at this time -plan to repeat CBC in am for stability; if platelets drop to 10 or less then will transfuse -of note - B12/folate in June were wnl -hold hydroxyurea in the setting of her severely depressed platelets #hypokalemia - -low magnesium level, recent vomiting/diarrhea, and potentially her carboplatin could all be contributing to the hypokalemia -plan 40meq IV KCL now -20meq PO KCL -repeat BMP early this am, and supplement further if needed -may need higher dose of supplementation at discharge -replace low mag -corrected total calcium level is wnl as her albumin is mildly low low #hypomagnesemia - -recent diarrhea may have contributed -carboplatin chemotherapy could potentially be contributing via renal wasting -she has had SEVERE hypomagnesemia multiple times over the last 1-2 months -will need PO mag supplementation upon discharge -replace with IV magnesium - 3 grams ordered; recheck level early this am #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 -Crohn's has not been active thus her IBD likely not playing a role #Crohn's disease - -quiescent at this time -diagnosed age 22 #elevated INR - -1.5 today -has been elevated since early May, likely due to extensive liver mets causing liver dysfunction -consider vitamin K supplementation - could be vitamin K deficient - but defer for now #abnormal LFTs - -elevated since May 2024 -likely due to hepatic mets from her neuroendocrine tumor #thrombocytosis - -platelet levels reached over 1000 in late June / early July -was started on hydroxyurea at that time -JANICE-2 mutation returned negative -in light of severely low platelets today HOLD hydroxyurea at this time #recent concern for seizures - -cont keppra 500mg BID #DVT proph - -chemical means contraindicated in setting of her severe thrombocytopenia if platelets remain stable, and if K/mag are corrected by tomorrow, could potentially d/c home at that time place on telemetry in light of severe electrolyte abnormalities History of Present Illness Chief Complaint: low platelets Primary Care Provider: Carly Vang, DO Very pleasant 59yo female with history of 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 She was referred to the ER after her platelets were found to be 15 (were 47 about three days ago). Despite the severe thrombocytopenia fortunately she is NOT having any bleeding from any location; no epistaxis, BRBPR, melena, or hematuria. During her work-up in the ER her potassium was found to be low at 2.4 and magnesium at 1.3. She reports having had vomiting and diarrhea about 1 week ago in the context of recent chemotherapy consisting of carboplatin/etoposide but those symptoms resolved after a day or two. She is on potassium supplementation and missed about 2 days of such when she was having the vomiting/diarrhea but she resumed it on Sunday, 07/26. Despite current chemotherapy she has been eating/drinking well. Denies diuretic use. Although her K & Mag levels are low she has been surprisingly feeling very well. Denies any fevers, chills, URI symptoms, or other infectious symptoms. Patient has had a very difficult last 6-8 weeks, having been hospitalized at [facility] three times - * 06/09 to 06/14 for tumor lysis syndrome * 06/18 to 06/29 for acute respiratory failure/pneumonia * 07/01 to 07/04 for altered mental status Last round of chemo was about 10-14 days ago; this was cycle #2 of carboplatin/etoposide. Of note -following her June admission for pneumonia she was sent home on NC O2. She is ONLY using the oxygen at bedtime, not during the day. Allergies Allergy/AdvReac Type Severity Reaction Status Date / Time Penicillins Allergy Intermediate HIVES Verified 07/25/24 13:34 Home Medications Medication Instructions Recorded Confirmed Type escitalopram oxalate 10 mg tablet 10 mg PO DAILY #90 tabs 02/14/24 07/25/24 Rx cyanocobalamin (vitamin B-12) 1,000 mcg PO DAILY 06/09/24 07/25/24 History 1,000 mcg tablet (Vitamin B-12) levofloxacin 750 mg tablet 750 mg PO DAILY@1100 #3 tabs 06/29/24 07/25/24 Rx thiamine HCl (vitamin B1) 100 mg 100 mg PO QAM #30 tabs 06/29/24 07/25/24 Rx tablet lorazepam 1 mg tablet 1 mg PO HS PRN Anxiety #30 tabs 07/01/24 07/25/24 Rx potassium chloride 20 mEq/15 mL 20 meq (15 mL) PO DAILY #450 mL 07/02/24 07/25/24 Rx oral liquid hydroxyurea 500 mg capsule 500 mg PO QAM 30 days #30 caps 07/04/24 07/25/24 Rx levetiracetam 500 mg tablet 500 mg PO BID 30 days #60 tabs 07/04/24 07/25/24 Rx (Keppra) Oxygen Home #1 ea 07/07/24 07/25/24 Rx calcium carbonate 500 mg PO TID 30 days #90 tabs 07/09/24 07/25/24 Rx folic acid 1 mg tablet 1 mg PO QAM #30 tabs 07/28/24 Rx furosemide 40 mg tablet (Lasix) 40 mg PO DAILY PRN weight gain #30 07/28/24 Rx tabs Past Med/Surg History Problem List (Updated 07/29/24 @ 02:17 by Qamar Gomez MD) Thrombocytosis Abnormal LFTs Elevated INR Severe protein-calorie malnutrition Hypomagnesemia (Acute) Hypokalemia (Acute) Thrombocytopenia (Acute) Generalized weakness (Acute) Post menopausal syndrome Medical History (Updated 07/29/24 @ 02:17 by Qamar Gomez MD) Port-A-Cath in place right IJ - Dr Frye, 06/2024 Neuroendocrine carcinoma Metastasis to liver Tumor lysis syndrome 06/2024 Sternal fracture (~05/30/24) History of basal cell carcinoma (BCC) of skin R berrios s/p MOHS Mar 2024 Iron deficiency anemia B12 deficiency Vitamin D deficiency Tubular adenoma of colon Crohn's disease Acid reflux Right lower lobe pneumonia Volume overload Mass of small intestine Hypercalcemia Transaminitis Hypomagnesemia Elevated troponin Acute hypoxic respiratory failure Acute encephalopathy Pneumonia Melena Neutropenia Metabolic acidosis Acute UTI (urinary tract infection) Leukocytosis Sepsis RISSA (acute kidney injury) SBO (small bowel obstruction) Surgical History S/P Mohs surgery for basal cell carcinoma (03/2024) R yash H/O breast biopsy S/P endometrial ablation Hx of oral surgery Family History (Updated 07/29/24 @ 01:54 by Qamar Gomez MD) Grandmother Colorectal cancer Uncle Colorectal cancer Mother Myocardial infarction, Onset Age: 66 Father Hypertension Diabetes Denies family history of Ovarian cancer Prostate cancer Crohn's disease Breast cancer Social History (Updated 07/29/24 @ 01:55 by Qamar Gomez MD) Smoking Status: Never smoker Second Hand Exposure: Yes; Do You Dip or Chew Tobacco: No; Hx Alcohol Use: No Hx Substance Use: No Preferred Language: Maltese Communication Ability: Effective Visual Impairment: No Limitations Hearing Ability: Normal Milk Wagon Driver Required: No Beliefs That Will Affect Care: None marital status: Current Living Situation: Spouse Current Living Situation Comment: Lives w/ & children in [place] current occupational status: other 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, 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 [employer] How many Children do You have: 3 Feels Safe at Home: Yes Childhood Exposure to Second-Hand Smoke: Yes Diet: regular Diet Comment: Regular caffeine: Yes during the past year weight has: remained stable Dental Care, Regularly: Yes Physical Activity Frequency: 3-4 Times per Week Seatbelt Use: always Sunscreen Use: Yes Assistive Devices: Oxygen - Continuous Review of Systems Review of Systems: gen - no fevers, chills now - although had chills when she had the diarrhea/vomiting last week; robust appetite; weight loss - 11kg since 05/2024 eyes - no visual change HENT - tiny ulcer on anterior tongue, no buccal irritation; no epistaxis; no ear pain or sore throat CV - no chest pain pulm - no dyspnea or BILL; slight cough here/there GI - vomiting/diarrhea about 7-10 days ago; none since; stools now formed, about 2x/day - no dysuria musculo - back pain when she gets "a shot for my platelets" otherwise no joint pain/back pain skin - no rash neuro - no headache endo - no diabetes Physical Exam Physical Exam: gen - lying in bed comfortably, NAD, pleasant; thin eyes - PERRL HENT - Tms clear b/l, nose clear, mouth with MMM; no thrush, tongue with tiny solitary ulcer anterior left tongue neck - no JVD, no lymph nodes heart - RRR, s1 s2, no murmur lungs - minimal crackles R base, otherwise CTA b/l, no wheezes; no increased work of breathing abd - soft NT ND BS+; liver edge palpable; spleen not palpable chest - right central line below R clavicle clean/intact ext - no edema, pulses 2+ b/l feet neuro - strength 5/5 x 4 exts; DTRs 2+ b/l upper and lower exts skin - no generalized rash or petechiae psych - a/o x 3 Results & Data Results & Data Vital Signs (Past 12 Hours) Vital Signs Temp Pulse Pulse Resp BP BP Pulse Ox 07/28/24 22:11 89 07/28/24 21:05 90 18 99 07/28/24 21:05 87 18 151/78 H 100 07/28/24 20:45 36.5 C 96 H 19 136/83 95 O2 Del Method 07/28/24 22:11 07/28/24 21:05 Room Air 07/28/24 21:05 Room Air 07/28/24 20:45 Room Air Laboratory Results Laboratory Results - last 24 hr 07/28/24 07/28/24 07/28/24 21:10 21:10 21:22 WBC 13.66 H RBC 2.89 L Hgb 8.2 L Hct 24.9 L MCV 86.2 MCH 28.4 MCHC 32.9 RDW Std Deviation 67.0 H RDW Coeff of Susanna 21.2 H Plt Count 15 L* PT 15.6 H INR 1.5 H APTT 42 H PTT Ratio 1.6 Sodium 137 Potassium 2.4 L* Chloride 107 Carbon Dioxide 19 L Anion Gap 11 BUN 6 Creatinine 0.81 Est Cr Clr Drug Dosing 65.7 eGFR 84.61 BUN/Creatinine Ratio 7.4 L Glucose 95 Calcium 8.2 L Magnesium 1.3 L Cancelled Total Bilirubin 1.9 H AST 17 ALT 9 Alkaline Phosphatase 196 H Troponin I High Sens 11.6 Total Protein 5.4 L Albumin 2.9 L Globulin 2.5 Albumin/Globulin Ratio 1.2 SARS-CoV-2 (PCR) NEGATIVE Influenza Type A (PCR) Negative Influenza Type B (PCR) Negative RSV (RT-PCR) Negative Blood Type A Positive Antibody Screen NEGATIVE Diagnostic Findings Head CT 07/28/24 21:06 Exam(s): CT HEAD Without Contrast EXAM: CT Head Without Intravenous Contrast CLINICAL HISTORY: Reason for exam: low plts, headache. TECHNIQUE: Axial computed tomography images of the head/brain without intravenous contrast. CTDI is 35.72 mGy and DLP is 547.75 mGy-cm. Automated exposure control was utilized for the study. A dose lowering technique was utilized adhering to the principles of ALARA. COMPARISON: Prior brain MRI from July 02, 2024. FINDINGS: Brain: Unremarkable. No hemorrhage. No significant white matter disease. No edema. Ventricles: Unremarkable. No ventriculomegaly. Bones/joints: Unremarkable. No acute fracture. Soft tissues: Unremarkable. Sinuses: Unremarkable as visualized. No acute sinusitis. Mastoid air cells: Unremarkable as visualized. No mastoid effusion. IMPRESSION: No evidence of acute intracranial pathology. Electronically signed by: Amee Jauregui MD 07/28/24 22:58 PM Chest X-Ray 07/28/24 21:12 Exam(s): XR CXR 1 VIEW EXAM: XR Chest, 1 View CLINICAL HISTORY: Reason for exam: weak, low plts. TECHNIQUE: Frontal view of the chest. COMPARISON: Prior chest x-ray from July 01, 2024. FINDINGS: There is a right IJ approach dialysis catheter in place with the distal tip at the SVC/RA junction. Lungs: Mild to moderate peribronchial thickening of the central lower lobe bronchi. No consolidation. Pleural space: Unremarkable. No pneumothorax. Heart: Unremarkable. No cardiomegaly. Mediastinum: Unremarkable. Normal mediastinal contour. Bones/joints: Unremarkable. No acute fracture. IMPRESSION: Bronchitis, which may be of infectious or inflammatory etiologies. No consolidation or pleural effusion. Electronically signed by: Amee Jauregui MD 07/28/24 23:02 PM EKG - my reading - NSR, QTc borderline prolonged, nonspecific T wave changes III, AVF Code Status & VTE Plan Code Status full code PG Care Time/CCT Total # of Minutes Spent Total Time Spent with Patient: Total time spent is greater than 50% in coordination of care (as documented) at patient's floor/unit and/or counseling patient: Coding Level of Care Code 79658 INT INP/OBS CARE 2/55MIN Diagnoses Thrombocytopenia D69.6 Hypokalemia E87.6 Hypomagnesemia E83.42 Neuroendocrine carcinoma C7A.8 Metastasis to liver C78.7 Severe protein-calorie malnutrition E43 Crohn's disease K50.90 Elevated INR R79.1 Abnormal LFTs R79.89 Thrombocytosis D75.839
[2024-07-28] MEDS: MAGNESIUM SULFATE / D5W 1 GM/100 ML BAG IV SCH (23:45)
[2024-07-29] MEDS: POTASSIUM CHLORIDE 20 MEQ/15 ML UDC PO STA ×2 (00:42→10:45)
[2024-07-29] MEDS: POTASSIUM CHLORIDE / WTR 10 MEQ/100 ML PLCT IV SCH (00:43)
[2024-07-29] MEDS ORDERED: ACETAMINOPHEN 325 MG TAB PO PRN (03:03)
[2024-07-29] MEDS ORDERED: LORazepam 1 MG TAB PO PRN (03:03)
[2024-07-29] MEDS ORDERED: ONDANSETRON INJ 2 MG/ML 2 ML VIAL IV PRN (03:03)
[2024-07-29 05:28] LABS: BUN Creatinine Ratio 7.5 (10-20); Creatinine Clr Calc Pharmacy 78.4 ml/min; Potassium 3.1 mmol/L (3.5-5.1)
[2024-07-29 05:49] LABS: Hematocrit (blood only) 22.2 % (37.0-47.0); Hemoglobin 7.4 g/dl (12.0-16.0); Mean Corpuscular Hemoglobin 28.8 pg (25.0-34.0); Mean Corpuscular Hgb Conc 33.3 g/dL (32.0-36.0); Mean Corpuscular Volume 86.4 fL (80.0-100.0); Platelet Count 18 K/uL (130-400); RDW Standard Deviation 65.7 fL (36.4-46.3); Red Blood Count 2.57 M/uL (4.20-5.40); White Blood Count 16.45 K/ul (4.8-10.8)
[2024-07-29 05:59] LABS: ALC (manual) 0.49 K/uL (1.2-3.4); ANC (manual) 10.69 K/uL (1.4-6.5); Anisocytosis Present; Lymphocytes # (manual) 0.49 K/uL (1.2-3.4); Lymphocytes % (manual) 3 %; Metamyelocytes # (manual) 0.99 K/uL (0-0); Metamyelocytes % (manual) 6 %; Monocytes # (manual) 1.64 K/uL (0.11-0.59); Monocytes % (manual) 10 %; Myelocytes # (manual) 0.49 K/uL (0-0); Myelocytes % (manual) 3 %; Neutrophils # (manual) 10.69 K/uL (1.40-6.50); Neutrophils % (manual) 65 %; Promyelocytes # (manual) 2.14 K/uL (0-0); Promyelocytes % (manual) 13 %; Toxic Granulation 1+
[2024-07-29] MEDS: THIAMINE HCL 100 MG TAB PO SCH (07:49)
[2024-07-29] MEDS: CYANOCOBALAMIN (B-12) 500 MCG TABLET PO SCH (07:49)
[2024-07-29] MEDS: levETIRAcetam 500 MG TAB PO SCH (07:49)
[2024-07-29] MEDS: ESCITALOPRAM OXALATE 10 MG TAB PO SCH (07:50)
[2024-07-29] MEDS: POTASSIUM CHLORIDE 20 MEQ/15 ML UDC PO SCH (07:50)
[2024-07-29] MEDS: CALCIUM CARBONATE 1250MG TAB PO SCH (07:50)
[2024-07-29] MEDS: FOLIC ACID 1 MG TAB PO SCH (07:50)
--- NOTE | 2024-07-29 09:56 | Oncology Consultation ---
Date of Consultation July 29, 2024 History of Present Illness Attending Physician: Yesenia Woods DO Allergies Allergy/AdvReac Type Severity Reaction Status Date / Time Penicillins Allergy Intermediate HIVES Verified 07/25/24 13:34 Home Medications Medication Instructions Recorded Confirmed Type escitalopram oxalate 10 mg tablet 10 mg PO DAILY #90 tabs 02/14/24 07/25/24 Rx cyanocobalamin (vitamin B-12) 1,000 mcg PO DAILY 06/09/24 07/25/24 History 1,000 mcg tablet (Vitamin B-12) levofloxacin 750 mg tablet 750 mg PO DAILY@1100 #3 tabs 06/29/24 07/25/24 Rx thiamine HCl (vitamin B1) 100 mg 100 mg PO QAM #30 tabs 06/29/24 07/25/24 Rx tablet lorazepam 1 mg tablet 1 mg PO HS PRN Anxiety #30 tabs 07/01/24 07/25/24 Rx potassium chloride 20 mEq/15 mL 20 meq (15 mL) PO DAILY #450 mL 07/02/24 07/25/24 Rx oral liquid hydroxyurea 500 mg capsule 500 mg PO QAM 30 days #30 caps 07/04/24 07/25/24 Rx levetiracetam 500 mg tablet 500 mg PO BID 30 days #60 tabs 07/04/24 07/25/24 Rx (Keppra) Oxygen Home #1 ea 07/07/24 07/25/24 Rx calcium carbonate 500 mg PO TID 30 days #90 tabs 07/09/24 07/25/24 Rx folic acid 1 mg tablet 1 mg PO QAM #30 tabs 07/28/24 Rx furosemide 40 mg tablet (Lasix) 40 mg PO DAILY PRN weight gain #30 07/28/24 Rx tabs Patient History Medical History (Updated 07/29/24 @ 02:17 by Qamar Gomez MD) Port-A-Cath in place right IJ - Dr Frye, 06/2024 Neuroendocrine carcinoma Metastasis to liver Tumor lysis syndrome 06/2024 Sternal fracture (~05/30/24) History of basal cell carcinoma (BCC) of skin R berrios s/p MOHS Mar 2024 Iron deficiency anemia B12 deficiency Vitamin D deficiency Tubular adenoma of colon Crohn's disease Acid reflux Right lower lobe pneumonia Volume overload Mass of small intestine Hypercalcemia Transaminitis Hypomagnesemia Elevated troponin Acute hypoxic respiratory failure Acute encephalopathy Pneumonia Melena Neutropenia Metabolic acidosis Acute UTI (urinary tract infection) Leukocytosis Sepsis RISSA (acute kidney injury) SBO (small bowel obstruction) Surgical History S/P Mohs surgery for basal cell carcinoma (03/2024) R berriso H/O breast biopsy S/P endometrial ablation Hx of oral surgery Family History (Updated 07/29/24 @ 01:54 by Qamar Gomez MD) Grandmother Colorectal cancer Uncle Colorectal cancer Mother Myocardial infarction, Onset Age: 66 Father Hypertension Diabetes Denies family history of Ovarian cancer Prostate cancer Crohn's disease Breast cancer Social History (Updated 07/29/24 @ 01:55 by Qamar Gomez MD) Smoking Status: Never smoker Second Hand Exposure: No; Do You Dip or Chew Tobacco: No; Tobacco Cessation Education Requested by Patient: No Hx Alcohol Use: No Hx Substance Use: No Preferred Language: Irish Communication Ability: Effective Visual Impairment: No Limitations Hearing Ability: Normal [place] Required: No Beliefs That Will Affect Care: None marital status: Current Living Situation: Spouse Current Living Situation Comment: Lives w/ & children in [place] current occupational status: other 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, 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 [employer] How many Children do You have: 3 Other Information That Helps Us Care for You: No Feels Safe at Home: Yes Safety Concerns: Feels Safe At This Time Childhood Exposure to Second-Hand Smoke: Yes Diet: regular Diet Comment: Regular caffeine: Yes during the past year weight has: remained stable Dental Care, Regularly: Yes Physical Activity Frequency: 3-4 Times per Week Seatbelt Use: always Sunscreen Use: Yes Assistive Devices: Oxygen - Continuous Results & Data Vital Signs (Past 12 Hours) Vital Signs Temp Pulse Pulse Resp BP BP Pulse Ox 07/29/24 08:59 75 07/29/24 07:20 36.7 C 84 17 129/74 97 07/29/24 03:48 105 H 20 151/78 H 98 07/29/24 03:03 95 H 07/29/24 03:03 36.4 C L 88 16 147/78 H 100 07/29/24 02:02 89 07/29/24 01:00 99 H 17 100 07/28/24 23:00 89 17 151/78 H 98 07/28/24 22:11 89 O2 Del Method 07/29/24 08:59 07/29/24 07:20 Room Air 07/29/24 03:48 Room Air 07/29/24 03:03 07/29/24 03:03 Room Air 07/29/24 02:02 07/29/24 01:00 Room Air 07/28/24 23:00 Room Air 07/28/24 22:11
--- NOTE | 2024-07-29 09:59 | Hospitalist Progress Note ---
Date of Service July 29, 2024 Assessment & Plan (1) Thrombocytosis: (2) Abnormal LFTs: (3) Elevated INR: (4) Severe protein-calorie malnutrition: (5) Hypomagnesemia: (6) Hypokalemia: (7) Thrombocytopenia: Plan Pt is a 59 year old female with a pmh of neuroendocrine tumor of small bowel with metasis to liver. #thrombocytopenia - secondary to chemo - presented with platelets of 15, was 18 this morning. - per Dr. Schroeder [facility], transfuse below 10. 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 She was referred to the ER after her platelets were found to be 15 (from 47 about three days ago). Last round of chemotherapy (carboplatin/etoposide) was 2 weeks ago on 07/15. Baseline O2 2NC for bedtime. Patient reports feeling fine today with good appetite and recent bowel movement and requests discharge. Results & Data Results & Data Vital Signs (Past 12 Hours) Vital Signs Temp Pulse Pulse Resp BP BP Pulse Ox 07/29/24 08:59 75 07/29/24 07:20 36.7 C 84 17 129/74 97 07/29/24 03:48 105 H 20 151/78 H 98 07/29/24 03:03 95 H 07/29/24 03:03 36.4 C L 88 16 147/78 H 100 07/29/24 02:02 89 07/29/24 01:00 99 H 17 100 07/28/24 23:00 89 17 151/78 H 98 07/28/24 22:11 89 O2 Del Method 07/29/24 08:59 07/29/24 07:20 Room Air 07/29/24 03:48 Room Air 07/29/24 03:03 07/29/24 03:03 Room Air 07/29/24 02:02 07/29/24 01:00 Room Air 07/28/24 23:00 Room Air 07/28/24 22:11
[2024-07-29 12:08] VITALS: BP 127/77; PULSE 84; RESP 20; TEMP 97.5; O2SAT 98
[2024-07-29] MEDS: FAMOTIDINE 20 MG TAB PO ONE (12:09)
[2024-07-29] MEDS: FAMOTIDINE 10 MG TABLET PO ONE (12:10)
--- NOTE | 2024-07-29 18:29 | Discharge Summary ---
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 She was referred to the ER after her platelets were found to be 15 (were 47 about three days ago). Despite the severe thrombocytopenia fortunately she is NOT having any bleeding from any location; no epistaxis, BRBPR, melena, or hematuria. During her work-up in the ER her potassium was found to be low at 2.4 and magnesium at 1.3. She reports having had vomiting and diarrhea about 1 week ago in the context of recent chemotherapy consisting of carboplatin/etoposide but those symptoms resolved after a day or two. She is on potassium supplementation and missed about 2 days of such when she was having the vomiting/diarrhea but she resumed it on Sunday, 07/26. Despite current chemotherapy she has been eating/drinking well. Denies diuretic use. Although her K & Mag levels are low she has been surprisingly feeling very well. Denies any fevers, chills, URI symptoms, or other infectious symptoms. Patient has had a very difficult last 6-8 weeks, having been hospitalized at [facility] three times - * 06/09 to 06/14 for tumor lysis syndrome * 06/18 to 06/29 for acute respiratory failure/pneumonia * 07/01 to 07/04 for altered mental status Last round of chemo was about 10-14 days ago; this was cycle #2 of carboplatin/etoposide. Of note -following her June admission for pneumonia she was sent home on NC O2. She is ONLY using the oxygen at bedtime, not during the day. Admission Exam Per Admitting Provider Physical Exam: gen - lying in bed comfortably, NAD, pleasant; thin eyes - PERRL HENT - Tms clear b/l, nose clear, mouth with MMM; no thrush, tongue with tiny solitary ulcer anterior left tongue neck - no JVD, no lymph nodes heart - RRR, s1 s2, no murmur lungs - minimal crackles R base, otherwise CTA b/l, no wheezes; no increased work of breathing abd - soft NT ND BS+; liver edge palpable; spleen not palpable chest - right central line below R clavicle clean/intact ext - no edema, pulses 2+ b/l feet neuro - strength 5/5 x 4 exts; DTRs 2+ b/l upper and lower exts skin - no generalized rash or petechiae psych - a/o x 3 Principal Diagnosis 1.Stage 4 neuroendocrine tumor of the small bowel with hepatic mets 2.Thrombocytopenia 3. Hypokalemia 4. Hypomagnesemia Discharge Exam Constitutional WD/WN, vitals as above well developed; no acute distress Eyes PERRL, conjunctivae normal, anicteric sclerae ENMT external ear and nose normal, oropharynx normal Ears: no hearing impairment Neck trachea midline, no thyromegaly trachea midline Respiratory normal respiratory effort, lungs clear to auscultation normal respiratory effort and + respiratory distress; no labored breathing and no retractions Auscultation: lungs clear to auscultation bilaterally Cardiovascular RRR, no murmur, no edema Rate/Rhythm: regular rate and regular rhythm Chest (Breasts) normal inspection/palpation of breasts Chest: normal inspection of chest Discharge Data Allergies Allergy/AdvReac Type Severity Reaction Status Date / Time Penicillins Allergy Intermediate HIVES Verified 07/25/24 13:34 Consultations 07/28/24 23:09 ED Decision to Admit Stat 07/29/24 08:48 Consult Oncology Routine Ordered Studies 07/28/24 21:06 CT head/brain wo con Stat Hospital Course (1) Abnormal LFTs: (2) Elevated INR: Plan Very pleasant 59yo female with history of 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 She was referred to the ER after her platelets were found to be 15 (were 47 about three days ago). Despite the severe thrombocytopenia fortunately she is NOT having any bleeding from any location; no epistaxis, BRBPR, melena, or hematuria. During her work-up in the ER her potassium was found to be low at 2.4 and magnesium at 1.3. Last round of chemotherapy (carboplatin/etoposide) was about 10 days ago. 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 -Crohn's has not been active thus her IBD likely not playing a role #Crohn's disease - -quiescent at this time -diagnosed age 22 #elevated INR - -1.5 today -has been elevated since early May, likely due to extensive liver mets causing liver dysfunction -consider vitamin K supplementation - could be vitamin K deficient - but defer for now #abnormal LFTs - -elevated since May 2024 -likely due to hepatic mets from her neuroendocrine tumor #thrombocytosis - -platelet levels reached over 1000 in late June / early July -was started on hydroxyurea at that time -JANICE-2 mutation returned negative -in light of severely low platelets today HOLD hydroxyurea at this time #recent concern for seizures - -cont keppra 500mg BID Total Time Total Time Spent Total Time Spent (In Minutes): See attending attestation Discharge Plan Discharge Items Patient Disposition: Home - Home Health Services Reason For Visit: SEVERE HYPOKALEMIA, HYPOMAGNESEMIA,THROMBOCYTOPENI Discharge Diagnosis: 1.Stage 4 neuroendocrine tumor of the small bowel with hepatic mets 2.Thrombocytopenia 3. Hypokalemia 4. Hypomagnesemia Condition on Discharge: Fair Activity: Per Instructions section Non-emergency contact: Primary Care Provider and Oncologist Call non-emergency contact if: you have any medication questions, your symptoms worsen, your pain is worsening and your pain is unusual for you Follow-up/Referrals: Carly Vang DO [Primary Care Provider] - 08/12/24 9:20 am (Hospital follow up scheduled August 12 at 9:[address] Vang) Diet: Regular Addtl Attending Provider Instructions: You were admitted to the hospital for workup for decrease platelet count. You were also found to have low potassium and magnesium. Electrolytes were repleted in the hospital. We discussed with Hem/Onc and according to hem/Onc Platelet transfusion wasn't indicated at this time. For further discussion and treatment, you have followup with heme/Onc on August 05 at 1 PM A discharge summary will be sent to your primary care physician to ensure continuity of care. Please bring this discharge summary with you to your next office appointment so that your provider can review it at that time. Follow-up appointments: [ Make a follow-up appointment with your PCP within the next week. It is very important that you follow up with them shortly after discharge from the hospital.] [ You have an appointment with Hem[facility]Onc ( [facility]) on August 05 at 1 PM Keep all your follow-up appointments as already scheduled. If you cannot make an appointment, notify your provider. Medications: No any changes in medications has been made on this visit. If you have any issues filling these prescriptions, please call [phone] and ask to leave a message for Dr. Liat Chung Take your medications as instructed; do not skip a dose of your medicines. Make sure all of your doctors know every medicine you are taking (including [id number] medicines, vitamins, and supplements). Call your primary care provider before taking any new medicines (including overthe- counter medicines, vitamins, and supplements), because some of these may interact with your current medications, or may make your symptoms worse. Tell your primary care provider if you cannot afford your medications. CONTACT YOUR PRIMARY CARE PROVIDER if you experience any of the following: Bleeding from any part of your body like nose, gingiva, skin. Unable to control bleeding Difficulty following your treatment plan, or difficulty taking medications CALL 911 OR GO TO THE EMERGENCY DEPARTMENT if you experience any of the following: Sudden, severe abdominal pain or nausea/vomiting Severe chest pain, or chest pain that radiates (moves) to your jaw or arm Sudden, severe shortness of breath or difficulty breathing Thank you for allowing us to participate in your care. . Pending Studies at Discharge: No Stand-Alone Forms: My [employer], Smoking Cessation Medications and DC Order Prescriptions: Continued escitalopram oxalate 10 mg tablet 10 mg PO DAILY Qty: 90 3RF lorazepam 1 mg tablet 1 mg PO HS PRN (Reason: Anxiety) Qty: 30 0RF potassium chloride 20 mEq/15 mL liquid 20 meq PO DAILY Qty: 450 0RF furosemide [Lasix] 40 mg tablet 40 mg PO DAILY PRN (Reason: weight gain) Qty: 30 0RF folic acid 1 mg tablet 1 mg PO QAM Qty: 30 0RF (DME) Oxygen Home Liters Per Minute See Rx Instructions .Route Qty: 1 0RF Rx Instructions: 2L HS PRN- (pt not sure who ordered) thiamine HCl (vitamin B1) 100 mg Tablet 100 mg PO QAM Qty: 30 0RF levetiracetam [Keppra] 500 mg tablet 500 mg PO BID 30 Days Qty: 60 0RF cyanocobalamin (vitamin B-12) [Vitamin B-12] 1,000 mcg Tablet 1,000 mcg PO DAILY Held hydroxyurea 500 mg Capsule 500 mg PO QAM 30 Days Qty: 30 0RF Hold Instructions: Resume on 08/27/24. Until next appointment with Heme/Onc Discontinued levofloxacin 750 mg Tablet 750 mg PO DAILY@1100 Qty: 3 0RF No Action calcium carbonate 500 mg calcium (1,250 mg) tablet,chewable 500 mg PO BID 30 Days Qty: 60 0RF Rx Instructions: per pt she only takes BID Discharge Orders: Discharge Order (Routine); Ordered 07/29/24 Ordered By: Liat Durán/Other Patient Handouts: Platelet Antibody, Platelets, Blood Components Admission Data Admit Date/Time: 07/29/24 00:30 Attending Provider: Yesenia Woods Admit Provider: Qamar Gomez Primary Care Provider: Carly Vang Other Interventions: Discharge Summary Assessment (RN) Last Done: 07/29/24 14:30 Supervising Physician Co-Signing Physician Notes I personally examined the patient and verified ramirez points of history and exam, discussed case, and agree with decision making and plan documented by Dr. Chung. Patient is a 59 y/o female with metastatic neuroendocrine carcinoma on admission for thrombocytopenia. Patient did not meet threshold for transfusion. She prefers to be discharged with home monitoring. Has mobile lab coming to house for labs and has follow-up scheduled with oncology. Total attending time 28 minutes Resident Activity Tracking Resident Involvement: Resident Care Provided Care Provided: Adult [facility] Medicine
[2024-07-29] MEDS ORDERED: NON-FORMULARY MEDICATION (Oxygen Home Liters per Minute) SCH (21:00)
--- NOTE | 2024-07-30 16:00 | Electrocardiogram Report ---
Test Reason : Blood Pressure : */* mmHG Vent. Rate : 92 BPM Atrial Rate : 92 BPM P-R Int : 126 ms QRS Dur : 80 ms QT Int : 388 ms P-R-T Axes : 33 -8 9 degrees QTcB Int : 479 ms Normal sinus rhythm Minimal voltage criteria for LVH, may be normal variant ( R in aVL ) Borderline ECG When compared with ECG of 01-Jul-2024 20:13, Inverted T waves have replaced nonspecific T wave abnormality in Inferior leads Confirmed by Alessio Peña ([id number]) on 07/30/2024 3:59:50 PM Referred By: REFERRED SELF Confirmed By: Alessio Peña
== END 2024-07-29 15:06 | disposition home health service (06) | DRG 813 ==
LOC: ED 20:38 → 4W 07-29 00:30 → SUATTDRO 07-29 00:30 → 4W 07-29 03:48
DX: R79.1 Abnormal coagulation profile; E55.9 Vitamin D deficiency, unspecified; E87.6 Hypokalemia; Z80.0 Family history of malignant neoplasm of digestive organs; D75.839 Thrombocytosis, unspecified; T45.1X5A Adverse effect of antineoplastic and immunosuppressive drugs, initial encounter; Z79.899 Other long term (current) drug therapy; C7B.8 Other secondary neuroendocrine tumors; Z88.0 Allergy status to penicillin; C7A.8 Other malignant neuroendocrine tumors; E83.42 Hypomagnesemia; E53.8 Deficiency of other specified B group vitamins; D69.59 Other secondary thrombocytopenia; E43 Unspecified severe protein-calorie malnutrition; R56.9 Unspecified convulsions; Z68.20 Body mass index [BMI] 20.0-20.9, adult

== ENCOUNTER 2024-10-08 10:38 | Inpatient (IN) ==
[2024-10-08] MEDS ORDERED: VANCOMYCIN CONSULT ACTIVE PRN ×2 (10:54→13:41)
--- NOTE | 2024-10-08 10:59 | Emergency Department Note ---
Impression & Plan Bacteremia, Chills, Leukocytosis ED Provider Note NAME: YANI HOSKINS AGE: 59 SEX: F : 1965 ARRIVES VIA: Walk-In INFORMANT: Patient ED PROVIDER(S): Dar Singletary DO CHIEF COMPLAINT: Chills and positive blood cultures HPI: Patient is a 59-year-old female who presents to the ER with known liver cancer who received her last course of chemo yesterday. She was having shaking chills on Sunday and they resolved and they started again yesterday. She had blood cultures drawn which were positive and consequently she was referred in. She denies any headache or change in vision. No chest pain or shortness of breath. No nausea, vomiting or diarrhea. No dysuria, urgency or frequency. No other complaints at this time other than the chills. ADDITIONAL HISTORY OBTAINED: Per HPI Chronic Medical/Social Conditions Affecting Care: Per HPI PAST MEDICAL HISTORY:See Below PAST SURGICAL HISTORY:See Below FAMILY HISTORY:See Below SOCIAL HISTORY:See Below HOME MEDICATIONS:See Below ALLERGIES:See Below VITALS:See Below PHYSICAL EXAMINATION: GENERAL: Sitting up in bed, alert, chronically ill-appearing EYE EXAM: normal conjunctiva. PERRL and EOM's grossly intact. OROPHARYNX: no exudate, no erythema, lips, buccal mucosa, and tongue normal and mucous membranes are moist NECK: supple, no nuchal rigidity, no adenopathy, non-tender LUNGS: Clear to auscultation. Normal chest wall mechanics CHEST: Port in right chest wall HEART: no murmurs, S1 normal and S2 normal ABDOMEN: abdomen soft, non-tender, normo-active bowel sounds, no masses, no rebound or guarding. UPPER EXTREMITIES: upper extremities are grossly normal. LOWER EXTREMITIES: No pitting edema. NEURO EXAM: Normal sensorium, cranial nerves II-XII grossly intact, normal speech, no gross weakness of arms, no gross weakness of legs. MEDICAL DECISION MAKING: Patient is a 59-year-old female who was referred in for bacteremia. IV was established and blood work was obtained. Labs showed a leukocytosis of 14,000 and mild anemia at 9. BMP with a slightly but chloride at 110. LFTs bilirubin and Pro-Yonatan was remarkable for a Pro-Yonatan of 24. Troponin was negative. UA was slightly contaminated. Patient was given broad-spectrum antibiotics which included IV cefepime and vancomycin. External records were reviewed which included the cultures from yesterday which showed gram-negative bacilli and gram-positive cocci. Case was discussed with the hospitalist. Patient was given IV fluids. Chest x-ray was clean. Patient was admitted for further workup of her gram-negative being gram-positive bacteremia currently. Consults/Care Managements Discussions: Per [facility] Triage Nursing notes reviewed. Limited review of prior medical records performed Vital Signs: reviewed and remarkable for HTN Differential diagnosis: Differential diagnosis includes etiologies such as sepsis, UTI, pneumonia, metabolic, electrolyte abnormalities, cardiac sources, intracerebral event, toxicologic, neurological, as well as others were entertained. ER treatment provided: See below Diagnostics interpreted by me include EKG and cardiac monitoring as listed below: -Cardiac Monitoring: An order was placed for continuous cardiac monitoring. The monitor shows a rate of 80 with sinus rhythm. -ECG: Sinus rhythm rate 72 Normal axis T wave inversion in the septal leads as well as inferior leads QTc 451 -Laboratory studies:Interpreted by me as stated above in MDM and shown below. Imaging studies: Xrays: As interpreted by me: Portable AP upright 1 view of the chest shows no focal Lutrate CTs show: none Procedures:none Critical Care: None Past Med/Surg History Problem List (Updated 10/08/24 @ 13:19 by Dar Singletary DO) Leukocytosis (Acute) Chills (Acute) Bacteremia (Acute) Hypomagnesemia History of Crohn's disease Hypokalemia Neuroendocrine malignancy Bacteremia Thrombocytosis Abnormal LFTs Elevated INR Severe protein-calorie malnutrition Generalized weakness (Acute) Post menopausal syndrome Medical History (Updated 10/08/24 @ 13:19 by Dar Singletary DO) Hypomagnesemia Hypokalemia Thrombocytopenia Port-A-Cath in place right IJ - Dr Frye, 06/2024 Neuroendocrine carcinoma Metastasis to liver Tumor lysis syndrome 06/2024 Sternal fracture (~05/30/24) History of basal cell carcinoma (BCC) of skin R berrios s/p MOHS Mar 2024 Iron deficiency anemia B12 deficiency Vitamin D deficiency Tubular adenoma of colon Crohn's disease Acid reflux Right lower lobe pneumonia Volume overload Mass of small intestine Hypercalcemia Transaminitis Hypomagnesemia Elevated troponin Acute hypoxic respiratory failure Acute encephalopathy Pneumonia Melena Neutropenia Metabolic acidosis Acute UTI (urinary tract infection) Leukocytosis Sepsis RISSA (acute kidney injury) SBO (small bowel obstruction) Surgical History S/P Mohs surgery for basal cell carcinoma (03/2024) R berrios H/O breast biopsy S/P endometrial ablation Hx of oral surgery Family History Grandmother Colorectal cancer Uncle Colorectal cancer Mother Myocardial infarction, Onset Age: 66 Father Hypertension Diabetes Denies family history of Ovarian cancer Prostate cancer Crohn's disease Breast cancer Social History Smoking Status: Never smoker Second Hand Exposure: No; Do You Dip or Chew Tobacco: No; Hx Alcohol Use: No Hx Substance Use: No Preferred Language: Lao Communication Ability: Effective Visual Impairment: No Limitations Hearing Ability: Normal Transportation Economics Teacher Required: No Beliefs That Will Affect Care: None marital status: Current Living Situation: Spouse Current Living Situation Comment: Lives w/ & children in [place] current occupational status: other 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5 mg tablet 0.5 mg PO DAILY PRN Testing/MRI/CT 10/08/24 10/08/24 potassium chloride 10 mEq 10 meq PO BID 10/08/24 10/08/24 tablet,extended release Previous Rx's Medication Instructions Recorded Oxygen Home #1 ea 07/07/24 magnesium oxide 400 mg (241.3 mg 400 mg PO BID #20 tabs 08/16/24 magnesium) tablet Results & Data (ED) Vital Signs Vital Signs - 24 hr 10/08/24 10:42 10/08/24 11:12 10/08/24 11:31 Temperature 36.9 C Temperature Source Temporal Artery Scan Pulse Rate 81 87 72 Respiratory Rate 18 Blood Pressure 146/77 H Blood Pressure Mean 100 Pulse Oximetry 98 99 Oxygen Delivery Method Room Air Room Air Sepsis New/Unexplained Change in Mental Status No Sepsis Action Taken by Nursing No Action Required Laboratory Data 10/08/24 11:20 10/08/24 11:20 Lab Results 10/08/24 10/08/24 Range/Units 11:20 11:21 WBC 14.20 H (4.8-10.8) K/ul RBC 3.05 L (4.20-5.40) M/uL Hgb 9.2 L (12.0-16.0) g/dl Hct 28.2 L (37.0-47.0) % MCV 92.5 (80.0-100.0) fL MCH 30.2 (25.0-34.0) pg MCHC 32.6 (32.0-36.0) g/dL RDW Std Deviation 62.5 H (36.4-46.3) fL RDW Coeff of Susanna 19.9 H (11.5-14.5) % Plt Count 223 (130-400) K/uL MPV 9.9 (9.4-12.4) fL Immature Gran % (Auto) 0.8 % Neut % (Auto) 89.9 % Lymph % (Auto) 2.5 % [place] % (Auto) 6.6 % Eos % (Auto) 0.0 % Baso % (Auto) 0.2 % Neut # (Auto) 12.76 H (1.40-6.50) K/uL Lymph # (Auto) 0.36 L (1.20-3.40) K/uL [place] # (Auto) 0.94 H (0.11-0.59) K/uL Eos # (Auto) 0.00 (0.00-0.50) K/uL Baso # (Auto) 0.03 (0.00-0.20) K/uL Immature Gran # (Auto) 0.11 (0.01-0.20) K/uL Sodium 139 (136-145) mmol/L Potassium 3.8 D (3.5-5.1) mmol/L Chloride 110 H (98-107) mmol/L Carbon Dioxide 23 (21-32) mmol/L Anion Gap 6 (3-11) BUN 13 (6-23) mg/dl Creatinine 0.66 (0.6-1.2) mg/dl Est Cr Clr Drug Dosing 83.0 ml/min eGFR 102.25 BUN/Creatinine Ratio 19.7 (10-20) Glucose 89 (70-99(Fasting)) mg/dl Lactate 2.0 (0.4-2.0) mmol/L Calcium 8.7 (8.6-10.3) mg/dl Magnesium 2.2 (1.7-2.4) mg/dl Total Bilirubin 0.7 (0.2-1.0) mg/dl Direct Bilirubin 0.2 (0-0.2) mg/dl AST 22 (13-39) U/L ALT 19 (7-52) U/L Alkaline Phosphatase 199 H (34-104) U/L Troponin I High Sens 6.8 (0-14) pg/ml Total Protein 5.7 L (6.0-8.3) gm/dl Albumin 3.3 L (3.4-5.0) gm/dl Procalcitonin 24.20 H (0-0.5) ng/ml Urine Color Yellow Urine Appearance Clear (Clear) Urine pH 6.0 (4.5-7.5) Ur Specific [place] 1.019 (1.000-1.030) Urine Protein 1+ H (Negative) Urine Glucose (UA) Negative (Negative) Urine Ketones Negative (Negative) Urine Blood Negative (Negative) Urine Nitrite Negative (Negative) Urine Bilirubin Negative (Negative) Urine Urobilinogen Negative (Negative) Ur Leukocyte Esterase 1+ H (Negative) Urine WBC (Auto) 6-10 H (0-5) /hpf Urine RBC (Auto) 0-2 (0-2) /hpf U Hyaline Cast (Auto) 0-2 (0-2) /lpf U Epithel Cells (Auto) 6-10 H (0-2) /hpf Urine Bacteria (Auto) None Seen (None Seen) Urine Comment Administered Medications Vancomycin HCl 1,000 mg/ (Sodium Chloride) 520 mls @ 200 mls/hr IV NOW ONE Stop: 10/08/24 13:29 Last Admin: 10/08/24 12:02 Dose: 200 mls/hr Documented By: JEAN-PAUL Discontinued Medications Cefepime HCl (Maxipime 2000mg) 2,000 mg in 20 mls @ 5 mls/min IV NOW STA; Protocol Stop: 10/08/24 10:55 Last Admin: 10/08/24 11:40 Dose: 5 mls/min Documented By: JEAN-PAUL Sodium Chloride (Nss) 1,000 mls @ 999 mls/hr IV .Q1H1M ONE Stop: 10/08/24 12:00 Last Admin: 10/08/24 11:40 Dose: 999 mls/hr Documented By: JEAN-PAUL Imaging Data Radiologist's Impression: Chest X-Ray 10/08/24 10:53 SINGLE VIEW CHEST CLINICAL HISTORY: Sepsis FINDINGS: An AP, portable, upright chest radiograph is compared to study dated 08/16/2024 and correlated with chest CT dated 08/29/2024. A right internal jugular central venous catheter is unchanged in position. The heart is mildly enlarged noting atherosclerotic calcification of the thoracic aorta. The pulmonary vasculature is noncontrast. Chronic interstitial thickening similar to previous. There is mild bibasilar scarring/atelectasis. No airspace consolidation or pleural effusion is identified. No pneumothorax is seen. The skeletal structures are osteopenic. The bony thorax is grossly intact. IMPRESSION: No acute cardiopulmonary abnormality is identified. ACT 112: Negative or not required by law. Electronically signed by: Yg Wilson M.D. 10/08/2024 11:58 AM Discharge Plan Visit Data Chief Complaint: Referred by Doctor Stated Complaint: BLOOD INFECTION, REF BY CANCER CARE ED Provider: Dar Singletary Discharge Problem: Bacteremia, Chills, Leukocytosis Condition: Serious Forms Stand Alone Forms: My [facility] Max Prescriptions Prescriptions: No Action (DME) Oxygen Home Liters Per Minute See Rx Instructions .Route Qty: 1 0RF Rx Instructions: 2L HS PRN- (pt not sure who ordered) magnesium oxide 400 mg (241.3 mg magnesium) tablet 400 mg PO BID Qty: 20 0RF potassium chloride 10 mEq tablet extended release 10 meq PO BID Patient Comments: Pt has the tablets and liquid at home. Has been able to tolerate the tablets due to them being rounded and coated. 10/08/24 lorazepam 0.5 mg tablet 0.5 mg PO DAILY PRN (Reason: Testing/MRI/CT) Referrals Referrals: Carly Vang DO [Primary Care Provider] - Discharge Problem: Leukocytosis Qualifiers: Leukocytosis type: unspecified Qualified Code(s): D72.829 - Elevated white blood cell count, unspecified
[2024-10-08] MEDS: CEFEPIME 2000MG 2,000 MG/20 ML SYR IV STA (11:40)
[2024-10-08] MEDS: SODIUM CHLORIDE 0.9% 1,000 ML IV ONE (11:40)
[2024-10-08 11:42] LABS: Hematocrit (blood only) 28.2 % (37.0-47.0); Hemoglobin 9.2 g/dl (12.0-16.0); Immature Granulocytes # (auto) 0.11 K/uL (0.01-0.20); Immature Granulocytes % (auto) 0.8 %; Mean Corpuscular Hemoglobin 30.2 pg (25.0-34.0); Mean Corpuscular Volume 92.5 fL (80.0-100.0); Platelet Count 223 K/uL (130-400); RDW Standard Deviation 62.5 fL (36.4-46.3); Red Blood Count 3.05 M/uL (4.20-5.40); White Blood Count 14.20 K/ul (4.8-10.8)
[2024-10-08 11:49] LABS: Appearance Urine Clear (Clear); Bacteria Urine Automated None Seen (None Seen); Cast Urine Automated 0-2 /lpf (0-2); Glucose Urine UA Negative (Negative); RBC Urine Automated 0-2 /hpf (0-2)
--- NOTE | 2024-10-08 12:00 | XRay Report ---
SINGLE VIEW CHEST CLINICAL HISTORY: Sepsis FINDINGS: An AP, portable, upright chest radiograph is compared to study dated 08/16/2024 and correlat ed with chest CT dated 08/29/2024. A right internal jugular central venous catheter is unchanged in po sition. The heart is mildly enlarged noting atherosclerotic calcification of the thoracic aorta. The pulmonary vasculature is noncontrast. Chronic interstitial thickening similar to previous. There is m ild bibasilar scarring/atelectasis. No airspace consolidation or pleural effusion is identified. No p neumothorax is seen. The skeletal structures are osteopenic. The bony thorax is grossly intact. IMPRESSION: No acute cardiopulmonary abnormality is identified. ACT 112: Negative or not required by law. Electronically signed by: Yg Wilson M.D. 10/08/2024 11:58 AM
[2024-10-08] MEDS: VANCOMYCIN HCL 1,000 MG in SODIUM CHLORIDE 0.9% 500 ML IV ONE (12:02)
--- NOTE | 2024-10-08 12:35 | History & Physical Report ---
Date of Service October 08, 2024 Assessment & Plan (1) Bacteremia: Plan: Blood cultures obtained October 07 positive for gram-negative bacilli and gram- positive cocci in clusters. She was administered cefepime and vancomycin in the ED which will be continued. She has a Woods catheter in the right anterior chest wall that was placed July 05 of this year. Infectious disease consultation requested (2) Neuroendocrine malignancy: Plan: She received chemotherapy yesterday, October 07. Oncology consultation requested. Known metastatic disease involving the liver (3) Hypokalemia: Plan: Parenteral replacement ordered. Serial labs (4) Hypomagnesemia: Plan: Parenteral replacement ordered. Serial labs (5) History of Crohn's disease: Plan: Currently quiescent. No intervention needed at this time Plan To be determined by clinical course History of Present Illness Chief Complaint: Positive blood cultures Primary Care Provider: Carly Vang DO 59-year-old white female currently undergoing chemotherapy for a neuroendocrine tumor with hepatic involvement. She has had recent onset of fever and rigors and blood cultures drawn yesterday are positive for gram-negative bacilli and gram-positive cocci. Unfortunately, she has a Woods catheter in place since July 05 of this year. This could quite possibly be infected. She was administered cefepime and vancomycin in the ED which will be continued. She was also found to be hypokalemic and hypomagnesemic. Infectious disease consultation and oncology consultation requested. Allergies Allergy/AdvReac Type Severity Reaction Status Date / Time Penicillins Allergy Intermediate HIVES Verified 10/08/24 12:29 Home Medications Medication Instructions Recorded Confirmed Type Oxygen Home #1 ea 07/07/24 10/01/24 Rx magnesium oxide 400 mg (241.3 mg 400 mg PO BID #20 tabs 08/16/24 10/08/24 Rx magnesium) tablet lorazepam 0.5 mg tablet 0.5 mg PO DAILY PRN Testing/MRI/CT 10/08/24 10/08/24 History potassium chloride 10 mEq 10 meq PO BID 10/08/24 10/08/24 History tablet,extended release Past Med/Surg History Problem List (Updated 10/08/24 @ 12:34 by Ariel Noble MD) Hypomagnesemia History of Crohn's disease Hypokalemia Neuroendocrine malignancy Bacteremia Thrombocytosis Abnormal LFTs Elevated INR Severe protein-calorie malnutrition Generalized weakness (Acute) Post menopausal syndrome Medical History (Updated 10/08/24 @ 12:34 by Ariel Noble MD) Hypomagnesemia Hypokalemia Thrombocytopenia Port-A-Cath in place right IJ - Dr Frye, 06/2024 Neuroendocrine carcinoma Metastasis to liver Tumor lysis syndrome 06/2024 Sternal fracture (~05/30/24) History of basal cell carcinoma (BCC) of skin R berrios s/p MOHS Mar 2024 Iron deficiency anemia B12 deficiency Vitamin D deficiency Tubular adenoma of colon Crohn's disease Acid reflux Right lower lobe pneumonia Volume overload Mass of small intestine Hypercalcemia Transaminitis Hypomagnesemia Elevated troponin Acute hypoxic respiratory failure Acute encephalopathy Pneumonia Melena Neutropenia Metabolic acidosis Acute UTI (urinary tract infection) Leukocytosis Sepsis RISSA (acute kidney injury) SBO (small bowel obstruction) Surgical History S/P Mohs surgery for basal cell carcinoma (03/2024) R berrios H/O breast biopsy S/P endometrial ablation Hx of oral surgery Family History Grandmother Colorectal cancer Uncle Colorectal cancer Mother Myocardial infarction, Onset Age: 66 Father Hypertension Diabetes Denies family history of Ovarian cancer Prostate cancer Crohn's disease Breast cancer Social History Smoking Status: Never smoker Second Hand Exposure: No; Do You Dip or Chew Tobacco: No; Hx Alcohol Use: No Hx Substance Use: No Preferred Language: Uzbek Communication Ability: Effective Visual Impairment: No Limitations Hearing Ability: Normal Fishing Reel Assembler Required: No Beliefs That Will Affect Care: None marital status: Current Living Situation: Spouse Current Living Situation Comment: Lives w/ & children in [place] current occupational status: other 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, 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 [employer] How many Children do You have: 3 Feels Safe at Home: Yes Childhood Exposure to Second-Hand Smoke: Yes Diet: regular Diet Comment: Regular caffeine: Yes during the past year weight has: remained stable Dental Care, Regularly: Yes Physical Activity Frequency: 3-4 Times per Week Seatbelt Use: always Sunscreen Use: Yes Assistive Devices: Oxygen - Continuous Review of Systems 2 Review of Systems: Constitutionalintermittent fever and rigors ENTno blurred vision, no double vision, no epistaxis, no sore throat Respiratoryno cough, no wheezing, no shortness of breath Cardiacno palpitations, no chest pain, no syncope Brent nausea, vomiting, diarrhea, melena, hematochezia GUno urinary retention, no urinary incontinence, no dysuria, no hematuria Musculoskeletalno joint pain, no muscle tenderness Skinno bruising, no rashes, no pruritus. Woods catheter insertion site right anterior chest wall is unremarkable Neurono isolated weakness, no paresthesia, no weakness Psychno depression, no anxiety Physical Exam 2 Physical Exam: General-alert and oriented x3, no fever, no chills HEENT-head atraumatic and normocephalic, pupils equal and reactive to light, extraocular muscles intact Neck-no lymphadenopathy or thyromegaly, trachea midline Chest-clear to auscultation. No rales, wheezing or rhonchi Cardiac-regular rate and rhythm, normal S1 and S2 Abdomen-normal bowel sounds, no hepatosplenomegaly SkinHickman catheter insertion site right anterior chest wall is unremarkable Extremities-no cyanosis, clubbing, or edema Neuro-cranial nerves II through XII intact, motor and sensory function within normal limits, strength symmetrical, no focal deficits Psych-normal affect, normal mood Results & Data Results & Data Vital Signs (Past 12 Hours) Vital Signs Temp Pulse Resp BP Pulse Ox O2 Del Method 10/08/24 11:31 72 99 Room Air 10/08/24 11:12 87 10/08/24 10:42 36.9 C 81 18 146/77 H 98 Room Air Laboratory Results 10/08/24 11:20 Code Status & VTE Plan Code Status Full code PG Care Time/CCT Total # of Minutes Spent Total Time Spent with Patient: Total time spent is greater than 50% in coordination of care (as documented) at patient's floor/unit and/or counseling patient: Coding Level of Care Code 62647 INT INP/OBS CARE 3/75MIN Diagnoses Bacteremia R78.81 Neuroendocrine malignancy C7A.8 Hypokalemia E87.6 Hypomagnesemia E83.42 History of Crohn's disease Z87.19
[2024-10-08 12:57] LABS: Anion Gap 6.0 (3-11); Bilirubin,Total 0.7 mg/dl (0.2-1.0); Calcium 8.7 mg/dl (8.6-10.3); Carbon Dioxide 23.0 mmol/L (21-32); Chloride 110.0 mmol/L (98-107); Magnesium 2.2 mg/dl (1.7-2.4); Potassium 3.8 mmol/L (3.5-5.1); Sodium 139.0 mmol/L (136-145)
[2024-10-08 13:04] LABS: Alanine Aminotransferase 19.0 U/L (7-52); Alkaline Phosphatase 199.0 U/L (34-104); Blood Urea Nitrogen 13.0 mg/dl (6-23); Creatinine Clr Calc Pharmacy 83.0 ml/min; Glucose 89.0 mg/dl (70-99(Fasting)); Total Protein 5.7 gm/dl (6.0-8.3)
[2024-10-08] MEDS ORDERED: METOCLOPRAMIDE HCL 10 MG TABLET PO PRN (13:41)
[2024-10-08] MEDS ORDERED: ACETAMINOPHEN 325 MG TAB PO PRN (13:41)
--- NOTE | 2024-10-08 14:34 | Pharmacy Report ---
Pharmacy PK ABX Note - Date of Service October 08, 2024 - Assessment and Plan Assessment 59 year old F receiving vancomycin and cefepime for treatment of bacteremia. Patient actively undergoing chemo (last dose 10/07) and has a Woods catheter. Pertinent microbiologic data includes: GPCs and GNB growing in 10/07 blood cultures. BCID2 indicated MRSE and unknown GN. One set of blood cultures appears to be drawn from the Woods catheter. Day # 1 of antimicrobial therapy. Plan Vancomycin * Loading dose: 1000 mg IV x 1 administered at 1200) * Maintenance dose: 1000 mg IV every 12 hours * Regimen is predicted to achieve target AUC/JOSUE of 400-600 mg/L.hr * Random level ordered for: 10/09/24 with AM labs Pharmacy will continue to follow and will adjust dose/frequency as necessary. Thank you. Pharmacy has transitioned to AUC monitoring for vancomycin. AUC/JOSUE is the preferred PK/PD target and is associated with decreased risk of nephrotoxicity compared to traditional trough targets.
--- NOTE | 2024-10-08 14:46 | Infectious Disease Consult ---
Date of Consultation October 08, 2024 Assessment & Plan (1) Bacteremia: (2) Leukocytosis: Plan Problems: #Staph epi bacteremia #GNR bacteremia #Concern for CLABSI Micro: 10/08 BCx x2: pending (prior to antibiotics) 10/07 BCx x2: GPCs in clusters in 3/4 bottles, GNRs in 2/4 bottles. 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 She had shaking chills on 10/03 which resolved, then developed again 10/07. Therefore had blood cultures drawn 10/07 which turned positive, so she was advised to present to the ED. BCx with GPCs in clusters in 3/4 bottles, and GNRs in 2/4 bottles. Biofire positive for methicillin-resistant Staph epi. Denied headache, shortness of breath, N/V/D, urinary symptoms. On presentation, pt was afebrile, VSS. Labs showed WBC 14.2, lactate 2, procal 24.2, UA with 6-10 WBCs. She was started on vancomycin and cefepime. Has Woods catheter in R anterior chest wall placed on 07/05/24. Discussion: Concern for port infection. Will follow-up identification of GNRs. Recommendations: - Continue vanc, cefepime for now - Follow-up identification/sensitivities of GNR - Follow-up repeat blood cultures for clearance - If GNR is MDR or Pseudomonas, or if pt with persistent bacteremia, will need port removed Will continue to follow Consultation Information This patient recommendation is based on a telemedicine consult request which was completed asynchronously through chart review and information provided by the primary physician. The patient was not seen or examined today. The evaluation is consultative in nature and all patient care and treatment decisions can either be accepted or rejected by the patient's primary hospital-based treating physician using their own independent medical judgment for their patient. Movie Operator contact information: Please call [facility] [phone]. (Phone Number For Physician Use Only) An e-consult was done as the video cart is not functioning. 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 She had shaking chills on 10/03 which resolved, then developed ag ain 10/07. She had blood cultures drawn 10/07 which turned positive, she was advised to present to the ED. BCx with GPCs in clusters in 3/4 bottles, and GNRs in 2/4 bottles. Biofire positive for methicillin-resistant Staph epi. Denied headache, shortness of breath, N/V/D, urinary symptoms. On presentation, pt was afebrile, VSS. Labs showed WBC 14.2, lactate 2, procal 24.2, UA with 6-10 WBCs. She was s tarted on vancomycin and cefepime. Has Woods catheter in R anterior chest wall placed on 07/05/24. Allergies Allergy/AdvReac Type Severity Reaction Status Date / Time Penicillins Allergy Intermediate HIVES Verified 10/08/24 12:29 Home Medications Medication Instructions Recorded Confirmed Type Oxygen Home #1 ea 07/07/24 10/01/24 Rx magnesium oxide 400 mg (241.3 mg 400 mg PO BID #20 tabs 08/16/24 10/08/24 Rx magnesium) tablet lorazepam 0.5 mg tablet 0.5 mg PO DAILY PRN Testing/MRI/CT 10/08/24 10/08/24 History potassium chloride 10 mEq 10 meq PO BID 10/08/24 10/08/24 History tablet,extended release Patient History Medical History (Updated 10/08/24 @ 13:19 by Dar Singletary DO) Hypomagnesemia Hypokalemia Thrombocytopenia Port-A-Cath in place right IJ - Dr Frye, 06/2024 Neuroendocrine carcinoma Metastasis to liver Tumor lysis syndrome 06/2024 Sternal fracture (~05/30/24) History of basal cell carcinoma (BCC) of skin R berrios s/p MOHS Mar 2024 Iron deficiency anemia B12 deficiency Vitamin D deficiency Tubular adenoma of colon Crohn's disease Acid reflux Right lower lobe pneumonia Volume overload Mass of small intestine Hypercalcemia Transaminitis Hypomagnesemia Elevated troponin Acute hypoxic respiratory failure Acute encephalopathy Pneumonia Melena Neutropenia Metabolic acidosis Acute UTI (urinary tract infection) Leukocytosis Sepsis RISSA (acute kidney injury) SBO (small bowel obstruction) Surgical History S/P Mohs surgery for basal cell carcinoma (03/2024) R berrios H/O breast biopsy S/P endometrial ablation Hx of oral surgery Family History Grandmother Colorectal cancer Uncle Colorectal cancer Mother Myocardial infarction, Onset Age: 66 Father Hypertension Diabetes Denies family history of Ovarian cancer Prostate cancer Crohn's disease Breast cancer Social History Smoking Status: Never smoker Second Hand Exposure: No; Do You Dip or Chew Tobacco: No; Hx Alcohol Use: No Hx Substance Use: No Preferred Language: Sri Lankan Communication Ability: Effective Visual Impairment: No Limitations Hearing Ability: Normal Vinyl Top Installer Required: No Beliefs That Will Affect Care: None marital status: Current Living Situation: Spouse Current Living Situation Comment: Lives w/ & children in [place] current occupational status: other 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, 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 [employer] How many Children do You have: 3 Feels Safe at Home: Yes Childhood Exposure to Second-Hand Smoke: Yes Diet: regular Diet Comment: Regular caffeine: Yes during the past year weight has: remained stable Dental Care, Regularly: Yes Physical Activity Frequency: 3-4 Times per Week Seatbelt Use: always Sunscreen Use: Yes Assistive Devices: Oxygen - Continuous Results & Data Vital Signs (Past 12 Hours) Vital Signs Temp Pulse Resp BP Pulse Ox O2 Del Method 10/08/24 13:15 82 15 141/84 H 99 10/08/24 13:00 78 15 140/80 99 10/08/24 12:33 79 15 122/78 100 10/08/24 12:18 72 12 134/80 99 10/08/24 12:00 80 19 138/76 100 10/08/24 11:33 78 19 133/76 99 10/08/24 11:31 72 99 Room Air 10/08/24 11:12 87 10/08/24 10:42 36.9 C 81 18 146/77 H 98 Room Air Laboratory Results Short CBC 10/08/24 Range/Units 11:20 WBC 14.20 H (4.8-10.8) K/ul Hgb 9.2 L (12.0-16.0) g/dl Hct 28.2 L (37.0-47.0) % Plt Count 223 (130-400) K/uL BMP 10/08/24 11:20 Sodium 139 Potassium 3.8 D Chloride 110 H Carbon Dioxide 23 BUN 13 Creatinine 0.66 Glucose 89 Calcium 8.7 Liver Function 10/08/24 Range/Units 11:20 Total Bilirubin 0.7 (0.2-1.0) mg/dl Direct Bilirubin 0.2 (0-0.2) mg/dl AST 22 (13-39) U/L ALT 19 (7-52) U/L Alkaline Phosphatase 199 H (34-104) U/L Albumin 3.3 L (3.4-5.0) gm/dl Urine 10/08/24 Range/Units 11:21 Urine Color Yellow Urine Appearance Clear (Clear) Urine pH 6.0 (4.5-7.5) Ur Specific Seale 1.019 (1.000-1.030) Urine Protein 1+ H (Negative) Urine Glucose (UA) Negative (Negative) Medications Administered Current Inpatient Medications Acetaminophen (Acetaminophen 325 Mg Tab) 650 mg PO Q6H PRN PRN Reason: Fever or headache Stop: 11/07/24 13:40 Escitalopram Oxalate (Escitalopram Oxalate 10 Mg Tab) 10 mg PO DAILY KRISTI Stop: 11/08/24 08:59 Folic Acid (Folic Acid 1 Mg Tab) 1 mg PO QAM KRISTI Stop: 11/08/24 08:59 Heparin Sodium (Porcine) (Heparin Sod 5,000 Unit/0.5 Ml Vial) 5,000 units SQ Q12 KRISTI Stop: 11/07/24 20:59 Vancomycin HCl (Vancomycin Hcl) 1,000 mg in 270 mls @ 200 mls/hr IV Q12H KRISTI; Protocol Stop: 10/22/24 19:59 Cefepime HCl (Maxipime 2000mg) 2,000 mg in 20 mls @ 5 mls/min IV Q8H KRISTI; Protocol Stop: 10/22/24 19:59 Potassium Chloride (K Jose Daniel / Wtr) 10 meq in 100 mls @ 100 mls/hr IV Q1H KRISTI Stop: 10/08/24 15:40 Magnesium Sulfate/Dextrose (Magnesium Sulfate / D5w) 1 gm in 100 mls @ 50 mls/hr IV Q2H KRISTI Stop: 10/08/24 17:40 Levetiracetam (Levetiracetam 500 Mg Tab) 500 mg PO BID KRISTI Stop: 11/07/24 20:59 Lorazepam (Lorazepam 1 Mg Tab) 1 mg PO HS PRN PRN Reason: Anxiety Stop: 11/07/24 13:40 Magnesium Oxide (Magnesium Oxide 400 Mg Tab) 400 mg PO BID KRISTI Stop: 11/07/24 20:59 Metoclopramide HCl (Metoclopramide Hcl 10 Mg Tablet) 10 mg PO Q8H PRN PRN Reason: nausea and vomiting Stop: 11/07/24 13:40 Miscellaneous Information (Vancomycin Consult Active) 1 each N/A UD PRN PRN Reason: Consult Stop: 11/07/24 13:40 Ondansetron HCl (Ondansetron Inj 2 Mg/Ml 2 Ml Vial) 4 mg IV Q4H PRN PRN Reason: Nausea Stop: 11/07/24 13:40 Thiamine HCl (Thiamine Hcl 100 Mg Tab) 100 mg PO QAM KRISTI Stop: 11/08/24 08:59 (2) Leukocytosis Leukocytosis type: unspecified Qualified Code(s): D72.829 - Elevated white blood cell count, unspecified
[2024-10-08] MEDS: POTASSIUM CHLORIDE / WTR 10 MEQ/100 ML PLCT IV SCH (15:11)
[2024-10-08] MEDS: MAGNESIUM SULFATE / D5W 1 GM/100 ML BAG IV SCH (15:11)
--- NOTE | 2024-10-08 16:16 | Electrocardiogram Report ---
Test Reason : Blood Pressure : */* mmHG Vent. Rate : 72 BPM Atrial Rate : 72 BPM P-R Int : 138 ms QRS Dur : 78 ms QT Int : 412 ms P-R-T Axes : 14 -8 -2 degrees QTcB Int : 451 ms Normal sinus rhythm Minimal voltage criteria for LVH, may be normal variant Abnormal ECG When compared with ECG of 16-Aug-2024 10:02, Vent. rate has decreased by 39 bpm Confirmed by Valentín Ramos ([id number]) on 10/08/2024 4:16:04 PM Referred By: REFERRED SELF Confirmed By: Valentín Ramos
--- NOTE | 2024-10-08 18:05 | Oncology Consultation ---
Date of Consultation October 08, 2024 Assessment & Plan (1) Bacteremia: (2) Neuroendocrine malignancy: Plan -Agree with broad-spectrum antibiotics -Although she was supposed to receive day 2 of etoposide today and day 3 tomorrow, we will hold off on chemotherapy for now until infection has cleared. -Due to prior history of febrile neutropenia, she requires G-CSF to reduce risk of febrile neutropenia. Recommend initiating G-CSF with filgrastim 480 mcg x 2 days starting 10/10/2024. Start Claritin 10 mg p.o. daily today to reduce risk of G-CSF induced bone pain. History of Present Illness Reason for Consultation: bacteremia, neuroendocrine ca Attending Physician: Ariel Noble MD History of Present Illness 59-year-old female with history of metastatic neuroendocrine carcinoma currently on carboplatin/etoposide with good response to treatment. She received cycle 6, day 1 of treatment with carboplatin/etoposide yesterday. She was admitted at [facility] for bacteremia after blood cultures obtained in oncology clinic yesterday revealed Staph epidermidis bacteremia and gram-n egative melia bacteremia possibly secondary to Woods catheter infection. She denies fever, chills or any other complaints. She was started on vancomycin and cefepime. Evaluated by infectious disease who recommended continue with vancomycin/cefepime and follow-up blood cultures for clearance with possible Woods catheter removal depending on response to antibiotics. Allergies Allergy/AdvReac Type Severity Reaction Status Date / Time Penicillins Allergy Intermediate HIVES Verified 10/08/24 12:29 Home Medications Medication Instructions Recorded Confirmed Type Oxygen Home #1 ea 07/07/24 10/01/24 Rx magnesium oxide 400 mg (241.3 mg 400 mg PO BID #20 tabs 08/16/24 10/08/24 Rx magnesium) tablet lorazepam 0.5 mg tablet 0.5 mg PO DAILY PRN Testing/MRI/CT 10/08/24 10/08/24 History potassium chloride 10 mEq 10 meq PO BID 10/08/24 10/08/24 History tablet,extended release Patient History Medical History (Updated 10/08/24 @ 13:19 by Dar Singletary DO) Hypomagnesemia Hypokalemia Thrombocytopenia Port-A-Cath in place right IJ - Dr Frye, 06/2024 Neuroendocrine carcinoma Metastasis to liver Tumor lysis syndrome 06/2024 Sternal fracture (~05/30/24) History of basal cell carcinoma (BCC) of skin R berrios s/p MOHS Mar 2024 Iron deficiency anemia B12 deficiency Vitamin D deficiency Tubular adenoma of colon Crohn's disease Acid reflux Right lower lobe pneumonia Volume overload Mass of small intestine Hypercalcemia Transaminitis Hypomagnesemia Elevated troponin Acute hypoxic respiratory failure Acute encephalopathy Pneumonia Melena Neutropenia Metabolic acidosis Acute UTI (urinary tract infection) Leukocytosis Sepsis RISSA (acute kidney injury) SBO (small bowel obstruction) Surgical History S/P Mohs surgery for basal cell carcinoma (03/2024) R berrios H/O breast biopsy S/P endometrial ablation Hx of oral surgery Family History Grandmother Colorectal cancer Uncle Colorectal cancer Mother Myocardial infarction, Onset Age: 66 Father Hypertension Diabetes Denies family history of Ovarian cancer Prostate cancer Crohn's disease Breast cancer Social History Smoking Status: Never smoker Second Hand Exposure: No; Do You Dip or Chew Tobacco: No; Hx Alcohol Use: No Hx Substance Use: No Preferred Language: Italian Communication Ability: Effective Visual Impairment: No Limitations Hearing Ability: Normal Stationary Engineer Refrigeration Required: No Beliefs That Will Affect Care: None marital status: Current Living Situation: Family Current Living Situation Comment: Lives w/ & children in [place] current occupational status: other 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, 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 [employer] How many Children do You have: 3 Feels Safe at Home: Yes Childhood Exposure to Second-Hand Smoke: Yes Diet: regular Diet Comment: Regular caffeine: Yes during the past year weight has: remained stable Dental Care, Regularly: Yes Physical Activity Frequency: 3-4 Times per Week Seatbelt Use: always Sunscreen Use: Yes Assistive Devices: None Results & Data Vital Signs (Past 12 Hours) Vital Signs Temp Pulse Resp BP BP Pulse Ox O2 Del Method 10/08/24 16:09 Room Air 10/08/24 16:09 36.7 C 20 136/73 99 Room Air 10/08/24 15:45 85 17 130/73 98 10/08/24 15:30 86 21 130/72 98 10/08/24 15:00 130/76 10/08/24 14:51 84 17 135/74 99 10/08/24 14:24 79 17 133/75 99 10/08/24 14:09 87 23 132/77 99 10/08/24 13:45 82 18 139/80 98 10/08/24 13:15 82 15 141/84 H 99 10/08/24 13:00 78 15 140/80 99 10/08/24 12:33 79 15 122/78 100 10/08/24 12:18 72 12 134/80 99 10/08/24 12:00 80 19 138/76 100 10/08/24 11:33 78 19 133/76 99 10/08/24 11:31 72 99 Room Air 10/08/24 11:12 87 10/08/24 10:42 36.9 C 81 18 146/77 H 98 Room Air
[2024-10-08] MEDS: LORATADINE 10 MG TAB PO SCH (19:02)
[2024-10-08] MEDS: HEPARIN SOD 5,000 UNIT/0.5 ML VIAL SQ SCH (20:24)
[2024-10-08] MEDS: CEFEPIME 2000MG 2,000 MG/20 ML SYR IV SCH (20:24)
[2024-10-08] MEDS: MAGNESIUM OXIDE 400 MG TAB PO SCH (20:25)
[2024-10-08] MEDS: VANCOMYCIN HCL / NSS 1,000 MG/270 ML BAG IV SCH (21:19)
[2024-10-08] MEDS: LORazepam 1 MG TAB PO PRN (22:55)
[2024-10-09 05:57] LABS: Hematocrit (blood only) 22.3 % (37.0-47.0); Hemoglobin 7.2 g/dl (12.0-16.0); Mean Corpuscular Hemoglobin 30.4 pg (25.0-34.0); Mean Corpuscular Volume 94.1 fL (80.0-100.0); Platelet Count 180 K/uL (130-400); RDW Standard Deviation 65.5 fL (36.4-46.3); Red Blood Count 2.37 M/uL (4.20-5.40); White Blood Count 3.54 K/ul (4.8-10.8)
[2024-10-09 06:14] LABS: Alanine Aminotransferase 14.0 U/L (7-52); Albumin Globulin Ratio 1.3 (0.9-2); Alkaline Phosphatase 136.0 U/L (34-104); Anion Gap 2.0 (3-11); Bilirubin,Total 0.6 mg/dl (0.2-1.0); Blood Urea Nitrogen 10.0 mg/dl (6-23); Calcium 8.0 mg/dl (8.6-10.3); Carbon Dioxide 23.0 mmol/L (21-32); Chloride 116.0 mmol/L (98-107); Creatinine Clr Calc Pharmacy 76.0 ml/min; Globulin 2.0 gm/dl (2.5-4.0); Glucose 79.0 mg/dl (70-99(Fasting)); Magnesium 2.3 mg/dl (1.7-2.4); Potassium 3.8 mmol/L (3.5-5.1); Sodium 141.0 mmol/L (136-145); Total Protein 4.5 gm/dl (6.0-8.3)
[2024-10-09 06:55] LABS: Anisocytosis Present; Immature Granulocytes # (auto) 0.01 K/uL (0.01-0.20); Immature Granulocytes % (auto) 0.3 %; Polychromasia 1+
[2024-10-09] MEDS: levETIRAcetam 500 MG TAB PO SCH (07:31)
[2024-10-09] MEDS: FOLIC ACID 1 MG TAB PO SCH (08:06)
[2024-10-09] MEDS: THIAMINE HCL 100 MG TAB PO SCH (08:07)
[2024-10-09] MEDS: ESCITALOPRAM OXALATE 10 MG TAB PO SCH (08:09)
--- NOTE | 2024-10-09 10:24 | Pharmacy Report ---
Pharmacy PK ABX Note - Date of Service October 09, 2024 - Assessment and Plan Assessment 10/09 * Vancomycin random level this AM was ~16 mcg/ml - current vancomycin regimen predicted to achieve goal AUC/JOSUE, therefore will continue current dosing. Still awaiting further culture results. Repeat cultures pending. 10/08: * 59 year old F receiving vancomycin and cefepime for treatment of bacteremia. Patient actively undergoing chemo (last dose 10/07) and has a Woods catheter. Pertinent microbiologic data includes: GPCs and GNB growing in 10/07 blood cultures. BCID2 indicated MRSE and unknown GN. One set of blood cultures appears to be drawn from the Woods catheter. * Day # 1 of antimicrobial therapy. Plan Vancomycin * Continue 1000 mg iv q 12 hours Pharmacy will continue to follow and will adjust dose/frequency as necessary. Thank you. Pharmacy has transitioned to AUC monitoring for vancomycin. AUC/JOSUE is the preferred PK/PD target and is associated with decreased risk of nephrotoxicity compared to traditional trough targets.
--- NOTE | 2024-10-09 12:27 | Hospitalist Progress Note ---
Date of Service October 09, 2024 Assessment & Plan (1) Bacteremia: Plan: Blood cultures obtained October 07 positive for gram-negative bacilli and gram- positive cocci in clusters. She was administered cefepime and vancomycin in the ED which will be continued. She has a Woods catheter in the right anterior chest wall that was placed July 05 of this year. Infectious disease consultation noted. Repeat blood cultures have been ordered. The Woods catheter may yet need to be removed. (2) Neuroendocrine malignancy: Plan: She received chemotherapy on October 07. Oncology consultation and recommendations appreciated. Known metastatic disease involving the liver (3) Hypokalemia: Plan: Corrected with parenteral replacement. Serial labs (4) Hypomagnesemia: Plan: Corrected with parenteral replacement. Serial labs (5) History of Crohn's disease: Plan: Currently quiescent. No intervention needed at this time Plan To be determined by clinical course and blood culture results. Eventual discharge to home Admission and Anticipated Discharge Date Admission Date: October 08, 2024 Subjective Alert and oriented. No distress. Oncology and infectious disease entries noted. Repeat blood cultures have been drawn and remained pending. Hypokalemia and hypomagnesemia have been corrected. She remains on cefepime and vancomycin, day 2. The Woods catheter may yet need to be removed pending blood culture results Review of Systems 2 Review of Systems: Constitutionalintermittent fever and rigors ENTno blurred vision, no double vision, no epistaxis, no sore throat Respiratoryno cough, no wheezing, no shortness of breath Cardiacno palpitations, no chest pain, no syncope Brent nausea, vomiting, diarrhea, melena, hematochezia GUno urinary retention, no urinary incontinence, no dysuria, no hematuria Musculoskeletalno joint pain, no muscle tenderness Skinno bruising, no rashes, no pruritus. Woods catheter insertion site right anterior chest wall is unremarkable Neurono isolated weakness, no paresthesia, no weakness Psychno depression, no anxiety Physical Exam 2 Physical Exam: General-alert and oriented x3, no fever, no chills HEENT-head atraumatic and normocephalic, pupils equal and reactive to light, extraocular muscles intact Neck-no lymphadenopathy or thyromegaly, trachea midline Chest-clear to auscultation. No rales, wheezing or rhonchi Cardiac-regular rate and rhythm, normal S1 and S2 Abdomen-normal bowel sounds, no hepatosplenomegaly SkinHickman catheter insertion site right anterior chest wall is unremarkable Extremities-no cyanosis, clubbing, or edema Neuro-cranial nerves II through XII intact, motor and sensory function within normal limits, strength symmetrical, no focal deficits Psych-normal affect, normal mood Results & Data Results & Data Vital Signs (Past 12 Hours) Vital Signs Temp Pulse Pulse Resp BP BP Pulse Ox 10/09/24 11:57 10/09/24 11:41 36.5 C 73 18 133/82 99 10/09/24 08:00 36.6 C 71 16 137/73 96 10/09/24 07:33 75 10/09/24 03:37 36.5 C 74 16 139/73 97 O2 Del Method 10/09/24 11:57 Room Air 10/09/24 11:41 Room Air 10/09/24 08:00 Room Air 10/09/24 07:33 10/09/24 03:37 Room Air Laboratory Results 10/09/24 05:39 10/09/24 05:39 PG Care Time/CCT Total # of Minutes Spent Total Time Spent with Patient: Total time spent is greater than 50% in coordination of care (as documented) at patient's floor/unit and/or counseling patient: Coding Level of Care Code 82919 SUB INP/OBS CARE 2/35MIN Diagnoses Bacteremia R78.81 Neuroendocrine malignancy C7A.8 Hypokalemia E87.6 Hypomagnesemia E83.42 History of Crohn's disease Z87.19
[2024-10-09] MEDS ORDERED: Nursing to Pharmacy Communication SCH (12:45)
--- NOTE | 2024-10-09 13:43 | Infectious Disease Progress Nt ---
Date of Service October 09, 2024 Assessment & Plan (1) Bacteremia: (2) Leukocytosis: Plan Problems: #Staph epi bacteremia #Acinetobacter ursingii bacteremia #CLABSI #Penicillin allergy (hives) Micro: 10/09 BCx x2: pending 10/08 BCx x2: GPCs in clusters in 1/4 bottles (prior to antibiotics) 10/07 BCx x1 (peripheral): Staph epi in 2/2 bottles, Acinetobacter ursingii in 1/2 botles 10/07 BCx x2 (CVC): Staph epi in 3/4 bottles, Acinetobacter ursingii in 2/4 bottles. 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 She had shaking chills on 10/03 which resolved, then developed again 10/07. Therefore had blood cultures drawn 10/07 which turned positive, so she was advised to present to the ED. BCx with GPCs in clusters in 3/4 bottles, and GNRs in 2/4 bottles. Biofire positive for methicillin-resistant Staph epi. Denied headache, shortness of breath, N/V/D, urinary symptoms. On presentation, pt was afebrile, VSS. Labs showed WBC 14.2, lactate 2, procal 24.2, UA with 6-10 WBCs. She was started on vancomycin and cefepime. Has Woods catheter in R anterior chest wall placed on 07/05/24. Discussion: Concern for port infection. BCx growing Staph epi and Acinetobacter ursingii. Recommendations: - Recommend port removal as Acinetobacter is more prone to forming biofilms - Continue vanc, cefepime - Will add levofloxacin 750 mg PO daily for now, pending Acinetobacter sensitivities - Follow-up repeat blood cultures for clearance Will continue to follow Admission and Anticipated Discharge Date Admission Date: October 08, 2024 Subjective This patient recommendation is based on a telemedicine consult request which was completed asynchronously through chart review and information provided by the primary physician. The patient was not seen or examined today. The evaluation is consultative in nature and all patient care and treatment decisions can either be accepted or rejected by the patient's primary hospital-based treating physi isaiah using their own independent medical judgment for their patient. An e-consult was performed as the video cart is not functioning. Spoke to pt by phone. Time Spent Reviewing Chart: 11 - 20 minutes BCx also growing Acinetobacter ursingii Results & Data Vital Signs (Past 12 Hours) Vital Signs Temp Pulse Pulse Resp BP BP Pulse Ox 10/09/24 11:57 10/09/24 11:41 36.5 C 73 18 133/82 99 10/09/24 08:00 36.6 C 71 16 137/73 96 10/09/24 07:33 75 10/09/24 03:37 36.5 C 74 16 139/73 97 O2 Del Method 10/09/24 11:57 Room Air 10/09/24 11:41 Room Air 10/09/24 08:00 Room Air 10/09/24 07:33 10/09/24 03:37 Room Air (2) Leukocytosis Leukocytosis type: unspecified Qualified Code(s): D72.829 - Elevated white blood cell count, unspecified
[2024-10-09] MEDS: LOPERAMIDE HCL 2 MG CAP PO STA (16:04)
[2024-10-10 06:17] LABS: Hematocrit (blood only) 22.1 % (37.0-47.0); Hemoglobin 7.3 g/dl (12.0-16.0); Immature Granulocytes # (auto) 0.02 K/uL (0.01-0.20); Immature Granulocytes % (auto) 0.7 %; Mean Corpuscular Hemoglobin 30.7 pg (25.0-34.0); Mean Corpuscular Volume 92.9 fL (80.0-100.0); Platelet Count 174 K/uL (130-400); RDW Standard Deviation 63.8 fL (36.4-46.3); Red Blood Count 2.38 M/uL (4.20-5.40); White Blood Count 2.75 K/ul (4.8-10.8)
[2024-10-10 06:34] LABS: Anion Gap 4 (3-11); Blood Urea Nitrogen 10 mg/dl (6-23); Calcium 8.2 mg/dl (8.6-10.3); Carbon Dioxide 25 mmol/L (21-32); Chloride 110 mmol/L (98-107); Creatinine Clr Calc Pharmacy 69.1 ml/min; Glucose 84 mg/dl (70-99(Fasting)); Potassium 3.8 mmol/L (3.5-5.1); Sodium 139 mmol/L (136-145)
[2024-10-10 06:44] LABS: Alanine Aminotransferase 12 U/L (7-52); Albumin Globulin Ratio 1.3 (0.9-2); Alkaline Phosphatase 123 U/L (34-104); Bilirubin,Total 0.6 mg/dl (0.2-1.0); Creatine Kinase < 10 U/L (26-192); Globulin 1.9 gm/dl (2.5-4.0); Magnesium 1.7 mg/dl (1.7-2.4); Tear Drop Cells 1+; Total Protein 4.4 gm/dl (6.0-8.3)
--- NOTE | 2024-10-10 11:08 | Hospitalist Progress Note ---
Date of Service October 10, 2024 Assessment & Plan (1) Bacteremia: Plan: Hey send Enterobacter and Staph epidermidis isolated. Infectious disease has recommended removal of Woods catheter. General surgery consultation requested for removal of Woods catheter. She remains on intravenous cefepime and vancomycin for now. (2) Neuroendocrine malignancy: Plan: She received chemotherapy on October 07. Oncology consultation and recommendations appreciated. Known metastatic disease involving the liver. No further chemotherapy temporarily (3) Hypokalemia: Plan: Corrected with parenteral replacement. Serial labs (4) Hypomagnesemia: Plan: Corrected with parenteral replacement. Serial labs (5) History of Crohn's disease: Plan: Currently quiescent. No intervention needed at this time Plan General surgery consultation requested for Woods catheter removal. The patient is anxious to go home. Hopefully she can be discharged tomorrow, October 11, on an oral antibiotic and follow-up with oncology as an outpatient. Admission and Anticipated Discharge Date Admission Date: October 08, 2024 Subjective Alert and oriented. Afebrile. She is anxious to go home. Infectious disease has recommended removal of Woods catheter since a scented to bacterial was isolated. General surgery consultation requested. Hemoglobin is now 7.3 after IV fluids administered. Oncology consultation noted. Further chemotherapy is currently on hold. Low potassium and magnesium have been corrected. Review of Systems 2 Review of Systems: Constitutionalintermittent fever and rigors ENTno blurred vision, no double vision, no epistaxis, no sore throat Respiratoryno cough, no wheezing, no shortness of breath Cardiacno palpitations, no chest pain, no syncope Brent nausea, vomiting, diarrhea, melena, hematochezia GUno urinary retention, no urinary incontinence, no dysuria, no hematuria Musculoskeletalno joint pain, no muscle tenderness Skinno bruising, no rashes, no pruritus. Woods catheter insertion site right anterior chest wall is unremarkable Neurono isolated weakness, no paresthesia, no weakness Psychno depression, no anxiety Physical Exam 2 Physical Exam: General-alert and oriented x3, no fever, no chills HEENT-head atraumatic and normocephalic, pupils equal and reactive to light, extraocular muscles intact Neck-no lymphadenopathy or thyromegaly, trachea midline Chest-clear to auscultation. No rales, wheezing or rhonchi Cardiac-regular rate and rhythm, normal S1 and S2 Abdomen-normal bowel sounds, no hepatosplenomegaly SkinHickman catheter insertion site right anterior chest wall is unremarkable Extremities-no cyanosis, clubbing, or edema Neuro-cranial nerves II through XII intact, motor and sensory function within normal limits, strength symmetrical, no focal deficits Psych-normal affect, normal mood Results & Data Results & Data Vital Signs (Past 12 Hours) Vital Signs Temp Pulse Pulse Resp BP Pulse Ox O2 Del Method 10/10/24 07:56 36.7 C 81 16 129/75 95 Room Air 10/10/24 07:53 80 10/10/24 04:00 36.6 C 82 18 134/79 97 Room Air 10/10/24 01:54 73 10/09/24 23:49 Room Air Laboratory Results 10/10/24 05:55 10/10/24 05:55 PG Care Time/CCT Total # of Minutes Spent Total Time Spent with Patient: Total time spent is greater than 50% in coordination of care (as documented) at patient's floor/unit and/or counseling patient: Coding Level of Care Code 19774 SUB INP/OBS CARE 2/35MIN Diagnoses Bacteremia R78.81 Neuroendocrine malignancy C7A.8 Hypokalemia E87.6 Hypomagnesemia E83.42 History of Crohn's disease Z87.19
--- NOTE | 2024-10-10 11:10 | Infectious Disease Progress Nt ---
Date of Service October 10, 2024 Assessment & Plan (1) Bacteremia: (2) Leukocytosis: Plan Problems: #Staph epi bacteremia #Acinetobacter ursingii bacteremia #Stenotrophomonas maltophilia bacteremia #CLABSI #Penicillin allergy (hives) Micro: 10/09 BCx x2: NGTD 10/08 BCx x2: Staph epi in 1/4 bottles (prior to antibiotics) 10/07 BCx x1 (peripheral): Staph epi in 2/2 bottles (R oxa. S vanc), Acinetobacter ursingii in 1/2 bottles (S amp/sul, cefepime, pina, tetra, TMP/SMX. I cefotaxime, ceftaz) 10/07 BCx x2 (CVC): Staph epi in 3/4 bottles, Acinetobacter ursingii in 2/4 bottles, Stenotrophomonas maltophilia in 3/4 bottles. 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 She had shaking chills on 10/03 which resolved, then developed again 10/07. Therefore had blood cultures drawn 10/07 which turned positive, so she was advised to present to the ED. BCx with GPCs in clusters in 3/4 bottles, and GNRs in 2/4 bottles. Biofire positive for methicillin-resistant Staph epi. Denied headache, shortness of breath, N/V/D, urinary symptoms. On presentation, pt was afebrile, VSS. Labs showed WBC 14.2, lactate 2, procal 24.2, UA with 6-10 WBCs. She was started on vancomycin and cefepime. Has Woods catheter in R anterior chest wall placed on 07/05/24. Discussion: Concern for port infection. BCx growing Staph epi, Acinetobacter ursingii, and Stenotrophomonas maltophilia. Recommended port removal. Recommendations: - Continue vanc, cefepime (noting penicillin allergy) - Continue levofloxacin 750 mg PO daily pending Stenotrophomonas maltophilia sensitivities - Follow-up repeat blood cultures from 10/09 for clearance - If port is removed and blood cultures clear, can transition to linezolid 600 mg PO BID to cover Staph epi, TMP/SMX 1 DS tab PO BID to cover Acinetobacter, and possible third agent to cover Stenotrophomonas (or likely that TMP/SMX may also cover this) to complete a total 7 day course from date of port removal Please note that ID does not round or write notes over the weekend. If questions or concerns arise, please contact the Infectious Disease Call Center and ask to speak with the covering ID physician. Admission and Anticipated Discharge Date Admission Date: October 08, 2024 Subjective This patient recommendation is based on a telemedicine consult request which was completed asynchronously through chart review and information provided by the primary physician. The patient was not seen or examined today. The evaluation is consultative in nature and all patient care and treatment decisions can either be accepted or rejected by the patient's primary hospital-based treating physician using their own independent medical judgment for their patient. Time Spent Reviewing Chart: 21 - 30 minutes BCx now also growing Stenotrophomonas Results & Data Vital Signs (Past 12 Hours) Vital Signs Temp Pulse Pulse Resp BP Pulse Ox O2 Del Method 10/10/24 07:56 36.7 C 81 16 129/75 95 Room Air 10/10/24 07:53 80 10/10/24 04:00 36.6 C 82 18 134/79 97 Room Air 10/10/24 01:54 73 10/09/24 23:49 Room Air (2) Leukocytosis Leukocytosis type: unspecified Qualified Code(s): D72.829 - Elevated white blood cell count, unspecified
[2024-10-10] MEDS: ONDANSETRON INJ 2 MG/ML 2 ML VIAL IV PRN (17:16)
[2024-10-11 08:19] LABS: Hematocrit (blood only) 22.1 % (37.0-47.0); Hemoglobin 7.2 g/dl (12.0-16.0); Immature Granulocytes # (auto) 0.01 K/uL (0.01-0.20); Immature Granulocytes % (auto) 0.4 %; Mean Corpuscular Hemoglobin 30.1 pg (25.0-34.0); Mean Corpuscular Volume 92.5 fL (80.0-100.0); Platelet Count 164 K/uL (130-400); RDW Standard Deviation 63.2 fL (36.4-46.3); Red Blood Count 2.39 M/uL (4.20-5.40); White Blood Count 2.33 K/ul (4.8-10.8)
[2024-10-11 08:36] LABS: Alanine Aminotransferase 12.0 U/L (7-52); Albumin Globulin Ratio 1.3 (0.9-2); Alkaline Phosphatase 125.0 U/L (34-104); Anion Gap 2.0 (3-11); Bilirubin,Total 0.8 mg/dl (0.2-1.0); Blood Urea Nitrogen 11.0 mg/dl (6-23); Calcium 8.7 mg/dl (8.6-10.3); Carbon Dioxide 26.0 mmol/L (21-32); Chloride 110.0 mmol/L (98-107); Creatinine Clr Calc Pharmacy 72.0 ml/min; Globulin 2.0 gm/dl (2.5-4.0); Glucose 88.0 mg/dl (70-99(Fasting)); Magnesium 1.7 mg/dl (1.7-2.4); Potassium 3.8 mmol/L (3.5-5.1); Sodium 138.0 mmol/L (136-145); Total Protein 4.6 gm/dl (6.0-8.3)
[2024-10-11 08:38] LABS: Tear Drop Cells 1+
[2024-10-11] MEDS: VANCOMYCIN LEVEL ONE (08:41)
--- NOTE | 2024-10-11 09:49 | Pharmacy Report ---
Pharmacy PK ABX Note - Date of Service October 11, 2024 - Assessment and Plan Assessment 10/11 * Vanc level drawn as a trough 19.5 mcg/mL- this suggests supratherapeutic dosing, will reduce dose slightly to maintain goal AUC/JOSUE. Cultures from 10/09 negative at 48 hours. surgery consulted for port removal. 10/09 * Vancomycin random level this AM was ~16 mcg/ml - current vancomycin regimen predicted to achieve goal AUC/JOSUE, therefore will continue current dosing. Still awaiting further culture results. Repeat cultures pending. 10/08: * 59 year old F receiving vancomycin and cefepime for treatment of bacteremia. Patient actively undergoing chemo (last dose 10/07) and has a Woods catheter. Pertinent microbiologic data includes: GPCs and GNB growing in 10/07 blood cultures. BCID2 indicated MRSE and unknown GN. One set of blood cultures appears to be drawn from the Woods catheter. * Day # 1 of antimicrobial therapy. Plan Vancomycin * Reduce maintenance dose to 750 mg q12H * Repeat level in 2 days Pharmacy will continue to follow and will adjust dose/frequency as necessary. Thank you. Pharmacy has transitioned to AUC monitoring for vancomycin. AUC/JOSUE is the preferred PK/PD target and is associated with decreased risk of nephrotoxicity compared to traditional trough targets.
--- NOTE | 2024-10-11 11:49 | Hospitalist Progress Note ---
Date of Service October 11, 2024 Assessment & Plan (1) Bacteremia: Plan: Enterobacter and Staph epidermidis isolated. Fortunately the blood cultures obtained on October 09 remain negative now. Infectious disease has recommended removal of Woods catheter. Multiple surgeons were contacted and it appears the Woods catheter cannot be removed until October 13. This will be done by vascular surgery, Dr. Frye. She remains on intravenous cefepime and vancomycin, day 4, and oral Levaquin, day 2. (2) Neuroendocrine malignancy: Plan: She received chemotherapy on October 07. Oncology consultation and recommendations appreciated. Known metastatic disease involving the liver. No further chemotherapy temporarily (3) Hypokalemia: Plan: Corrected with parenteral replacement. Serial labs (4) Hypomagnesemia: Plan: Corrected with parenteral replacement. Serial labs (5) History of Crohn's disease: Plan: Currently quiescent. No intervention needed at this time Plan Anticipate Woods catheter removal on October 13, per vascular surgery, Dr. Frye. Hopeful discharge to home after that since she is anxious to go home. Await final ID recommendations Admission and Anticipated Discharge Date Admission Date: October 08, 2024 Subjective Stable overall. She was made aware that the Woods catheter could not be removed until Sunday. Fortunately, the blood cultures obtained on October 09 remain negative. Hemoglobin stable today, October 11, at 7.2, down slightly from yesterday 7.3. White blood cell count has fallen to 2.3. She remains on intravenous cefepime and vancomycin, day 4 and oral Levaquin, day 2. Review of Systems 2 Review of Systems: Constitutionalintermittent fever and rigors ENTno blurred vision, no double vision, no epistaxis, no sore throat Respiratoryno cough, no wheezing, no shortness of breath Cardiacno palpitations, no chest pain, no syncope Brent nausea, vomiting, diarrhea, melena, hematochezia GUno urinary retention, no urinary incontinence, no dysuria, no hematuria Musculoskeletalno joint pain, no muscle tenderness Skinno bruising, no rashes, no pruritus. Woods catheter insertion site right anterior chest wall is unremarkable Neurono isolated weakness, no paresthesia, no weakness Psychno depression, no anxiety Physical Exam 2 Physical Exam: General-alert and oriented x3, no fever, no chills HEENT-head atraumatic and normocephalic, pupils equal and reactive to light, extraocular muscles intact Neck-no lymphadenopathy or thyromegaly, trachea midline Chest-clear to auscultation. No rales, wheezing or rhonchi Cardiac-regular rate and rhythm, normal S1 and S2 Abdomen-normal bowel sounds, no hepatosplenomegaly SkinHickman catheter insertion site right anterior chest wall is unremarkable Extremities-no cyanosis, clubbing, or edema Neuro-cranial nerves II through XII intact, motor and sensory function within normal limits, strength symmetrical, no focal deficits Psych-normal affect, normal mood Results & Data Results & Data Vital Signs (Past 12 Hours) Vital Signs Temp Pulse Pulse Pulse Resp BP BP 10/11/24 10:24 10/11/24 07:38 74 10/11/24 07:35 36.8 C 88 18 106/61 10/11/24 03:28 36.7 C 83 16 103/61 Pulse Ox O2 Del Method 10/11/24 10:24 Room Air 10/11/24 07:38 10/11/24 07:35 96 Room Air 10/11/24 03:28 96 Room Air Laboratory Results 10/11/24 07:52 10/11/24 07:52 PG Care Time/CCT Total # of Minutes Spent Total Time Spent with Patient: Total time spent is greater than 50% in coordination of care (as documented) at patient's floor/unit and/or counseling patient: Coding Level of Care Code 88580 SUB INP/OBS CARE 2/35MIN Diagnoses Bacteremia R78.81 Neuroendocrine malignancy C7A.8 Hypokalemia E87.6 Hypomagnesemia E83.42 History of Crohn's disease Z87.19
[2024-10-11] MEDS: VANCOMYCIN 750 MG in SODIUM CHLORIDE 0.9% 250 ML IV SCH (21:46)
[2024-10-12 06:38] LABS: Hematocrit (blood only) 21.9 % (37.0-47.0); Hemoglobin 7.0 g/dl (12.0-16.0); Immature Granulocytes # (auto) 0.01 K/uL (0.01-0.20); Immature Granulocytes % (auto) 0.6 %; Mean Corpuscular Hemoglobin 29.7 pg (25.0-34.0); Mean Corpuscular Volume 92.8 fL (80.0-100.0); Platelet Count 143 K/uL (130-400); RDW Standard Deviation 62.2 fL (36.4-46.3); Red Blood Count 2.36 M/uL (4.20-5.40); White Blood Count 1.60 K/ul (4.8-10.8)
[2024-10-12 06:48] LABS: Anion Gap 5.0 (3-11); Calcium 8.3 mg/dl (8.6-10.3); Carbon Dioxide 25.0 mmol/L (21-32); Chloride 109.0 mmol/L (98-107); Potassium 3.4 mmol/L (3.5-5.1); Sodium 139.0 mmol/L (136-145)
[2024-10-12 06:54] LABS: Blood Urea Nitrogen 12.0 mg/dl (6-23); Creatinine Clr Calc Pharmacy 80.1 ml/min; Glucose 92.0 mg/dl (70-99(Fasting))
[2024-10-12 07:25] LABS: RBC Morphology Unremarkable
--- NOTE | 2024-10-12 14:36 | Hospitalist Progress Note ---
Date of Service October 12, 2024 Assessment & Plan (1) Bacteremia: Plan: Enterobacter and Staph epidermidis isolated. Fortunately the blood cultures obtained on October 09 remain negative. Infectious disease has recommended removal of Woods catheter. This will be done tomorrow, October 13, by vascular surgery, Dr. Frye. She remains on intravenous cefepime and vancomycin, day 5, and oral Levaquin, day 3. (2) Neuroendocrine malignancy: Plan: She received chemotherapy on October 07. Oncology consultation and recommendations appreciated. Known metastatic disease involving the liver. No further chemotherapy temporarily (3) Hypokalemia: Plan: Corrected with parenteral replacement. Serial labs (4) Hypomagnesemia: Plan: Corrected with parenteral replacement. Serial labs (5) History of Crohn's disease: Plan: Currently quiescent. No intervention needed at this time (6) Severe protein-calorie malnutrition: Plan: Per [place] criteria. Plan Anticipate Woods catheter removal on October 13, per vascular surgery, Dr. Frye. Hopeful discharge to home after that since she is anxious to go home. Await final ID recommendations Admission and Anticipated Discharge Date Admission Date: October 08, 2024 Subjective No new problems. Blood cultures obtained October 09 remain negative. Anticipate Woods catheter removal tomorrow, October 13. Hemoglobin has continued to drop, now down to 7.0. White blood cell count 1.6. Fortunately platelet count is normal at 143,000. Intravenous cefepime and vancomycin, day 5 now. Review of Systems 2 Review of Systems: Constitutionalintermittent fever and rigors ENTno blurred vision, no double vision, no epistaxis, no sore throat Respiratoryno cough, no wheezing, no shortness of breath Cardiacno palpitations, no chest pain, no syncope Brent nausea, vomiting, diarrhea, melena, hematochezia GUno urinary retention, no urinary incontinence, no dysuria, no hematuria Musculoskeletalno joint pain, no muscle tenderness Skinno bruising, no rashes, no pruritus. Woods catheter insertion site right anterior chest wall is unremarkable Neurono isolated weakness, no paresthesia, no weakness Psychno depression, no anxiety Physical Exam 2 Physical Exam: General-alert and oriented x3, no fever, no chills HEENT-head atraumatic and normocephalic, pupils equal and reactive to light, extraocular muscles intact Neck-no lymphadenopathy or thyromegaly, trachea midline Chest-clear to auscultation. No rales, wheezing or rhonchi Cardiac-regular rate and rhythm, normal S1 and S2 Abdomen-normal bowel sounds, no hepatosplenomegaly SkinHickman catheter insertion site right anterior chest wall is unremarkable Extremities-no cyanosis, clubbing, or edema Neuro-cranial nerves II through XII intact, motor and sensory function within normal limits, strength symmetrical, no focal deficits Psych-normal affect, normal mood Results & Data Results & Data Vital Signs (Past 12 Hours) Vital Signs Temp Pulse Pulse Resp BP Pulse Ox O2 Del Method 10/12/24 11:43 36.8 C 83 16 143/78 H 98 Room Air 10/12/24 10:08 Room Air 10/12/24 08:07 36.7 C 84 12 121/75 96 Room Air 10/12/24 07:37 81 10/12/24 03:28 36.6 C 84 16 123/75 95 Room Air Laboratory Results 10/12/24 06:05 10/12/24 06:05 PG Care Time/CCT Total # of Minutes Spent Total Time Spent with Patient: Total time spent is greater than 50% in coordination of care (as documented) at patient's floor/unit and/or counseling patient: Coding Level of Care Code 16495 SUB INP/OBS CARE 2/35MIN Diagnoses Bacteremia R78.81 Neuroendocrine malignancy C7A.8 Hypokalemia E87.6 Hypomagnesemia E83.42 History of Crohn's disease Z87.19 Severe protein-calorie malnutrition E43
[2024-10-12] MEDS: FLUCONAZOLE 50 MG TAB PO SCH (20:45)
[2024-10-12] MEDS: CLOTRIMAZOLE VAGINAL CR 7 APPLN/45 GM TUBE PV SCH (21:59)
[2024-10-13 05:54] LABS: Hematocrit (blood only) 22.2 % (37.0-47.0); Hemoglobin 7.1 g/dl (12.0-16.0); Immature Granulocytes # (auto) 0.09 K/uL (0.01-0.20); Immature Granulocytes % (auto) 3.9 %; Mean Corpuscular Hemoglobin 29.6 pg (25.0-34.0); Mean Corpuscular Volume 92.5 fL (80.0-100.0); Platelet Count 142 K/uL (130-400); RDW Standard Deviation 62.0 fL (36.4-46.3); Red Blood Count 2.40 M/uL (4.20-5.40); White Blood Count 2.31 K/ul (4.8-10.8)
[2024-10-13 06:11] LABS: Anion Gap 4.0 (3-11); Blood Urea Nitrogen 12.0 mg/dl (6-23); Calcium 8.4 mg/dl (8.6-10.3); Carbon Dioxide 27.0 mmol/L (21-32); Chloride 108.0 mmol/L (98-107); Creatinine Clr Calc Pharmacy 86.6 ml/min; Glucose 93.0 mg/dl (70-99(Fasting)); Potassium 3.4 mmol/L (3.5-5.1); Sodium 139.0 mmol/L (136-145)
[2024-10-13 06:18] LABS: RBC Morphology Unremarkable
--- NOTE | 2024-10-13 08:32 | Consultation ---
Date of Consultation October 13, 2024 Assessment & Plan (1) Bacteremia: Pt with positve blood cultures on arrival, now negative. Corbett catheter no longer needed for treatment access and may be seeded. Will remove catheter today in OR. Procedure, risks, benefits, and alternatives discussed with pt by myself at Dr Frye's request. Pt expresses understanding and agreement to proceed. Patient was seen, examined, and chart reviewed. Agree with exam and treatment plan of the Vascular PA. History of Present Illness Reason for Consultation: NEED CORBETT REMOVAL Attending Physician: Karen Hollis MD History of Present Illness 59 yo f with hx of neuroendocrine malignancy treated with chemotherapy via corbett catheter, admitted with bacteremia/sepsis, seen in consultation today for removal of Corbett catheter. Corbett catheter placed in June 2024. Pt with negative blood cultures currently and is stable. Corbett catheter no longer needed, as she has finished her chemo treatment. Pt with fever/chills, malaise at home prior to arrival, sx resolved. Pt denies HARRELL, chest pain, SOB, abd pain, N/V, rest pain, claudication, other complaints. Pt overall states is feeling much better and wishes to go home. Pt with leukopenia, however, states she has not gotten her regular post-chemo injections since being admitted. When she receives the injections, her cell counts normalize. Allergies Allergy/AdvReac Type Severity Reaction Status Date / Time Penicillins Allergy Intermediate HIVES Verified 10/08/24 12:29 Home Medications Medication Instructions Recorded Confirmed Type Oxygen Home #1 ea 07/07/24 10/01/24 Rx magnesium oxide 400 mg (241.3 mg 400 mg PO BID #20 tabs 08/16/24 10/08/24 Rx magnesium) tablet lorazepam 0.5 mg tablet 0.5 mg PO DAILY PRN Testing/MRI/CT 10/08/24 10/08/24 History potassium chloride 10 mEq 10 meq PO BID 10/08/24 10/08/24 History tablet,extended release Patient History Medical History Hypomagnesemia Hypokalemia Thrombocytopenia Port-A-Cath in place right IJ - Dr Frye, 06/2024 Neuroendocrine carcinoma Metastasis to liver Tumor lysis syndrome 06/2024 Sternal fracture (~05/30/24) History of basal cell carcinoma (BCC) of skin R berrios s/p MOHS Mar 2024 Iron deficiency anemia B12 deficiency Vitamin D deficiency Tubular adenoma of colon Crohn's disease Acid reflux Right lower lobe pneumonia Volume overload Mass of small intestine Hypercalcemia Transaminitis Hypomagnesemia Elevated troponin Acute hypoxic respiratory failure Acute encephalopathy Pneumonia Melena Neutropenia Metabolic acidosis Acute UTI (urinary tract infection) Leukocytosis Sepsis RISSA (acute kidney injury) SBO (small bowel obstruction) Surgical History S/P Mohs surgery for basal cell carcinoma (03/2024) R berrios H/O breast biopsy S/P endometrial ablation Hx of oral surgery Family History Grandmother Colorectal cancer Uncle Colorectal cancer Mother Myocardial infarction, Onset Age: 66 Father Hypertension Diabetes Denies family history of Ovarian cancer Prostate cancer Crohn's disease Breast cancer Social History Smoking Status: Never smoker Second Hand Exposure: No; Do You Dip or Chew Tobacco: No; Hx Alcohol Use: No Hx Substance Use: No Preferred Language: [place] Citizen Communication Ability: Effective Visual Impairment: No Limitations Hearing Ability: Normal Licensed Life And Health Agent Required: No Beliefs That Will Affect Care: None marital status: Current Living Situation: Family Current Living Situation Comment: Lives w/ & children in [place] current occupational status: other 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, 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 [employer] How many Children do You have: 3 Feels Safe at Home: Yes Childhood Exposure to Second-Hand Smoke: Yes Diet: regular Diet Comment: Regular caffeine: Yes during the past year weight has: remained stable Dental Care, Regularly: Yes Physical Activity Frequency: 3-4 Times per Week Seatbelt Use: always Sunscreen Use: Yes Assistive Devices: None Review of Systems Review of Systems: All systems reviewed & are unremarkable except as noted in HPI & below Physical Exam Constitutional: WD/WN, vitals as above + thin, healthy appearing, cooperative and comfortable; not in distress Respiratory: normal respiratory effort, lungs clear to auscultation Auscultation: + diminished lung sounds Cardiovascular: Rate/Rhythm: regular rate and regular rhythm Vessels: femoral pulses present, posterior tibial pulses present, dorsalis pedis pulses present and radial pulses present; + abnormal peripheral pulses Extremities: normal capillary refill and + vascular access device (corbett catheter. ); no edema Gastrointestinal (Abdomen): Inspection/Auscultation: abdomen normal to inspection and normal bowel sounds Percussion/Palpation: abdomen soft; abdomen nontender Musculoskeletal: no cyanosis or clubbing, extremities motor strength 5/5 Skin: no rashes, warm and dry Neurologic: moves all extremities and awake; no focal motor deficits and not confused Psychiatric: A+Ox3, euthymic affect Results & Data Vital Signs (Past 12 Hours) Vital Signs Temp Pulse Pulse Resp BP BP Pulse Ox 10/13/24 07:12 80 10/13/24 05:00 10/13/24 03:20 36.5 C 83 16 129/76 97 10/12/24 21:52 37.1 C 82 15 143/76 H 98 10/12/24 21:41 84 10/12/24 21:00 Pulse Ox O2 Del Method O2 Del Method 10/13/24 07:12 10/13/24 05:00 98 Room Air 10/13/24 03:20 Room Air 10/12/24 21:52 Room Air 10/12/24 21:41 10/12/24 21:00 98 Room Air
--- NOTE | 2024-10-13 10:10 | Pharmacy Report ---
Pharmacy PK ABX Note - Date of Service October 13, 2024 - Assessment and Plan Assessment 10/13 Day #6 vancomycin * Vanco level drawn today was 18.9mcg/mL which extrapolates to an AUC in the goal range. Will continue with current maintenance dose of vancomycin * Patient scheduled in OR today to have Woods catheter removed. * Blood cultures x 2 from 10/09 remain no growth to date. * She remains afebrile and her renal function is stable and at baseline. 10/11 * Vanc level drawn as a trough 19.5 mcg/mL- this suggests supratherapeutic dosing, will reduce dose slightly to maintain goal AUC/JOSUE. Cultures from 10/09 negative at 48 hours. surgery consulted for port removal. 10/09 * Vancomycin random level this AM was ~16 mcg/ml - current vancomycin regimen predicted to achieve goal AUC/JOSUE, therefore will continue current dosing. Still awaiting further culture results. Repeat cultures pending. 10/08: * 59 year old F receiving vancomycin and cefepime for treatment of bacteremia. Patient actively undergoing chemo (last dose 10/07) and has a Woods catheter. Pertinent microbiologic data includes: GPCs and GNB growing in 10/07 blood cultures. BCID2 indicated MRSE and unknown GN. One set of blood cultures appears to be drawn from the Woods catheter. * Day # 1 of antimicrobial therapy. Plan Vancomycin * Continue maintenance dose of 750 mg q12H * Another vanco level will be drawn in the next few days or as clinically necessary. Pharmacy will continue to follow and will adjust dose/frequency as necessary. Thank you. Pharmacy has transitioned to AUC monitoring for vancomycin. AUC/JOUSE is the preferred PK/PD target and is associated with decreased risk of nephrotoxicity compared to traditional trough targets.
[2024-10-13] MEDS: MIDAZOLAM HCL 1 MG/ML 2ML VIAL ONE (10:20)
--- NOTE | 2024-10-13 10:21 | Pre Anesthesia Assessment ---
Date of Service October 13, 2024 Pre Sedation Assessment Vital Signs Temp Pulse Pulse Resp BP BP Pulse Ox 10/13/24 10:12 10/13/24 09:42 36.7 C 78 16 132/66 99 10/13/24 08:44 36.7 C 80 16 131/72 97 10/13/24 07:12 80 10/13/24 05:00 10/13/24 03:20 36.5 C 83 16 129/76 97 10/12/24 21:52 37.1 C 82 15 143/76 H 98 10/12/24 21:41 84 10/12/24 21:00 10/12/24 19:54 36.9 C 87 16 150/88 H 98 10/12/24 19:25 10/12/24 15:28 37.1 C 83 18 142/84 H 99 10/12/24 14:33 93 H 10/12/24 11:43 36.8 C 83 16 143/78 H 98 Pulse Ox O2 Del Method O2 Del Method 10/13/24 10:12 Room Air 10/13/24 09:42 Room Air 10/13/24 08:44 Room Air 10/13/24 07:12 10/13/24 05:00 98 Room Air 10/13/24 03:20 Room Air 10/12/24 21:52 Room Air 10/12/24 21:41 10/12/24 21:00 98 Room Air 10/12/24 19:54 Room Air 10/12/24 19:25 Room Air 10/12/24 15:28 Room Air 10/12/24 14:33 10/12/24 11:43 Room Air Cardiovascular RRR, no murmur, no edema Respiratory normal respiratory effort, lungs clear to auscultation Pre-Sedation Airway Assessment Smoking Status: Never smoker Short, Thick Neck: No Thyromental Distance: > or= 3.5 Finger Breadths Oral Cavity: + WNL Mallampati Class: I ASA: ASA3 NPO Status Date of Last Intake of Fluids: 10/12/24 Date of Last Intake of Solid Food: 10/12/24 Procedure Planning Contraindications for Sedation: none Current Medications Reviewed: Yes Notes The planned sedation has been discussed with the patient. Informed Consent was obtained. I have identified the patient, determined the appropriateness of sedation and have assessed the patient immediately prior to the procedure. All medicine(s) and interventions are by my order.
--- NOTE | 2024-10-13 10:29 | Post Operative Brief Note ---
Immediate Post Op Note Date of Surgery October 13, 2024 Pre & Post Diagnosis Operation Date: 10/13/24 11:35 Pre-Op Diagnosis: Infected Woods Catheter Post-Op Diagnosis: Infected Woods Catheter I identified the patient and participated in the time-out.: Yes Procedure Operation Date: 10/13/24 11:35 Actual Procedures p Woods Catheter Removal, Moderate Sedation 10:20 - 1035 (Right) - Mane Frye MD Surgeon Mane Frye MD Wall Taper Helper MD Teena Estimated Blood Loss 0 Findings Consistent with Post-Op Diagnosis Specimens cult of tip Anesthesia Type RN Sedation Complications none Disposition Accompanied Patient To Recovery: No
--- NOTE | 2024-10-13 10:32 | Operative Report ---
Post Operative Report Pre & Post Diagnosis Operation Date: 10/13/24 11:35 Pre-Op Diagnosis: Infected Woods Catheter Post-Op Diagnosis: Infected Woods Catheter I identified the patient and participated in the time-out.: Yes Procedure Operation Date: 10/13/24 11:35 Actual Procedures p Woods Catheter Removal, Moderate Sedation 10:20 - 1035 (Right) - Mane Frye MD Surgeon Mane Frye MD Assistant Professor In Family Studies [place] Helms DO Estimated Blood Loss 0 Findings Consistent with Post-Op Diagnosis Catheter removed with no resistance, tip intact. No obvious purulence, however given ease of removal consistent with infected line. Specimens Catheter tip sent for culture. Drains No drain. Anesthesia Type Local Complications None apparent Indications Infected tunneled central venous catheter. Description of Procedure Patient was taken to the angio suite and placed in the supine position. The right side of the neck and chest wall were prepped and draped in a sterile manner. Local anesthesia was then administered to the appropriate areas of the neck and chest wall. The catheter slid out easily without need for disruptution of prior fibrin cuff. Adequate hemostasis was then obtained. A clean dressing was placed over exist site of the catheter. Pressure was applied to the catheter site over the internal jugular vein. The tip of the cathter was sent for culture. The patient left the angio suite in good condition and tolerated the procedure well. Dr. Frye was present and scrubbed for the entire procedure. I attest to the content of the Intraoperative Record and any orders documented therein. Any exceptions are noted below.
[2024-10-13 11:49] VITALS: RESP 16; TEMP 98.4; O2SAT 97
--- NOTE | 2024-10-13 12:22 | XCELERA ---
[id number]
--- NOTE | 2024-10-13 13:10 | Infectious Disease Progress Nt ---
Date of Service October 13, 2024 Assessment & Plan (1) Bacteremia: (2) Leukocytosis: Plan 59 yo F with small intestine neuroendocrine neoplasm with metastasis to the liver (on carboplatin/etoposide), GERD, Crohn's disease who most recently received her chemo on 10/07, sent in to the ED by her oncologist due to positive blood cultures. She had shaking chills on 10/03 which resolved, then developed again 10/07. Therefore had blood cultures drawn 10/07 which turned positive, so she was advised to present to the ED. BCx with GPCs in clusters in 3/4 bottles, and GNRs in 2/4 bottles. Biofire positive for methicillin-resistant Staph epi. Denied headache, shortness of breath, N/V/D, urinary symptoms. On presentation, pt was afebrile, VSS. Labs showed WBC 14.2, lactate 2, procal 24.2, UA with 6-10 WBCs. She was started on vancomycin and cefepime. Has Woods catheter in R anterior chest wall placed on 07/05/24. Problems: #Staph epi bacteremia #Acinetobacter ursingii bacteremia #Stenotrophomonas maltophilia bacteremia #CLABSI #Penicillin allergy (hives) Micro: 10/13 cath tip cx in process 10/09 BCx x2: NGTD 10/08 BCx x2: Staph epi in 1/4 bottles (prior to antibiotics)peripheral 10/07 BCx x1 (peripheral): Staph epi in 2/2 bottles (R oxa. S vanc), Acinetobacter ursingii in 1/2 bottles (S amp/sul, cefepime, pina, tetra, TMP/SMX. I cefotaxim e, ceftaz) 10/07 BCx x2 (CVC): Staph epi in 3/4 bottles, Acinetobacter ursingii in 2/4 bottles, Stenotrophomonas maltophilia in 3/4 bottles ( S TMP/SMX) . Biofire + methicillin R Staph epi Abx: Vanc 10/08 - present Cefepime 10/08 - present Levofloxacin 10/09 - present Discussion: Concern for port infection. BCx growing Staph epi, Acinetobacter ursingii, and Stenotrophomonas maltophilia. Recommended port removal. Port removed today 10/13 Recommendations: - Continue vanco - Discontinued cefepime and levofloxacin as Stenotrophomonas maltophilia and Acinetobacter S to TMP/SMX - Follow-up repeat blood cultures from 10/09 for clearance - Since port is removed, if blood cultures 10/09 remains clear and WBC improves can transition to linezolid 600 mg PO BID to cover Staph epi and TMP/SMX 1 DS tab PO BID to cover Acinetobacter, Stenotrophomonas (or likely that TMP/SMX for a total 7 day course from date of port removal ( 10/13-10/20) - Follow up cath cx -Follow up TTE - Monitor WBc and Plts on Linezolid. - Monitor K and cr on TMP-SMX ID will sign off. call if c/f vegetations on TTE Delmer Boudreaux MD, MPH Infectious Disease [facility] Call [phone] with questions Admission and Anticipated Discharge Date Admission Date: October 08, 2024 Subjective This patient recommendation is based on a telemedicine consult request which was completed asynchronously through chart review and information provided by the primary physician. The patient was not seen or examined today. The evaluation is consultative in nature and all patient care and treatment decisions can either be accepted or rejected by the patient's primary hospital-based treating physician using their own independent medical judgment for their patient. Time Spent Reviewing Chart: 21 - 30 minutes Chart and weekend events reviewed Econsult follow up completed as video cart is not working today She is sp rmoval of port this am cath tip cx pending Afebrile WBc 2.3 ,ANC 1.68, plts 148 Repeat BC 10/09 NGTD Results & Data Vital Signs (Past 12 Hours) Vital Signs Temp Pulse Pulse Resp BP BP Pulse Ox 10/13/24 11:48 36.9 C 83 16 133/79 97 10/13/24 11:41 86 10/13/24 10:35 76 18 133/73 98 10/13/24 10:30 81 18 130/74 98 10/13/24 10:25 79 18 138/74 100 10/13/24 10:20 79 18 142/73 H 100 10/13/24 10:17 80 18 138/72 100 10/13/24 10:12 10/13/24 09:42 36.7 C 78 16 132/66 99 10/13/24 08:44 36.7 C 80 16 131/72 97 10/13/24 07:12 80 10/13/24 05:00 10/13/24 03:20 36.5 C 83 16 129/76 97 Pulse Ox O2 Del Method O2 Del Method O2 Flow Rate 10/13/24 11:48 Room Air 10/13/24 11:41 10/13/24 10:35 Room Air 0 10/13/24 10:30 Room Air 0 10/13/24 10:25 Oxymask 6 10/13/24 10:20 Oxymask 6 10/13/24 10:17 Oxymask 6 10/13/24 10:12 Room Air 10/13/24 09:42 Room Air 10/13/24 08:44 Room Air 10/13/24 07:12 10/13/24 05:00 98 Room Air 10/13/24 03:20 Room Air Laboratory Results 10/08/24 11:20 Aerobic Blood Culture - Final Blood No growth in Aerobic bottle after 5 days. Anaerobic Blood Culture - Preliminary Staphylococcus epidermidis 10/08/24 11:23 Aerobic Blood Culture - Final Blood No growth in Aerobic bottle after 5 days. Anaerobic Blood Culture - Final No growth in Anaerobic bottle after 5 days. 10/13/24 Unknown Catheter Tip Culture - Pending Catheter Tip, Jugular 10/13/24 05:26 WBC 2.31 L RBC 2.40 L Hgb 7.1 L Hct 22.2 L MCV 92.5 MCH 29.6 MCHC 32.0 RDW Std Deviation 62.0 H RDW Coeff of Susanna 18.4 H Plt Count 142 MPV 9.4 Immature Gran % (Auto) 3.9 Neut % (Auto) 72.7 Lymph % (Auto) 13.9 Dunn % (Auto) 6.5 Eos % (Auto) 0.4 Baso % (Auto) 2.6 Neut # (Auto) 1.68 Lymph # (Auto) 0.32 L Dunn # (Auto) 0.15 Eos # (Auto) 0.01 Baso # (Auto) 0.06 Immature Gran # (Auto) 0.09 RBC Morphology Unremarkable Sodium 139 Potassium 3.4 L Chloride 108 H Carbon Dioxide 27 Anion Gap 4 BUN 12 Creatinine 0.66 Est Cr Clr Drug Dosing 86.6 eGFR 102.25 BUN/Creatinine Ratio 18.2 Glucose 93 Calcium 8.4 L Random Vancomycin 18.9 Medications Administered Home Medications Medication Instructions Recorded Confirmed Last Taken Oxygen Home #1 ea 07/07/24 10/01/24 Unknown magnesium oxide 400 mg (241.3 mg 400 mg PO BID #20 tabs 08/16/24 10/08/24 10/08/24 magnesium) tablet lorazepam 0.5 mg tablet 0.5 mg PO DAILY PRN Testing/MRI/CT 10/08/24 10/08/24 Unknown potassium chloride 10 mEq 10 meq PO BID 10/08/24 10/08/24 10/08/24 tablet,extended release Active Medications Generic Name Dose Route Start Last Admin Trade Name Freq PRN Reason Stop Dose Admin Clotrimazole 1 appln 10/12/24 21:00 10/12/24 21:59 Clotrimazole Vaginal Cr 7 Appln/45 Gm Tube PV 10/14/24 20:59 1 appln HS KRISTI Administration Fluconazole 150 mg 10/12/24 19:00 10/12/24 20:45 Fluconazole 50 Mg Tab PO 10/16/24 19:01 150 mg DAILY@1900 KRISTI Administration Folic Acid 1 mg 10/09/24 09:00 10/13/24 08:16 Folic Acid 1 Mg Tab PO 11/08/24 08:59 1 mg QAM KRISTI Administration Heparin Sodium (Beef Lung) 5 ml 10/09/24 03:20 10/10/24 14:14 Heparin 10 Unit/Ml 5 Ml Flush FLUSH 11/08/24 03:19 5 ml PRN PRN Administration Flush Heparin Sodium (Porcine) 5,000 units 10/08/24 21:00 10/13/24 08:17 Heparin Sod 5,000 Unit/0.5 Ml Vial SQ 11/07/24 20:59 5,000 units Q12 KRISTI Administration Cefepime HCl 2,000 mg in 20 mls @ 5 mls/min 10/08/24 20:00 10/13/24 12:13 Maxipime 2000mg IV 10/22/24 19:59 5 mls/min Q8H KRISTI Administration Protocol Vancomycin HCl 750 mg/ Sodium 265 mls @ 200 mls/hr 10/11/24 21:00 10/13/24 11:43 Chloride IV 10/22/24 20:59 Infused Q12H KRISTI Infusion Levofloxacin 750 mg 10/10/24 11:05 10/13/24 12:02 Levofloxacin 750 Mg Tab PO 10/24/24 11:04 750 mg DAILY@1100 KRISTI Administration Protocol Loratadine 10 mg 10/08/24 18:15 10/13/24 08:17 Loratadine 10 Mg Tab PO 11/07/24 18:14 10 mg DAILY KRISTI Administration Lorazepam 1 mg 10/08/24 13:41 10/12/24 20:45 Lorazepam 1 Mg Tab PO 11/07/24 13:40 1 mg HS PRN Administration Anxiety Magnesium Oxide 400 mg 10/08/24 21:00 10/13/24 08:17 Magnesium Oxide 400 Mg Tab PO 11/07/24 20:59 400 mg BID KRISTI Administration Ondansetron HCl 4 mg 10/08/24 13:41 10/11/24 17:07 Ondansetron Inj 2 Mg/Ml 2 Ml Vial IV 11/07/24 13:40 4 mg Q4H PRN Administration Nausea Thiamine HCl 100 mg 10/09/24 09:00 10/13/24 08:17 Thiamine Hcl 100 Mg Tab PO 11/08/24 08:59 100 mg QAM KRISTI Administration (2) Leukocytosis Leukocytosis type: unspecified Qualified Code(s): D72.829 - Elevated white blood cell count, unspecified
--- NOTE | 2024-10-13 14:23 | Discharge Summary ---
Discharge Summary Date of Service October 13, 2024 Principal Dx & Hospital Course #1 = Principal Diagnosis (1) Bacteremia: Enterobacter and Staph epidermidis isolated. Fortunately the blood cultures obtained on October 09 remain negative. Infectious disease has recommended removal of Woods catheter - completed by Dr. Frye 10/13. Echo without vegetations. She recieved intravenous cefepime and vancomycin and oral Levaquin. Per ID transition to linezolid and bactrim BID x 7 days. Catheter tip culture pending ID recs labs while on PO abx - workload sent to PCP (2) Neuroendocrine malignancy: She received chemotherapy on October 07. Oncology consultation and recommendations appreciated. Known metastatic disease involving the liver. No further chemotherapy temporarily until infection clears. Follow up with oncology. (3) Hypokalemia: Corrected with parenteral replacement. Serial labs (4) Hypomagnesemia: Corrected with parenteral replacement. (5) History of Crohn's disease: Currently quiescent. No intervention needed at this time (6) Severe protein-calorie malnutrition: Per [place] criteria. Plan discharge to home today Notes For Next Care Provider will need repeat labs Admission HPI Per Admitting Provider 59-year-old white female currently undergoing chemotherapy for a neuroendocrine tumor with hepatic involvement. She has had recent onset of fever and rigors and blood cultures drawn yesterday are positive for gram-negative bacilli and gram-positive cocci. Unfortunately, she has a Woods catheter in place since July 05 of this year. This could quite possibly be infected. She was administered cefepime and vancomycin in the ED which will be continued. She was also found to be hypokalemic and hypomagnesemic. Infectious disease consultation and oncology consultation requested. Discharge Exam General: NAD, VS as above port removal dressing to left chest Resp: normal respiratory effort, lungs clear to auscultation CV: RRR, no murmur, Extremities: Moves all extremities Neuro: A&O x3, Skin: intact, no lesions noted Discharge Plan Discharge Items Patient Disposition: Home - Self-Care Reason For Visit: BACTERMIA Discharge Diagnosis: Bactermia Condition on Discharge: Good Activity: Resume your previous activity Non-emergency contact: Primary Care Provider Call non-emergency contact if: you have any medication questions, your pain is not controlled and your temperature is above 101.5 Follow-up/Referrals: Carly Vang DO [Primary Care Provider] - 10/21/24 9:20 am () Diet: Regular Addtl Attending Provider Instructions: Ms. Oconnor, You were hospitalized after having fever and chills at home. You were found to be bacteremic (bacteria in the blood). The source of this was thought to be your Woods Catheter. This was removed on 10/13. You had an ultrasound of your heart that showed no vegetations on your heart valve, thankfully. Infectious disease reviewed your case and recommends two oral antibiotics for the next week. This will Bactrim twice a day and linezolid twice a day. Take the first dose of both of thee tonight. You will need labs to follow up on while you take these mediations. I have sent a message to your PCP to have these ordered. Also some of your blood cultures are still pending and the culture of your catheter tip is pending and will need to be reviewed. These results should come to your [facility] portal or can be reviewed with your PCP. Fluconazole continued for yeast infection. Activity: You can do normal everyday activities as your body allows. Take rest breaks if you feel tired. Do not overexert. Stop activity if you have pain, shortness of breath or feel dizzy. Follow-up appointments: Make an appointment with your primary care physician within one week of discharge. A copy of this summary will be sent to them. Every time you see your primary care physician, or any other doctor, bring your medication list, and a list of questions. CONTACT YOUR PRIMARY CARE PROVIDER if you experience any of the following: Shortness of breath or difficulty breathing Fevers or chills Feeling tired with normal activity or experiencing dizziness or fainting Difficulty following your treatment plan, or difficulty taking medications CALL 911 OR GO TO THE EMERGENCY DEPARTMENT if you experience any of the following: Severe abdominal pain or nausea/vomiting Severe chest pain, or chest pain that radiates (moves) to your jaw or arm Sudden, severe shortness of breath or difficulty breathing Thank you for allowing us to participate in your care. Pending Studies at Discharge: Yes (cultures ) Stand-Alone Forms: [employer] [place], Smoking Cessation Medications and DC Order Prescriptions: New clotrimazole 1 % Cream 1 applic vaginal HS Qty: 45 0RF sulfamethoxazole-trimethoprim [Bactrim DS] 800-160 mg Tablet 1 tab PO Q12 Qty: 14 0RF fluconazole 50 mg Tablet 150 mg PO DAILY@1900 Qty: 4 0RF thiamine HCl (vitamin B1) 100 mg Tablet 100 mg PO QAM Qty: 30 0RF folic acid 1 mg Tablet 1 mg PO QAM Qty: 30 0RF linezolid 600 mg tablet 600 mg PO BID Qty: 14 0RF Continued (DME) Oxygen Home Liters Per Minute See Rx Instructions .Route Qty: 1 0RF Rx Instructions: 2L HS PRN- (pt not sure who ordered) magnesium oxide 400 mg (241.3 mg magnesium) tablet 400 mg PO BID Qty: 20 0RF potassium chloride 10 mEq tablet extended release 10 meq PO BID Patient Comments: Pt has the tablets and liquid at home. Has been able to tolerate the tablets due to them being rounded and coated. 10/08/24 lorazepam 0.5 mg tablet 0.5 mg PO DAILY PRN (Reason: Testing/MRI/CT) Discharge Orders: Discharge Order (Routine); Ordered 10/13/24 Ordered By: Libia Laguerre Admission Data Admit Date/Time: 10/08/24 12:03 Attending Provider: Karen Hollis Admit Provider: Ariel Noble Primary Care Provider: Carly Vang Other Providers: Ariel Noble; Trish Jaramillo; Shanae Mustafa; Karen Pichardo; Delmer Boudreaux; Karen Soares; Viki Perkins; Hina Sharep; Mane Frye Other Interventions: Discharge Summary Assessment (RN) Last Done: 10/13/24 14:33 Hospital Stay Data Consultations 10/08/24 11:01 ED Decision to Admit Stat 10/08/24 13:41 Consult Infectious Diseases Routine Consult Oncology Routine 10/10/24 14:37 Consult Vascular Surgery Routine Procedures Performed Operation Date: 10/13/24 11:35 Actual Procedures p Woods Catheter Removal, Moderate Sedation 10:20 - 10:35(Right) - Mane Frye MD Diagnostic Imagining Performed Chest X-Ray 10/08/24 10:53 SINGLE VIEW CHEST CLINICAL HISTORY: Sepsis FINDINGS: An AP, portable, upright chest radiograph is compared to study dated 08/16/2024 and correlated with chest CT dated 08/29/2024. A right internal jugular central venous catheter is unchanged in position. The heart is mildly enlarged noting atherosclerotic calcification of the thoracic aorta. The pulmonary vasculature is noncontrast. Chronic interstitial thickening similar to previous. There is mild bibasilar scarring/atelectasis. No airspace consolidation or pleural effusion is identified. No pneumothorax is seen. The skeletal structures are osteopenic. The bony thorax is grossly intact. IMPRESSION: No acute cardiopulmonary abnormality is identified. ACT 112: Negative or not required by law. Electronically signed by: Yg Wilson M.D. 10/08/2024 11:58 AM Pending Results Patient Have Any Pending Studies at Discharge: Yes (cultures ) Discharge Instructions Given to Patient (Per Discharging Provider) Ms. Oconnor, You were hospitalized after having fever and chills at home. You were found to be bacteremic (bacteria in the blood). The source of this was thought to be your Woods Catheter. This was removed on 10/13. You had an ultrasound of your heart that showed no vegetations on your heart valve, thankfully. Infectious disease reviewed your case and recommends two oral antibiotics for the next week. This will Bactrim twice a day and linezolid twice a day. Take the first dose of both of thee tonight. You will need labs to follow up on while you take these mediations. I have sent a message to your PCP to have these ordered. Also some of your blood cultures are still pending and the culture of your catheter tip is pending and will need to be reviewed. These results should come to your [facility] portal or can be reviewed with your PCP. Fluconazole continued for yeast infection. Activity: You can do normal everyday activities as your body allows. Take rest breaks if you feel tired. Do not overexert. Stop activity if you have pain, shortness of breath or feel dizzy. Follow-up appointments: Make an appointment with your primary care physician within one week of discha rge. A copy of this summary will be sent to them. Every time you see your primary care physician, or any other doctor, bring your medication list, and a list of questions. CONTACT YOUR PRIMARY CARE PROVIDER if you experience any of the following: Shortness of breath or difficulty breathing Fevers or chills Feeling tired with normal activity or experiencing dizziness or fainting Difficulty following your treatment plan, or difficulty taking medications CALL 911 OR GO TO THE EMERGENCY DEPARTMENT if you experience any of the follow ing: Severe abdominal pain or nausea/vomiting Severe chest pain, or chest pain that radiates (moves) to your jaw or arm Sudden, severe shortness of breath or difficulty breathing Thank you for allowing us to participate in your care. Total Time Total Time Spent Total Time Spent (In Minutes): Time spent day of discharge 36 minutes including direct patient care, medication reconciliation, documentation, review of labs and images, and coordination of care. case discussed with ID Coding Level of Care Code 33990 INP/OBS DISCH >30 MIN Diagnoses Bacteremia R78.81 Neuroendocrine malignancy C7A.8 Hypokalemia E87.6 Hypomagnesemia E83.42 History of Crohn's disease Z87.19 Severe protein-calorie malnutrition E43
[2024-10-13 14:35] VITALS: BP 132/66; PULSE 83
[2024-10-13] MEDS ORDERED: SULFAMETHOXAZOLE/TRIMETHOPRIM DS 800/160MG TAB PO SCH (21:00)
== END 2024-10-13 15:10 | disposition home health service (06) | DRG 314 ==
LOC: SUATTDRO → ED 10:38 → SUATTDRO 12:03 → EDINP 12:03 → 2W 13:41